=== PATIENT | female | born 1995 | race Caucasian/White ===

== ENCOUNTER → 2017-11-18 11:56 | Outpatient (CLI) | payer OTHER, BC, SELFPAY ==
--- NOTE | 2017-11-18 11:56 | DT_ITS ---
This patient was seen during an EMR downtime November 17, 2017 - November 24, 2017. This patient may have a combination of paper and electronic documentation or all paper documentation. All documentation is viewable within the e-chart portion of [employer] for each patient visit.
[2017-11-22 09:17] LABS: Chlamydia Trachomatis by PCR Negative (Negative); Neisserai gonorrhoeae by PCR Negative (Negative); Probe Check PASS; Sample Adequacy Control PASS; Specimen Processing Control PASS
[2017-11-24 21:40] LABS: Hematocrit 40.2 % (37-47); Hemoglobin 13.1 g/dl (12.0-15.0); Red Blood Count 4.89 M/mm3 (4.2-5.4); White Blood Count 8.4 K/mm3 (4.4-11.0)
[2017-11-24 21:41] LABS: Mean Corpuscular Hgb 26.8 pg (27.0-32.0); Mean Corpuscular Volume 82.2 fL (81-99)
[2017-11-24 21:42] LABS: Absolute Neutrophil Count 6.1 X10^3/uL (2.0-7.7); Basophil% 0.2 % (0-1); Eosinophils% 0.1 % (0-5); Lymphocyte # 1.71 X10^3/ul (4.0); Lymphocyte % 20.4 % (19-41); Mean Corp Hgb Conc 32.6 g/gl (32-36); Mean Platelet Vol. 9.8 fl (6.2-12.0); Neutrophil # 6.13 X10^3/uL (2.7-7.7); Neutrophil % 73.2 % (47-70); POSITIVE COUNT NO; POSITIVE DIFFERENTIAL NO; POSITIVE MORPHOLOGY NO; Platelet Count 298 K/mm3 (150-450); RBC Distribution Width CV 13.4 % (11.6-14.6); RBC Distribution Width SD 39.8 fl (35.1-43.9)
[2017-11-24 21:43] LABS: Absolute Lymphocyte Count 1.71 X10^3/ul (0.83-4.51); Basophil# 0.02 X10^3/uL; Eosinophil# 0.01 X10^3/uL
[2017-11-28 03:46] LABS: Rapid Plasmin Reagin (RPR) NONREACTIVE (NONREACTIVE)
== END ==
PROVIDERS: Family Provider Family Medicine; PCP Family Medicine; Visit Provider Obstetrics & Gynecology
DX: Z34.01 Encounter for supervision of normal first pregnancy, first trimester (principal)
CPT/HCPCS: 36415; 85025; 86592; 86703; 86762; 86850; 86900; 87086; 87491; 87591

== ENCOUNTER → 2017-12-15 16:27 | Outpatient (CLI) | payer OTHER, BC, SELFPAY ==
[2017-12-15 19:01] LABS: HIV - WCH Non-Reactive (Nonreactive); Rubella IgG 40.8 IU/mL
== END ==
PROVIDERS: Family Provider Family Medicine; PCP Family Medicine; Visit Provider Obstetrics & Gynecology
DX: Z34.90 Encounter for supervision of normal pregnancy, unspecified, unspecified trimester (principal)
CPT/HCPCS: 36415; 86703; 86762

== ENCOUNTER → 2018-02-05 12:12 | Outpatient (CLI) | payer OTHER, BC, SELFPAY | PROVIDERS: Family Provider Family Medicine; PCP Family Medicine; Visit Provider Obstetrics & Gynecology | DX: O32.1XX0 Maternal care for breech presentation, not applicable or unspecified (principal); Z3A.20 20 weeks gestation of pregnancy | CPT/HCPCS: 76805 ==

== ENCOUNTER → 2018-02-09 15:27 | Outpatient (CLI) | payer OTHER, BC, SELFPAY | PROVIDERS: Family Provider Family Medicine; PCP Family Medicine; Visit Provider Obstetrics & Gynecology | DX: Z36.9 Encounter for antenatal screening, unspecified (principal) | CPT/HCPCS: 36415 ==

== ENCOUNTER → 2018-04-03 12:29 | Outpatient (CLI) | payer OTHER, SELFPAY ==
[2018-04-03 13:36] LABS: Absolute Lymphocyte Count 1.22 X10^3/ul (0.83-4.51); Basophil# 0.02 X10^3/uL; Basophil% 0.2 % (0-1); Eosinophil# 0.02 X10^3/uL; Eosinophils% 0.2 % (0-5); Hematocrit 32.1 % (37-47); Hemoglobin 10.2 g/dl (12.0-15.0); Lymphocyte # 1.22 X10^3/ul (4.0); Lymphocyte % 13.8 % (19-41); Mean Corp Hgb Conc 31.8 g/gl (32-36); Mean Corpuscular Hgb 26.6 pg (27.0-32.0); Mean Corpuscular Volume 83.8 fL (81-99); Mean Platelet Vol. 9.1 fl (6.2-12.0); Monocyte# 0.55 X10^3/uL; Monocyte% 6.2 % (0-10); Neutrophil % 79.4 % (47-70); Platelet Count 233 K/mm3 (150-450); RBC Distribution Width CV 13.5 % (11.6-14.6); RBC Distribution Width SD 41.2 fl (35.1-43.9); Red Blood Count 3.83 M/mm3 (4.2-5.4); White Blood Count 8.8 K/mm3 (4.4-11.0)
[2018-04-03 13:37] LABS: POSITIVE COUNT NO; POSITIVE DIFFERENTIAL NO; POSITIVE MORPHOLOGY NO
[2018-04-03 13:51] LABS: Glucose Challenge Gest 1H 50g 87 mg/dL (70-140)
== END ==
PROVIDERS: Family Provider Family Medicine; PCP Family Medicine; Referring Provider Obstetrics & Gynecology; Visit Provider Obstetrics & Gynecology
DX: Z34.90 Encounter for supervision of normal pregnancy, unspecified, unspecified trimester (principal)
CPT/HCPCS: 36415; 82950; 85025

== ENCOUNTER → 2018-06-02 18:54 | Outpatient (CLI) | payer OTHER, SELFPAY ==
[2018-06-02 14:07] VITALS: BMI 25.2
--- OUTSIDE RECORDS SUMMARY | 2018-09-04 06:15 | XMS RPT_ITS ---
:1995 Author Organization [place] Support Name Relationship Address Phone POLA, AURORA Unavailable [address] + [address] Unavailable [address] + [place] [address] ELVIRA BRADLEYVY Unavailable [address] + [place] [address] POLA, AURORA Unavailable [address] + [address] Unavailable [address] + [place] [address] WORKELVIRA MURILLOVY Unavailable [address] + [place] [address] POLA, AURORA Unavailable [address] + [address] Unavailable [address] + [place] [address] WORKELVIRA MURILLOVY Unavailable [address] + [place] [id number] POLA, AURORA Unavailable [address] + [address] Unavailable [address] + [place] [address] WORKELVIRA MURILLOVY Unavailable [address] + [place] [address] POLA, AURORA Unavailable [address] + [place] [id number] [facility] Unavailable [address] + [place] [address] WORKELVIRA MURILLOVY Unavailable [address] + [place] [id number] POLA, AURORA Unavailable [address] + [place] [address] [facility] Unavailable [address] + [place] [address] WORKMAN DELVY Unavailable [address] + [place] [address] POLA, AURORA Unavailable [address] + [place] [address] [facility] Unavailable [address] + [place] [address] WORKMAN DELVY Unavailable [address] + [place] [address] POLA, AURORA Unavailable [address] + [place] [address] [facility] Unavailable [address] + [place] [address] WORKMAN DELVY Unavailable [address] + [place] [address] POLA, AURORA Unavailable [address] + [place] [address] [facility] Unavailable [address] + [place] [address] WORKMAN, DELVY Unavailable [address] + [place] [address] POLA, AURORA Unavailable [address] + [place] [address] [facility] Unavailable [address] + [place] [address] WORKMAN DELVY Unavailable [address] + [place] [address] POLA, AURORA Unavailable [address] + [place] [address] [facility] Unavailable [address] + [place] [address] WORKMAN DELVY Unavailable [address] + [place] [address] POLA, AURORA Unavailable [address] + [place] [address] [facility] Unavailable [address] + [place] [address] WORKMAN, DELVY Unavailable [address] + [place] [address] POLA, AURORA Unavailable [address] + [place] [address] [facility] Unavailable [address] + [place] [address] WORKMAN DELVY Unavailable [address] + [place] [address] POLA, AURORA Unavailable [address] + [place] [address] [address] Unavailable [address] + [place] [address] WORKCHIDI DELVY Unavailable [address] + [place] [address] POLA, AURORA Unavailable [address] + [place] [address] [facility] Unavailable [address] + [place] [address] WORKMAN DELVY Unavailable [address] + [place] [address] POLA, AURORA Unavailable [address] + [place] [address] H Unavailable [address] + [place] [address] WORKMAN DELVY Unavailable [address] + [place] [address] POLA, AURORA Unavailable [address] + [place] [address] [facility] Unavailable [address] + [place] [address] WORKMAN DELVY Unavailable [address] + [place] [address] POLA, AURORA Unavailable [address] + [place] [address] H Unavailable [address] + [place] [address] WORKMAN DELVY Unavailable [address] + [place] [address] POLA, AURORA Unavailable [address] + [place] [address] [facility] Unavailable [address] + [place] [address] WORKMANELVIRAVY Unavailable [address] + [place], [place] [address] POLA, AURORA Unavailable [address] + [address] Unavailable [address] + [place] [address] WORKMAN DELVY Unavailable [address] + [facility] POLA, AURORA Unavailable [address] + [place], [address] Unavailable [address] + [place] [address] WORKCHIDI DELVY Unavailable [address] + [place], [facility] POLA, AURORA Unavailable [address] + [address] Unavailable [address] + [place] [address] WORKCHIDI DELVY Unavailable [address] + [place], [facility] POLA, AURORA Unavailable [address] + [address] Unavailable [address] + [place] [address] WORKCHIDI DELVY Unavailable [address] + [place], [facility] POLA, AURORA Unavailable [address] + [address] Unavailable [address] + [place] [address] WORKMAN DELVY Unavailable [address] + [place], [facility] POLA, AURORA Unavailable [address] + [address] Unavailable [address] + [place] [address] WORKMAN DELVY Unavailable [address] + [place] [id number] POLA, AURORA Unavailable [address] + [address] Unavailable [address] + [place] [address] ELVIRA BRADLEYVY Unavailable [address] + [place] [id number] POLA, AURORA Unavailable [address] + [address] Unavailable [address] + [place] [address] CECILIA BRADLEYY Unavailable [address] + [place] [address] POLA, AURORA Unavailable [address] + [address] Unavailable [address] + [place] [address] ELVIRA BRADLEYVY Unavailable [address] + [place] [address] POLA, AURORA Unavailable [address] + [address] Unavailable [address] + [place] [address] POLA, AURORA Unavailable [address] + [address] Unavailable [address] + [place] [address] POLA, AURORA Unavailable [address] + [address] Unavailable [address] + [place] [address] CECILIA BRADLEYY Unavailable [address] + [place] [id number] Care Team Providers Name Role Phone Leah Benavides Attending Unavailable WILFREDO, RATNA Primary Care Unavailable Leah Benavides Referring Unavailable Leah Benavides Attending Unavailable Leah Benavides Referring Unavailable WILFREDO, RATNA Primary Care Unavailable Leah Benavides Admitting Unavailable Leah Benavides Attending Unavailable Leah Benavides Referring Unavailable WILFREDO, RATNA Primary Care Unavailable Leah Benavides Consulting Unavailable Marcanthony, Leah Attending Unavailable WILFREDO, RATNA Referring Unavailable Marcanthony, Leah Admitting Unavailable Marcanthony, Leah Attending Unavailable Marcanthony, Leah Referring Unavailable WILFREDO, RATNA Primary Care Unavailable Marcanthony, Leah Attending Unavailable WILFREDO, RATNA Referring Unavailable WILFREDO, RATNA Attending Unavailable Marcanthony, Leah Attending Unavailable WILFREDO, RATNA Referring Unavailable Marcanthony, Leah Attending Unavailable Marcanthony, Leah Referring Unavailable WILFREDO, RATNA Primary Care Unavailable Asim, Mamadou Attending Unavailable WILFREDO, RATNA Referring Unavailable WILFREDO, RATNA Primary Care Unavailable Asim, Mamadou Attending Unavailable WILFREDO, RATNA Referring Unavailable Marcanthony, Leah Attending Unavailable WILFREDO, RATNA Referring Unavailable Marcanthony, Leah Attending Unavailable Marcanthony, Leah Referring Unavailable WILFREDO, RATNA Primary Care Unavailable Marcanthony, Leah Consulting Unavailable Marcanthony, Leah Attending Unavailable Marcanthony, Leah Referring Unavailable WILFREDO, RATNA Primary Care Unavailable Marcanthony, Leah Attending Unavailable WILFREDO, RATNA Referring Unavailable Marcanthony, Leah Attending Unavailable WILFREDO, RATNA Referring Unavailable Marcanthony, Leah Attending Unavailable WILFREDO, RATNA Referring Unavailable Lucia, Vani Attending Unavailable WILFREDO, RATNA Referring Unavailable Lucia, Vani Attending Unavailable WILFREDO, RATNA Referring Unavailable Marcanthony, Leah Attending Unavailable Marcanthony, Leah Referring Unavailable WILFREDO, RATNA Primary Care Unavailable Marcanthony, Leah Attending Unavailable WILFREDO, RATNA Referring Unavailable [place], Vani Attending Unavailable WILFREDO, RATNA Referring Unavailable Marcanthony, Leah Attending Unavailable WILFREDO, RATNA Primary Care Unavailable Marcanthony, Leah Attending Unavailable WILFREDO, RATNA Referring Unavailable WILFREDO, RATNA Primary Care Unavailable Marcanthony, Leah Attending Unavailable Marcanthony, Leah Referring Unavailable WILFREDO, RATNA Primary Care Unavailable Lucia, Vani Attending Unavailable WILFREDO, RATNA Referring Unavailable WILFREDO, RATNA Primary Care Unavailable Marcanthony, Leah Attending Unavailable WILFREDO, RATNA Referring Unavailable WILFREDO, RATNA Primary Care Unavailable Marcanthony, Leah Admitting Unavailable Lucia, Vani Attending Unavailable Marcanthony, Leah Referring Unavailable WILFREDO, RATNA Primary Care Unavailable Marcanthony, Leah Consulting Unavailable Marcanthony, Leah Admitting Unavailable Gales FerryVani randhawa Attending Unavailable Marcanthony, Leah Referring Unavailable WILFREDO, RATNA Primary Care Unavailable Marcanthony, Leah Consulting Unavailable Marcanthony, Leah Attending Unavailable WILFREDO, RATNA Referring Unavailable ASSESSMENT, HEALTH RISK Attending Unavailable ASSESSMENT, HEALTH RISK Referring Unavailable WILFREDO, RATNA Primary Care Unavailable Mack, Jessica Attending Unavailable Wilfredo, Ratna Primary Care Unavailable Mack, Jessica Attending Unavailable Wilfredo, Ratna Primary Care Unavailable Mack, Jessica Admitting Unavailable Newbill, Maco Surya Admitting Unavailable Newbill, Maco Surya Attending Unavailable Wilfredo, Ratna Primary Care Unavailable PROBLEMS PROBLEMS DATE TYPE CONDITION / CODE ATTENDING STATUS SOURCE 07/01/2018 Unknown Z34.03 - Encounter Makayla, Active [place] for supervision of [facility] first Hospital , third Repository trimester / Z34.03(ICD-10) 07/01/2018 Unknown Z3A.40 - 40 weeks Marcanthony, Active [place] gestation of [facility] / Hospital Z3A.40(ICD-10) Repository 06/17/2018 Unknown Z3A.38 - 38 weeks Marcanthony, Active [place] gestation of [facility] / Hospital Z3A.38(ICD-10) Repository 06/11/2018 Unknown Z3A.36 - 36 weeks Marcanthony, Active [place] gestation of [facility] / Hospital Z3A.36(ICD-10) Repository 06/03/2018 Unknown Z34.90 - Encounter Makayla, Active [place] for supervision of [facility] , Hospital unspecified, Repository unspecified trimester / Z34.90(ICD-10) 05/06/2018 Unknown Z3A.32 - 32 weeks Marcanthony, Active [place] gestation of [facility] / Hospital Z3A.32(ICD-10) Repository 04/20/2018 Unknown Z34.02 - Encounter Vani Myers Active [place] for supervision of [facility] normal first Hospital , second Repository trimester / Z34.02(ICD-10) 04/20/2018 Unknown Z3A.30 - 30 weeks Vani Myers Active [place] gestation of [facility] / Hospital Z3A.30(ICD-10) Repository 04/03/2018 Unknown Z23 - Encounter Makayla, Active [place] for immunization / [facility] Z23(ICD-10) Hospital Repository 04/03/2018 Unknown Z3A.27 - 27 weeks Makayla, Active [place] gestation of [facility] / Hospital Z3A.27(ICD-10) Repository 03/10/2018 Unknown Z3A.24 - 24 weeks Vani Myers Active [place] gestation of [facility] / Hospital Z3A.24(ICD-10) Repository 03/06/2018 Unknown Z36.9 - Encounter [facility], Active [place] for [facility] Hospital unspecified / Repository Z36.9(ICD-10) 02/09/2018 Unknown Z3A.20 - 20 weeks Makayla, Active [place] gestation of [facility] / Hospital Z3A.20(ICD-10) Repository 01/12/2018 Unknown Z3A.16 - 16 weeks Vani Myers Active [place] gestation of [facility] / Hospital Z3A.16(ICD-10) Repository 02/06/2018 Unknown Z34.01 - Encounter [facility], Active [place] for supervision of [facility] , first Repository trimester / Z34.01(ICD-10) PROCEDURES PROCEDURES No Procedure Records FoundRESULTS RESULTS DISCHARGE INSTRUCTION Observed: 07/08/2018 Status: F Source: [place] 8:09 AM [facility] [place] REPOSITORY [facility] Medical Records Department [address] [place] [address] Instructions for Home/Discharge Instructions 07/08/18 0809 MR#: [id number] Acct: [id number] Name: JUSTIN OTT Rep #: [id number] : 1995 22 From: Vani Myers [employer] PCP: Ratna Villalobos MD Status: ADM IN Additional Instructions: If you experience any of the following, contact your healthcare provider. * Bleeding that soaks a pad every hour for 2 hours * Fever 100.4 or higher * Unrelieved incision or abdominal pain * Swelling, redness, discharge or bleeding from your incision or episiotomy site * Your incision begins to separate * Problems urinating (including inability to urinate or burning while urinating). * Visual changes * Severe headache * Flu-like symptoms * Pain or redness in one of both of your breasts * Pain, warmth, tenderness or swelling in your legs, especially the calf area * Frequent nausea and vomiting * Symptoms of depression or anxiety If you experience any of the following, call 911 or go to the nearest Emergency Room. * Chest pain * Problems breathing * Seizure activity * Partial or complete paralysis of a body part, slurred speech, weakness or drooping of the face, or a sudden inability to walk or hold your balance Allergies/Adverse Reactions: Allergies No Known Allergies Allergy (Verified 07/01/18 11:37) Medications to take at Discharge vitamin#30 30 mg iron-10 mg iron-folic acid 1 mg- omg3 capsule cap PO cap 06/17/18 Naproxen [Naprosyn] 500 mg PO BID PRN PRN #60 tablet 07/08/18 The following prescriptions were given: Naproxen [Naprosyn] 500 mg PO BID PRN PRN #60 tablet PRN Reason: Pain Primary Care Physician: Ratna Villalobos MD [Primary Care Provider] - Test Results: Test results from this visit will be discussed in further detail at your follow-up appointment, if applicable. 07/08/18 0809 <Electronically signed by Vani GERMAN> Date Vani GERMAN CC: Ratna Villalobos MD Signed OPERATIVE REPORT Observed: 07/07/2018 Status: F Source: [place] 7:26 PM [facility] [place] REPOSITORY [facility] Medical Records Department [address] [place] [id number] Operative Report 07/07/181921 MR#: [id number] Acct: [id number] Name: JUSTIN OTT Rep #: [id number] : 1995 From: Leah Benavdies MD PCP: Ratna Villalobos MD Status: ADM IN Location: [id number] - Problem List (1) Status: Acute Qualifiers: Comment: genetic screening declined. AFP -negative. anatomy scan reviewed. (2) Supervision of normal Status: Acute Qualifiers: Comment: PRR KATH 06/29/18 boy Mehul boyfriend Delvy Vaginal Delivery Maternal Presentation: Medically Indicated Induction Method of Induction: Pitocin, [facility] Medical Reason for Induction: Post term Amniotic Membrane Rupture Type: Artificial Amniotic Fluid Description: Clear Final KATH: 06/29/18 Gestational age: 41 Weeks and 0 Days Date of Procedure: 07/06/18 Pre-Operative Diagnosis: ial Post-Operative Diagnosis: same Surgery/ Procedure Performed: Spontaneous Vaginal Delivery Type of Anesthesia: Epidural Description of Procedure: Patient began pushing and delivered the head in the direct OP presentation. The head was delivered atraumatically. The anterior and posterior shoulders delivered without complication followed by the rest of the infant and the was placed on the maternal abdomen. Delayed cord clamping was employed for approximately 60 seconds. Cord was clamped and cut and gentle traction was applied to the cord and the placenta delivered spontaneously immediately following it was noted to be intact with three-vessel cord. The perineum and vagina were inspected and noted to have 1/4 degree perineal laceration. The perineal body was noted to be extremely shortened and the vaginal to have rectal distance decreased. The rectal mucosa was reapproximated with 3-0 Vicryl repeat and an additional layer of 3-0 Rapide over the mucosa supporting it. The anal sphincter and capsule were reapproximated with 2-0 PDS [id number] sutures x3. The remainder of the laceration was repaired in the usual fashion with 3-0 Vicryl repeat. The bulbocavernosus muscles noted to be significantly atrophic and lateral in the perineal body was naturally small.. EBL was 400 cc. Patient and infant tolerated delivery well. Presentation: ROP Placental Delivery Description: Spontaneous Placenta Disposition: [facility] Cord Vessel Description: 3 Vessels Cord Entanglement: None Estimated Blood Loss: 400 A gender: Male Episiotomy Description: None Laceration: Perineal Extension/lac, 4th Degree Medications given after delivery: IV Pitocin Complications: - - 4th degree laceration 07/07/181925 <Electronically signed by Leah Benavides MD> Date Leah Benavides MD CC: Ratna Villalobos MD; Leah Benavides MD Signed HISTORY AND PHYSICAL Observed: 07/05/2018 Status: F Source: [place] EXAM 8:43 PM [facility] [place] REPOSITORY [facility] Medical Records Department [address] [place] [address] History and Physical 07/05/182039 MR#: [id number] Acct: [id number] Name: JUSTIN OTT Rep #: [id number] : 1995 22 From: Leah Benavides MD PCP: Ratna Villalobos MD Status: ADM IN Y Location: [id number] - Problem List (1) Status: Acute Qualifiers: Comment: genetic screening declined. AFP -negative. anatomy scan reviewed. (2) Supervision of normal Status: Acute Qualifiers: Comment: PRR KATH 06/29/18 boy Mehul boyfriend Aneudy History Date of Admission: 07/05/18 Final KATH: 06/29/18 Gestational age: 40 Weeks and 6 Days History of this : This is a 22 year-old, at 40 weeks gestational age presents IOL postdates Surgical History: Surgical History (Last Reviewed 07/01/18 @ 11:37 by Sindhu Miller) History of arthroscopy of right shoulder Z98.890 05/06/17 Allergies No Known Allergies Allergy (Verified 07/01/18 11:37) Home Medications: Home Medications vitamin#30 30 mg iron-10 mg iron-folic acid 1 mg- omg3 capsule cap PO cap 06/17/18 Smoking Status: Former smoker Alcohol: None Number of Fetus(es): 1 Heart Tracins moderate variability reactive no decelerations category I tracing\ Watersmeet: regular History Past Pregnancies: Past Pregnancies Delivery Name GA/Weeks Outcome Route WeiInfant GeLabor LenAnesthesiDelivery Provider FOB Date ght nder [facility] a Location Labs: Mom's Labs AND Results WBC 14.0 H RBC 4.08 L Hgb 9.7 L Course Did the patient receive Yes care? Labs Blood Type: B Current Obstetrical History Gestational Diabetes No Incompetent Cervix No Infertility No IUGR No Macrosomia No Hypertension/Pre-eclampsia No Placenta Previa/Abruption No PTL/PROM No Uterine anomaly No Oligohydramnios No Polyhydramnios No Multiple gestation No Past Medical History Asthma No Diabetes No Hypertension No Heart disease No Mitral valve prolapse No Neurologic/Seizure disorder/ No Migraines Kidney disease No Liver disease No Varicosities No Clotting disorders/Hx of DVT No Thyroid Dysfunction No Other medical diseases No Psychiatric disorders No Major trauma No Abnormal PAP smear No Sleep apnea No Mammogram in the last 2 years No Social History Marital Status: SINGLE Hx Smoking No Smoking Status Former smoker Expected Infant Delivery Method: Spontaneous Vaginal Review of Systems Constitutional: Denies: Fever, Malaise Eyes: Denies: Blurred vision, Vision Change HEENT: Denies: Head Aches, Visual Changes Cardiovascular: Denies: Chest Pain, Palpitations Respiratory: Denies: Cough, Shortness of Breath, Wheezing Gastrointestinal: Denies: Abdominal Pain, Diarrhea, Nausea, Vomiting Genitourinary: Denies: Dysuria, Hematuria Musculoskeletal: Denies: Joint Pain, Muscle pain Skin: Denies: Lesions, Rash Neurological: Denies: Blurred vision, Focal weakness, Headaches Psychiatric: Denies: Anxiety, Depression Endocrine: Denies: Heat/ Cold Intolerance Hematologic/ Lymphatic: Denies: Easy Bruising, Easy Bleeding Physical Exam General: Alert, Cooperative, No apparent distress HEENT: Atraumatic, Normocephalic. Negative for: Thyromegaly, Lymphadenopathy Cardiovascular: Regular rate Lungs: Normal air movement Abdomen: Soft, Non Tender, Gravid Neurological: Deep Tendon Reflexes 2+/4 and Symmetrical, Neuro grossly intact. Negative for: Clonus SENIOR UI DESIGNER: Normal external genitalia. Negative for: Vulvar lesions Estimated gestational size: Appropriate for gestational size Presentation: Cephalic Assessment/Plan All Active Problems (Last Reviewed 07/01/18 @ 11:37 by Sindhu Miller) (Acute) Supervision of normal (Acute) Elevated blood pressure affecting in third trimester, antepartum (Resolved) Other subluxation of right shoulder joint, initial encounter (Resolved) Other subluxation of right shoulder joint, subsequent encounter (Resolved) Superior glenoid labrum lesion of right shoulder, initial encounter (Resolved) Superior glenoid labrum lesion of right shoulder, subsequent encounter (Resolved) Surgical aftercare, musculoskeletal system (Resolved) This is a 22 year-old, at 40 weeks gestational age IOL postdates Patient presents IOL, plan expectant management for , FB and pitocin, AROM PRN if needed. Pain management: plans epidural. GBS negative Management of any complications: none I have reviewed the [facility] and made any clinically relevant updates. 07/05/182042 <Electronically signed by Leah Benavides MD> Date Leah Benavides MD [facility] Signature: Date (if applicable) CC: Ratna Villalobos MD; Leah Benavides MD Signed CBC-COMPLETE BLOOD CNT Collected: 07/05/2018 Status: F Source: [place] NO DIFF 7:20 PM [facility] [place] REPOSITORY TYPE CODE TESTS RESULT OUT OF RANGE REFERENCE UNITS LAB L100.1000 4.4-11.0 K/mm3 High WBC 14.0 LAB L100.1200 4.2-5.4 M/mm3 Low RBC 4.08 LAB L100.1300 12.0-15.0 g/dl Low HGB 9.7 LAB L100.1400 37-47 % Low HCT 31.0 LAB L100.1500 81-99 fL Low MCV 76.0 LAB L100.1600 27.0-32.0 pg Low MCH 23.8 LAB L100.1700 32-36 g/gl Low MCHC 31.3 LAB L100.1810 11.6-14.6 % High RDW CV 15.5 LAB L100.1820 35.1-43.9 fl Normal RDW SD 42.0 LAB L100.1900 150-450 K/mm3 Normal PLT 326 LAB L100.2000 6.2-12.0 fl Normal MPV 9.9 Performed By: #### L100.0500 #### [facility] [address] [place], [place], [id number] TYPE AND SCREEN Collected: 07/05/2018 Status: F Source: [place] 7:20 PM [facility] [place] REPOSITORY Order Comment: Reason for Type AND Screen/Red Cells: ROUTINE TYPE CODE TESTS RESULT OUT OF RANGE REFERENCE UNITS LAB B10.0800 B Normal BLOOD TYPE GEL POSITIVE LAB B100.4000 Normal Antibody NEGATIVE Screen Performed By: #### B101.7450 #### [facility] [address] [place], [address] [employer] WORK[employer] OFFICE VISIT Observed: 07/01/2018 Status: F Source: [place] REPORT 11:58 AM [facility] [place] REPOSITORY [facility] [address] [place] [address] OFFICE VISIT Date of Service: 07/01/18 MR#: [id number] Acct: [id number] Name: JUSTIN OTT Rep #: [id number] : 1995 Provider: Leah Benavides MD Age/Sex: 22/F [place] [facility] [place]: Signed Intake Vital Signs07/01/18 Height 5 ft 7 in 07/01/18 Weight: 170 lb 07/01/18 Body Mass Index (BMI) 26.6 07/01/18 Blood Pressure 130/80 H 07/01/18 Body Mass Index (BMI) 25.7 Intake Visit Reasons: 40 WEEK OB Chief Complaint: est ob Supervisor Heat Treating Required: No Is patient in pain?: No Allergies No Known Allergies Allergy (Verified 07/01/18 11:37) Medications vitamin#30 30 mg iron-10 mg iron-folic acid 1 mg- omg3 capsule cap PO cap 06/17/18 [History Confirmed 07/01/18] Last Menstral Period: 09/22/17 Zika: Zika virus screening: Negative : No PFSH PFSH Surgical History History of arthroscopy of right shoulder (Acute) Family History Grandmother Diabetes Social History Smoking Status: Former smoker how long ago did patient quit smokin years alcohol intake: never substance use type: does not use caffeine: Yes what type of physical activity do you participate in: none seatbelt use: always do you feel safe at home: Yes additional social history: [employer] Patient works in [employer] at [facility] [employer] Pregancy History 1 Elective abortions Hx Para Spontaneous abortions HPI 40 WEEK OB: Details: JUSTIN OTT is a 22 year old who presents for routine OB visit. OB Visit KATH Calculator Estimated Delivery Date 06/29/18 Based on LMP (certain) 09/22/17 Current WG 40w 2d Number 1 Expected Delivery Route/Plan Specific Issue/Plans flu vaccine: given minichart given: given tdap vaccine: given rhogam NA LARC form signed: declines labor support person: Aneudy pain management: epidural cut cord/dad catch: yes : no PP control planned: OCP special requests: [] Initial Weight: 131 lb Date Weight BP Urine PrFHR FuHt Pres MoCTX DilationFetal StVisit NoProviderComments E ot v te GA G Effac lucose ed Visit Notes Visit Date: 07/01/18 no vb lof good fm no regular ctx plan IOL 41 weeks Leah Benavides MD on 07/01/18 Visit Date: 06/24/18 no vb lof good fm n oregular ctx has uri on z pack Leah Benavides MD on 06/24/18 Visit Date: 06/17/18 no vb lof good fm no regular ctx Leah Benavides MD on 06/17/18 Visit Date: 06/11/18 no vb lof good fm no regular ctx Leah Benavides MD on 06/11/18 Visit Date: 06/02/18 no vb lof good fm no regular ctx gbs done Leah Benavides MD on 06/06/18 Visit Date: 05/19/18 no vb lof good fm n oregular ctx Leha Benavides MD on 05/19/18 Visit Date: 05/06/18 no vb lof good fm no regular ctx Leah Benavides MD on 05/06/18 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 No fever. MICHAEL RiberaC on 04/24/18 Visit Date: 04/20/18 Doing well. No VB, LOF. Good FM MICHAEL RiberaC on 04/20/18 Visit Date: 04/03/18 no vb cramping. cbc gct Leah Benavides MD on 04/03/18 Visit Date: 03/10/18 Doing well. No VB, LOF. MONSERRAT Ribera on 03/10/18 Visit Date: 02/09/18 no vb lof nausea controlled, stil ltired normal anatomy scan Leah Benavides MD on 02/09/18 Visit Date: 01/12/18 Doing well. Still taking phenergan prn. No VB, LOF. MONSERRAT Ribera on 01/12/18 Visit Date: 12/15/17 co persistent vomiting keeping liquids down, ordered phenergan Leah Benavides MD on 12/15/17 Visit Date: 11/18/17 No visit notes to display ACOG First Trimester First Trimester: Desire for , Alcohol, Tobacco Cessation, Illicit/Recreational Drug/Substance Use, Intimate Partner Violence, Barriers to care, Unstable Housing, Communication Barriers, Environmental/Work Hazards, Anticipated Course of Care, Nurtrition and weight gain, Toxoplasmosis Precations, Use of Any medications, Sexual activity, Exercise, Dental Care, Sauna/Hot tub use, Seat Belt use, Childbirth classes/Hospital facilities, , Travel, Indications for US and Screening for Aneuploidy Diagnostics Diagnostics Labs Hct 31.7 % (37-47) L 06/05/18 Hgb 9.9 g/dl (12.0-15.0) L 06/05/18 Glucose 1 Hr 50 gm 87 mg/dL (70-140) 04/03/18 Group B Strep DNA Cancelled 06/02/18 Details: HIV: Urine Culture: Sequential Screen: NIPT Screen: Results [id number] Office Urine Glucose Negative Last Edit by Sindhu Miller on 07/01/18 11:43 Office Urine Protein Negative Last Edit by Sindhu Miller on 07/01/18 11:43 Assessment AND Plan Problems 1. 40 weeks gestation of Z3A.40 genetic screening declined. AFP -negative. anatomy scan reviewed. 2. Encounter for supervision of normal first in third trimester Z34.03 PRR KATH 06/29/18 boy Mehul boyfriend Aneudy Plan movement and labor precautions reviewed. ACOG trimester education reviewed and updated. see problem list details for updated plan management information and see below for orders placed at this visit. [place] appropriate handout given. Orders Orders: Coding Level of Care Code OB Routine Diagnoses 40 weeks gestation of Z3A.40 Weeks of gestation: 40 weeks Encounter for supervision of normal first in third trimester Z34.03 Normal : normal first Trimester: third trimester 07/01/18 1158 <Electronically signed by Leah Benavides MD> Date Leah Benavides MD Cosigner Signature: Date (if applicable) CC: BINGO WORKER OFFICE VISIT Observed: 06/24/2018 Status: F Source: [place] REPORT 12:35 PM [facility] [place] REPOSIT[facility] 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 ob Supervisor Heat Treating Required: No Is patient in pain?: No Allergies No Known Allergies Allergy (Verified 06/24/18 11:54) Medications vitamin#30 30 mg iron-10 mg iron-folic acid 1 mg- omg3 capsule cap PO cap 06/17/18 [History Confirmed 06/24/18] Last Menstral Period: 09/22/17 Zika: Zika virus screening: Negative : No PFSH PFSH Surgical History History of arthroscopy of right shoulder (Acute) Family History Grandmother Diabetes Social History Smoking Status: Former smoker how long ago did patient quit smokin years alcohol intake: never substance use type: does not use caffeine: Yes what type of physical activity do you participate in: none seatbelt use: always do you feel safe at home: Yes additional social history: [employer] Patient works in [employer] at [employer] Pregancy History 1 Elective abortions Hx Para Spontaneous abortions HPI 39 WEEK OB: Details: JUSTIN OTT is a 22 year old who presents for routine OB visit. OB Visit KATH Calculator Estimated Delivery Date 06/29/18 Based on LMP (certain) 09/22/17 Current WG 39w 2d Number 1 Expected Delivery Route/Plan Specific Issue/Plans flu vaccine: given minichart given: given tdap vaccine: given rhogam NA LARC form signed: amy labor support person: Aneudy pain management: epidural cut cord/dad catch: yes : no PP control planned: OCP special requests: [] Initial Weight: 131 lb Date Weight BP Urine PrFHR FuHt Pres MoCTX DilationFetal StVisit NoProviderComments E ot v te GA G Effac lucose ed Visit Notes Visit Date: 06/24/18 no vb lof good fm n oregular ctx has uri on z pack Leah Benavides MD on 06/24/18 Visit Date: 06/17/18 no vb lof good fm no regular ctx Leah Benavides MD on 06/17/18 Visit Date: 06/11/18 no vb lof good fm no regular ctx Leah Benavides MD on 06/11/18 Visit Date: 06/02/18 no vb lof good fm no regular ctx gbs done Leah Benavides MD on 06/06/18 Visit Date: 05/19/18 no vb lof good fm n oregular ctx Leah Benavides MD on 05/19/18 Visit Date: 05/06/18 no vb lof good fm no regular ctx Leah Benavides MD on 05/06/18 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 No fever. MONSERRAT Ribera on 04/24/18 Visit Date: 04/20/18 Doing well. No VB, LOF. Good FM MONSERRAT Ribera on 04/20/18 Visit Date: 04/03/18 no vb cramping. cbc gct Leah Benavides MD on 04/03/18 Visit Date: 03/10/18 Doing well. No VB, LOF. MONSERRAT Ribera on 03/10/18 Visit Date: 02/09/18 no vb lof nausea controlled, stil ltired normal anatomy scan Leah Benavides MD on 02/09/18 Visit Date: 01/12/18 Doing well. Still taking phenergan prn. No VB, LOF. MONSERRAT Ribera on 01/12/18 Visit Date: 12/15/17 co persistent vomiting keeping liquids down, ordered phenergan Leah Benavides MD on 12/15/17 Visit Date: 11/18/17 No visit notes to display Diagnostics Diagnostics Labs Hct 31.7 % (37-47) L 06/05/18 Hgb 9.9 g/dl (12.0-15.0) L 06/05/18 Glucose 1 Hr 50 gm 87 mg/dL (70-140) 04/03/18 Group B Strep DNA Cancelled 06/02/18 Details: HIV: Urine Culture: Sequential Screen: NIPT Screen: Results [id number] Office Urine Glucose Negative Last Edit by Sindhu Miller on 06/24/18 11:58 Office Urine Protein Trace Last Edit by Sindhu Miller on 06/24/18 11:58 Assessment AND Plan Problems 1. 39 weeks gestation of Z3A.39 genetic screening declined. AFP -negative. anatomy scan reviewed. 2. Encounter for supervision of normal first in third trimester Z34.03 PRR KATH 06/29/18 boy Mehul boyfriend Aneudy Plan movement and labor precautions reviewed. ACOG trimester education reviewed and updated. see problem list details for updated plan management information and see below for orders placed at this visit. [place] appropriate handout given. Orders Orders: Coding Level of Care Code OB Routine Diagnoses 39 weeks gestation of Z3A.39 Weeks of gestation: 39 weeks Encounter for supervision of normal first in third trimester Z34.03 Normal : normal first Trimester: third trimester 06/24/18 1235 <Electronically signed by Leah Benavides MD> Date Leah Benavides MD Cosigner Signature: Date (if applicable) CC: BINGO WORKER OFFICE VISIT Observed: 06/17/2018 Status: F Source: [place] REPORT 12:33 PM [facility] REPOSITORY [facility] [address] [place] [address] OFFICE VISIT Date of Service: 06/17/18 MR#: [id number] Acct: [id number] Name: JUSTIN OTT Rep #: [id number] : 1995 Provider: Leah Benavides MD Age/Sex: 22/F [place] [facility] [place]: Signed Intake Vital Signs06/17/18 Body Mass Index (BMI) 25.7 06/17/18 Height 5 ft 7 in 06/17/18 Weight: 167 lb 06/17/18 Body Mass Index (BMI) 26.2 06/17/18 Blood Pressure 122/70 H Intake Visit Reasons: 38 WEEK OB Chief Complaint: est ob Supervisor Heat Treating Required: No Is patient in pain?: No Allergies No Known Allergies Allergy (Verified 06/17/18 12:00) Medications vitamin#30 30 mg iron-10 mg iron-folic acid 1 mg- omg3 capsule cap PO cap 06/17/18 [History Confirmed 06/17/18] Last Menstral Period: 09/22/17 Zika: Zika virus screening: Negative : No PFSH PFSH Surgical History History of arthroscopy of right shoulder (Acute) Family History Grandmother Diabetes Social History Smoking Status: Former smoker how long ago did patient quit smokin years alcohol intake: never substance use type: does not use caffeine: Yes what type of physical activity do you participate in: none seatbelt use: always do you feel safe at home: Yes additional social history: Engaged- [employer] Patient works in [employer] at [employer] Pregancy History 1 Elective abortions Hx Para Spontaneous abortions HPI 38 WEEK OB: Details: JUSTIN TOT is a 22 year old who presents for routine OB visit. OB Visit KATH Calculator Estimated Delivery Date 06/29/18 Based on LMP (certain) 09/22/17 Current WG 38w 2d Number 1 Expected Delivery Route/Plan Specific Issue/Plans flu vaccine: given minichart given: given tdap vaccine: given rhogam NA LARC form signed: declines labor support person: Aneudy pain management: epidural cut cord/dad catch: yes : no PP control planned: OCP special requests: [] Initial Weight: 131 lb Date Weight BP Urine PrFHR FuHt Pres MoCTX DilationFetal StVisit NoProviderComments E ot v te [place] G Effac lucose ed Visit Notes Visit Date: 06/17/18 no vb lof good fm no regular ctx Leah Benavides MD on 06/17/18 Visit Date: 06/11/18 no vb lof good fm no regular ctx Leah Benavides MD on 06/11/18 Visit Date: 06/02/18 no vb lof good fm no regular ctx gbs done Leah Benavides MD on 06/06/18 Visit Date: 05/19/18 no vb lof good fm n oregular ctx Leah Benavides MD on 05/19/18 Visit Date: 05/06/18 no vb lof good fm no regular ctx Leah Benavides MD on 05/06/18 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 No fever. MONSERRAT Ribera on 04/24/18 Visit Date: 04/20/18 Doing well. No VB, LOF. Good FM MONSERRAT Ribera on 04/20/18 Visit Date: 04/03/18 no vb cramping. cbc gct Leah Benavides MD on 04/03/18 Visit Date: 03/10/18 Doing well. No VB, LOF. MICHAEL RiberaC on 03/10/18 Visit Date: 02/09/18 no vb lof nausea controlled, stil ltired normal anatomy scan Leah Benavides MD on 02/09/18 Visit Date: 01/12/18 Doing well. Still taking phenergan prn. No VB, LOF. MICHAEL RiberaC on 01/12/18 Visit Date: 12/15/17 co persistent vomiting keeping liquids down, ordered phenergan Leah Benavides MD on 12/15/17 Visit Date: 11/18/17 No visit notes to display Diagnostics Diagnostics Labs Hct 31.7 % (37-47) L 06/05/18 Hgb 9.9 g/dl (12.0-15.0) L 06/05/18 Glucose 1 Hr 50 gm 87 mg/dL (70-140) 04/03/18 Group B Strep DNA Cancelled 06/02/18 Miscellaneous Test 02/09/18 Details: HIV: Urine Culture: Sequential Screen: NIPT Screen: Results [id number] Office Urine Glucose Negative Last Edit by Sindhu Miller on 06/17/18 12:03 Office Urine Protein Negative Last Edit by Sindhu Miller on 06/17/18 12:03 Assessment AND Plan Problems 1. Encounter for supervision of normal first in third trimester Z34.03 PRR KATH 06/29/18 boy Mehul boyfriend Aneudy 2. 38 weeks gestation of Z3A.38 genetic screening declined. AFP -negative. anatomy scan reviewed. Plan ACOG trimester education reviewed and updated. see problem list details for updated plan management information and see below for orders placed at this visit. [place] appropriate handout given. Orders Orders: Coding Level of Care Code OB Routine Diagnoses Encounter for supervision of normal first in third trimester Z34.03 Normal : normal first Trimester: third trimester 38 weeks gestation of Z3A.38 Weeks of gestation: 38 weeks 06/17/18 1233 <Electronically signed by Leah Benavides MD> Date Leah Benavides MD [facility] Signature: Date (if applicable) CC: BINGO WORKER OFFICE VISIT Observed: 06/11/2018 Status: F Source: [place] REPORT 2:45 PM [facility] REPOS[facility] [address] [place] [address] OFFICE VISIT Date of Service: 06/11/18 MR#: [id number] Acct: [id number] Name: JUSTIN OTT Rep #: [id number] : 1995 Provider: Leah Benavides MD Age/Sex: 22/F Location: [facility] [place] Status: Signed Intake Vital Signs06/11/18 Body Mass Index (BMI) 25.7 06/11/18 Height 5 ft 7 in 06/11/18 Blood Pressure 120/78 Intake Visit Reasons: 37 WEEK OB Chief Complaint: Pt states she is having headaches and hot flashes Supervisor Heat Treating Required: No Is patient in pain?: No Allergies No Known Allergies Allergy (Verified 06/11/18 13:57) Medications Multivitamin with Folic Acid [Thera Tablet] 1 ea PO DAILY #30 tab 05/06/17 [Rx Confirmed 06/11/18] Last Menstral Period: 09/22/17 Zika: Zika virus screening: Negative : No PFSH PFSH Surgical History History of arthroscopy of right shoulder (Acute) Family History Grandmother Diabetes Social History Smoking Status: Former smoker how long ago did patient quit smokin years alcohol intake: never substance use type: does not use caffeine: Yes what type of physical activity do you participate in: none seatbelt use: always do you feel safe at home: Yes additional social history: [employer] Patient works in [employer] at [employer] Pregancy History 1 Elective abortions Hx Para Spontaneous abortions HPI 37 WEEK OB: Details: JUSTIN OTT is a 22 year old who presents for routine OB visit. OB Visit KATH Calculator Estimated Delivery Date 06/29/18 Based on LMP (certain) 09/22/17 Current WG 37w 3d Number 1 Expected Delivery Route/Plan Specific Issue/Plans flu vaccine: given minichart given: given tdap vaccine: given rhogam NA LARC form signed: declines labor support person: Aneudy pain management: epidural cut cord/dad catch: yes : no PP control planned: OCP special requests: [] Initial Weight: 131 lb Date Weight BP Urine PrFHR FuHt Pres MoCTX DilationFetal StVisit NoProviderComments E ot v te [place] G Effac lucose ed Visit Notes Visit Date: 06/11/18 no vb lof good fm no regular ctx Leah Benavides MD on 06/11/18 Visit Date: 06/02/18 no vb lof good fm no regular ctx gbs done Leah Benavides MD on 06/06/18 Visit Date: 05/19/18 no vb lof good fm n oregular ctx Leah Benavides MD on 05/19/18 Visit Date: 05/06/18 no vb lof good fm no regular ctx Leah Benavides MD on 05/06/18 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 No fever. MONSERRAT Ribera on 04/24/18 Visit Date: 04/20/18 Doing well. No VB, LOF. Good FM MONSERRAT Ribera on 04/20/18 Visit Date: 04/03/18 no vb cramping. cbc gct Leah Benavides MD on 04/03/18 Visit Date: 03/10/18 Doing well. No VB, LOF. MONSERRAT Ribera on 03/10/18 Visit Date: 02/09/18 no vb lof nausea controlled, stil ltired normal anatomy scan Leah Benavides MD on 02/09/18 Visit Date: 01/12/18 Doing well. Still taking phenergan prn. No VB, LOF. MONSERRAT Ribera on 01/12/18 Visit Date: 12/15/17 co persistent vomiting keeping liquids down, ordered santinoergan Leah Benavides MD on 12/15/17 Visit Date: 11/18/17 No visit notes to display Diagnostics Diagnostics Labs Hct 31.7 % (37-47) L 06/05/18 Hgb 9.9 g/dl (12.0-15.0) L 06/05/18 Glucose 1 Hr 50 gm 87 mg/dL (70-140) 04/03/18 Group B Strep DNA Cancelled 06/02/18 Miscellaneous Test 02/09/18 Details: HIV: Urine Culture: Sequential Screen: NIPT Screen: Results [id number] Office Urine Glucose Negative Last Edit by Dana Rdz on 06/11/18 13:56 Office Urine Protein Trace Last Edit by Dana Rdz on 06/11/18 13:56 Assessment AND Plan Problems 1. 36 weeks gestation of Z3A.36 genetic screening declined. AFP -negative. anatomy scan reviewed. 2. Encounter for supervision of normal first in third trimester Z34.03 PRR KATH 06/29/18 boy Mehul boyfriennadine Aneudy Plan movement and labor precautions reviewed. ACOG trimester education reviewed and updated. see problem list details for updated plan management information and see below for orders placed at this visit. [place] appropriate handout given. Orders Orders: Coding Level of Care Code OB Routine Diagnoses 36 weeks gestation of Z3A.36 Weeks of gestation: 36 weeks Encounter for supervision of normal first in third trimester Z34.03 Normal : normal first Trimester: third trimester 06/11/18 1445 <Electronically signed by Leah Benavides MD> Date Leah Benavides MD Cosigner Signature: Date (if applicable) CC: BINGO WORKER OFFICE VISIT Observed: 06/06/2018 Status: F Source: SARI REPORT 3:45 AM [facility] REPOSITORY [facility] [address] [place], [place] [address] OFFICE VISIT Date of Service: 06/02/18 MR#: [id number] Acct: [id number] Name: JUSTIN OTT Rep #: [id number] : 1995 Provider: Leah Benavides MD Age/Sex: 22/F [place] [facility] [place]: Signed Intake Vital Signs06/02/18 Body Mass Index (BMI) 25.2 06/02/18 Height 5 ft 7 in 06/02/18 Weight: 165 lb 06/02/18 Body Mass Index (BMI) 25.8 06/02/18 Blood Pressure 110/60 Intake Visit Reasons: 36 WEEK OB Chief Complaint: est ob Supervisor Heat Treating Required: No Is patient in pain?: No Allergies No Known Allergies Allergy (Verified 06/02/18 14:05) Medications Multivitamin with Folic Acid [Thera Tablet] 1 ea PO DAILY #30 tab 05/06/17 [Rx Confirmed 06/02/18] Last Menstral Period: 09/22/17 Zika: Zika virus screening: Negative : No [facility] Surgical History History of arthroscopy of right shoulder (Acute) Family History Grandmother Diabetes Social History Smoking Status: Former smoker how long ago did patient quit smokin years alcohol intake: never substance use type: does not use caffeine: Yes what type of physical activity do you participate in: none seatbelt use: always do you feel safe at home: Yes additional social history: Engaged- [employer] Patient works in [employer] at [employer] Pregancy History 1 Elective abortions Hx Para Spontaneous abortions HPI 36 WEEK OB: Details: JUSTIN OTT is a 22 year old who presents for routine OB visit. urine 2 dip glucose negative protein negative OB Visit KATH Calculator Estimated Delivery Date 06/29/18 Based on LMP (certain) 09/22/17 Current WG 36w 5d Number 1 Expected Delivery Route/Plan Specific Issue/Plans flu vaccine: given minichart given: given tdap vaccine: given rhogam NA LARC form signed: declines labor support person: Aneudy pain management: epidural cut cord/dad catch: yes : no PP control planned: OCP special requests: [] Initial Weight: Not Recorded Date Weight BP Urine PFHR FuHt Pres MCTX DilatioFetal SVisit NProvideComment rot ov n t ote r s EGA Ef Gluco faced se 11/18/1130 lb 125/74 8 12.8 oz 8w 1d Visit Notes Visit Date: 06/02/18 no vb lof good fm no regular ctx gbs done Leah Benavides MD on 06/06/18 Visit Date: 05/19/18 no vb lof good fm n oregular ctx Leah Benavides MD on 05/19/18 Visit Date: 05/06/18 no vb lof good fm no regular ctx Leah Benavides MD on 05/06/18 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 No fever. MICHAEL RiberaC on 04/24/18 Visit Date: 04/20/18 Doing well. No VB, LOF. Good FM MONSERRAT Ribera on 04/20/18 Visit Date: 04/03/18 no vb cramping. cbc gct Leah Benavides MD on 04/03/18 Visit Date: 03/10/18 Doing well. No VB, LOF. MICHAEL RiberaC on 03/10/18 Visit Date: 02/09/18 no vb lof nausea controlled, stil ltired normal anatomy scan Leah Benavides MD on 02/09/18 Visit Date: 01/12/18 Doing well. Still taking phenergan prn. No VB, LOF. MICHAEL RiberaC on 01/12/18 Visit Date: 12/15/17 co persistent vomiting keeping liquids down, ordered phenergan Leah Benavides MD on 12/15/17 Visit Date: 11/18/17 No visit notes to display Diagnostics Diagnostics Labs Hct 31.7 % (37-47) L 06/05/18 Hgb 9.9 g/dl (12.0-15.0) L 06/05/18 Obstetrics Ultrasound 02/05/18 Glucose 1 Hr 50 gm 87 mg/dL (70-140) 04/03/18 Group B Strep DNA Cancelled 06/02/18 Miscellaneous Test 02/09/18 Details: HIV: Urine Culture: Sequential Screen: NIPT Screen: Assessment AND Plan Problems 1. 36 weeks gestation of Z3A.36 genetic screening declined. AFP -negative. anatomy scan reviewed. 2. Encounter for supervision of normal first in third trimester Z34.03 PRR KATH 06/29/18 boy Mehul boyfriend Aneudy Plan movement and labor precautions reviewed. ACOG trimester education reviewed and updated. see problem list details for updated plan management information and see below for orders placed at this visit. [place] appropriate handout given. Coding Level of Care Code OB Routine Diagnoses 36 weeks gestation of Z3A.36 Weeks of gestation: 36 weeks Encounter for supervision of normal first in third trimester Z34.03 Normal : normal first Trimester: third trimester 06/06/18 0345 <Electronically signed by Leah Benavides MD> Date Leah Benavides MD Cosigner Signature: Date (if applicable) CC: SERUM CREATININE AND Collected: 06/05/2018 Status: F Source: SARI GFR 5:30 PM [facility] [place] REPOSITORY TYPE CODE TESTS RESULT OUT OF RANGE REFERENCE UNITS LAB L501.1100 0.55-1.02 mg/dL Low 0.47 CREAT,SERUM Result Comment: The validity of the calculated GFR AND GFRAA in patients over 70 years has not been determined. Clinical correlation is essential. LAB L501.1110 >60 mL/min Normal EST GFR 175 Result Comment: Non- GFR Calc LAB L501.1115 >60 mL/min Normal EST GFR - AA 212 Result Comment: GFR Calc LAB L501.1255 ml/min Normal Estimated CRCL 184.13 Performed By: #### L501.1105, L501.1400, L501.4100, L501.4405 #### [facility] [address] [place], [place], [address] URIC ACID Collected: 06/05/2018 Status: F Source: SARI 5:30 PM [facility] [place] REPOSITORY TYPE CODE TESTS RESULT OUT OF RANGE REFERENCE UNITS LAB L501.1400 2.6-6.0 mg/dL Normal URIC 3.6 Result Comment: The drugs N-Acetylcysteine and Metamizole may falsely depress this assay. Performed By: #### L501.1105, L501.1400, L501.4100, L501.4405 #### [facility] [address] [place], [place], [id number] AST(SGOT) Collected: 06/05/2018 Status: F Source: SARI 5:30 PM [facility] [place] REPOSITORY TYPE CODE TESTS RESULT OUT OF RANGE REFERENCE UNITS LAB L501.4100 15-37 U/L Normal AST 18 Performed By: #### L501.1105, L501.1400, L501.4100, L501.4405 #### [facility] [address] [place], [address] ALANINE AMINOTRANSFERAS Collected: 06/05/2018 Status: F Source: SARI (SGPT) 5:30 PM [facility] [place] REPOSITORY TYPE CODE TESTS RESULT OUT OF RANGE REFERENCE UNITS LAB L501.4405 13-56 U/L Normal ALT 19 Performed By: #### L501.1105, L501.1400, L501.4100, L501.4405 #### [facility] [address] [place], [place], [address] CBC-COMPLETE BLOOD CNT Collected: 06/05/2018 Status: F Source: SARI NO DIFF 5:30 PM [facility] [place] REPOSITORY TYPE CODE TESTS RESULT OUT OF RANGE REFERENCE UNITS LAB L100.1000 4.4-11.0 K/mm3 High WBC 11.8 LAB L100.1200 4.2-5.4 M/mm3 Low RBC 4.02 LAB L100.1300 12.0-15.0 g/dl Low HGB 9.9 LAB L100.1400 37-47 % Low HCT 31.7 LAB L100.1500 81-99 fL Low MCV 78.9 LAB L100.1600 27.0-32.0 pg Low MCH 24.6 LAB L100.1700 32-36 g/gl Low MCHC 31.2 LAB L100.1810 11.6-14.6 % Normal RDW CV 14.1 LAB L100.1820 35.1-43.9 fl Normal RDW SD 39.9 LAB L100.1900 150-450 K/mm3 Normal PLT 259 LAB L100.2000 6.2-12.0 fl Normal MPV 9.6 Performed By: #### L100.0500 #### [facility] [address], [place], [id number] PROTEIN+CREATININE Collected: Status: F Source: [facility],URINE 06/05/2018 5:30 PM [facility] REPOSITORY TYPE CODE TESTS RESULT OUT OF RANGE REFERENCE UNITS LAB L501.1200 NO RANGE EST. mg/dL Normal UR CREAT 70.90 LAB L501.1930 <11.9 mg/dL High 16.4 PROTEIN,UR.R AN. LAB L501.1940 0-200 mg/g CRE High PROT:CRE 231 RATIO Performed By: #### L501.0900 #### [facility] [address], [place], [id number] PROTHROMBIN TIME W/INR Collected: 06/05/2018 Status: F Source: NEOGA 5:30 PM [facility] REPOSITORY TYPE CODE TESTS RESULT OUT OF RANGE REFERENCE UNITS LAB L300.4150 11.7-14.9 SECONDS Normal PROTIME 12.4 LAB L300.4200 Normal INR 0.9 Performed By: #### L300.3900, L300.4310 #### [facility] [address], [place], [id number] PARTIAL THROMBOPLAST Collected: 06/05/2018 Status: F Source: [place] TIME 5:30 PM [facility] REPOSITORY TYPE CODE TESTS RESULT OUT OF RANGE REFERENCE UNITS LAB L300.4310 24.1-36.2 Seconds Normal PTT 27.6 Performed By: #### L300.3900, L300.4310 #### [facility] [address] [place], [address] Observed: 06/02/2018 Status: F Source: SARI CULTURE, GROUP B 6:55 PM [facility] STREPTOCOCCUS REPOSITORY JOVITA Culture Group B Beta Streptococcus is not isolated. Performed By: #### M100.1800 #### [facility] [address] [place], [address] BINGO WORKER OFFICE VISIT Observed: 05/19/2018 Status: F Source: SARI REPORT 12:11 PM [facility] REPOSITORY [facility] 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 Heat Treating Required: No Is patient in pain?: No Allergies No Known Allergies Allergy (Verified 05/19/18 12:03) Medications Multivitamin with Folic Acid [Thera Tablet] 1 ea PO DAILY #30 tab 05/06/17 [Rx Confirmed 05/19/18] promethazine 12.5 mg tablet 12.5 mg PO Q6H PRN #60 tab 12/15/17 [Rx Confirmed 05/19/18] Last Menstral Period: 09/22/17 Zika: Zika virus screening: Negative : No PFSH PFSH Surgical History History of arthroscopy of right shoulder (Acute) Family History Grandmother Diabetes Social History Smoking Status: Former smoker how long ago did patient quit smokin years alcohol intake: never substance use type: does not use caffeine: Yes what type of physical activity do you participate in: none seatbelt use: always do you feel safe at home: Yes additional social history: Engaged- [employer] Patient works in [employer] at [employer] Pregancy History 1 Elective abortions Hx Para Spontaneous abortions HPI 34 WEEK OB: Details: JUSTIN OTT is a 22 year old who presents for routine OB visit. OB Visit KATH Calculator Estimated Delivery Date 06/29/18 Based on LMP (certain) 09/22/17 Current WG 34w 1d Number 1 Expected Delivery Route/Plan Specific Issue/Plans flu vaccine: given minichart given: given tdap vaccine: given rhogam NA LARC form signed: declines labor support person: Aneudy pain management: epidural cut cord/dad catch: yes : no PP control planned: OCP special requests: [] Initial Weight: Not Recorded Date Weight BP Urine PrFHR FuHt Pres MoCTX DilationFetal StVisit NoProviderComments E ot v te GA G Effac lucose ed Visit Notes Visit Date: 05/19/18 no vb lof good fm n oregular ctx Leah Benavides MD on 05/19/18 Visit Date: 05/06/18 no vb lof good fm no regular ctx Leah Benavides MD on 05/06/18 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 No fever. MONSERRAT Ribera on 04/24/18 Visit Date: 04/20/18 Doing well. No VB, LOF. Good FM MONSERRAT Ribera on 04/20/18 Visit Date: 04/03/18 no vb cramping. cbc gct Leah Benavides MD on 04/03/18 Visit Date: 03/10/18 Doing well. No VB, LOF. MONSERRAT Ribera on 03/10/18 Visit Date: 02/09/18 no vb lof nausea controlled, stil ltired normal anatomy scan Leah Benavides MD on 02/09/18 Visit Date: 01/12/18 Doing well. Still taking phenergan prn. No VB, LOF. MONSERRAT Ribera on 01/12/18 Visit Date: 12/15/17 co persistent vomiting keeping liquids down, ordered phenergan Leah Benavides MD on 12/15/17 Visit Date: 11/18/17 No visit notes to display Diagnostics Diagnostics Labs Hct 32.1 % (37-47) L 04/03/18 Hgb 10.2 g/dl (12.0-15.0) L 04/03/18 Obstetrics Ultrasound 02/05/18 Rubella IgG Antibody 40.8 IU/mL 12/15/17 Glucose 1 Hr 50 gm 87 mg/dL (70-140) 04/03/18 Miscellaneous Test 02/09/18 Details: HIV: Urine Culture: Sequential Screen: NIPT Screen: Results [id number] Office Urine Glucose Negative Last Edit by Dana Rdz on 05/19/18 12:04 Office Urine Protein Negative Last Edit by Dana Rdz on 05/19/18 12:04 Assessment AND Plan Problems 1. Encounter for supervision of normal first in third trimester Z34.03 PRR KATH 06/29/18 boy Mehul boyfriend Aneudy 2. 34 weeks gestation of Z3A.34 genetic screening declined. AFP -negative. anatomy scan reviewed. Plan movement and labor precautions reviewed. ACOG trimester education reviewed and updated. see problem list details for updated plan management information and see below for orders placed at this visit. [place] appropriate handout given. Orders Orders: Coding Level of Care Code OB Routine Diagnoses Encounter for supervision of normal first in third trimester Z34.03 Normal : normal first Trimester: third trimester 34 weeks gestation of Z3A.34 Weeks of gestation: 34 weeks 05/19/18 1211 <Electronically signed by Leah Benavides MD> Date Leah Benavides MD Cosigner Signature: Date (if applicable) CC: BINGO WORKER OFFICE VISIT Observed: 05/06/2018 Status: F Source: SARI REPORT 11:47 AM [facility] [address] [place] [address] OFFICE VISIT Date of Service: 05/06/18 MR#: [id number] Acct: [id number] Name: JUSTIN OTT Rep #: [id number] : 1995 Provider: Leah Benavides MD Age/Sex: 22/F [place] [facility] [place]: Signed Intake Vital Signs05/06/18 Height 5 ft 7 in 05/06/18 Weight: 155 lb 05/06/18 Body Mass Index (BMI) 24.3 Intake Visit Reasons: 32 weeks Chief Complaint: est ob Supervisor Heat Treating Required: No Is patient in pain?: No Allergies No Known Allergies Allergy (Verified 05/06/18 11:29) Medications Multivitamin with Folic Acid [Thera Tablet] 1 ea PO DAILY #30 tab 05/06/17 [Rx Confirmed 05/06/18] promethazine 12.5 mg tablet 12.5 mg PO Q6H PRN #60 tab 12/15/17 [Rx Confirmed 05/06/18] Last Menstral Period: 09/22/17 Zika: Zika virus screening: Negative : No PFSH PFSH Surgical History History of arthroscopy of right shoulder (Acute) Family History Grandmother Diabetes Social History Smoking Status: Former smoker how long ago did patient quit smokin years alcohol intake: never substance use type: does not use caffeine: Yes what type of physical activity do you participate in: none seatbelt use: always do you feel safe at home: Yes additional social history: [employer] Patient works in [employer] at [employer] Pregancy History 1 Elective abortions Hx Para Spontaneous abortions HPI 32 weeks: Details: JUSTIN OTT is a 22 year old who presents for routine OB visit. OB Visit KATH Calculator Estimated Delivery Date 06/29/18 Based on LMP (certain) 09/22/17 Current WG 32w 2d Number 1 Expected Delivery Route/Plan Specific Issue/Plans flu vaccine: given minichart given: given tdap vaccine: given rhogam NA LARC form signed: declines labor support person: Aneudy pain management: epidural cut cord/dad catch: yes : no PP control planned: OCP special requests: [] Initial Weight: Not Recorded Date Weight BP Urine PrFHR FuHt Pres MoCTX DilationFetal StVisit NoProviderComments E ot v te GA G Effac lucose ed Visit Notes Visit Date: 05/06/18 no vb lof good fm no regular ctx Leah Benavides MD on 05/06/18 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 No fever. MONSERRAT Ribera on 04/24/18 Visit Date: 04/20/18 Doing well. No VB, LOF. Good FM MONSERRAT Ribera on 04/20/18 Visit Date: 04/03/18 no vb cramping. cbc gct Leah Benavides MD on 04/03/18 Visit Date: 03/10/18 Doing well. No VB, LOF. MONSERRAT Ribera on 03/10/18 Visit Date: 02/09/18 no vb lof nausea controlled, stil ltired normal anatomy scan Leah Benavides MD on 02/09/18 Visit Date: 01/12/18 Doing well. Still taking phenergan prn. No VB, LOF. MONSERRAT Ribera on 01/12/18 Visit Date: 12/15/17 co persistent vomiting keeping liquids down, ordered phenergan Leah Benavides MD on 12/15/17 Visit Date: 11/18/17 No visit notes to display Diagnostics Diagnostics Labs Blood Type B POSITIVE 11/18/17 Antibody Screen NEGATIVE 11/18/17 Hct 32.1 % (37-47) L 04/03/18 Hgb 10.2 g/dl (12.0-15.0) L 04/03/18 Obstetrics Ultrasound 02/05/18 Rubella IgG Antibody 40.8 IU/mL 12/15/17 RPR NONREACTIVE (NONREACTIVE) 11/18/17 Chlam trachomat DNA PCR Negative (Negative) 11/18/17 N.gonorrhoeae DNA (PCR) Negative (Negative) 11/18/17 Glucose 1 Hr 50 gm 87 mg/dL (70-140) 04/03/18 Miscellaneous Test 02/09/18 Details: HIV: Urine Culture: Sequential Screen: NIPT Screen: Results [id number] Office Urine Glucose Negative Last Edit by Sindhu Miller on 05/06/18 11:31 Office Urine Protein Negative Last Edit by Sindhu Miller on 05/06/18 11:31 Assessment AND Plan Problems 1. 32 weeks gestation of Z3A.32 genetic screening declined. AFP -negative. anatomy scan reviewed. 2. Encounter for supervision of normal first in third trimester Z34.03 PRR KATH 06/29/18 boy Mehul boyfriennadine Amado Plan movement and labor precautions reviewed. ACOG trimester education reviewed and updated. see problem list details for updated plan management information and see below for orders placed at this visit. GA appropriate handout given. Orders Orders: Coding Level of Care Code OB Routine Diagnoses 32 weeks gestation of Z3A.32 Weeks of gestation: 32 weeks Encounter for supervision of normal first in third trimester Z34.03 Normal : normal first Trimester: third trimester 05/06/18 1147 <Electronically signed by Leah Benavides MD> Date Leah Benavides MD Cosigner Signature: Date (if applicable) CC: BINGO WORKER OFFICE VISIT Observed: 04/24/2018 Status: F Source: SARI REPORT 1:24 PM [facility] REPOSITORY [facility] [place] [address] [place] [address] OFFICE VISIT Date of Service: 04/24/18 MR#: [id number] Acct: [id number] Name: JUSTIN OTT Rep #: [id number] : 1995 Provider: JANAK Myers Age/Sex: 22/F [place] [facility] [place]: Signed Intake Vital Signs04/24/18 Height 5 ft 7 in 04/24/18 Weight: 154 lb 2 oz 04/24/18 Body Mass Index (BMI) 24.1 04/24/18 Blood Pressure 118/78 04/24/18 Temperature 98.2 F Intake Visit Reasons: NOT FEELING WELL Supervisor Heat Treating Required: No Is patient in pain?: No Allergies No Known Allergies Allergy (Verified 04/20/18 14:39) Medications Multivitamin with Folic Acid [Thera Tablet] 1 ea PO DAILY #30 tab 05/06/17 [Rx Confirmed 04/20/18] promethazine 12.5 mg tablet 12.5 mg PO Q6H PRN #60 tab 12/15/17 [Rx Confirmed 04/20/18] Last Menstral Period: 09/22/17 Nurse's Note: Pt. states she has fuzzy vision and her legs feel like jelly [facility] Surgical History History of arthroscopy of right shoulder (Acute) Family History Grandmother Diabetes Social History how long ago did patient quit smokin years alcohol intake: never substance use type: does not use caffeine: Yes what type of physical activity do you participate in: none seatbelt use: always do you feel safe at home: Yes additional social history: Engaged- [employer] Patient works in [employer] at [employer] Pregancy History 1 Elective abortions Hx Para Spontaneous abortions HPI NOT FEELING WELL: Details: JUSTIN OTT is a 22 year old who presents for work in OB visit. 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 No fever. MONSERRAT Ribera on 04/24/18 Visit Date: 04/20/18 Doing well. No VB, LOF. Good FM MONSERRAT Ribera on 04/20/18 Visit Date: 04/03/18 no vb cramping. cbc gct Leah Benavides MD on 04/03/18 Visit Date: 03/10/18 Doing well. No VB, LOF. MONSERRAT Ribera on 03/10/18 Visit Date: 02/09/18 no vb lof nausea controlled, stil ltired normal anatomy scan Leah Benavides MD on 02/09/18 Visit Date: 01/12/18 Doing well. Still taking phenergan prn. No VB, LOF. MONSERRAT Ribera on 01/12/18 Visit Date: 12/15/17 co persistent vomiting keeping liquids down, ordered phenergan Leah Benavides MD on 12/15/17 Visit Date: 11/18/17 No visit notes to display Diagnostics Diagnostics Labs Blood Type B POSITIVE 11/18/17 Antibody Screen NEGATIVE 11/18/17 Hct 32.1 % (37-47) L 04/03/18 Hgb 10.2 g/dl (12.0-15.0) L 04/03/18 Obstetrics Ultrasound 02/05/18 Rubella IgG Antibody 40.8 IU/mL 12/15/17 RPR NONREACTIVE (NONREACTIVE) 11/18/17 Chlam trachomat DNA PCR Negative (Negative) 11/18/17 N.gonorrhoeae DNA (PCR) Negative (Negative) 11/18/17 Glucose 1 Hr 50 gm 87 mg/dL (70-140) 04/03/18 Miscellaneous Test 02/09/18 Details: HIV: Urine Culture: Sequential Screen: NIPT Screen: Results [id number] Office Urine Glucose Negative Last Edit by Dana Rdz on 04/24/18 13:08 Office Urine Protein Negative Last Edit by Dana Rdz on 04/24/18 13:08 Assessment AND Plan Problems 1. Encounter for supervision of normal first in second trimester Z34.02 PRR KATH 06/29/18 boy Mehul boyfriend Aneudy 2. 30 weeks gestation of Z3A.30 genetic screening declined. AFP -negative. anatomy scan reviewed. Plan Reassured. Probably not related. Maybe drop in glucose or viral illness. Home, rest, fluids. Reviewed precautions to call me with or go to [facility]. Keep routine OB visit Orders Orders: Coding Level of Care Code OB Routine Diagnoses Encounter for supervision of normal first in second trimester Z34.02 Normal : normal first Trimester: second trimester 30 weeks gestation of Z3A.30 Weeks of gestation: 30 weeks 04/24/18 1324 <Electronically signed by Vani GERMAN> Date Vani GERMAN Cosigner Signature: Date (if applicable) CC: BINGO WORKER OFFICE VISIT Observed: 04/20/2018 Status: F Source: SARI REPORT 2:52 PM [facility] [address] [place] [address] OFFICE VISIT Date of Service: 04/20/18 MR#: [id number] Acct: [id number] Name: JUSTIN OTT Rep #: [id number] : 1995 Provider: JANAK Myers Age/Sex: 22/F [place] [facility] [place]: Signed Intake Vital Signs04/20/18 Height 5 ft 7 in 04/20/18 Weight: 153 lb 6 oz 04/20/18 Body Mass Index (BMI) 24.0 04/20/18 Blood Pressure 115/64 Intake Visit Reasons: 30 weeks Supervisor Heat Treating Required: No Is patient in pain?: No Allergies No Known Allergies Allergy (Verified 04/20/18 14:39) Medications Multivitamin with Folic Acid [Thera Tablet] 1 ea PO DAILY #30 tab 05/06/17 [Rx Confirmed 04/20/18] promethazine 12.5 mg tablet 12.5 mg PO Q6H PRN #60 tab 12/15/17 [Rx Confirmed 04/20/18] Last Menstral Period: 09/22/17 Zika: Zika virus screening: Negative : No PFSH PFSH Surgical History History of arthroscopy of right shoulder (Acute) Family History Grandmother Diabetes Social History Smoking Status: Former smoker how long ago did patient quit smokin years alcohol intake: never substance use type: does not use caffeine: Yes what type of physical activity do you participate in: none seatbelt use: always do you feel safe at home: Yes additional social history: [employer] Patient works in [employer] at [employer] Pregancy History 1 Elective abortions Hx Para Spontaneous abortions HPI 30 weeks: Details: JUSTIN OTT is a 22 year old who presents for routine OB visit. OB Visit KATH Calculator Estimated Delivery Date 06/29/18 Based on LMP (certain) 09/22/17 Current WG 30w 0d Number 1 Expected Delivery Route/Plan Specific Issue/Plans flu vaccine: given minichart given: given tdap vaccine: given rhogam NA LARC form signed: declines labor support person: Aneudy pain management: epidural cut cord/dad catch: yes : no PP control planned: OCP special requests: [] Initial Weight: Not Recorded Date Weight BP Urine PFHR FuHt Pres MCTX DilatioFetal SVisit NProvideComment rot ov n t ote r s EGA Ef Gluco faced se 11/18/1130 lb 125/74 8 12.8 oz 8w 1d Visit Notes Visit Date: 04/20/18 Doing well. No VB, LOF. Good FM MICHAEL RiberaC on 04/20/18 Visit Date: 04/03/18 no vb cramping. cbc gct Leah Benavides MD on 04/03/18 Visit Date: 03/10/18 Doing well. No VB, LOF. MONSERRAT iRbera on 03/10/18 Visit Date: 02/09/18 no vb lof nausea controlled, stil ltired normal anatomy scan Leah Benavides MD on 02/09/18 Visit Date: 01/12/18 Doing well. Still taking phenergan prn. No VB, LOF. MONSERRAT Ribera on 01/12/18 Visit Date: 12/15/17 co persistent vomiting keeping liquids down, ordered phenergan Leah Benavides MD on 12/15/17 Visit Date: 11/18/17 No visit notes to display Diagnostics Diagnostics Labs Blood Type B POSITIVE 11/18/17 Antibody Screen NEGATIVE 11/18/17 Hct 32.1 % (37-47) L 04/03/18 Hgb 10.2 g/dl (12.0-15.0) L 04/03/18 Obstetrics Ultrasound 02/05/18 Rubella IgG Antibody 40.8 IU/mL 12/15/17 RPR NONREACTIVE (NONREACTIVE) 11/18/17 Chlam trachomat DNA PCR Negative (Negative) 11/18/17 N.gonorrhoeae DNA (PCR) Negative (Negative) 11/18/17 Glucose 1 Hr 50 gm 87 mg/dL (70-140) 04/03/18 Miscellaneous Test 02/09/18 Details: HIV: Urine Culture: Sequential Screen: NIPT Screen: Results [email or web address] Office Urine Glucose Negative Last Edit by Dana Rdz on 04/20/18 14:42 Office Urine Protein Negative Last Edit by Dana Rdz on 04/20/18 14:42 Assessment AND Plan Problems 1. Encounter for supervision of normal first in second trimester Z34.02 PRR KATH 06/29/18 boy Mehul boyfriend Aneudy 2. 30 weeks gestation of Z3A.30 genetic screening declined. AFP -negative. anatomy scan reviewed. Plan Orders placed: none Reviewed of labor precautions, movement/kick counts ACOG trimester education reviewed and updated See problem list details for updated plan of care Gestational age appropriate handout given RTO: 2 weeks Orders Orders: Coding Level of Care Code OB Routine Diagnoses Encounter for supervision of normal first in second trimester Z34.02 Normal : normal first Trimester: second trimester 30 weeks gestation of Z3A.30 Weeks of gestation: 30 weeks 04/20/18 1452 <Electronically signed by Vani [place] CLOTH BEAMER-C> Date Vani Myers CLOTH BEAMER-C [place] Signature: Date (if applicable) CC: BINGO WORKER OFFICE VISIT Observed: 04/03/2018 Status: F Source: SARI REPORT 2:31 PM [facility] REPOSITORY [facility] [address] [place] [address] OFFICE VISIT Date of Service: 04/03/18 MR#: [id number] Acct: [id number] Name: JUSTIN OTT Rep #: [id number] : 1995 Provider: Leah Benavides MD Age/Sex: 22/F [place] [facility] [place]: Signed with Addenda ADDENDUM by Rica Vee on 04/03/18 at 1431 OFFICE PROCEDURES Office Procedure Documentation entered by Rica Vee 04/03/18 14:31: Immunizations Boostrix Tdap Performing Provider: Leah Benavides MD Administered by: Rica Vee on 04/03/18 14:30 Dose Route Admin Location Lot Number Expiration Date NDC Cider Press Operator 0.5 mL IM Left Deltoid [id number] 05/09/19 [id number] [employer] VIS Given Date VIS Publication Date 04/03/18 08/10/14 Eligibility Eligibility Date 04/03/18 1431 <Electronically signed by Rica Vee > Date Rica Vee cc: * Signed Intake Vital Signs04/03/18 Height 5 ft 7 in 04/03/18 Weight: 149 lb 04/03/18 Body Mass Index (BMI) 23.3 04/03/18 Blood Pressure 110/62 Intake Visit Reasons: 28 weeks Supervisor Heat Treating Required: No Is patient in pain?: No Allergies No Known Allergies Allergy (Verified 04/03/18 12:09) Medications Multivitamin with Folic Acid [Thera Tablet] 1 ea PO DAILY #30 tab 05/06/17 [Rx Confirmed 04/03/18] promethazine 12.5 mg tablet 12.5 mg PO Q6H PRN #60 tab 12/15/17 [Rx Confirmed 04/03/18] Last Menstral Period: 09/22/17 Zika: Zika virus screening: Negative : No PFSH PFSH Surgical History History of arthroscopy of right shoulder (Acute) Family History Grandmother Diabetes Social History Smoking Status: Former smoker how long ago did patient quit smokin years alcohol intake: never substance use type: does not use caffeine: Yes what type of physical activity do you participate in: none seatbelt use: always do you feel safe at home: Yes additional social history: [employer] Patient works in [employer] at [employer] Pregancy History 1 Elective abortions Hx Para Spontaneous abortions HPI 28 weeks: Details: JUSTIN OTT is a 22 year old who presents for routine OB visit. OB Visit KATH Calculator Estimated Delivery Date 06/29/18 Based on LMP (certain) 09/22/17 Current WG 27w 4d Number 1 Expected Delivery Route/Plan Specific Issue/Plans flu vaccine: [] minichart given: given tdap vaccine: [] rhogam NA LARC form signed: labor support person: Aneudy pain management: [] cut cord/dad catch: [] : [] PP control planned: [] special requests: [] Initial Weight: Not Recorded Date Weight BP Urine PrFHR FuHt Pres MoCTX DilationFetal StVisit NoProviderComments E ot v te GA G Effac lucose ed Visit Notes Visit Date: 04/03/18 no vb cramping. cbc gct Leah Benavides MD on 04/03/18 Visit Date: 03/10/18 Doing well. No VB, LOF. MONSERRAT Ribera on 03/10/18 Visit Date: 02/09/18 no vb lof nausea controlled, stil ltired normal anatomy scan Leah Benavides MD on 02/09/18 Visit Date: 01/12/18 Doing well. Still taking phenergan prn. No VB, LOF. Vani Myers NP-C on 01/12/18 Visit Date: 12/15/17 co persistent vomiting keeping liquids down, ordered phenergan Leah Benavides MD on 12/15/17 Visit Date: 11/18/17 No visit notes to display Diagnostics Diagnostics Labs Blood Type B POSITIVE 11/18/17 Antibody Screen NEGATIVE 11/18/17 Hct 31.4 % (37-47) L 03/11/18 Hgb 10.1 g/dl (12.0-15.0) L 03/11/18 Pap Smear Negative 07/21/17 Obstetrics Ultrasound 02/05/18 Rubella IgG Antibody 40.8 IU/mL 12/15/17 RPR NONREACTIVE (NONREACTIVE) 11/18/17 Chlam trachomat DNA PCR Negative (Negative) 11/18/17 N.gonorrhoeae DNA (PCR) Negative (Negative) 11/18/17 Miscellaneous Test 02/09/18 Details: HIV: Urine Culture: Sequential Screen: NIPT Screen: Results [id number] Office Urine Glucose Negative Last Edit by Rica Vee on 04/03/18 12:14 Office Urine Protein Negative Last Edit by Rica Vee on 04/03/18 12:14 Assessment AND Plan Problems 1. 27 weeks gestation of Z3A.27 genetic screening declined. AFP -negative. anatomy scan reviewed. 2. Encounter for supervision of normal first in second trimester Z34.02 PRR KATH 06/29/18 boy Mehul boyfriend Aneudy Plan movement and labor precautions reviewed. ACOG trimester education reviewed and updated. see problem list details for updated plan management information and see below for orders placed at this visit. [place] appropriate handout given. Orders Orders: Medications New: Coding Level of Care Code OB Routine Diagnoses 27 weeks gestation of Z3A.27 Weeks of gestation: 27 weeks Encounter for supervision of normal first in second trimester Z34.02 Normal : normal first Trimester: second trimester 10/19/18 1220 <Electronically signed by Leah Benavides MD> Date Leah Benavides MD Cosigner Signature: Date (if applicable) CC: CBC W/DIFF, AUTOMATED Collected: 04/03/2018 Status: F Source: SARI 1:07 PM [facility] REPOSITORY TYPE CODE TESTS RESULT OUT OF RANGE REFERENCE UNITS LAB L100.1000 4.4-11.0 K/mm3 Normal WBC 8.8 LAB L100.1200 4.2-5.4 M/mm3 Low RBC 3.83 LAB L100.1300 12.0-15.0 g/dl Low HGB 10.2 LAB L100.1400 37-47 % Low HCT 32.1 LAB L100.1500 81-99 fL Normal MCV 83.8 LAB L100.1600 27.0-32.0 pg Low MCH 26.6 LAB L100.1700 32-36 g/gl Low MCHC 31.8 LAB L100.1810 11.6-14.6 % Normal RDW CV 13.5 LAB L100.1820 35.1-43.9 fl Normal RDW SD 41.2 LAB L100.1900 150-450 K/mm3 Normal PLT 233 LAB L100.2000 6.2-12.0 fl Normal MPV 9.1 LAB L100.2100 47-70 % High NEUT% 79.4 LAB L100.2200 19-41 % Low LY% 13.8 LAB L100.2300 0-10 % Normal MONO% 6.2 LAB L100.2400 0-5 % Normal EO% 0.2 LAB L100.2500 0-1 % Normal BASO% 0.2 LAB L100.2550 0.0-0.9 % Normal IM GRAN % 0.200 Result Comment: IG% - Immature Granulocytes (promyelocytes, myelocytes and metamyelocytes) > 1% indicates that a LEFT SHIFT is Present. LAB L100.2620 2.0-7.7 X10 3/uL Normal Absolute Neut 7.0 LAB L100.2720 0.83-4.51 X10 3/ul Normal Absolute Lymph 1.22 Performed By: #### L100.0100 #### [facility] [address] [place], [address] GLUCOSE CHALLENGE GEST Collected: 04/03/2018 Status: F Source: SARI 1H 50G 1:07 PM [facility] REPOSITORY TYPE CODE TESTS RESULT OUT OF RANGE REFERENCE UNITS LAB L501.0250 70-140 mg/dL Normal GLU GEST 87 50g 1H Performed By: #### L501.0250 #### [facility] [address] [facility] [place], [address] CBC, EMPLOYEE Collected: 03/11/2018 Status: F Source: SARI 9:36 AM [facility] REPOSITORY TYPE CODE TESTS RESULT OUT OF RANGE REFERENCE UNITS LAB L100.1000 4.4-11.0 K/mm3 Normal WBC 7.7 LAB L100.1200 4.2-5.4 M/mm3 Low RBC 3.80 LAB L100.1300 12.0-15.0 g/dl Low HGB 10.1 LAB L100.1400 37-47 % Low HCT 31.4 LAB L100.1500 81-99 fL Normal MCV 82.6 LAB L100.1600 27.0-32.0 pg Low MCH 26.6 LAB L100.1700 32-36 g/gl Normal MCHC 32.2 LAB L100.1810 11.6-14.6 % Normal RDW CV 14.0 LAB L100.1820 35.1-43.9 fl Normal RDW SD 42.3 LAB L100.1900 150-450 K/mm3 Normal PLT 246 LAB L100.2000 6.2-12.0 fl Normal MPV 9.3 LAB L100.2110 47-70 % High NEUT% 73.3 LAB L100.2210 19-41 % Normal LY% 19.2 LAB L100.2310 0-10 % Normal MONO% 6.8 LAB L100.2410 0-5 % Normal EO% 0.3 LAB L100.2510 0-1 % Normal BASO% 0.3 LAB L100.2620 2.0-7.7 X10 3/uL Normal Absolute Neut 5.6 LAB L100.2720 0.83-4.51 X10 3/ul Normal Absolute Lymph 1.47 Performed By: #### L100.0200 #### [facility] [address] [facility] [place], [address] URINALYSIS, EMPLOYEE Collected: 03/11/2018 Status: F Source: NEOGA 9:36 AM [facility] REPOSITORY TYPE CODE TESTS RESULT OUT OF RANGE REFERENCE UNITS LAB L400.3000 Yellow COLOR Normal Yellow LAB L400.3050 Clear Normal CLARITY Sl. Cloudy LAB L400.3200 Normal mg/dl Normal GLUCOSE, UR Normal LAB L400.3300 Negative mg/dL Normal BILIRUBIN URINE Negative LAB L400.3400 Negative mg/dl Normal KETONE UR Negative LAB L400.3465 1.002-1.030 Normal SP.GR. DIPSTX 1.010 LAB L400.3550 5.0 - 8.0 pH UR Normal 7.0 LAB L400.3600 Negative mg/dl PROT Normal DIPSTX Negative LAB L400.3700 Normal mg/dl Normal UROBILI Normal LAB L400.3750 Negative Normal NITRITE UR Negative LAB L400.3780 Negative /ul Normal OCCULT BLOOD-UR Negative LAB L400.3800 Negative /ul High LEUK ESTERASE 100 Performed By: #### L400.0100 #### [facility] [address] [facility] [place], [place], [address] NICOTINE URINE DRUG Collected: 03/11/2018 Status: F Source: NEOGA SCREEN 9:36 AM [facility] REPOSITORY TYPE CODE TESTS RESULT OUT OF RANGE REFERENCE UNITS LAB L505.6250 TO BE Normal CONFIRMED Result Comment: CONFIRMATORY TESTING FOR ALL POSITIVE URINE DRUG SCREEN RESULTS WILL ONLY BE SENT OUT UPON PHYSICIAN ORDER. The results of Urine Drug Screen methods provide only preliminary analytical test results. A more specific alternate chemical method must be used in order to obtain a confirmed analytical result. Gas chromatography/mass spectrometery (GC/MS) is the preferred confirmatory method. Clinical consideration and professional judgement should be applied to any drug of abuse test result, particularly when preliminary positive results are used. LAB L505.6270 <200 ng/mL Normal COT DRG Negative SCREEN Result Comment: Cotinine is the first-stage metabolite of Nicotine. Performed By: #### L505.6240 #### [facility] [address] [place], [address] EMPLOYEE PROFILE Collected: 03/11/2018 Status: F Source: SARI 9:36 AM [facility] REPOSITORY TYPE CODE TESTS RESULT OUT OF RANGE REFERENCE UNITS LAB L501.0100 74-106 mg/dL Low GLU 71 Result Comment: Please note revised GLUCOSE reference range effective 2017. LAB L501.1000 7-18 mg/dL Normal BUN 7 LAB L501.1100 0.55-1.02 mg/dL Low CREAT,SERUM 0.42 Result Comment: The validity of the calculated GFR AND GFRAA in patients over 70 years has not been determined. Clinical correlation is essential. LAB L501.1110 >60 mL/min Normal EST GFR 201 Result Comment: Non- GFR Calc LAB L501.1115 >60 mL/min Normal EST GFR - AA 243 Result Comment: GFR Calc LAB L501.1300 10-20 RATIO Normal BUN/CRE 16.7 LAB L501.1400 2.6-6.0 mg/dL Normal URIC 3.2 Result Comment: The drugs N-Acetylcysteine and Metamizole may falsely depress this assay. LAB L501.1500 6.4-8.2 g/dL Low T PROT 5.9 LAB L501.1800 3.2-5.0 g/dL Low ALB 2.7 LAB L501.1950 2.2-4.2 g/dL Normal GLOB 3.2 LAB L501.2000 0.9-2.4 RATIO Low A/G 0.8 LAB L501.2200 8.5-10.1 mg/dL Low CA 8.2 LAB L501.2300 2.5-4.9 mg/dL Normal PHOS 3.2 LAB L501.4100 15-37 U/L Low AST 14 LAB L501.4305 45-117 U/L Normal ALK P 59 LAB L501.4405 13-56 U/L Normal ALT 19 LAB L501.4600 0.20-1.00 mg/dL Normal T BILI 0.30 LAB L501.4700 0.00-0.30 mg/dL Normal D BILI 0.05 LAB L501.4900 200 mg/dL High CHOL 223 Result Comment: <200 mg/dL Desirable 200-240 mg/dL Borderline >240 mg/dL High Risk LAB L501.5000 mg/dL Normal TRIG 92 Result Comment: The drugs N-Acetylcysteine and Metamizole may falsely depress this assay. Serum Triglycerides Reference Interval Normal <150 mg/dL Borderline high 150 - 199 mg/dL High 200 - 499 mg/dL Very High > or = 500 mg/dL LAB L501.5300 136-145 mmol/L Normal NA 141 LAB L501.5600 3.5-5.1 mmol/L Normal K 3.5 LAB L501.5900 98-107 mmol/L High CL 108 LAB L501.6100 21.0-32.0 mmol/L Normal CO2 24.0 LAB L501.6200 5-15 Normal 9 GAP LAB L501.6400 mg/dL Normal HDL 49 Result Comment: The drugs N-Acetylcysteine and Metamizole may falsely depress this assay. Reference Range HDL <40 mg/dL Low HDL Cholesterol HDL >or= 60 mg/dL High HDL Cholesterol LAB L501.6475 Normal CHOL:HDL 4.60 LAB L501.6500 0-130 mg/dL High LDL 156 LAB L501.6600 5-40 mg/dL Normal VLDL 18 LAB L504.2610 84-246 U/L Normal LDH 139 Performed By: #### L500.2900 #### [facility] [address] 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 [place] [address] OFFICE VISIT Date of Service: 03/10/18 MR#: [id number] Acct: [id number] Name: JUSTIN OTT Rep #: [id number] : 1995 Provider: JANAK Myers Age/Sex: 22/F [place] [facility] [place]: Signed Intake Vital Signs03/10/18 Height 5 ft 7 in 03/10/18 Weight: 142 lb 4 oz 03/10/18 Body Mass Index (BMI) 22.2 03/10/18 Blood Pressure 122/71 H Intake Visit Reasons: 24 weeks Allergies No Known Allergies Allergy (Verified 03/10/18 11:38) Medications Multivitamin with Folic Acid [Thera Tablet] 1 ea PO DAILY #30 tab 05/06/17 [Rx Confirmed 03/10/18] promethazine 12.5 mg tablet 12.5 mg PO Q6H PRN #60 tab 12/15/17 [Rx Confirmed 03/10/18] Last Menstral Period: 09/22/17 PFSH PFSH Surgical History History of arthroscopy of right shoulder (Acute) Family History Grandmother Diabetes Social History Smoking Status: Former smoker how long ago did patient quit smokin years alcohol intake: never substance use type: does not use caffeine: Yes what type of physical activity do you participate in: none seatbelt use: always do you feel safe at home: Yes additional social history: [employer] Patient works in [employer] at [employer] Pregancy History 1 Elective abortions Hx Para Spontaneous abortions HPI 24 weeks: Details: JUSTIN OTT is a 22 year old who presents for routine OB visit. OB Visit KATH Calculator Estimated Delivery Date 06/29/18 Based on LMP (certain) 09/22/17 Current WG 24w 1d Number 1 Expected Delivery Route/Plan Specific Issue/Plans flu vaccine: [] minichart given: given tdap vaccine: [] rhogam NA LARC form signed: labor support person: Aneudy pain management: [] cut cord/dad catch: [] : [] PP control planned: [] special requests: [] Initial Weight: Not Recorded Date Weight BP Urine PrFHR FuHt Pres MoCTX DilationFetal StVisit NoProviderComments E ot v te GA G Effac lucose ed Visit Notes Visit Date: 03/10/18 Doing well. No VB, LOF. MONSERRAT Ribera on 03/10/18 Visit Date: 02/09/18 no vb lof nausea controlled, stil ltired normal anatomy scan Leah Benavides MD on 02/09/18 Visit Date: 01/12/18 Doing well. Still taking phenergan prn. No VB, LOF. MONSERRAT Ribera on 01/12/18 Visit Date: 12/15/17 co persistent vomiting keeping liquids down, ordered phenergan Leah Benavides MD on 12/15/17 Visit Date: 11/18/17 No visit notes to display Diagnostics Diagnostics Labs Blood Type B POSITIVE 11/18/17 Antibody Screen NEGATIVE 11/18/17 Hct 40.2 % (37-47) 11/18/17 Hgb 13.1 g/dl (12.0-15.0) 11/18/17 Pap Smear Negative 07/21/17 Obstetrics Ultrasound 02/05/18 Rubella IgG Antibody 40.8 IU/mL 12/15/17 RPR NONREACTIVE (NONREACTIVE) 11/18/17 Chlam trachomat DNA PCR Negative (Negative) 11/18/17 N.gonorrhoeae DNA (PCR) Negative (Negative) 11/18/17 Miscellaneous Test 02/09/18 Hep Bs Antigen Negative (Negative) 01/27/16 Details: HIV: Urine Culture: Sequential Screen: NIPT Screen: Results [id number] Office Urine Glucose Negative Last Edit by Lena Dangelo on 03/10/18 11:39 Office Urine Protein Negative Last Edit by Lena Dangelo on 03/10/18 11:39 Assessment AND Plan Problems 1. Encounter for supervision of normal first in second trimester Z34.02 PRR KATH 06/29/18 boyfriend Aneudy 2. 24 weeks gestation of Z3A.24 genetic screening declined. AFP -negative. anatomy scan reviewed. Plan Orders placed: none Reviewed of labor precautions, movement/kick counts ACOG trimester education reviewed and updated See problem list details for updated plan of care Gestational age appropriate handout given RTO: 4 weeks Orders Orders: Coding Level of Care Code OB Routine Diagnoses Encounter for supervision of normal first in second trimester Z34.02 Normal : normal first Trimester: second trimester 24 weeks gestation of Z3A.24 Weeks of gestation: 24 weeks 03/10/18 1146 <Electronically signed by Vani GERMAN> Date Vani Myers CLOTH BEAMER-C Cosigner Signature: Date (if applicable) CC: MISCELLANEOUS LAB Collected: 02/09/2018 Status: F Source: SARI PROCEDURE 3:35 PM [facility] REPOSITORY Order Comment: Comments: 365661 MS AFP SERUM Test(s) Ordered: 100071 MSAFP SERUM TYPE CODE TESTS RESULT OUT OF RANGE REFERENCE UNITS LAB L801.1541 Normal [facility] LAB TEST Result Comment: TEST RESULT UNITS REF INTERVAL AFP, Serum, Open Spina Bifida Results Report Test Results: *Screen Negative* Gest. Age on Collection Date 20.6 weeks Gestat. Age Based On PROVIDED Recalculations are not recommended when gestational dating by LMP and ultrasound are within 10 days. [age] KATH [age] yr Race Weight 137 lbs Insulin Dep Diabetes No Multiple Gestation No AFP Value 70.4 ng/mL AFP MoM 1.10 OSBR Risk 1 IN 8933 Interpretation Interpretation: Screen Negative This result is screen negative for OSB. The AFP MoM calculated is based on the gestational age provided. MS-AFP can identify up to 80% of open neural tube defects. Closed neural tube defects and some open defects may not be detected by this test. This test does not screen for Down Syndrome or Trisomy 18. If screening for Down Syndrome or Trisomy 18 is desired, contact [facility] Services to discuss available options. The [employer] recommends amniocentesis be offered to women age 35 and older. Comment: Marizol Loja, Ph.D., [facility] Principal Genetics Guidance Consultant References: Available Upon Request. Multiples Of Median Cutoffs For AFP Elevations Denny 2.5 Black 2.8 IDD 2.0 Twins 4.5 Abbreviation Definitions IDD - Insulin Dep Diabetes OSBR - Open Spina Bifida Risk For further inquiries contact [facility] at [phone]. TESTING PERFORMED AT [facility]. ORIGINAL REPORT ON FILE IN LAB CONTAINS ADDITIONAL TEST SITE INFORMATION. Performed By: #### L801.1541 #### [facility] [address] 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 [place] [address] OFFICE VISIT Date of Service: 02/09/18 MR#: [id number] Acct: [id number] Name: JUSTIN OTT Rep #: [id number] : 1995 Provider: Leah Benavides MD Age/Sex: 22/F [place] [facility] [place]: Signed Intake Vital Signs02/09/18 Height 5 ft 7 in 02/09/18 Weight: 137 lb 6 oz 02/09/18 Body Mass Index (BMI) 21.5 02/09/18 Blood Pressure 111/65 Intake Visit Reasons: 20 weeks Supervisor Heat Treating Required: No Is patient in pain?: No Allergies No Known Allergies Allergy (Verified 02/09/18 11:16) Medications Multivitamin with Folic Acid [Thera Tablet] 1 ea PO DAILY #30 tab 05/06/17 [Rx Confirmed 02/09/18] promethazine 12.5 mg tablet 12.5 mg PO Q6H PRN #60 tab 12/15/17 [Rx Confirmed 02/09/18] Last Menstral Period: 09/22/17 Zika: Zika virus screening: Negative : No PFSH PFSH Surgical History History of arthroscopy of right shoulder (Acute) Family History Grandmother Diabetes Social History Smoking Status: Former smoker how long ago did patient quit smokin years alcohol intake: never substance use type: does not use caffeine: Yes what type of physical activity do you participate in: none seatbelt use: always do you feel safe at home: Yes additional social history: [employer] Patient works in [employer] at [employer] Pregancy History 1 Elective abortions Hx Para Spontaneous abortions HPI 20 weeks: Details: JUSTIN OTT is a 22 year old who presents for routine OB visit. OB Visit KATH Calculator Estimated Delivery Date 06/29/18 Based on LMP (certain) 09/22/17 Current WG 20w 0d Number 1 Expected Delivery Route/Plan Specific Issue/Plans flu vaccine: [] minichart given: given tdap vaccine: [] rhogam NA LARC form signed: labor support person: Aneudy pain management: [] cut cord/dad catch: [] : [] PP control planned: [] special requests: [] Initial Weight: Not Recorded Date Weight BP Urine PrFHR FuHt Pres MoCTX DilationFetal StVisit NoProviderComments E ot v te GA G Effac lucose ed Visit Notes Visit Date: 02/09/18 no vb lof nausea controlled, stil ltired normal anatomy scan Leah Benavides MD on 02/09/18 Visit Date: 01/12/18 Doing well. Still taking phenergan prn. No VB, LOF. MONSERRAT Ribera on 01/12/18 Visit Date: 12/15/17 co persistent vomiting keeping liquids down, ordered phenergan Leah Benavides MD on 12/15/17 Visit Date: 11/18/17 No visit notes to display Diagnostics Diagnostics Labs Blood Type B POSITIVE 11/18/17 Antibody Screen NEGATIVE 11/18/17 Hct 40.2 % (37-47) 11/18/17 Hgb 13.1 g/dl (12.0-15.0) 11/18/17 Pap Smear Negative 07/21/17 Obstetrics Ultrasound 02/05/18 Rubella IgG Antibody 40.8 IU/mL 12/15/17 RPR NONREACTIVE (NONREACTIVE) 11/18/17 Chlam trachomat DNA PCR Negative (Negative) 11/18/17 N.gonorrhoeae DNA (PCR) Negative (Negative) 11/18/17 Details: HIV: Urine Culture: Sequential Screen: NIPT Screen: Results [id number] Office Urine Glucose Negative Last Edit by Lena Dangelo on 02/09/18 11:22 Office Urine Protein Negative Last Edit by Lena Dangelo on 02/09/18 11:22 Assessment AND Plan Problems 1. Encounter for supervision of normal first in second trimester Z34.02 PRR KATH 06/29/18 boyfriend Aneudy 2. 20 weeks gestation of Z3A.20 genetic screening declined. AFP screening ordered. anatomy scan reviewed. Plan ACOG trimester education reviewed and updated. see problem list details for updated plan management information and see below for orders placed at this visit. GA appropriate handout given. Orders Orders: Coding Level of Care Code OB Routine Diagnoses Encounter for supervision of normal first in second trimester Z34.02 Normal : normal first Trimester: second trimester 20 weeks gestation of Z3A.20 Weeks of gestation: 20 weeks 02/09/18 1148 <Electronically signed by Leah Benavides MD> Date Leah Benavides MD Cosigner Signature: Date (if applicable) CC: OB ANATOMY SCAN Observed: 02/05/2018 Status: F Source: SARI 12:15 PM [facility] REPOSITORY [facility] [address] [place] [address] OB Anatomy Scan MR#: [id number] Acct: [id number] Name: JUSTIN OTT Rep #: [id number] : 1995 F 22 From: Rufus Reyes MD PCP: Ratna Villalobos MD Status: REG CLI Study: OB Anatomy Scan Date of Exam: 02/05/18 Exam# [id number] Ordering Dr: Vani Myers STUDY: SECOND AND THIRD TRIMESTER OBSTETRICAL ULTRASOUND REASON FOR EXAM: Female, 22 years old. Routine survey. LMP: September 22, 2017. TECHNIQUE: Transabdominal PRIOR ULTRASOUND: None. FINDINGS: There is a single intrauterine fetus. The fetus is in a breech presentation. There is demonstrated cardiac activity with a heart rate of 138 bpm. There is a normal amniotic fluid volume. The largest amniotic fluid pocket measures 5.6 cm x 8.1 cm. The amniotic fluid index (VELIA) is within normal limits. The placenta is posterior in location and is not low lying. There are Grade 0 placental changes. The cervix measures 3.3 cm in length. The bilateral adnexal regions are normal. BIOMETRY: BPD: 4.7 cm: 20 weeks, 2 days HC: 17.2 cm: 19 weeks, 6 days AC: 14.6 cm: 20 weeks, 0 days FL: 3.1 cm: 19 weeks, 4 days CI: 81% FL/BPD: 66% FL/HC: FL/AC: 21% HC/AC: 1.17 age by current US: 20 weeks, 0 days. KATH by current US: June 25, 2018. Estimated weight: 311 grams, +/- 45 grams, 65 %. Age by LMP: 19 weeks, 3 days. KATH by LMP: June 29, 2018. ANATOMY: Gender: Male Cranium: Normal lateral ventricles. Normal choroid plexus. Normal cerebellum. Normal cisterna magna. Normal face, nose and lips. Chest: Normal 4-chamber heart. Abdomen/Pelvis: Normal diaphragm. Normal stomach. Normal abdominal wall. Normal cord insertion. Normal 3 vessel cord. Normal kidneys. Normal bladder. Spine: Normal cervical spine. Normal thoracic spine. Normal lumbar spine. Normal sacrum. Extremities: Normal bilateral upper extremities. Normal bilateral lower extremities. US/OB Anatomy Scan IMPRESSION: Single live intrauterine gestation with a mean gestational age of 20 weeks. 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 [place] [address] OFFICE VISIT Date of Service: 01/12/18 MR#: [id number] Acct: [id number] Name: JUSTIN OTT Rep #: [id number] : 1995 Provider: JANAK Myers Age/Sex: 22/F [place] [facility] [place]: Signed Intake Vital Signs01/12/18 Height 5 ft 7 in 01/12/18 Weight: 129 lb 6 oz 01/12/18 Body Mass Index (BMI) 20.2 01/12/18 Blood Pressure 120/75 Intake Visit Reasons: 16 weeks Supervisor Heat Treating Required: No Is patient in pain?: No Allergies No Known Allergies Allergy (Verified 01/12/18 14:34) Medications Multivitamin with Folic Acid [Thera Tablet] 1 ea PO DAILY #30 tab 05/06/17 [Rx Confirmed 01/12/18] promethazine 12.5 mg tablet 12.5 mg PO Q6H PRN #60 tab 12/15/17 [Rx Confirmed 01/12/18] Last Menstral Period: 09/22/17 Zika: Zika virus screening: Negative : No PFSH PFSH Surgical History History of arthroscopy of right shoulder (Acute) Family History Grandmother Diabetes Social History Smoking Status: Former smoker how long ago did patient quit smokin years HPI 16 weeks: Details: JUSTIN OTT is a 22 year old who presents for routine OB visit. OB Visit KATH Calculator Estimated Delivery Date 06/29/18 Based on LMP (certain) 09/22/17 Current WG 16w 0d Number 1 Specific Issue/Plans flu vaccine: [] minichart given: given tdap vaccine: [] rhogam NA LARC form signed: labor support person: Aneudy pain management: [] cut cord/dad catch: [] : [] PP control planned: [] special requests: [] Initial Weight: Not Recorded Date Weight BP Urine PFHR FuHt Pres MCTX DilatioFetal SVisit NProvideComment rot ov n t ote r s EGA Ef Gluco faced se 11/18/1130 lb 125/74 8 12.8 oz 8w 1d Visit Notes Visit Date: 01/12/18 Doing well. Still taking phenergan prn. No VB, LOF. MONSERRAT Ribera on 01/12/18 Visit Date: 12/15/17 co persistent vomiting keeping liquids down, ordered phenergan Leah Benavides MD on 12/15/17 Visit Date: 11/18/17 No visit notes to display Diagnostics Diagnostics Labs Blood Type B POSITIVE 11/18/17 Antibody Screen NEGATIVE 11/18/17 Hct 40.2 % (37-47) 11/18/17 Hgb 13.1 g/dl (12.0-15.0) 11/18/17 Pap Smear Negative 07/21/17 Rubella IgG Antibody 40.8 IU/mL 12/15/17 RPR NONREACTIVE (NONREACTIVE) 11/18/17 Hep Bs Antigen Negative (Negative) 01/27/16 Chlam trachomat DNA PCR Negative (Negative) 11/18/17 N.gonorrhoeae DNA (PCR) Negative (Negative) 11/18/17 Details: HIV: Urine Culture: Sequential Screen: NIPT Screen: Results [id number] Office Urine Glucose Negative Last Edit by Lena Dangelo on 01/12/18 14:39 Office Urine Protein Negative Last Edit by Lena Dangelo on 01/12/18 14:39 Assessment AND Plan Problems 1. Encounter for supervision of normal first in first trimester Z34.01 PRR KATH 06/29/18 boyfriend Aneudy 2. 16 weeks gestation of Z3A.16 Plan Orders placed: anatomy US Continue phenergan prn Reviewed of labor precautions, movement/kick counts ACOG trimester education reviewed and updated See problem list details for updated plan of care Gestational age appropriate handout given RTO: 4 weeks Orders Orders: Coding Level of Care Code OB Routine Diagnoses Encounter for supervision of normal first in first trimester Z34.01 Normal : normal first Trimester: first trimester 16 weeks gestation of Z3A.16 01/12/18 1451 <Electronically signed by Vani Myers NP-C> Date Vani Myers [employer] BE[employer]ER-C Cosigner Signature: Date (if applicable) CC: RUBELLA IGG Collected: 12/15/2017 Status: F Source: SARI 4:48 PM [facility] REPOSITORY TYPE CODE TESTS RESULT OUT OF RANGE REFERENCE UNITS LAB L509.4000 IU/mL Normal Rubella IgG 40.8 Result Comment: Antibody results Interpretation of Immune Status < 5 IU/ml Presumed Non-immune 5 - < 10 IU/ml Equivocal > or = 10 IU/ml Presumed Immune Performed By: #### L509.4000, L3890.6005 #### [facility] [address] [place], [address] HIV - [facility] Collected: 12/15/2017 Status: F Source: SARI 4:48 PM [facility] REPOSITORY TYPE CODE TESTS RESULT OUT OF RANGE REFERENCE UNITS LAB L3890.6005 Nonreactive Normal HIV - [facility] Non-Reactive Performed By: #### L509.4000, L3890.6005 #### [facility] [address] 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 [place] [address] OFFICE VISIT Date of Service: 12/15/17 MR#: [id number] Acct: [id number] Name: JUSTIN OTT Rep #: [id number] : 1995 Provider: Leah Benavides MD Age/Sex: 22/F Location: [facility] Status: Signed Intake Vital Signs12/15/17 Height 5 ft 7 in 12/15/17 Weight: 126 lb 8 oz 12/15/17 Body Mass Index (BMI) 19.8 12/15/17 Blood Pressure 113/78 Intake Visit Reasons: 12 WEEK OB Supervisor Heat Treating Required: No Accompanied by: self Is patient in pain?: No Allergies No Known Allergies Allergy (Verified 12/15/17 16:00) Medications Multivitamin with Folic Acid [Thera Tablet] 1 ea PO DAILY #30 tab 05/06/17 [Rx Confirmed 12/15/17] promethazine 12.5 mg tablet 12.5 mg PO Q6H PRN #60 tab 12/15/17 [Rx Confirmed 12/15/17] Last Menstral Period: 09/22/17 Zika: Zika virus screening: Negative : No PFSH PFSH Surgical History History of arthroscopy of right shoulder (Acute) Family History Grandmother Diabetes Social History Smoking Status: Former smoker how long ago did patient quit smokin years HPI 12 WEEK OB: Details: JUSTIN OTT is a 22 year old who presents for routine OB visit. OB Visit KATH Calculator Estimated Delivery Date 06/29/18 Based on LMP (certain) 09/22/17 Current WG 12w 0d Number 1 Initial Weight: Not Recorded Date Weight BP Urine PrFHR FuHt Pres MoCTX DilationFetal StVisit NoProviderComments E ot v te GA G Effac lucose ed Visit Notes Visit Date: 12/15/17 co persistent vomiting keeping liquids down, ordered phenergan Leah Benavides MD on 12/15/17 Visit Date: 11/18/17 No visit notes to display Diagnostics Diagnostics Labs Blood Type B POSITIVE 11/18/17 Antibody Screen NEGATIVE 11/18/17 Hct 40.2 % (37-47) 11/18/17 Hgb 13.1 g/dl (12.0-15.0) 11/18/17 Pap Smear Negative 07/21/17 Rubella IgG Antibody Cancelled 11/18/17 RPR NONREACTIVE (NONREACTIVE) 11/18/17 Hep Bs Antigen Negative (Negative) 01/27/16 Chlam trachomat DNA PCR Negative (Negative) 11/18/17 N.gonorrhoeae DNA (PCR) Negative (Negative) 11/18/17 Details: HIV: Urine Culture: Sequential Screen: NIPT Screen: Results [id number] Office Urine Glucose Negative Last Edit by Rica Vee on 12/15/17 16:03 Office Urine Protein Negative Last Edit by Rica Vee on 12/15/17 16:03 Assessment AND Plan Problems 1. Encounter for supervision of normal first in first trimester Z34.01 PRR (rubella hiv) KATH 06/29/18 boyfriennadine Amado Plan ordered phenergan Orders Orders: Medications New: Coding Level of Care Code OB Routine Diagnoses Encounter for supervision of normal first in first trimester Z34.01 Normal : normal first Trimester: first trimester 12/15/17 1624 <Electronically signed by Leah Benavides MD> Date Leah Benavides MD Cosign Signature: Date (if applicable) CC: DOWNTIME REPORT Observed: 12/04/2017 Status: F Source: SARI 12:33 PM [facility] REPOSITORY [facility] Medical Records Department [address] [place] [address] Downtime Report MR#: [id number] Acct: [id number] Name: JUSTIN OTT Rep #: [id number] : 1995 22 From: Alpesh Lewis PCP: Ratna Villalobos MD Status: REG CLI This patient was seen during an EMR downtime November 17, 2017 - November 24, 2017. This patient may have a combination of paper and electronic documentation or all paper documentation. All documentation is viewable within the e-chart portion of [facility] for each patient visit. TYPE AND SCREEN Collected: 11/18/2017 Status: F Source: NEOGA 12:10 PM [facility] REPOSITORY Order Comment: Reason for Type AND Screen/Red Cells: ANEMIA TYPE CODE TESTS RESULT OUT OF RANGE REFERENCE UNITS LAB B10.0800 B Normal BLOOD TYPE GEL POSITIVE LAB B100.4000 Normal Antibody NEGATIVE Screen Performed By: #### B101.7450 #### [facility] [address] [place], [address] CBC W/DIFF, AUTOMATED Collected: 11/18/2017 Status: F Source: NEOGA 12:00 AM [facility] REPOSITORY Order Comment: RESULT(S) PREVIOUSLY REPORTED ON MANUAL REQUISITION DURING DOWNTIME. TYPE CODE TESTS RESULT OUT OF RANGE REFERENCE UNITS LAB L100.1000 4.4-11.0 K/mm3 Normal WBC 8.4 LAB L100.1200 4.2-5.4 M/mm3 Normal RBC 4.89 LAB L100.1300 12.0-15.0 g/dl Normal HGB 13.1 LAB L100.1400 37-47 % Normal HCT 40.2 LAB L100.1500 81-99 fL Normal MCV 82.2 LAB L100.1600 27.0-32.0 pg Low MCH 26.8 LAB L100.1700 32-36 g/gl Normal MCHC 32.6 LAB L100.1810 11.6-14.6 % Normal RDW CV 13.4 LAB L100.1820 35.1-43.9 fl Normal RDW SD 39.8 LAB L100.1900 150-450 K/mm3 Normal PLT 298 LAB L100.2000 6.2-12.0 fl Normal MPV 9.8 LAB L100.2100 47-70 % High NEUT% 73.2 LAB L100.2200 19-41 % Normal LY% 20.4 LAB L100.2300 0-10 % Normal MONO% 6.0 LAB L100.2400 0-5 % Normal EO% 0.1 LAB L100.2500 0-1 % Normal BASO% 0.2 LAB L100.2550 0.0-0.9 % Normal IM GRAN % 0.100 Result Comment: IG% - Immature Granulocytes (promyelocytes, myelocytes and metamyelocytes) > 1% indicates that a LEFT SHIFT is Present. LAB L100.2620 2.0-7.7 X10 3/uL Normal Absolute Neut 6.1 LAB L100.2720 0.83-4.51 X10 3/ul Normal Absolute Lymph 1.71 Performed By: #### L100.0100 #### [facility] [address] [place], [address] RAPID PLASMIN REAGIN Collected: 11/18/2017 Status: F Source: SARI (RPR) 12:00 AM [facility] TYPE CODE TESTS RESULT OUT OF REFERENCE UNITS RANGE LAB L700.5000 NONREACTIVE NONREACTIVE Normal RPR Performed By: #### L700.5000 #### [facility] [address], [address] CT/NG WCH BY PCR Collected: 11/18/2017 Status: F Source: SARI 12:00 AM [facility] REPOSITORY Order Comment: RESULT(S) PREVIOUSLY REPORTED ON MANUAL REQUISITION DURING DOWNTIME. TYPE CODE TESTS RESULT OUT OF RANGE REFERENCE UNITS LAB L8200.2100 Negative Normal Chlam Negative Trac PCR LAB L8200.2200 Negative Normal NG by Negative PCR Performed By: #### L8200.2000 #### [facility] [address] [facility] [place], [address] Observed: 11/18/2017 Status: F Source: SARI CULTURE, URINE 12:00 AM [facility] Urine Culture Culture exhibits no growth. Performed By: #### M100.0650 #### [facility] [address] [facility] [place], [address] ORTHOPEDIC VISIT Observed: 09/14/2017 Status: F Source: SARI REPORT 9:31 AM [facility] REPOSITORY [facility] [address] [place] [address] OFFICE VISIT Date of Service: 09/08/17 MR#: [id number] Acct: [id number] Name: JUSTIN OTT Rep #: [id number] : 1995 Provider: Mamadou Dailey DO Age/Sex: 22/F Location: [facility] Status: Signed Intake Intake Visit Reasons: right shoulder Is patient in pain?: Yes Allergies No Known Allergies Allergy (Verified 07/23/17 10:41) Medications Docusate Sodium [Colace] 100 mg PO BID PRN PRN #10 cap 05/06/17 [Rx Confirmed 07/23/17] Hydrocodone Bitart/Apap 5-325 [[place] 5/325] 1 - 2 tab PO Q6H PRN PRN #60 tab 05/06/17 [Rx Confirmed 07/23/17] Iron Polysaccharide Complex [Ferrex 150] 150 mg PO DAILYCM #30 cap 05/06/17 [Rx Confirmed 07/23/17] Multivitamin with Folic Acid [Thera Tablet] 1 ea PO DAILY #30 tab 05/06/17 [Rx Confirmed 07/23/17] proMETHazine tablet [Phenergan] 25 mg PO Q4H PRN PRN #20 tab 05/06/17 [Rx Confirmed 07/23/17] folic acid 400 mcg tablet 400 mcg PO QDAY 06/02/17 [History Confirmed 07/23/17] hydrocodone 5 mg-acetaminophen 325 mg tablet 2 tab PO Q6H #40 tab 06/02/17 [Rx Confirmed 07/23/17] multivitamin tablet 1 tab PO QAM 06/02/17 [History Confirmed 07/23/17] polysaccharide iron complex 150 mg iron capsule 150 mg PO ONCE cap 06/02/17 [History Confirmed 07/23/17] PFSH Surgical History History of arthroscopy of right shoulder (Acute) Family History Grandmother Diabetes Social History Smoking Status: Former smoker how long ago did patient quit smokin years HPI right shoulder: Details: JUSTIN OTT is a 22 year old F here today for a followup on her right shoulder. Patient states that she is doing okay. She continues to have limited range of motion but it has improved slightly. She completed physical therapy and is currently doing a home exercise program. Patient notes that her arm spasms when working on range of motion. Denies numbness, tingling or other associated symptoms. ROS Const Reports system reviewed and no additional complaints, except as docu Eyes Reports system reviewed and no additional complaints, except as docu ENT Reports system reviewed and no additional complaints, except as docu Card Reports system reviewed and no additional complaints, except as docu Resp Reports system reviewed and no additional complaints, except as docu GI Reports system reviewed and no additional complaints, except as docu Reports system reviewed and no additional complaints, except as docu Musc Reports stiffness, Reports limited joint movement Skin/Breast Reports system reviewed and no additional complaints, except as docu Neuro Yes system reviewed and no additional complaints, except as docu Psych Reports system reviewed and no additional complaints, except as docu Endo Reports system reviewed and no additional complaints, except as docu Ortho Exam Right Shoulder Contralateral Normal: Yes SHOULDER: Patient is alert and oriented 3 no acute distress. Appropriate eye contact and affect. Otherwise intact the C5 to the T2 distributions. She has positive pulses. Her right upper extremity shows 170 of forward elevation. Abduction external rotation to about 80 with 90 of abduction. She has external rotation side about 45 versus the contralateral side was about 70. Patient has 1+ 1+ load shift. She has negative apprehension or relocation. Cuff strength appears to be 5 out of 5. No adenopathy. Left Shoulder Skin/Wound: Yes CDI Contralateral Normal: Yes Testing: Yes AROM-Forward Elevation 0-180, Yes AROM-External Rotation at side 0-60, Yes PROM-External Rotation at side 0-60, Yes AROM-External Rotation at 90 0-60, Yes PROM-Forward Elevation 0-180, Yes PROM-External Rotation at 90 0-60 Internal Rotation: Tip of Scapula Assessment AND Plan Problems 1. 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 Plan: At this point time I told the patient that she feels like she is gaining range of motion on her own release to make a continued observation. The patient remains symptomatic another 3 months and we consider having her see Dr. Kohler for possible manipulation or anesthesia or arthroscopic lysis of adhesions. The patient goes shows good stability anterior inferior. However her superior lateral ligament appears to be tight with her being tight upon external rotation at the side. That may just be disease from the fermenting and entering into the rotator interval. Insert abduction external rotation changes are within normal limits. For now recommend continued observation of the shoulder. If there is any issues consider for arthroscopic lysis of adhesions in the future. For now patient wants to continue to progress with nonoperative management release to full duty Coding Level of Care Code Off vis,est,level 3 Diagnoses Other subluxation of right shoulder joint, subsequent encounter S43.081D 09/14/17 0931 <Electronically signed by Mamadou Dailey DO> Date Mamadou Dailey DO Cosigner Signature: Date (if applicable) CC: ORTHOPEDIC VISIT Observed: 07/30/2017 Status: F Source: SARI REPORT 10:29 AM [facility] REPOSITORY [facility] [address] [place] [address] OFFICE VISIT Date of Service: 07/23/17 MR#: [id number] Acct: [id number] Name: JUSTIN OTT Rep #: [id number] : 1995 Provider: Mamadou Dailey DO Age/Sex: 22/F Location: [facility] Status: Signed Intake Intake Visit Reasons: RT SHOULDER Is patient in pain?: Yes Pain scale (1-10): 1 Allergies No Known Allergies Allergy (Verified 07/23/17 10:41) Medications Docusate Sodium [Colace] 100 mg PO BID PRN PRN #10 cap 05/06/17 [Rx Confirmed 07/23/17] Hydrocodone Bitart/Apap 5-325 [[place] 5/325] 1 - 2 tab PO Q6H PRN PRN #60 tab 05/06/17 [Rx Confirmed 07/23/17] Iron Polysaccharide Complex [Ferrex 150] 150 mg PO DAILYCM #30 cap 05/06/17 [Rx Confirmed 07/23/17] Multivitamin with Folic Acid [Thera Tablet] 1 ea PO DAILY #30 tab 05/06/17 [Rx Confirmed 07/23/17] ProMETHAzine [Phenergan] 25 mg PO Q4H PRN PRN #20 tab 05/06/17 [Rx Confirmed 07/23/17] folic acid 400 mcg tablet 400 mcg PO QDAY 06/02/17 [History Confirmed 07/23/17] hydrocodone 5 mg-acetaminophen 325 mg tablet 2 tab PO Q6H #40 tab 06/02/17 [Rx Confirmed 07/23/17] multivitamin tablet 1 tab PO QAM 06/02/17 [History Confirmed 07/23/17] polysaccharide iron complex 150 mg iron capsule 150 mg PO ONCE cap 06/02/17 [History Confirmed 07/23/17] PFSH Surgical History History of arthroscopy of right shoulder (Acute) Family History Grandmother Diabetes Social History Smoking Status: Former smoker how long ago did patient quit smokin years HPI RT SHOULDER: Chief Complaint: right shoulder Details: JUSTIN OTT is a 22 year old F here today for a followup on her right shoulder. She states that she is sore today since she just completed physical therapy. Patient notes that she is improving, slowly. Her range of motion has increased. She denies taking any pain medications. Denies numbness, tingling or other associated symptoms. ROS Const Reports system reviewed and no additional complaints, except as docu Eyes Reports system reviewed and no additional complaints, except as docu ENT Reports system reviewed and no additional complaints, except as docu Card Reports system reviewed and no additional complaints, except as docu Resp Reports system reviewed and no additional complaints, except as docu GI Reports system reviewed and no additional complaints, except as docu Reports system reviewed and no additional complaints, except as docu Musc Reports muscle weakness, Reports limited joint movement, Reports stiffness Skin/Breast Reports system reviewed and no additional complaints, except as docu Neuro Yes system reviewed and no additional complaints, except as docu Psych Reports system reviewed and no additional complaints, except as docu Endo Reports system reviewed and no additional complaints, except as docu Ortho Exam Right Shoulder Skin/Wound: Yes CDI SHOULDER: Alert and oriented 3 in no acute distress. Appropriate eye contact and affect. Otherwise intact the C5-T2 distributions. She has +2 pulses. Right range of motion at the side is roughly 50 of external rotation. Abduction external rotation is about 80 and 80. Patient is able to forward elevate to about 140. Internal rotation of the left eye her back to about the elbow 1 to T12. Remains otherwise ligaments are stable with 1+ 1+ [id number]. Assessment AND Plan Problems 1. Orthopedic aftercare Z47.89 Plan Assessment: After orthopedic status post right shoulder capsulorrhaphy for multidirectional instability. Plan: At this point time patient is making progress. I think she expected to have better range of motion early on but that is not the case. 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 Currently she is getting better. I told him that if not better in another 6 weeks and tightness especially towards at superior lateral ligament she may need a manipulation under anesthesia. I do feel confident that over the next 6-12 weeks she is in continue to gain range of motion the shoulder continue to matter as the soft tissues become more compliant. For now continue with patient's. See her back in 6 weeks. Any issues return. Coding Level of Care Code Global Post Op Diagnoses Orthopedic aftercare Z47.89 07/30/17 1029 <Electronically signed by Mamadou Dailey DO> Date Mamadou Dailey DO Cosigner Signature: Date (if applicable) CC: IGP W/HPV RFX Collected: 07/21/2017 Status: F Source: [facility] [id number] 4:20 PM [facility] REPOSITORY Order Comment: LMP: 06/29/17 TYPE CODE TESTS RESULT OUT OF RANGE REFERENCE UNITS LAB [id number]( INC) Normal See Ref Lab Diagnosis: Report Performed By: #### [id number] #### [place] [address] PATHOLOGY ([facility]) Observed: 07/21/2017 Status: F Source: [facility] 12:00 AM REPOSITORY FINAL GYNECOLOGIC CYTOLOGY REPORT [id number] SPECIMEN ADEQUACY Satisfactory for Evaluation. Endocervical cells/transformation zone component present. GENERAL CATEGORIZATION Negative for Intraepithelial Lesion or Malignancy DESCRIPTIVE DIAGNOSIS Reactive cellular changes associated inflammation and repair. Fungi consistent with Kacy species. Shift in vaginal marianela suggestive of bacterial vaginosis. CLINICAL HISTORY LMP: 06/29/2017 SPECIMEN (A) SCREENING CERVICAL/ENDOCERVICAL LIQUID-BASED PAP Performed at [facility], [address] [place] [address] Screened by: HUNTER SANTIZO Street Sweeper Signed Out by: ROGER HEALY MD Reported: 07/25/2017 Performed By: #### SENIOR UI DESIGNER #### [facility] [address] [place] [address] ALLERGIES ALLERGIES DATE TYPE / CODE NAME / CODE REACTION SEVERITY SOURCE 07/01/2018 Drug No Known Unknown [facility] Allergy/416 Allergies/R50503 Hospital 044137(SNOM 0388(RXNORM) Repository ED CT) Drug/405495 No Known [facility] 003(SNOMED Allergies [facility] CT) System Repository ENCOUNTERS ENCOUNTERS ADMIT/DISCHARGE ACCOUNT NUMBER ADMITTING ENCOUNTER LOCATION SOURCE CLASS 07/05/2018 [id number] [facility] BMSBuilding: [place] BMS.CF.[facility] Repository 07/05/2018/07/08/19 [id number] Makayla, Inpatient [place] S[place] 19 Leah Encounter [facility] ding:WPRoom: Repository TU957Ovz: 1 07/05/2018 [id number] [facility] Ambulatory BMSBuilding: [place] Leah BMS.CF.[facility] Repository 07/05/2018 [id number] [facility] Ambulatory BMSBuilding: [place] Leah BMS.CF.[facility] Repository 07/01/2018/07/01/19 [id number] Ambulatory BMSBuilding: [place] [address] Repository 06/24/2018/06/24/19 [id number] Ambulatory BMSBuilding: [place] [address] Repository 06/17/2018/06/17/19 [id number] Ambulatory BMSBuilding: [place] [address] Repository 06/11/2018/06/11/20 [id number] Ambulatory BMSBuilding: [place] [address] Repository 06/06/2018 [id number] Ambulatory BMSBuilding: [place] BMS.CF.[facility] Repository 06/05/2018/06/05/20 [id number] Ambulatory [place] 18 [facility] ding:WPOUTRo Repository om: [id number] 06/02/2018 [id number] Ambulatory [facility] ding:LABSPEC Repository 06/02/2018/06/02/20 [id number] Ambulatory BMSBuilding: [place] [address] Repository 05/19/2018/05/19/20 [id number] Ambulatory BMSBuilding: [place] [address] Repository 05/06/2018/05/06/20 [id number] Ambulatory BMSBuilding: [place] [address] Repository 04/24/2018/04/24/20 [id number] Ambulatory BMSBuilding: [place] [address] Repository 04/20/2018/04/20/20 [id number] Ambulatory BMSBuilding: [place] [address] Repository 04/03/2018 [id number] Ambulatory [facility] ding:LAB Repository 04/03/2018/04/03/20 [id number] Ambulatory BMSBuilding: [place] [address] Repository 03/11/2018 [id number] Ambulatory [facility] ding:EMPH Repository 03/10/2018/03/10/20 [id number] Ambulatory BMSBuilding: [place] [address] Repository 02/09/2018 [id number] Ambulatory [facility] ding:LAB Repository 02/09/2018/02/10/20 [id number] Ambulatory BMSBuilding: [place] [address] Repository 02/05/2018 [id number] Ambulatory [facility] ding:US Repository 01/12/2018/01/13/20 [id number] Ambulatory BMSBuilding: [place] [address] Repository 12/15/2017 [id number] Ambulatory [facility] ding:LAB Repository 12/15/2017/12/16/19 [id number] Ambulatory BMSBuilding: [place] [address] Repository 11/18/2017 [id number] Ambulatory [place] Sari [facility] ding:LAB Repository 11/18/2017/11/19/19 [id number] Ambulatory BMSBuilding: [place] [address] Repository 10/07/2017/10/08/19 [id number] [facility] [place] [address] S[place]a g:QCareRoom: Regional Room 1 Health System Repository 09/08/2017/09/09/19 [id number] Ambulatory BMSBuilding: S[place] 18 BMS.[facility] Repository 07/23/2017/07/23/19 [id number] Ambulatory BMSBuilding: [place] 18 BMS.[facility] Repository 07/21/2017/07/21/19 [id number] [facility] [address] ding:SH.Lab [facility] Repository 07/21/2017 [id number] Ambulatory BMSBuilding: Sari BMS.[facility] Repository 07/21/2017/07/21/[id number] Health System :[facility] Repository om: Room 3 PAYERS PAYERS ENCOUNTER GUARANTOR PAYER SUBSCRIBER SOURCE 07/05/2018 JUSTIN Murphy Primary Insurance:[facility] JUSTIN Guo [id number] [facility] [address] [facility]50-06-[address] [address]Bdx: Number: Repository [id number] (HP) Date:8449-94-71XF [address] [address], [place] [address]WT: CHECK WEBSITE 07/05/2018 Secondary NOT GIVENUNK [place] Insurance:SELF PAY [facility] Number: Effective Repository Date:2018-07-05 07/05/2018 JUSTIN Murphy Primary Insurance:[facility] JUSTIN Guo [id number] [facility]: [address] 9970-44-[address] [facility] [facility] [address]Zop: Number: Repository [id number] (HP) Date:2294-71-91VE [address] [address]TXBIQTDJS, [place] [address]JF: CHECK WEBSITE 07/05/2018 Secondary NOT GIVENUNK [place] Insurance:SELF PAY [facility] Number: Effective Repository Date:2018-06-18 07/05/2018 JUSTIN Murphy Primary Insurance:[facility] JUSTIN Murphy [place] [id number] [facility]: [address] 7372-08-86[place]FT[place] [id number]: Number: Repository [id number] (HP) Date:0554-27-55XE [address] [address], [place] [address]TR: CHECK WEBSITE 07/05/2018 Secondary NOT GIVENUNK [place] Insurance:SELF PAY [facility] Number: Effective Repository Date:2018-07-05 07/05/2018 JUSTIN Murphy Primary Insurance:[facility] JUSTIN Murphy [place] [id number] [facility] [address] 6212-61-18[place]CLau[place] [address]Tel: Number: Repository [id number] (HP) Date:0395-33-92RC [address] [address]ZWRLABRXF, [place] [address]YE: CHECK WEBSITE 07/05/2018 Secondary NOT GIVENUNK [place] Insurance:SELF PAY [facility] Number: Effective Repository Date:2018-07-05 07/01/2018 JUSTIN Murphy Primary Insurance:[facility] JUSTIN Guo [id number] [facility]: [address] 9467-10-09[place]ZCLau[place] [address]Tel: Number: Repository [id number] (HP) Date:5063-34-71KR [address] [address]ZN[place], [place] [address]UK: CHECK WEBSITE 07/01/2018 Secondary NOT GIVENUNK [place] Insurance:SELF PAY [facility] Number: Effective Repository Date:2018-07-01 06/24/2018 JUSTIN Murphy Primary Insurance:[facility] JUSTIN Murphy [place] [id number] [facility]: [address] [id number] Hospital [place] [address]Uwz: Number: Repository [id number] () Date:6131-29-94VA [address] [address]IGFYDQQH, [place] [address]IF: CHECK WEBSITE 06/24/2018 Secondary NOT GIVENUNK [place] Insurance:SELF PAY [facility] Number: Effective Repository Date:2018-06-24 06/17/2018 JUSTIN Murphy Primary Insurance:[facility] JUSTIN Murphy [place] [id number] [facility]: [address] [id number] [place] [address]Ksg: Number: Repository [id number] () Date:8497-72-13AX [address] [address]EJTIHQDVY, [place] [address]PO: CHECK WEBSITE 06/17/2018 Secondary NOT GIVENUNK [place] Insurance:SELF PAY [facility] Number: Effective Repository Date:2018-06-17 06/11/2018 JUSTIN Murphy Primary Insurance:[facility] JUSTIN Murphy [place] [id number] [facility]: [address] [id number] [facility] [place] [address]Dwp: Number: Repository [id number] () Date:6987-94-06MI [address] [address]DLZCZHWYR, [place] [address]KK: CHECK WEBSITE 06/11/2018 Secondary NOT GIVENUNK Sari Insurance:SELF PAY [facility] Number: Effective Repository Date:2018-06-11 06/06/2018 JUSTIN Murphy Primary NOT GIVENUNK Sari [id number] Insurance:SELF PAY [address] [place] [address]Drs: Number: Effective Repository Date:2018-06-06 (HP) 06/05/2018 JUSTIN Murphy Primary Insurance:[facility] JUSTIN Murphy [place] [id number] [facility] [address] [id number] [facility] [place] [address]Mne: Number: Repository [id number] (HP) Date:6401-02-45ZQ [address] [address]VKDFTSHJO, [place] [address]GL: CHECK WEBSITE 06/05/2018 Secondary NOT GIVENUNK Sari Insurance:SELF PAY [facility] Number: Effective Repository Date:2018-06-05 06/02/2018 JUSTIN Murphy Primary Insurance:[facility] JUSTIN [place] [id number] [facility]: [address] 6304-62-57HEVTimothy [place] [id number]: Number: Repository [id number] (HP) Date:6033-32-38QJ [address] [address]RIDABTNIE, [place] [address]GQ: CHECK WEBSITE 06/02/2018 Secondary NOT GIVENUNK Sari Insurance:SELF PAY [facility] Number: Effective Repository Date:2018-06-02 06/02/2018 JUSTIN Murphy Primary Insurance:[facility] JUSTIN [place] [id number] [facility]: [address] 5421-76-14AICLauren [place]ille [address]Tel: Number: Repository [id number] (HP) Date:5132-53-63CS [address] [address]MKWKIWNSN, [place] [address]ND: CHECK WEBSITE 06/02/2018 Secondary NOT GIVENUNK Sari Insurance:SELF PAY [facility] Number: Effective Repository Date:2018-06-02 05/19/2018 JUSTIN Murphy Primary Insurance:[facility] JUSTIN Guo [id number] [facility]: [address] 6307-84-50[address]HY[address] [facility] [address]Dyu: Number: Repository [id number] (HP) Date:9700-72-28SP [address] [address]PGOWSOSOY, [place] [address]NY: CHECK WEBSITE 05/19/2018 Secondary NOT GIVENUNK [place] Insurance:SELF PAY [facility] Number: Effective Repository Date:2018-05-19 05/06/2018 JUSTIN Murphy Primary Insurance:[facility] JUSTIN Guo [id number] [facility]: [address] 6802-60-32KAY [facility] [place] [address]Knr: Number: Repository [id number] (HP) Date:7247-69-12IY [address] [address]QGODLCHAR, [place] [address]WB: CHECK WEBSITE 05/06/2018 Secondary NOT GIVENUNK [place] Insurance:SELF PAY [facility] Number: Effective Repository Date:2018-05-06 04/24/2018 [facility] Primary Insurance:[facility] JUSTIN Murphy Sari [id number] [facility] [place]ERS[place]D[facility]: [address] [id number] [place] [address]Gbz: Number: Repository [id number] (HP) Date:1508-24-41OS [address] [address]BWRHVBMVQ, [place] [address]UY: CHECK WEBSITE 04/24/2018 Secondary NOT GIVENUNK [place] Insurance:SELF PAY [facility] Number: Effective Repository Date:2018-04-24 04/20/2018 JUSTINEDUIN GOODWINE Primary Insurance:[facility] JUSTIN ANTOINE Sari [id number] [facility]: [address] [id number] [place] [address]Nra: Number: Repository [id number] (HP) Date:3741-01-97XY [address] [address]BRVBXNECG, [place] [address]OW: CHECK WEBSITE 04/20/2018 Secondary NOT GIVENUNK Sari Insurance:SELF PAY [facility] Number: Effective Repository Date:2018-04-20 04/03/2018 JUSTIN ARASH Primary Insurance:[facility] JUSTIN [place] [id number] [facility] [place]: [address] [id number] [place] [address]Twz: Number: Repository [id number] (HP) Date:3501-18-27QI [address] [address]XTZUBYCAJ, [place] [address]BG: CHECK WEBSITE 04/03/2018 Secondary NOT GIVENUNK [place] Insurance:SELF PAY [facility] Number: Effective Repository Date:2018-04-03 04/03/2018 JUSTIN ARASH Primary Insurance:[facility] JUSTIN [place] [id number] [facility] [address] 0835-00-01XXBCH[address]ST[address] [facility] [address]Kdj: Number: Repository [id number] (HP) Date:4794-10-68ZK [address] [address]VRQZGLYKD, [place] [address]CO: CHECK WEBSITE 04/03/2018 Secondary ABRIL R TEELUNK [place] Insurance:ANTHEMPolic Community y Number: [facility] [id number] Repository leida Date:0523-86-24NY [address] [place] [address]JP: 04/03/2018 Tertiary NOT GIVENUNK Sari Insurance:SELF PAY [facility] Number: Effective Repository Date:2018-04-03 03/11/2018 JUSTIN ARASH Primary NOT GIVENUNK [place] [id number] Insurance:SELF PAY [address] [address]Qyb: Number: Effective Repository Date:2018-03-11 (HP) 03/10/2018 JUSTIN ARASH Primary Insurance:[facility] JUSTIN Guo [id number] [facility] [address] [id number] [place] [address]Oeb: Number: Repository [id number] (HP) Date:8197-79-79IG [address] [address]WPLDAQSTT, [place] [address]UN: CHECK WEBSITE 03/10/2018 Secondary ABRIL R TEELUNK [place] Insurance:ANTHEMPolic Community y Number: [facility] [id number] Repository leida Date:0113-11-65JA [address] [place] [address]CF: 03/10/2018 Tertiary NOT GIVENUNK Sari Insurance:SELF PAY [facility] Number: Effective Repository Date:2018-03-10 02/09/2018 JUSTIN ARASH Primary Insurance:[facility] JUSTIN ARASH Sari [id number] [facility]: [address] 9263-07-44LUK [facility] [place] [address]Qua: Number: Repository [id number] (HP) Date:8719-57-50UN [address] [address]FMBWCJBEN, [place] [address]CL: CHECK WEBSITE 02/09/2018 Secondary ABRIL MOSLEY Sari Insurance:ANTHEMPolic Community y [id number] Repository leida Date:1017-52-84YC [address] [place] [address]WV: 02/09/2018 Tertiary NOT GIVENUNK [place] Insurance:SELF PAY [facility] Number: Effective Repository Date:2018-02-09 02/09/2018 JUSTIN [facility] Primary Insurance:[facility] JUSTIN Guo [id number] [facility] [place]: [address] 9473-60-09BNXTimothy Ville [id number]: Number: Repository [id number] (HP) Date:1290-68-05SK [address] [address]ZQQZGZEBH, [place] [address]YP: CHECK WEBSITE 02/09/2018 Secondary ABRIL MOSLEY Sari [facility] y Number: [facility] [id number] Repository leida Date:0770-68-08ZM [address]KQCYXCS, [place] [address]OB: 02/09/2018 Tertiary NOT GIVENUNK [place] Insurance:SELF PAY [facility] Number: Effective Repository Date:2018-02-09 02/05/2018 JUSTIN ARASH Primary Insurance:[facility] JUSTIN Guo [id number] [facility]: [address] 8434-25-35KAECHRIST[facility] [address]Erj: Number: Repository [id number] (HP) Date:3832-21-31NE [address] [address]PNQYTMQMQ, [place] [address]XQ: CHECK WEBSITE 02/05/2018 Secondary ABRIL CHUNGNK Sari Insurance:ANTHEMPolic Community y Number: Hospital [id number] Repository leida Date:6916-32-85FR [address]WWJW[address] [place] [address]TN: 02/05/2018 Tertiary NOT GIVENUNK Sari Insurance:SELF PAY [facility] Number: Effective Repository Date:2018-01-12 01/12/2018 [facility] Primary ABRIL R JULIETNK [place] [id number] Insurance:ANTHEMP[address], y Number: [facility] [address]Huv: [id number] Repository leida Date:4850-15-27AX () [address] [place] [address]RP: 01/12/2018 Secondary NOT GIVENUNK [place] Insurance:SELF PAY [facility] Number: Effective Repository Date:2018-01-12 12/15/2017 [facility] Primary BOJORQUEZ [place] [id number] Insurance:[facility] Gem PharmaceuticalsTANNER MEDICAL CENTER VILLA RICAUniplaces [address] [place] [address]Icw: Number: Repository [id number] (HP) Date:2269-47-98RN [address] [place] [address]KL: 12/15/2017 Secondary ABRIL R JULIETNRaleigh Sari [facility] y Number: Hospital [id number] Repository leida Date:5561-36-74PS [address]773ULIHBZW, [place] [address]RG: 12/15/2017 Tertiary NOT GIVENUNK Sari Insurance:SELF PAY [facility] Number: Effective Repository Date:2017-12-15 12/15/2017 [facility] BOJORQUEZ Sari [id number] Insurance:MEDICAL Gem PharmaceuticalsTANNER MEDICAL CENTER VILLA RICAUniplaces [address] [place] [address]Mds: Number: Repository [id number] (HP) Date:2345-67-74TO [address] [place] [address]PI: 12/15/2017 Secondary ABRIL MOSLEY Sari Insurance:ANTHEMPolic Community y Number: Hospital [id number] Repository leida Date:1032-24-33AR [address] [place] [address]AY: 12/15/2017 Tertiary NOT GIVENUNK [place] Insurance:SELF PAY [facility] Number: Effective Repository Date:2017-12-15 11/18/2017 [facility] JUSTIN ARASH [place] [id number] Insurance:MEDICAL [place]: [address] 1807-57-84QLSCH[address] St[address] [facility] [address]Wam: Number: Repository [id number] (HP) Date:0151-42-52ZV [address] [place] [address]WI: 11/18/2017 Secondary ABRIL R JULIETNK Sari Insurance:ANTHEMPolic Community y Number: [facility] [id number] Repository leida Date:5285-45-02ID [address]MGX[address] [place] [address]SA: 11/18/2017 Tertiary NOT GIVENUNK [place] Insurance:SELF PAY [facility] Number: Effective Repository Date:2017-11-18 11/18/2017 [facility] BOJORQUEZ [place] [id number] Insurance:MEDICAL [place] [address] [address]Oal: Number: Repository [id number] (HP) Date:7523-56-27ZR [address] [place] [address]AC: 11/18/2017 Secondary ABRIL R JULIETNK Sari Insurance:ANTHEMPolic Community y Number: [facility] [id number] Repository leida Date:3693-17-85CB [address]YRRCWEJ, [place] [address]EV: 11/18/2017 Tertiary NOT GIVENUNK Srai Insurance:SELF PAY Community [facility] Number: Effective Repository Date:2017-11-27 10/07/2017 JUSTIN Primary BOJORQUEZ Protestant [place]DOB: Insurance:1500 [place]DOB: [facility] [id number] System [facility] [address] Number: Effective CHRISTO HUDDLE[place], Repository [address] [place] [address] Date:2017-10-07 [address]Hwh: [phone]: 5644-76-99Uqzv [phone] (HP) Name:CD:[id number] O (HP) [address] [place] [address] ) [address]VP: 10/07/2017 Secondary ABRIL Burgess Insurance:1500 JrDOB: [facility] Number: [id number] System Effective ANN COOL, Repository Date:2017-10-07 - [place] [address]Ltk: 8808-28-34Gewy Name:CD:[id number] O (HP)Tel: (799) [address]AFACBEU[address] [place] [address] [phone] (HT) [address]FF: 09/08/2017 JUSTIN ANTOINE Primary BOJORQUEZJenaro Guo [id number] Insurance:[facility] [address] [place] [address]Ijp: Number: Repository [id number] (HP) Date:2380-99-14SI [address] [place] [address]NS: 09/08/2017 Secondary ABRIL R JULIETNRaleigh [place] Insurance:[facility] Number: [facility] [id number] Repository leida Date:0959-18-42NF [address] [place] [address]MM: 09/08/2017 Tertiary NOT GIVENUNK Sari Insurance:SELF PAY [facility] Number: Effective Repository Date:2017-09-08 07/23/2017 JUSTIN ANTOINE Primary NOT GIVENUNK [place] [id number] Insurance:MEDICAL [address] [place] [address]Rzy: Number: Repository [id number] (HP) Date:8514-51-05ZX [address] [place] [address]IT: 07/23/2017 Secondary ABRIL CHUNGNK [place] Insurance:[facility] Community y Number: [facility] [id number] Repository leida Date:9873-08-67KC [address] [place] [address]QL: 07/23/2017 Tertiary NOT GIVENUNK [place] Insurance:SELF PAY [facility] Number: Effective Repository Date:2017-07-23 07/21/2017 JUSTIN Primary BOJORQUEZ [place]OB: Insurance:Medical [place]OB: [facility] Number: [id number] System [facility], Repository [address] [place] [address] Date:2017-07-21 [place] [address]Tqo: [phone]: 8772-53-68Cdoa [phone] (HP) Name:Matthew Eugene () [address] [place] [address] (WP) [address]WW: 07/21/2017 Secondary ABRIL Burgess Insurance:[facility]: [facility] y Number: Effective [id number] System Date:2017-07-21 RD Repository 7688-63-80Dyxs [address] [place] [address] Name:Eliseo [facility] [address] [address]Vjm: [address] [place] [address]WP: [phone]) ([phone] (WP) 07/21/2017 JUSTIN ANTOINE Primary BOJORQUEZ Sari [id number] Insurance:[address] [address]Kjm: Number: Repository [id number] (HP) Date:8688-87-07CT [address], [place] [address]VH: 07/21/2017 Secondary ABRIL CHUNGNRaleigh Sari Insurance:ANTHEMPolic Community y Number: [facility] [id number] Repository leida Date:1913-40-20CP [address] [place] [address]XM: 07/21/2017 Tertiary NOT GIVENUNK [place] Insurance:SELF PAY Community [facility] Number: Effective Repository Date:2017-07-21 07/21/2017 JUSTIN Katherine Primary BOJORQUEZ Protestant [facility] Insurance:1500 [place]DOB: [facility] [id number] Number: Effective [facility], [facility] [address], Date:2017-07-21 - [place] [address]Xdq: ([facility]) [place] 0215-76-96Jjup [phone] (HP)Tel: [address]Fct: Name:CD:[id number] O [phone] [address] [address]QALWQOIPG, (WP) (HP) [place] [address]AC: 07/21/2017 Secondary ABRIL Burgess Insurance:1500 DOB: [facility] Number: [id number] [address] Repository Date:2017-07-[address] [place] [address] 6661-54-26Usqt [address]Wle: Name:CD:[id number] O [address]ORQEQBN, [place] (HP)Tel: [phone]: (WP) [phone]
== END ==
PROVIDERS: Family Provider Family Medicine; PCP Family Medicine; Referring Provider Obstetrics & Gynecology; Visit Provider Obstetrics & Gynecology
DX: Z34.90 Encounter for supervision of normal pregnancy, unspecified, unspecified trimester (principal)
CPT/HCPCS: 87081

== ENCOUNTER 2018-06-05 17:10 | Outpatient (CLI) | payer OTHER, SELFPAY ==
[2018-06-02 14:07] VITALS: BMI 25.2
[2018-06-05 17:25] VITALS: BMI 25.7
[2018-06-05] MEDS: Acetaminophen 500 MG Tablet 1000 MG PO (17:44)
[2018-06-05 18:00] LABS: AST(SGOT) 18 U/L (15-37); Alanine Aminotransfer ALT/SGPT 19 U/L (13-56); Creatinine, Serum 0.47 mg/dL (0.55-1.02); EST Glomerular Filtration Rate 175 mL/min (>60); Est Glom Filt Rate - Afr Amer 212 mL/min (>60); Estimated Creatinine Clearance 184.13 ml/min; Hematocrit 31.7 % (37-47); Hemoglobin 9.9 g/dl (12.0-15.0); Mean Corp Hgb Conc 31.2 g/gl (32-36); Mean Corpuscular Hgb 24.6 pg (27.0-32.0); Mean Corpuscular Volume 78.9 fL (81-99); Mean Platelet Vol. 9.6 fl (6.2-12.0); Platelet Count 259 K/mm3 (150-450); RBC Distribution Width CV 14.1 % (11.6-14.6); RBC Distribution Width SD 39.9 fl (35.1-43.9); Red Blood Count 4.02 M/mm3 (4.2-5.4); Uric Acid 3.6 mg/dL (2.6-6.0); White Blood Count 11.8 K/mm3 (4.4-11.0)
[2018-06-05 18:01] LABS: Protein, Urine (Random) 16.4 mg/dL (<11.9); Protein:Creat Ratio 231 mg/g CRE (0-200); Scan Indicated on CBC? Y/N NO
[2018-06-05 18:12] LABS: International Normalized Ratio 0.9; Prothrombin Time (Protime)PT. 12.4 SECONDS (11.7-14.9)
[2018-06-05 18:13] LABS: Partial Thromboplast Time 27.6 Seconds (24.1-36.2)
--- NOTE | 2018-06-06 02:23 | OB.TRI.NOTE ---
- Problem List (1) Elevated blood pressure affecting in third trimester, antepartum Status: Acute History of Present Illness Date of Service: 06/05/18 Reason For Visit: R/O LABOR History of Present Illness: elevated bp at work and headache Allergies No Known Allergies Allergy (Verified 06/02/18 14:05) - Pertinent Past Medical History Surgical History: Past Surgical History (Last Reviewed 06/02/18 @ 14:07 by Sindhu Miller) History of arthroscopy of right shoulder 05/06/17 Laboratory Studies: Laboratory Tests 06/05/18 06/05/18 06/05/18 Range/Units 17:30 17:30 17:30 WBC (4.4-11.0) K/mm3 RBC (4.2-5.4) M/mm3 Hgb (12.0-15.0) g/dl Hct (37-47) % MCV (81-99) fL MCH (27.0-32.0) pg MCHC (32-36) g/gl RDW (11.6-14.6) % RDW Differential (35.1-43.9) fl Plt Count (150-450) K/mm3 MPV (6.2-12.0) fl PT 12.4 (11.7-14.9) SECONDS INR 0.9 APTT 27.6 (24.1-36.2) Seconds Creatinine 0.47 L (0.55-1.02) mg/dL Estim Creat Clear Calc 184.13 ml/min Est GFR (MDRD) Af Amer 212 (>60) mL/min Est GFR (MDRD) Non-Af 175 (>60) mL/min Uric Acid 3.6 (2.6-6.0) mg/dL AST 18 (15-37) U/L ALT 19 (13-56) U/L U Random Total Protein 16.4 H (<11.9) mg/dL Urine Creatinine 70.90 (NO RANGE EST.) mg/dL Protein/Creatinin Ratio 231 H (0-200) mg/g CRE 06/05/18 Range/Units 17:30 WBC 11.8 H (4.4-11.0) K/mm3 RBC 4.02 L (4.2-5.4) M/mm3 Hgb 9.9 L (12.0-15.0) g/dl Hct 31.7 L (37-47) % MCV 78.9 L (81-99) fL MCH 24.6 L (27.0-32.0) pg MCHC 31.2 L (32-36) g/gl RDW 14.1 (11.6-14.6) % RDW Differential 39.9 (35.1-43.9) fl Plt Count 259 (150-450) K/mm3 MPV 9.6 (6.2-12.0) fl PT (11.7-14.9) SECONDS INR APTT (24.1-36.2) Seconds Creatinine (0.55-1.02) mg/dL Estim Creat Clear Calc ml/min Est GFR (MDRD) Af Amer (>60) mL/min Est GFR (MDRD) Non-Af (>60) mL/min Uric Acid (2.6-6.0) mg/dL AST (15-37) U/L ALT (13-56) U/L U Random Total Protein (<11.9) mg/dL Urine Creatinine (NO RANGE EST.) mg/dL Protein/Creatinin Ratio (0-200) mg/g CRE NST - FHR Rate Baby A Baseline: 120 Variability:: Moderate Accelerations:: None Decelerations:: None NST Reactive:: Yes FHR Category:: Category I Uterine Activity:: none Impression/Plan elevated blood pressure at work and headache- repeat bps in triage all normal and negative proteinuria, normal labs. dc home pree precautions
== END 2018-06-05 18:18 | disposition home or self-care (01) ==
LOC: WPOUT 17:21 → WP 17:22
PROVIDERS: Family Provider Family Medicine; PCP Family Medicine; Referring Provider Obstetrics & Gynecology; Visit Provider Obstetrics & Gynecology
DX: O26.893 Other specified pregnancy related conditions, third trimester (principal); R03.0 Elevated blood-pressure reading, without diagnosis of hypertension; R51 Headache; Z3A.00 Weeks of gestation of pregnancy not specified
CPT/HCPCS: 59025; 59050; 82565; 82570; 84156; 84450; 84460; 84550; 85027; 85610; 85730; 99218; G0378

== ENCOUNTER 2018-07-05 18:45 | Inpatient (IN) | payer OTHER, SELFPAY ==
[2018-06-17 12:01] VITALS: BMI 25.7
[2018-07-01 11:37] VITALS: BMI 26.6
[2018-07-05] MEDS: Lactated Ringers 1,000 ML 50 ML IV (19:20)
[2018-07-05 19:24] VITALS: BMI 26.8
[2018-07-05 19:36] LABS: Hemoglobin 9.7 g/dl (12.0-15.0); Mean Corp Hgb Conc 31.3 g/gl (32-36); Mean Corpuscular Hgb 23.8 pg (27.0-32.0); Mean Platelet Vol. 9.9 fl (6.2-12.0); Platelet Count 326 K/mm3 (150-450); RBC Distribution Width CV 15.5 % (11.6-14.6); Red Blood Count 4.08 M/mm3 (4.2-5.4)
[2018-07-05 19:37] LABS: Scan Indicated on CBC? Y/N NO
[2018-07-05] MEDS: 0.9% Normal Saline 100 ML IV.SOLN. INTRA-UTER (20:30)
--- NOTE | 2018-07-05 20:40 | PCM.HP.OB ---
- Problem List (1) Status: Acute Qualifiers: Comment: genetic screening declined. AFP -negative. anatomy scan reviewed. (2) Supervision of normal Status: Acute Qualifiers: Comment: PRR KATH 06/29/18 boy Mehul boyfriend Aneudy History Date of Admission: 07/05/18 Final KATH: 06/29/18 Gestational age: 40 Weeks and 6 Days History of this : This is a 22 year-old, at 40 weeks gestational age presents IOL postdates Surgical History: Surgical History (Last Reviewed 07/01/18 @ 11:37 by Sindhu Miller) History of arthroscopy of right shoulder Z98.890 05/06/17 Allergies No Known Allergies Allergy (Verified 07/01/18 11:37) Home Medications: Home Medications vitamin#30 30 mg iron-10 mg iron-folic acid 1 mg-omg3 capsule cap PO cap 06/17/18 Smoking Status: Former smoker Alcohol: None Number of Fetus(es): 1 Heart Tracins moderate variability reactive no decelerations category I tracing\ [place]: regular History Past Pregnancies: Past Pregnancies Delivery Date Name GA/Weeks Outcome Route Weight Infant Gender Labor Length Anesthesia Delivery Location Provider FOB Labs: Mom's Labs & Results 07/05/18 07/05/18 19:20 19:20 WBC 14.0 H RBC 4.08 L Hgb 9.7 L Hct 31.0 L MCV 76.0 L MCH 23.8 L MCHC 31.3 L RDW 15.5 H RDW Differential 42.0 Plt Count 326 MPV 9.9 Blood Type B POSITIVE Antibody Screen NEGATIVE Course Did the patient receive Yes care? Labs Blood Type: B RH: POSITIVE RPR/VDRL/Syphilis Nonreactive Rubella status Immune HbSAg Negative Date Done: 01/27/16 Chlamydia Negative Gonorrhea Negative HIV/AIDS Non-Reactive Group B Strep: Negative Current Obstetrical History Gestational Diabetes No Incompetent Cervix No Infertility No IUGR No Macrosomia No Hypertension/Pre-eclampsia No Placenta Previa/Abruption No PTL/PROM No Uterine anomaly No Oligohydramnios No Polyhydramnios No Multiple gestation No Past Medical History Asthma No Diabetes No Hypertension No Heart disease No Mitral valve prolapse No Neurologic/Seizure disorder/ No Migraines Kidney disease No Liver disease No Varicosities No Clotting disorders/Hx of DVT No Thyroid Dysfunction No Other medical diseases No Psychiatric disorders No Major trauma No Abnormal PAP smear No Sleep apnea No Mammogram in the last 2 years No Social History Marital Status: SINGLE Hx Smoking No Smoking Status Former smoker Expected Infant Delivery Method: Spontaneous Vaginal Review of Systems Constitutional: Denies: Fever, Malaise Eyes: Denies: Blurred vision, Vision Change HEENT: Denies: Head Aches, Visual Changes Cardiovascular: Denies: Chest Pain, Palpitations Respiratory: Denies: Cough, Shortness of Breath, Wheezing Gastrointestinal: Denies: Abdominal Pain, Diarrhea, Nausea, Vomiting Genitourinary: Denies: Dysuria, Hematuria Musculoskeletal: Denies: Joint Pain, Muscle pain Skin: Denies: Lesions, Rash Neurological: Denies: Blurred vision, Focal weakness, Headaches Psychiatric: Denies: Anxiety, Depression Endocrine: Denies: Heat/ Cold Intolerance Hematologic/ Lymphatic: Denies: Easy Bruising, Easy Bleeding Physical Exam General: Alert, Cooperative, No apparent distress HEENT: Atraumatic, Normocephalic. Negative for: Thyromegaly, Lymphadenopathy Cardiovascular: Regular rate Lungs: Normal air movement Abdomen: Soft, Non Tender, Gravid Neurological: Deep Tendon Reflexes 2+/4 and Symmetrical, Neuro grossly intact. Negative for: Clonus LEATHER LEVELER: Normal external genitalia. Negative for: Vulvar lesions Estimated gestational size: Appropriate for gestational size Presentation: Cephalic Assessment/Plan All Active Problems (Last Reviewed 07/01/18 @ 11:37 by Sindhu Miller) (Acute) Supervision of normal (Acute) Elevated blood pressure affecting in third trimester, antepartum (Resolved) Other subluxation of right shoulder joint, initial encounter (Resolved) Other subluxation of right shoulder joint, subsequent encounter (Resolved) Superior glenoid labrum lesion of right shoulder, initial encounter (Resolved) Superior glenoid labrum lesion of right shoulder, subsequent encounter (Resolved) Surgical aftercare, musculoskeletal system (Resolved) This is a 22 year-old, at 40 weeks gestational age IOL postdates Patient presents IOL, plan expectant management for , FB and pitocin, AROM PRN if needed. Pain management: plans epidural. GBS negative Management of any complications: none I have reviewed the [facility] and made any clinically relevant updates.
[2018-07-05] MEDS: Oxytocin 30 units/NS 500 ml 30 UNITS/500 ML IV.SOLN IV (21:13)
[2018-07-05] MEDS: Nalbuphine 10 MG/ML Ampul IV (23:54)
[2018-07-06] MEDS: Lactated Ringers 1,000 ML 50 ML IV ×2 (03:49→08:23)
[2018-07-06] MEDS: Nalbuphine 10 MG/ML Ampul IV (04:57)
[2018-07-06] MEDS: Ondansetron 4 MG/2 ML Vial IV (10:00)
[2018-07-06] MEDS: Oxytocin 30 units/NS 500 ml 30 UNITS/500 ML IV.SOLN 334 UNITS IV (10:46)
[2018-07-06] MEDS: Oxytocin 30 units/NS 500 ml 30 UNITS/500 ML IV.SOLN 167 UNITS IV (11:16)
[2018-07-06] MEDS: oxyCODONE 5 MG Tablet PO ×3 (11:47→23:17)
[2018-07-06] MEDS: Naproxen 250 MG Tablet PO (14:50)
[2018-07-06 14:51] VITALS: BP 126/65; PULSE 106; RESP 16; TEMP 37.3; O2SAT 98
[2018-07-06 16:33] VITALS: BP 145/75; PULSE 98; RESP 16; TEMP 36.4; O2SAT 98
[2018-07-06] MEDS: Senna/Docusate Sodium 1 Tablet PO (18:51)
[2018-07-06] MEDS: Dibucaine 30 GM Tube 1 APPLIC TOPICAL (18:51)
[2018-07-06 21:23] VITALS: BP 112/61; PULSE 75; RESP 18; TEMP 36.3; O2SAT 98
[2018-07-07] VITALS (7 sets, daily range): BP systolic 105–111; BP diastolic 54–60; PULSE 77–87; RESP 16–18; TEMP 36.4–36.9; O2SAT 98–99
[2018-07-07] MEDS: oxyCODONE 5 MG Tablet PO (07:29)
[2018-07-07] MEDS: Senna/Docusate Sodium 1 Tablet PO (07:30)
[2018-07-07] MEDS: Naproxen 250 MG Tablet PO ×2 (07:30→15:02)
--- NOTE | 2018-07-07 08:30 | PN.OBGYN_ITS ---
Subjective: No CP, SOB. Having pain from vaginal delivery, 4th degree tear. Taking pain meds. voiding without difficulty. - Physical Exam General: Alert, Oriented x3 Abdomen: Soft, Non Tender, - - FF below U Vital Signs Temp Pulse Resp BP Pulse Ox 97.6 F L 80 16 106/59 L 98 07/07/18 03:47 07/07/18 03:47 07/07/18 03:47 07/07/18 03:47 07/07/18 03:47 Oxygen Delivery Method Room Air Weight: 171 lb 1.259 oz Body Mass Index (BMI) 26.8 Medical Necessity - Tobacco Use Smoking Status: Former smoker Assessment/Plan All Active Problems (Last Reviewed 07/01/18 @ 11:37 by Sindhu Miller) (Acute) Supervision of normal (Acute) Elevated blood pressure affecting in third trimester, antepartum (Resolved) Other subluxation of right shoulder joint, initial encounter (Resolved) Other subluxation of right shoulder joint, subsequent encounter (Resolved) Superior glenoid labrum lesion of right shoulder, initial encounter (Resolved) Superior glenoid labrum lesion of right shoulder, subsequent encounter (Resolved) Surgical aftercare, musculoskeletal system (Resolved) with 4th degree PPD #1: Routine care. Enc to force fluids and take stool s oftener and pain meds routinely. .
--- NOTE | 2018-07-07 14:14 | CHAPLAIN ---
Type of Pastoral Visit _x__ Initial Visit ___ Follow-up Visit ___ On-call Visit ___ General Patient Visit ___ Spiritual Assessment ___ Family Conference ___ Bereavement ___ Rapid Response ___ Code Blue ___ Other (describe below) Pastoral Care Referral From _x__ Patient ___ Family ___ Nurse ___ Physician ___ Mock Up Maker ___ Sales And Marketing Director ___ Other (describe below) Sacrament/Intervention _x__ Active listening ___ Anointing ___ Quaker ___ Bereavement ___ Communion ___ Dayana exploration ___ ___ Life review _x__ Prayer ___ Reconciliation ___ Sacrament of Sick _x__ Supportive presence ___ Wedding ___ Other (describe below) Pastoral Comments
--- NOTE | 2018-07-07 19:22 | PCM.OB.VAG ---
- Problem List (1) Status: Acute Qualifiers: Comment: genetic screening declined. AFP -negative. anatomy scan reviewed. (2) Supervision of normal Status: Acute Qualifiers: Comment: PRR KATH 06/29/18 boy Mehul boyfriend Johnyvy Vaginal Delivery Maternal Presentation: Medically Indicated Induction Method of Induction: Pitocin, Hardy Bulb Medical Reason for Induction: Post term Amniotic Membrane Rupture Type: Artificial Amniotic Fluid Description: Clear Final KATH: 06/29/18 Gestational age: 41 Weeks and 0 Days Date of Procedure: 07/06/18 Pre-Operative Diagnosis: ial Post-Operative Diagnosis: same Surgery/ Procedure Performed: Spontaneous Vaginal Delivery Type of Anesthesia: Epidural Description of Procedure: Patient began pushing and delivered the head in the direct OP presentation. The head was delivered atraumatically. The anterior and posterior shoulders delivered without complication followed by the rest of the and the was placed on the maternal abdomen. Delayed cord clamping was employed for approximately 60 seconds. Cord was clamped and cut and gentle traction was applied to the cord and the placenta delivered spontaneously immediately following it was noted to be intact with three-vessel cord. The perineum and vagina were inspected and noted to have 1/4 degree perineal laceration. The perineal body was noted to be extremely shortened and the vaginal to have rectal distance decreased. The rectal mucosa was reapproximated with 3-0 Vicryl repeat and an additional layer of 3-0 Rapide over the mucosa supporting it. The anal sphincter and capsule were reapproximated with 2-0 PDS [id number] sutures x3. The remainder of the laceration was repaired in the usual fashion with 3-0 Vicryl repeat. The bulbocavernosus muscles noted to be significantly atrophic and lateral in the perineal body was naturally small.. EBL was 400 cc. Patient and tolerated delivery well. Presentation: ROP Placental Delivery Description: Spontaneous Placenta Disposition: [facility] Cord Vessel Description: 3 Vessels Cord Entanglement: None Estimated Blood Loss: 400 A gender: Male Episiotomy Description: None Laceration: Perineal Extension/lac, 4th Degree Medications given after delivery: IV Pitocin Complications: - - 4th degree laceration
[2018-07-08] MEDS: Senna/Docusate Sodium 1 Tablet PO (00:07)
[2018-07-08] MEDS: Naproxen 250 MG Tablet PO ×2 (00:07→13:09)
[2018-07-08 02:40] VITALS: BP 116/68; PULSE 81; RESP 18; TEMP 36.6; O2SAT 98
[2018-07-08] MEDS: Acetaminophen 500 MG Tablet 1000 MG PO (07:52)
[2018-07-08 07:59] VITALS: BP 116/68; PULSE 82; RESP 16; TEMP 36.9
--- NOTE | 2018-07-08 08:06 | PCM.PN.OB ---
Subjective: No CP, SOB. Pain from 4th degree improving. Plans home today - Physical Exam General: Alert, Oriented x3 Abdomen: Soft, Non Tender, - - FF below U Vital Signs Temp Pulse Resp BP Pulse Ox 98.5 F 82 16 116/68 98 07/08/18 07:59 07/08/18 07:59 07/08/18 07:59 07/08/18 07:59 07/08/18 02:40 Oxygen Delivery Method Room Air Weight: 171 lb 1.259 oz Body Mass Index (BMI) 26.8 Medical Necessity - Tobacco Use Smoking Status: Former smoker Assessment/Plan All Active Problems (Last Reviewed 07/01/18 @ 11:37 by Sindhu Miller) (Acute) Supervision of normal (Acute) Elevated blood pressure affecting in third trimester, antepartum (Resolved) Other subluxation of right shoulder joint, initial encounter (Resolved) Other subluxation of right shoulder joint, subsequent encounter (Resolved) Superior glenoid labrum lesion of right shoulder, initial encounter (Resolved) Superior glenoid labrum lesion of right shoulder, subsequent encounter (Resolved) Surgical aftercare, musculoskeletal system (Resolved) , 4th degree laceration PPD#2: Routine care. Encouraged stool softener. Home today.
--- NOTE | 2018-07-08 08:09 | DCINST_ITS ---
Additional Instructions: If you experience any of the following, contact your healthcare provider. * Bleeding that soaks a pad every hour for 2 hours * Fever 100.4 or higher * Unrelieved incision or abdominal pain * Swelling, redness, discharge or bleeding from your incision or episiotomy site * Your incision begins to separate * Problems urinating (including inability to urinate or burning while urinating). * Visual changes * Severe headache * Flu-like symptoms * Pain or redness in one of both of your breasts * Pain, warmth, tenderness or swelling in your legs, especially the calf area * Frequent nausea and vomiting * Symptoms of depression or anxiety If you experience any of the following, call 911 or go to the nearest Emergency Room. * Chest pain * Problems breathing * Seizure activity * Partial or complete paralysis of a body part, slurred speech, weakness or drooping of the face, or a sudden inability to walk or hold your balance Allergies/Adverse Reactions: Allergies No Known Allergies Allergy (Verified 07/01/18 11:37) Medications to take at Discharge vitamin#30 30 mg iron-10 mg iron-folic acid 1 mg-omg3 capsule cap PO cap 06/17/18 Naproxen [Naprosyn] 500 mg PO BID PRN PRN #60 tablet 07/08/18 The following prescriptions were given: Naproxen [Naprosyn] 500 mg PO BID PRN PRN #60 tablet PRN Reason: Pain Primary Care Physician: Silver Villalobos MD [Primary Care Provider] - Test Results: Test results from this visit will be discussed in further detail at your follow- up appointment, if applicable.
--- NOTE | 2018-07-08 08:09 | PCM.DCVAG ---
Additional Instructions: If you experience any of the following, contact your healthcare provider. Bleeding that soaks a pad every hour for 2 hours Fever 100.4 or higher Unrelieved incision or abdominal pain Swelling, redness, discharge or bleeding from your incision or episiotomy site Your incision begins to separate Problems urinating (including inability to urinate or burning while urinating). Visual changes Severe headache Flu-like symptoms Pain or redness in one of both of your breasts Pain, warmth, tenderness or swelling in your legs, especially the calf area Frequent nausea and vomiting Symptoms of depression or anxiety If you experience any of the following, call 911 or go to the nearest Emergency Room. Chest pain Problems breathing Seizure activity Partial or complete paralysis of a body part, slurred speech, weakness or drooping of the face, or a sudden inability to walk or hold your balance Allergies/Adverse Reactions: Allergies No Known Allergies Allergy (Verified 07/01/18 11:37) Medications to take at Discharge vitamin#30 30 mg iron-10 mg iron-folic acid 1 mg-omg3 capsule cap PO cap 06/17/18 Naproxen [Naprosyn] 500 mg PO BID PRN PRN #60 tablet 07/08/18 The following prescriptions were given: Naproxen [Naprosyn] 500 mg PO BID PRN PRN #60 tablet PRN Reason: Pain Primary Care Physician: Silver Villalobos MD [Primary Care Provider] - Test Results: Test results from this visit will be discussed in further detail at your follow-up appointment, if applicable.
[2018-07-08 14:15] VITALS: BP 114/73; PULSE 85; RESP 16; TEMP 36.7
--- NOTE | 2018-07-08 15:11 | CASEMGMT ---
Addendum entered and electronically signed by Reanna Bojorquez 07/08/18 15:15: MOB declines referral to [facility] but accepting of brochure. -CANDI watts, IMPLEMENTATION SPECIALIST Original Note: Social Work Brief Assessment - Labor and Delivery Unit Refer documentation below for further details. Date of Referral/Notification: 07.08.2018 Time of Referral: Referred By: per MARIA ESTHER Hand the patient/mother of baby requesting to have resources Reason for Referral: resources for WIC Date of Intervention: 07.08.2017 Time of Intervention: 1245 Informant: Medical record and mother of baby (MOB) History: Mother of baby (MOB) is a 22 year old single female, G1, P0 to 1 after delivering baby boy Mehul this admission. 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 MOB reports to have good support from FOB and MOB?s mom, to have all needed supplies for baby, and denies any issues with mood or anxiety during or currently. No reports of or indication of any substance use for MOB. MOB is employed at [employer]. FOB works on a [employer]. No reported or indicted safety concerns in MOB?s life or home situation. Assessment: MARIA ESTHER Linn reports that MOB interested in WIC. During conversation with MOB, MOB confirms desire to have more information as MOB will be getting reduced pay during maternity leave. Educated MOB to and provided with WIC applications. Provided income guidelines for said program. Broached depression and provided MOB information to look over in case MOB starts to have issues with mood or anxiety. MOB accepting of information provided today, denies any other needs for home going, and reports to have adequate support. Plan: MOB and baby to home when ready for discharge. Community resources lists given for [facility], including WIC applications and income guidelines. No further needs requested or indicated. -TERRA Castano, IMPLEMENTATION SPECIALIST
[2018-07-08] MEDS: Dibucaine 30 GM Tube 1 APPLIC TOPICAL (15:18)
--- OUTSIDE RECORDS SUMMARY | 2018-09-07 12:15 | XMS RPT_ITS ---
:1995 Author Organization [place] Support Name Relationship Address Phone POLA, AURORA Unavailable [address] + [address] Unavailable [address] + [place] [address] WORKELVIRA MURILLOVY Unavailable [address] + [place] [address] POLA, AURORA Unavailable [address] + [address] Unavailable [address] + [place] [address] WORKELVIRA MURILLOVY Unavailable [address] + [place] [address] POLA, AURORA Unavailable [address] + [address] Unavailable [address] + [place] [address] WORKELVIRA MURILLOVY Unavailable [address] + [place] [id number] POLA, AURORA Unavailable [address] + [address] Unavailable [address] + [place] [address] WORKELVIRA MURILLOVY Unavailable [address] + [place] [address] POLA, AURORA Unavailable [address] + [place] [id number] [facility] Unavailable [address] + [place] [address] WORKELVIRA MURILLOVY Unavailable [address] + [place] [id number] POLA, AURORA Unavailable [address] + [place] [address] [facility] Unavailable [address] + [place] [address] WORKMAN DELVY Unavailable [address] + [place] [address] POLA, AURORA Unavailable [address] + [place] [address] [facility] Unavailable [address] + [place] [address] WORKMAN DELVY Unavailable [address] + [place] [address] POLA, AURORA Unavailable [address] + [place] [address] [facility] Unavailable [address] + [place] [address] WORKMAN DELVY Unavailable [address] + [place] [address] POLA, AURORA Unavailable [address] + [place] [address] [facility] Unavailable [address] + [place] [address] WORKMAN, DELVY Unavailable [address] + [place] [address] POLA, AURORA Unavailable [address] + [place] [address] [facility] Unavailable [address] + [place] [address] WORKMAN DELVY Unavailable [address] + [place] [address] POLA, AURORA Unavailable [address] + [place] [address] [facility] Unavailable [address] + [place] [address] WORKMAN DELVY Unavailable [address] + [place] [address] POLA, AURORA Unavailable [address] + [place] [address] [facility] Unavailable [address] + [place] [address] WORKMAN, DELVY Unavailable [address] + [place] [address] POLA, AURORA Unavailable [address] + [place] [address] [facility] Unavailable [address] + [place] [address] WORKMAN DELVY Unavailable [address] + [place] [address] POLA, AURORA Unavailable [address] + [place] [address] H Unavailable [address] + [place] [address] WORKCHIDI DELVY Unavailable [address] + [place] [address] POLA, AURORA Unavailable [address] + [place] [address] [facility] Unavailable [address] + [place] [address] WORKMAN DELVY Unavailable [address] + [place] [address] POLA, AURORA Unavailable [address] + [place] [address] H Unavailable [address] + [place] [address] WORKMAN DELVY Unavailable [address] + [place] [address] POLA, AURORA Unavailable [address] + [place] [address] [facility] Unavailable [address] + [place] [address] WORKMAN DELVY Unavailable [address] + [place] [address] POLA, AURORA Unavailable [address] + [place] [address] [address] Unavailable [address] + [place] [address] WORKMAN DELVY Unavailable [address] + [place] [address] POLA, AURORA Unavailable [address] + [place] [address] [facility] Unavailable [address] + [place] [address] WORKMANELVIRAVY Unavailable [address] + [place], [place] [address] POLA, AURORA Unavailable [address] + [address] Unavailable [address] + [place] [address] WORKMAN DELVY Unavailable [address] + [facility] POLA, AURORA Unavailable [address] + [place], [address] Unavailable [address] + [place] [address] WORKCHIDI DELVY Unavailable [address] + [place], [facility] POLA, AURORA Unavailable [address] + [address] Unavailable [address] + [place] [address] WORKCHIDI DELVY Unavailable [address] + [place], [facility] POLA, AURORA Unavailable [address] + [address] Unavailable [address] + [place] [address] WORKCHIDI DELVY Unavailable [address] + [place], [facility] POLA, AURORA Unavailable [address] + [address] Unavailable [address] + [place] [address] WORKMAN DELVY Unavailable [address] + [place], [facility] POLA, AURORA Unavailable [address] + [address] Unavailable [address] + [place] [address] WORKMAN DELVY Unavailable [address] + [place] [id number] POLA, AURORA Unavailable [address] + [address] Unavailable [address] + [place] [address] ELVIRA BRADLEYVY Unavailable [address] + [place] [id number] POLA, AURORA Unavailable [address] + [address] Unavailable [address] + [place] [address] CECILIA BRADLEYY Unavailable [address] + [place] [address] POLA, AURORA Unavailable [address] + [address] Unavailable [address] + [place] [address] ELVIRA BRADLEYVY Unavailable [address] + [place] [address] POLA, AURORA Unavailable [address] + [address] Unavailable [address] + [place] [address] POLA, AURORA Unavailable [address] + [address] Unavailable [address] + [place] [address] POLA, AURORA Unavailable [address] + [address] Unavailable [address] + [place] [address] CECILIA BRADLEYY Unavailable [address] + [place] [id number] Care Team Providers Name Role Phone Leah Benavides Attending Unavailable WILFREDO, RATNA Referring Unavailable Leah Benavides Attending Unavailable WILFREDO, RATNA Primary Care Unavailable Leah Benavides Referring Unavailable Leah Benavides Attending Unavailable Leah Benavides Referring Unavailable WILFREDO, RATNA Primary Care Unavailable Leah Benavides Attending Unavailable Leah Benavides Referring Unavailable WILFREDO, RATNA Primary Care Unavailable Seanony, Leah Consulting Unavailable Marcanthony, Leah Attending Unavailable WILFREDO, RATNA Referring Unavailable AsimMamadou Attending Unavailable WILFREDO, RATNA Referring Unavailable Marcanthony, [...] Leah Consulting Unavailable Marcanthony, Leah Admitting Unavailable Melvin, Vani Attending Unavailable Marcanthony, Leah Referring Unavailable WILFREDO, RATNA Primary Care Unavailable Marcanthony, Leah Consulting Unavailable Marcanthony, Leah Admitting Unavailable Melvin, Vani Attending Unavailable Marcanthony, Leah Referring Unavailable WILFREDO, RATNA Primary Care Unavailable Marcanthony, Leah Consulting Unavailable Asim, Mamadou Attending Unavailable WILFREDO, RATNA [...] Referring Unavailable WILFREDO, RATNA Primary Care Unavailable LuciaVani Attending Unavailable WILFREDO, RATNA Referring Unavailable WILFREDO, RATNA Primary Care Unavailable Marcanthony, Leah Attending Unavailable Marcanthony, Leah Referring Unavailable WILFREDO, RATNA Primary Care Unavailable Marcanthony, Leah Attending Unavailable WILFREDO, RATNA Referring Unavailable WILFREDO, RATNA Primary Care Unavailable Marcanthony, Leah Attending Unavailable WILFREDO, RATNA Primary Care Unavailable Lucia, Vani Attending Unavailable WILFREDO, RATNA Referring Unavailable ASSESSMENT, HEALTH RISK Attending Unavailable ASSESSMENT, HEALTH RISK Referring Unavailable WILFREDO, RATNA Primary Care Unavailable Marcanthony, Leah Attending Unavailable WILFREDO, RATNA Referring Unavailable Marcanthony, Leah Attending Unavailable Marcanthony, Leah Referring Unavailable WILFREDO, RATNA Primary Care Unavailable Lucia, Vani Attending Unavailable WILFREDO, RATNA Referring Unavailable Melvin, Vani Attending Unavailable WILFREDO, RATNA Referring Unavailable Marcanthony, Leah Attending Unavailable WILFREDO, RATNA Referring Unavailable Marcanthony, Leah Attending Unavailable WILFREDO, RATNA Referring Unavailable Mack, Jessica Attending Unavailable Wilfredo, Ratna Primary Care Unavailable Mack, Jessica Attending Unavailable Wilfredo, Ratna Primary Care Unavailable Mack, Jessica Admitting Unavailable Newbill, Mcao Surya Admitting Unavailable Newbill, Maco Surya Attending Unavailable Wilfredo, Ratna Primary Care Unavailable PROBLEMS PROBLEMS DATE TYPE CONDITION / CODE ATTENDING STATUS SOURCE 07/01/2018 Unknown Z34.03 - Encounter Marcanthony, Active [place] for supervision of [facility] first Hospital , third Repository trimester / Z34.03(ICD-10) 07/01/2018 Unknown Z3A.40 - 40 weeks Marcanthony, Active [place] gestation of [facility] / Hospital Z3A.40(ICD-10) Repository 06/17/2018 Unknown Z3A.38 - 38 weeks Marcanthony, Active [place] gestation of [facility] / Hospital Z3A.38(ICD-10) Repository 06/11/2018 Unknown Z3A.36 - 36 weeks Marcanthony, Active [place] gestation of [facility] / Hospital Z3A.36(ICD-10) Repository 06/03/2018 Unknown Z34.90 - Encounter Marioanthbobby, Active [place] for supervision of [facility] , Hospital unspecified, Repository unspecified trimester / Z34.90(ICD-10) 05/06/2018 Unknown Z3A.32 - 32 weeks Marcanthony, Active [place] gestation of [facility] / Hospital Z3A.32(ICD-10) Repository 04/20/2018 Unknown Z34.02 - Encounter Vani Myers Active [place] for supervision of [facility] normal first Hospital , second Repository trimester / Z34.02(ICD-10) 04/20/2018 Unknown Z3A.30 - 30 weeks Vani Myers Active [place] gestation of [facility] / Hospital Z3A.30(ICD-10) Repository 04/03/2018 Unknown Z23 - Encounter Makayla, Active [place] for immunization / [facility] Z23(ICD-10) Hospital Repository 04/03/2018 Unknown Z3A.27 - 27 weeks Makayla, Active [place] gestation of [facility] / Hospital Z3A.27(ICD-10) Repository 03/10/2018 Unknown Z3A.24 - 24 weeks Vani Myers Active [place] gestation of [facility] / Hospital Z3A.24(ICD-10) Repository 03/06/2018 Unknown Z36.9 - [facility] [place] [facility] Hospital unspecified / Repository Z36.9(ICD-10) 02/09/2018 Unknown Z3A.20 - 20 weeks Makayla, Active [place] gestation of [facility] / Hospital Z3A.20(ICD-10) Repository 01/12/2018 Unknown Z3A.16 - 16 weeks Vani Myers Active [place] gestation of [facility] / Hospital Z3A.16(ICD-10) Repository 02/06/2018 Unknown Z34.01 - [facility] [place] for supervision of [facility] , first Repository trimester / Z34.01(ICD-10) PROCEDURES PROCEDURES No Procedure Records FoundRESULTS RESULTS DISCHARGE INSTRUCTION Observed: 07/08/2018 Status: F Source: [place] 8:09 AM [facility] REPOSITORY [facility] Medical Records Department [address] [place] [address] Instructions for Home/Discharge Instructions 07/08/18 0809 MR#: [id number] Acct: [id number] Name: JUSTIN OTT Rep #: [id number] : 1995 22 From: Vani Myers MANAGER [employer] PCP: Ratna Villalobos MD Status: ADM IN [...] OPERATIVE REPORT Observed: 07/07/2018 Status: F Source: [place] 7:26 PM [facility] REPOSITORY [facility] Medical Records Department [address] [place] [address] Operative Report 07/07/181921 MR#: [id number] Acct: [id number] Name: JUSTIN OTT Rep #: [id number] : 1995 From: Leah Benavides MD PCP: Ratna Villalobos MD Status: ADM IN Location: [id number] - Problem List (1) Status: Acute Qualifiers: [...] and capsule were reapproximated with 2-0 PDS [id number] sutures x3. The remainder of the laceration [...] Status: F Source: [place] EXAM 8:43 PM [facility] REPOSITORY [facility] Medical Records Department [address] [place] [address] History and Physical 07/05/182039 MR#: [id number] Acct: [id number] Name: JUSTIN OTT Rep #: [id number] : 1995 22 From: Leah Benavides MD PCP: Ratna Villalobos MD Status: ADM IN Y Location: GB063-1 - Problem List (1) Status: Acute Qualifiers: [...] variability reactive no decelerations category I tracing\ [place]: regular History Past Pregnancies: Past Pregnancies Delivery Name GA/Weeks Outcome Route WeiInfant GeLabor LenAnesthesiDelivery Provider FOB Date ght nder [facility] a Location Labs: Mom's Labs AND Results [...] Symmetrical, Neuro grossly intact. Negative for: Clonus INTERNAL COMBUSTION ENGINEER: Normal external genitalia. Negative for: Vulvar lesions [...] any complications: none I have reviewed the [facility] and made any clinically relevant updates. 07/05/182042 <Electronically signed by Leah Benavides MD> Date Leah Benavides MD [facility] Signature: Date (if applicable) CC: Ratna Villalobos MD; Leah Benavides MD Signed CBC-COMPLETE BLOOD CNT Collected: 07/05/2018 Status: F Source: [place] NO DIFF 7:20 PM [facility] REPOSITORY TYPE CODE TESTS RESULT OUT OF [...] MPV 9.9 Performed By: #### L100.0500 #### [facility] [address] [place], [place], [id number] TYPE AND SCREEN Collected: 07/05/2018 Status: F Source: [place] 7:20 PM [facility] REPOSITORY Order Comment: Reason for Type AND Screen/Red Cells: ROUTINE TYPE CODE TESTS RESULT OUT OF RANGE REFERENCE UNITS LAB B10.0800 B Normal BLOOD TYPE GEL POSITIVE LAB B100.4000 Normal Antibody NEGATIVE Screen Performed By: #### B101.7450 #### [facility] [address] [place], [address] DRILLING SUPERINTENDENT OFFICE VISIT Observed: 07/01/2018 Status: F Source: [place] REPORT 11:58 AM [facility] REPOSITORY [facility] [address] [place] [address] OFFICE VISIT Date of Service: 07/01/18 MR#: [id number] Acct: [id number] Name: JUSTIN OTT Rep #: [id number] : 1995 Provider: Leah Benavides MD Age/Sex: 22/F [place] [facility] Status: Signed Intake Vital Signs07/01/18 Height 5 ft 7 in 07/01/18 Weight: 170 lb 07/01/18 Body Mass Index (BMI) 26.6 07/01/18 Blood Pressure 130/80 H 07/01/18 Body Mass Index (BMI) 25.7 Intake Visit Reasons: 40 WEEK OB Chief Complaint: est ob [employer] Maker Required: No Is patient in pain?: No [...] safe at home: Yes additional social history: [employer] Patient works in [employer] at [facility] Pregancy History 1 Elective abortions Hx Para [...] MD Cosigner Signature: Date (if applicable) CC: DRILLING SUPERINTENDENT OFFICE VISIT Observed: 06/24/2018 Status: F Source: [place] REPORT 12:35 PM [facility] REPOSITORY [facility] [address] [place] [address] OFFICE VISIT Date of Service: 06/24/18 MR#: [id number] Acct: [id number] Name: JUSTIN OTT Rep #: [id number] : 1995 Provider: Leah Benavides MD Age/Sex: 22/F Location: [facility] Status: Signed Intake Vital Signs06/24/18 Body Mass Index (BMI) 25.7 06/24/18 Height 5 ft 7 in 06/24/18 Weight: 169 lb 06/24/18 Body Mass Index (BMI) 26.4 06/24/18 Blood Pressure 126/80 H Intake Visit Reasons: 39 WEEK OB Chief Complaint: est ob [employer] Maker Required: No Is patient in pain?: No [...] safe at home: Yes additional social history: [employer] Patient works in [employer] at [facility] Pregancy History 1 Elective abortions Hx Para [...] MD Cosigner Signature: Date (if applicable) CC: DRILLING SUPERINTENDENT OFFICE VISIT Observed: 06/17/2018 Status: F Source: [place] REPORT 12:33 PM [facility] REPOSITORY [facility]'s [address] [place] [address] OFFICE VISIT Date of Service: 06/17/18 MR#: [id number] Acct: [id number] Name: JUSTIN OTT Rep #: [id number] : 1995 Provider: Leah Benavides MD Age/Sex: 22/F Location: [facility] Status: Signed Intake Vital Signs06/17/18 Body Mass Index (BMI) 25.7 06/17/18 Height 5 ft 7 in 06/17/18 Weight: 167 lb 06/17/18 Body Mass Index (BMI) 26.2 06/17/18 Blood Pressure 122/70 H Intake Visit Reasons: 38 WEEK OB Chief Complaint: est ob [employer] Maker Required: No Is patient in pain?: No [...] at home: Yes additional social history: Engaged- [employer] Patient works in [employer] at [facility] Pregancy History 1 Elective abortions Hx Para Spontaneous abortions HPI 38 WEEK OB: Details: JUSTIN OTT is a [...] Leah Benavides MD> Date [facility]: Date (if applicable) CC: DRILLING SUPERINTENDENT OFFICE VISIT Observed: 06/11/2018 Status: F Source: [place] REPORT 2:45 PM [facility] REPOSITORY [facility] [address] [place] [address] OFFICE VISIT Date of Service: 06/11/18 MR#: [id number] Acct: [id number] Name: JUSTIN OTT Rep #: [id number] : 1995 Provider: Leah Benavides MD Age/Sex: 22/F [facility] [facility] Status: Signed Intake Vital Signs06/11/18 Body Mass Index (BMI) 25.7 06/11/18 Height 5 ft 7 in 06/11/18 Blood Pressure 120/78 Intake Visit Reasons: 37 WEEK OB Chief Complaint: Pt states she is having headaches and hot flashes [employer] Maker Required: No Is patient in pain?: No [...] safe at home: Yes additional social history: [employer] Patient works in [employer] at [facility] [employer] Pregancy History 1 Elective abortions Hx Para [...] MD Cosigner Signature: Date (if applicable) CC: DRILLING SUPERINTENDENT OFFICE VISIT Observed: 06/06/2018 Status: F Source: [place] REPORT 3:45 AM [facility] REPOSITORY [facility] [address] [place], [place] [address] OFFICE VISIT Date of Service: 06/02/18 MR#: [id number] Acct: [id number] Name: JUSTIN OTT Rep #: [id number] : 1995 Provider: Leah Benavides MD Age/Sex: 22/F Location: [facility] Status: Signed Intake Vital Signs06/02/18 Body Mass Index (BMI) 25.2 06/02/18 Height 5 ft 7 in 06/02/18 Weight: 165 lb 06/02/18 Body Mass Index (BMI) 25.8 06/02/18 Blood Pressure 110/60 Intake Visit Reasons: 36 WEEK OB Chief Complaint: est ob [employer] Maker Required: No Is patient in pain?: No Allergies No Known Allergies Allergy (Verified 06/02/18 14:05) Medications Multivitamin with Folic Acid [Thera Tablet] 1 ea PO DAILY #30 tab 05/06/17 [Rx Confirmed 06/02/18] Last Menstral Period: 09/22/17 Zika: Zika virus screening: Negative : No [facility] Surgical History History of arthroscopy of right shoulder (Acute) Family History Grandmother Diabetes Social History Smoking Status: Former smoker how long ago did patient quit smokin years alcohol intake: never substance use type: does not use caffeine: Yes what type of physical activity do you participate in: none seatbelt use: always do you feel safe at home: Yes additional social history: Engaged- [employer] Patient works in [employer] at [employer] Pregancy History 1 Elective abortions Hx Para [...] taking phenergan prn. No VB, LOF. MICHAEL RibreaC on 01/12/18 Visit Date: 12/15/17 co persistent [...] Status: F Source: [place] GFR 5:30 PM [facility] REPOSITORY TYPE CODE TESTS RESULT OUT OF [...] By: #### L501.1105, L501.1400, L501.4100, L501.4405 #### [facility] [address] [place], [place], [id number] URIC ACID Collected: 06/05/2018 Status: F Source: [place] 5:30 PM [facility] REPOSITORY TYPE CODE TESTS RESULT OUT OF RANGE REFERENCE UNITS LAB L501.1400 2.6-6.0 mg/dL Normal URIC 3.6 Result Comment: The drugs N-Acetylcysteine and Metamizole may falsely depress this assay. Performed By: #### L501.1105, L501.1400, L501.4100, L501.4405 #### [facility] [address] [place], [place], [id number] AST(SGOT) Collected: 06/05/2018 Status: F Source: [place] 5:30 PM [facility] REPOSITORY TYPE CODE TESTS RESULT OUT OF RANGE REFERENCE UNITS LAB L501.4100 15-37 U/L Normal AST 18 Performed By: #### L501.1105, L501.1400, L501.4100, L501.4405 #### [facility] [address] [place], [address] ALANINE AMINOTRANSFERAS Collected: 06/05/2018 Status: F Source: [place] (SGPT) 5:30 PM [facility] REPOSITORY TYPE CODE TESTS RESULT OUT OF RANGE REFERENCE UNITS LAB L501.4405 13-56 U/L Normal ALT 19 Performed By: #### L501.1105, L501.1400, L501.4100, L501.4405 #### [facility] [address] [place], [place], [address] CBC-COMPLETE BLOOD CNT Collected: 06/05/2018 Status: F Source: [place] NO DIFF 5:30 PM [facility] REPOSITORY TYPE CODE TESTS RESULT OUT OF [...] MPV 9.6 Performed By: #### L100.0500 #### [facility] [address] [place], [place], [id number] PROTEIN+CREATININE Collected: Status: F Source: [facility],URINE 06/05/2018 5:30 PM [facility] REPOSITORY TYPE CODE TESTS RESULT OUT OF RANGE REFERENCE UNITS LAB L501.1200 NO RANGE EST. mg/dL Normal UR CREAT 70.90 LAB L501.1930 <11.9 mg/dL High 16.4 PROTEIN,UR.R AN. LAB L501.1940 0-200 mg/g CRE High PROT:CRE 231 RATIO Performed By: #### L501.0900 #### [facility] [address] [place], [place], [id number] PROTHROMBIN TIME W/INR Collected: 06/05/2018 Status: F Source: [place] 5:30 PM [facility] REPOSITORY TYPE CODE TESTS RESULT OUT OF RANGE REFERENCE UNITS LAB L300.4150 11.7-14.9 SECONDS Normal PROTIME 12.4 LAB L300.4200 Normal INR 0.9 Performed By: #### L300.3900, L300.4310 #### [facility] [address] [place], [place], [id number] PARTIAL THROMBOPLAST Collected: 06/05/2018 Status: F Source: [place] TIME 5:30 PM [facility] REPOSITORY TYPE CODE TESTS RESULT OUT OF RANGE REFERENCE UNITS LAB L300.4310 24.1-36.2 Seconds Normal PTT 27.6 Performed By: #### L300.3900, L300.4310 #### [facility] [address] [place], [address] Observed: 06/02/2018 Status: F Source: [place] CULTURE, GROUP B 6:55 PM [facility] STREPTOCOCCUS REPOSITORY JOVITA Culture Group B Beta Streptococcus is not isolated. Performed By: #### M100.1800 #### [facility] [address] [place], [address] DRILLING SUPERINTENDENT OFFICE VISIT Observed: 05/19/2018 Status: F Source: [place] REPORT 12:11 PM [facility] REPOSITORY [facility] [address] [place] [address] OFFICE VISIT Date of Service: 05/19/18 MR#: [id number] Acct: [id number] Name: JUSTIN OTT Rep #: [id number] : 1995 Provider: Leah Benavides MD Age/Sex: 22/F Location[place] [facility] Status: Signed Intake Vital Signs05/19/18 Height 5 ft 7 in 05/19/18 Weight: 161 lb 05/19/18 Body Mass Index (BMI) 25.2 05/19/18 Blood Pressure 110/60 05/19/18 Body Mass Index (BMI) 24.3 Intake Visit Reasons: 34 WEEK OB Maple [employer] Maker Required: No Is patient in pain?: No [...] at home: Yes additional social history: Engaged- [employer] Patient works in [employer] at [employer] Pregancy History 1 Elective abortions Hx Para [...] MD Cosigner Signature: Date (if applicable) CC: DRILLING SUPERINTENDENT OFFICE VISIT Observed: 05/06/2018 Status: F Source: [place] REPORT 11:47 AM [facility] [address] [place] [address] OFFICE VISIT Date of Service: 05/06/18 MR#: [id number] Acct: [id number] Name: JUSTIN OTT Rep #: [id number] : 1995 Provider: Leah Benavides MD Age/Sex: 22/F Location: [facility] Status: Signed Intake Vital Signs05/06/18 Height 5 ft 7 in 05/06/18 Weight: 155 lb 05/06/18 Body Mass Index (BMI) 24.3 Intake Visit Reasons: 32 weeks Chief Complaint: est ob [employer] Maker Required: No Is patient in pain?: No [...] safe at home: Yes additional social history: [employer] Patient works in [employer] at [employer] Pregancy History 1 Elective abortions Hx Para [...] MD Cosigner Signature: Date (if applicable) CC: DRILLING SUPERINTENDENT OFFICE VISIT Observed: 04/24/2018 Status: F Source: SARI REPORT 1:24 PM [facility] REPOSITORY [facility] [place] [address] 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 Maker Required: No Is patient in pain?: No [...] vision and her legs feel like jelly [facility] Surgical History History of arthroscopy of right shoulder (Acute) Family History Grandmother Diabetes Social History how long ago did patient quit smokin years alcohol intake: never substance use type: does not use caffeine: Yes what type of physical activity do you participate in: none seatbelt use: always do you feel safe at home: Yes additional social history: Engaged- [employer] Patient works in [employer] at [employer] Pregancy History 1 Elective abortions Hx Para [...] GERMAN Cosigner Signature: Date (if applicable) CC: DRILLING SUPERINTENDENT OFFICE VISIT Observed: 04/20/2018 Status: F Source: SARI REPORT 2:52 PM [facility] [address] [place] [address] OFFICE VISIT Date of Service: 04/20/18 MR#: [id number] Acct: [id number] Name: JUSTIN OTT Rep #: [id number] : 1995 Provider: JANAK Myers Age/Sex: 22/F [place] [facility] [place] Status: Signed Intake Vital Signs04/20/18 Height 5 ft 7 in 04/20/18 Weight: 153 lb 6 oz 04/20/18 Body Mass Index (BMI) 24.0 04/20/18 Blood Pressure 115/64 Intake Visit Reasons: 30 weeks Maple Products Maker Required: No Is patient in pain?: No [...] safe at home: Yes additional social history: [employer] Patient works in [employer] at [employer] Pregancy History 1 Elective abortions Hx Para [...] Office Urine Glucose Negative Last Edit by aDna Rdz on 04/20/18 14:42 Office Urine Protein [...] weeks 04/20/18 1452 <Electronically signed by Vani Melvin MANAGER TRUST-C> Date Vani Myers MANAGER TRUST-C [place] Signature: Date (if applicable) CC: DRILLING SUPERINTENDENT OFFICE VISIT Observed: 04/03/2018 Status: F Source: SARI REPORT 2:31 PM [facility] REPOSITORY [facility] [address] [place] [address] OFFICE VISIT Date of Service: 04/03/18 MR#: [id number] Acct: [id number] Name: JUSTIN OTT Rep #: [id number] : 1995 Provider: Leah Benavides MD Age/Sex: 22/F [place] [facility] [place] Status: Signed with Addenda ADDENDUM by Rica Vee on 04/03/18 at 1431 OFFICE PROCEDURES Office Procedure Documentation entered by Rica Vee 04/03/18 14:31: Immunizations Boostrix Tdap Performing Provider: Leah Benavides MD Administered by: Rica Vee on 04/03/18 14:30 Dose Route Admin Location Lot Number Expiration Date NDC Laundry Tech 0.5 mL IM Left Deltoid [id number] 05/09/19 30338-325-28 SANOFI-PASTEUR VIS Given Date VIS Publication Date 04/03/18 08/10/14 Eligibility Eligibility Date 04/03/18 1431 <Electronically signed by Rica Vee > Date Rica Vee cc: * Signed Intake Vital Signs04/03/18 Height 5 ft 7 in 04/03/18 Weight: 149 lb 04/03/18 Body Mass Index (BMI) 23.3 04/03/18 Blood Pressure 110/62 Intake Visit Reasons: 28 weeks Maple Products Maker Required: No Is patient in pain?: No [...] safe at home: Yes additional social history: [employer] Patient works in [employer] at [employer] Pregancy History 1 Elective abortions Hx Para [...] 04/03/2018 Status: F Source: SARI 1:07 PM [facility] REPOSITORY TYPE CODE TESTS RESULT OUT OF [...] Lymph 1.22 Performed By: #### L100.0100 #### [facility] [address] [place], [address] GLUCOSE CHALLENGE GEST Collected: 04/03/2018 Status: F Source: SARI 1H 50G 1:07 PM [facility] REPOSITORY TYPE CODE TESTS RESULT OUT OF RANGE REFERENCE UNITS LAB L501.0250 70-140 mg/dL Normal GLU GEST 87 50g 1H Performed By: #### L501.0250 #### [facility] [address] [place], [address] CBC, EMPLOYEE Collected: 03/11/2018 Status: F Source: SARI 9:36 AM [facility] REPOSITORY TYPE CODE TESTS RESULT OUT OF [...] Lymph 1.47 Performed By: #### L100.0200 #### [facility] [address] [facility] [place], [address] URINALYSIS, EMPLOYEE Collected: 03/11/2018 Status: F Source: BELCOURT 9:36 AM [facility] REPOSITORY TYPE CODE TESTS RESULT OUT OF [...] ESTERASE 100 Performed By: #### L400.0100 #### [facility] [address] [facility] [place], [place], [address] NICOTINE URINE DRUG Collected: 03/11/2018 Status: F Source: BELCOURT SCREEN 9:36 AM [facility] REPOSITORY TYPE CODE TESTS RESULT OUT OF [...] of Nicotine. Performed By: #### L505.6240 #### [facility] [address] [place], [address] EMPLOYEE PROFILE Collected: 03/11/2018 Status: F Source: SARI 9:36 AM [facility] REPOSITORY TYPE CODE TESTS RESULT OUT OF [...] LDH 139 Performed By: #### L500.2900 #### [facility] [address] [place], [address] DRILLING SUPERINTENDENT OFFICE VISIT Observed: 03/10/2018 Status: F Source: BELCOURT REPORT 11:46 AM [facility] REPOSITORY [facility] [address] [place] [address] OFFICE VISIT Date of Service: 03/10/18 MR#: [id number] Acct: [id number] Name: JUSTIN OTT Rep #: [id number] : 1995 Provider: JANAK Myers Age/Sex: 22/F Location[place] [facility] [place] Status: Signed Intake Vital Signs03/10/18 Height 5 [...] safe at home: Yes additional social history: [employer] Patient works in [employer] at [employer] Pregancy History 1 Elective abortions Hx Para [...] signed by Vani GERMAN> Date Vani Myers MANAGER TRUST-C Cosigner Signature: Date (if applicable) CC: MISCELLANEOUS LAB Collected: 02/09/2018 Status: F Source: SARI PROCEDURE 3:35 PM [facility] REPOSITORY Order Comment: Comments: [id number] MS AFP SERUM Test(s) Ordered: [id number] MSAFP SERUM TYPE CODE TESTS RESULT OUT OF RANGE REFERENCE UNITS LAB L801.1541 Normal [facility] TEST Result Comment: TEST RESULT UNITS [...] Customer Services to discuss available options. The [employer] recommends amniocentesis be offered to women age 35 and older. Comment: Marizol Loja, Ph.D., [facility] Principal Genetics Cold Header References: Available Upon Request. Multiples Of Median Cutoffs For AFP Elevations Denny 2.5 Black 2.8 IDD 2.0 Twins 4.5 Abbreviation Definitions IDD - Insulin Dep Diabetes OSBR - Open Spina Bifida Risk For further inquiries contact [facility] at [phone]. TESTING PERFORMED AT [facility]. ORIGINAL REPORT ON FILE IN LAB CONTAINS ADDITIONAL TEST SITE INFORMATION. Performed By: #### L801.1541 #### [facility] [address] [place], [address] DRILLING SUPERINTENDENT OFFICE VISIT Observed: 02/09/2018 Status: F Source: SARI REPORT 11:48 AM [facility] REPOSITORY [facility] [address] [place] [address] OFFICE VISIT Date of Service: 02/09/18 MR#: [id number] Acct: [id number] Name: JUSTIN OTT Rep #: [id number] : 1995 Provider: Leah Benavides MD Age/Sex: 22/F Location: [facility] [place] Status: Signed Intake Vital Signs02/09/18 Height 5 ft 7 in 02/09/18 Weight: 137 lb 6 oz 02/09/18 Body Mass Index (BMI) 21.5 02/09/18 Blood Pressure 111/65 Intake Visit Reasons: 20 weeks Maple Products Maker Required: No Is patient in pain?: No [...] safe at home: Yes additional social history: [employer] Patient works in [employer] at [employer] Pregancy History 1 Elective abortions Hx Para [...] taking phenergan prn. No VB, LOF. MONSERRAT Rbiera on 01/12/18 Visit Date: 12/15/17 co persistent [...] 02/05/2018 Status: F Source: SARI 12:15 PM [facility] REPOSITORY [facility] Imaging Services [address] [place] [address] OB Anatomy Scan MR#: [id number] Acct: [id number] Name: JUSTIN OTT Rep #: [id number] : 1995 F 22 From: Rufus Reyes MD PCP: Ratna Villalobos MD Status: REG CLI Study: OB Anatomy Scan Date of Exam: 02/05/18 Exam# [id number] Ordering Dr: Vani Myers STUDY: SECOND AND [...] Rufus Reyes MD at 15:17 EDT Tel [phone], Service support , CC: JANAK Myers; Ratna Villalobos MD Mammography Tech: Signed DRILLING SUPERINTENDENT OFFICE VISIT Observed: 01/12/2018 Status: F Source: BELCOURT REPORT 2:51 PM [facility] [address] [place] [address] OFFICE VISIT Date of Service: 01/12/18 MR#: [id number] Acct: [id number] Name: JUSTIN OTT Rep #: [id number] : 1995 Provider: JANAK Myers Age/Sex: 22/F Location[place] [facility] [place] Status: Signed Intake Vital Signs01/12/18 Height 5 ft 7 in 01/12/18 Weight: 129 lb 6 oz 01/12/18 Body Mass Index (BMI) 20.2 01/12/18 Blood Pressure 120/75 Intake Visit Reasons: 16 weeks Maple Products Maker Required: No Is patient in pain?: No [...] by Vani Myers NP-C> Date Vani Myers MANAGER TRUST-C Cosigner Signature: Date (if applicable) CC: RUBELLA IGG Collected: 12/15/2017 Status: F Source: SARI 4:48 PM [facility] REPOSITORY TYPE CODE TESTS RESULT OUT OF RANGE REFERENCE UNITS LAB L509.4000 IU/mL Normal Rubella IgG 40.8 Result Comment: Antibody results Interpretation of Immune Status < 5 IU/ml Presumed Non-immune 5 - < 10 IU/ml Equivocal > or = 10 IU/ml Presumed Immune Performed By: #### L509.4000, L3890.6005 #### [facility] [address] [place], [address] HIV - [facility] Collected: 12/15/2017 Status: F Source: SARI 4:48 PM [facility] REPOSITORY TYPE CODE TESTS RESULT OUT OF RANGE REFERENCE UNITS LAB L3890.6005 Nonreactive Normal HIV - [facility] Non-Reactive Performed By: #### L509.4000, L3890.6005 #### [facility] [address] [place], [address] DRILLING SUPERINTENDENT OFFICE VISIT Observed: 12/15/2017 Status: F Source: SARI REPORT 4:24 PM [facility] REPOSITORY [facility] [address] [place] [address] OFFICE VISIT Date of Service: 12/15/17 MR#: [id number] Acct: [id number] Name: JUSTIN OTT Rep #: [id number] : 1995 Provider: Leah Benavides MD Age/Sex: 22/F [place] [facility] [place] Status: Signed Intake Vital Signs12/15/17 Height 5 ft 7 in 12/15/17 Weight: 126 lb 8 oz 12/15/17 Body Mass Index (BMI) 19.8 12/15/17 Blood Pressure 113/78 Intake Visit Reasons: 12 WEEK OB Maple Products Maker Required: No Accompanied by: self Is patient [...] 12/04/2017 Status: F Source: SARI 12:33 PM [facility] REPOSITORY [facility] Medical Records Department [address] [place] [address] Downtime Report MR#: [id number] Acct: [id number] Name: JUSTIN OTT Rep #: [id number] : 1995 22 From: Alpesh Lewis PCP: Ratna Villalobos MD Status: REG CLI This patient was seen during an EMR downtime November 17, 2017 - November 24, 2017. This patient may have a combination of paper and electronic documentation or all paper documentation. All documentation is viewable within the e-chart portion of [facility] for each patient visit. TYPE AND SCREEN Collected: 11/18/2017 Status: F Source: BELCOURT 12:10 PM [facility] REPOSITORY Order Comment: Reason for Type AND Screen/Red Cells: ANEMIA TYPE CODE TESTS RESULT OUT OF RANGE REFERENCE UNITS LAB B10.0800 B Normal BLOOD TYPE GEL POSITIVE LAB B100.4000 Normal Antibody NEGATIVE Screen Performed By: #### B101.7450 #### [facility] [address] [place], [address] CBC W/DIFF, AUTOMATED Collected: 11/18/2017 Status: F Source: BELCOURT 12:00 AM [facility] REPOSITORY Order Comment: RESULT(S) PREVIOUSLY REPORTED ON [...] Lymph 1.71 Performed By: #### L100.0100 #### [facility] [address] [place], [address] RAPID PLASMIN REAGIN Collected: 11/18/2017 Status: F Source: SARI (RPR) 12:00 AM [facility] TYPE CODE TESTS RESULT OUT OF REFERENCE UNITS RANGE LAB L700.5000 NONREACTIVE NONREACTIVE Normal RPR Performed By: #### L700.5000 #### [facility] [address] [facility] [place], [address] CT/NG [facility] BY PCR Collected: 11/18/2017 Status: F Source: SARI 12:00 AM [facility] REPOSITORY Order Comment: RESULT(S) PREVIOUSLY REPORTED ON MANUAL REQUISITION DURING DOWNTIME. TYPE CODE TESTS RESULT OUT OF RANGE REFERENCE UNITS LAB L8200.2100 Negative Normal Chlam Negative Trac PCR LAB L8200.2200 Negative Normal NG by Negative PCR Performed By: #### L8200.2000 #### [facility] [address] [facility] [place], [address] Observed: 11/18/2017 Status: F Source: SARI CULTURE, URINE 12:00 AM [facility] Urine Culture Culture exhibits no growth. Performed By: #### M100.0650 #### [facility] [address] [facility] [place], [address] ORTHOPEDIC VISIT Observed: 09/14/2017 Status: F Source: SARI REPORT 9:31 AM [facility] REPOSITORY [facility] [address] [place] [address] OFFICE VISIT Date of Service: 09/08/17 MR#: [id number] Acct: [id number] Name: JUSTIN OTT Rep #: [id number] : 1995 Provider: Mamadou Dailey DO Age/Sex: 22/F [place] [facility] [place] Status: Signed Intake Intake Visit Reasons: right shoulder Is patient in pain?: Yes Allergies No Known Allergies Allergy (Verified 07/23/17 10:41) Medications Docusate Sodium [Colace] 100 mg PO BID PRN PRN #10 cap 05/06/17 [Rx Confirmed 07/23/17] Hydrocodone Bitart/Apap 5-325 [Norris 5/325] 1 - 2 tab PO Q6H [...] subluxation of right shoulder joint, subsequent encounter S43.870Z Plan Assessment: Directional instability status post right [...] Status: F Source: SARI REPORT 10:29 AM [facility] REPOSITORY [facility] [address] [place] [address] OFFICE VISIT Date of Service: 07/23/17 MR#: [id number] Acct: [id number] Name: JUSTIN OTT Rep #: [id number] : 1995 Provider: Mamadou Dailey DO Age/Sex: 22/F [place] [facility] [place] Status: Signed Intake Intake Visit Reasons: RT SHOULDER Is patient in pain?: Yes Pain scale (1-10): 1 Allergies No Known Allergies Allergy (Verified 07/23/17 10:41) Medications Docusate Sodium [Colace] 100 mg PO BID PRN PRN #10 cap 05/06/17 [Rx Confirmed 07/23/17] Hydrocodone Bitart/Apap 5-325 [Norris 5/325] 1 - 2 tab PO Q6H [...] otherwise ligaments are stable with 1+ 1+ [id number]. Assessment AND Plan Problems 1. Orthopedic aftercare [...] W/HPV RFX Collected: 07/21/2017 Status: F Source: [facility] [id number] 4:20 PM [facility] REPOSITORY Order Comment: LMP: 06/29/17 TYPE CODE TESTS RESULT OUT OF RANGE REFERENCE UNITS LAB 61859814( INC) Normal See Ref Lab Diagnosis: Report Performed By: #### [id number] #### [place] [address] PATHOLOGY ([facility]) Observed: 07/21/2017 Status: F Source: [facility] 12:00 AM REPOSITORY FINAL GYNECOLOGIC CYTOLOGY REPORT [id number] SPECIMEN ADEQUACY Satisfactory for Evaluation. Endocervical cells/transformation zone component present. GENERAL CATEGORIZATION Negative for Intraepithelial Lesion or Malignancy DESCRIPTIVE DIAGNOSIS Reactive cellular changes associated inflammation and repair. Fungi consistent with Kacy species. Shift in vaginal marianela suggestive of bacterial vaginosis. CLINICAL HISTORY LMP: 06/29/2017 SPECIMEN (A) SCREENING CERVICAL/ENDOCERVICAL LIQUID-BASED PAP Performed at [facility], [address] [place] [address] Screened by: HUNTER SANTIZO Inspector Filters Signed Out by: ROGER HEALY MD Reported: 07/25/2017 Performed By: #### INTERNAL COMBUSTION ENGINEER #### [facility] [address] [place] [address] ALLERGIES ALLERGIES DATE TYPE / CODE NAME / CODE REACTION SEVERITY SOURCE 07/01/2018 Drug No Known Unknown [facility] Allergy/416 Allergies/X87400 Hospital 453828(SNOM 0388(RXNORM) Repository ED CT) Drug/289639 No Known [facility]oo 003(SNOMED Allergies [facility] CT) System Repository ENCOUNTERS ENCOUNTERS ADMIT/DISCHARGE ACCOUNT NUMBER ADMITTING ENCOUNTER LOCATION SOURCE CLASS 07/05/2018/07/08/19 [id number] Makayla, Inpatient [place] Encounter [facility] ding:WPRoom: Repository SO809Jze: 1 07/05/2018 [id number] Makayla Ambulatory BMSBuilding: [place] BMS.CF.[facility] Repository 07/05/2018 [id number] Makayla Ambulatory BMSBuilding: [place] BMS.CF.[facility] Repository 07/05/2018 [id number] Makayla Ambulatory BMSBuilding: [place] BMS.CF.[facility] Repository 07/01/2018/07/01/19 [id number] Ambulatory BMSBuilding: [place] 19 BMS.[facility] Repository 06/24/2018/06/24/19 [id number] Ambulatory BMSBuilding: [place] 19 BMS.[facility] Repository 06/17/2018/06/17/19 [id number] Ambulatory BMSBuilding: [place] 19 BMS.[facility] Repository 06/11/2018/06/11/20 [id number] Ambulatory BMSBuilding: [place] 18 BMS.[facility] Repository 06/06/2018 [id number] Ambulatory BMSBuilding: [place] BMS.CF.[facility] Repository 06/05/2018/06/05/20 [id number] Ambulatory [place] 18 [facility] ding:WPOUTRo Repository om: WP013 06/02/2018 [id number] Ambulatory [facility] ding:LABSPEC Repository 06/02/2018/06/02/20 [id number] Ambulatory BMSBuilding: [place] 18 BMS.[facility] Repository 05/19/2018/05/19/20 [id number] Ambulatory BMSBuilding: [place] 18 BMS.[facility] Repository 05/06/2018/05/06/20 [id number] Ambulatory BMSBuilding: [place] 18 BMS.[facility] Repository 04/24/2018/04/24/20 [id number] Ambulatory BMSBuilding: [place] 18 BMS.[facility] Repository 04/20/2018/04/20/20 [id number] Ambulatory BMSBuilding: [place] 18 BMS.[facility] Repository 04/03/2018 [id number] Ambulatory [facility] ding:LAB Repository 04/03/2018/04/03/20 [id number] Ambulatory BMSBuilding: [place] 18 BMS.[facility] Repository 03/11/2018 [id number] Ambulatory [facility] ding:EMPH Repository 03/10/2018/03/10/20 [id number] Ambulatory BMSBuilding: [place] 18 BMS.[facility] Repository 02/09/2018 [id number] Ambulatory [facility] ding:LAB Repository 02/09/2018/02/10/20 [id number] Ambulatory BMSBuilding: [place] 18 BMS.[facility] Repository 02/05/2018 [id number] Ambulatory [facility] ding:US Repository 01/12/2018/01/13/20 [id number] Ambulatory BMSBuilding: [place] 18 BMS.[facility] Repository 12/15/2017 [id number] Ambulatory [facility] ding:LAB Repository 12/15/2017/12/16/19 [id number] Ambulatory BMSBuilding: [place] 18 BMS.[facility] Repository 11/18/2017 [id number] Ambulatory [place] [facility] ding:LAB Repository 11/18/2017/11/19/19 [id number] Ambulatory BMSBuilding: [place] 18 BMS.[facility] Repository 10/07/2017/10/08/19 [id number] Maco Barnes Ambulatory [place] [address] Surya g:QCareRoom: Regional Room 1 Health System Repository 09/08/2017/09/09/19 [id number] Ambulatory BMSBuilding: [place] 18 BMS.[facility] Repository 07/23/2017/07/23/19 [id number] Ambulatory BMSBuilding: [place] 18 BMS.[facility] Repository 07/21/2017/07/21/19 [id number] MackJessica Ambulatory [address] ding:SH.Lab Health System Repository 07/21/2017 [id number] Ambulatory BMSBuilding: [place] BMS.[facility] Repository 07/21/2017/07/21/[id number] Health System :[facility] Repository om: Room 3 PAYERS PAYERS ENCOUNTER GUARANTOR PAYER SUBSCRIBER SOURCE 07/05/2018 JUSTIN Murphy Primary Insurance:[facility] JUSTIN Guo [id number] [facility] [address] [facility] [address]Gbm: Number: Repository [id number] (HP) Date:3327-49-84SY [address] [address]JPSCVLUFB, [place] [address]CS: CHECK WEBSITE 07/05/2018 Secondary NOT GIVENUNK [place] Insurance:SELF PAY [facility] Number: Effective Repository Date:2018-06-18 07/05/2018 JUSTIN Mruphy Primary Insurance:[facility] JUSTIN Guo [id number] [facility]: [address] 7410-67-45[facility]MBG[facility] [address]Xhi: Number: Repository [id number] (HP) Date:8482-32-73ZP [address] [address]QFZS[place], [place] [address]AQ: CHECK WEBSITE 07/05/2018 Secondary NOT GIVENUNK [place] Insurance:SELF PAY [facility] Number: Effective Repository Date:2018-07-05 07/05/2018 JUSTIN Murphy Primary Insurance:[facility] JUSTIN Murphy [place] [id number] [facility]: [address] 9815-51-94[place]UT[place] [id number]: Number: Repository [id number] (HP) Date:8427-77-74DF [address] [address]KDMDEEWDD, [place] [address]ZC: CHECK WEBSITE 07/05/2018 Secondary NOT GIVENUNK [place] Insurance:SELF PAY [facility] Number: Effective Repository Date:2018-07-05 07/05/2018 JUSTIN Murphy Primary Insurance:[facility] JUSTIN Murphy [place] [id number] [facility] [address] 5965-27-68QCKKimberly [place] [address]Tel: Number: Repository [id number] (HP) Date:5467-34-86RN [address] [address]XAAOCLESC, [place] [address]BV: CHECK WEBSITE 07/05/2018 Secondary NOT GIVENUNK [place] Insurance:SELF PAY [facility] Number: Effective Repository Date:2018-07-05 07/01/2018 JUSTIN Murphy Primary Insurance:[facility] JUSTIN Guo [id number] [facility]: [address] 5644-46-79AIKKimberly [place] [address]Tel: Number: Repository [id number] (HP) Date:8463-07-82IB [address] [address]BXVGZKNLK, [place] [address]WP: CHECK WEBSITE 07/01/2018 Secondary NOT GIVENUNK [place] Insurance:SELF PAY [facility] Number: Effective Repository Date:2018-07-01 06/24/2018 JUSTIN Murphy Primary Insurance:[facility] JUSTIN Jinoster [id number] [facility]: [address] 3201-14-63JMT Hospital [place] [address]Xjj: Number: Repository [id number] () Date:6256-97-64YT [address] [address]HNTEAJKJJ, [place] [address]HN: CHECK WEBSITE 06/24/2018 Secondary NOT GIVENUNK [place] Insurance:SELF PAY [facility] Number: Effective Repository Date:2018-06-24 06/17/2018 JUSTIN Murphy Primary Insurance:[facility] JUSTIN Murphy [place] [id number] [facility]: [address] [id number] Hospital [place] [address]Uoq: Number: Repository [id number] () Date:3091-36-91XV [address] [address]IHHZMFWAP, [place] [address]PA: CHECK WEBSITE 06/17/2018 Secondary NOT GIVENUNK [place] Insurance:SELF PAY [facility] Number: Effective Repository Date:2018-06-17 06/11/2018 JUSTIN Murphy Primary Insurance:[facility] JUSTIN Murphy [place] [id number] [facility]: [address] 5960-18-74YYD Hospital [place] [address]Lth: Number: Repository [id number] () Date:9794-98-21JW [address] [address]SSXQPGYRY, [place] [address]TW: CHECK WEBSITE 06/11/2018 Secondary NOT GIVENUNK Sari Insurance:SELF PAY [facility] Number: Effective Repository Date:2018-06-11 06/06/2018 JUSTIN Murphy Primary NOT GIVENUNK Sari [id number] Insurance:SELF PAY [address] [place] [address]Esq: Number: Effective Repository Date:2018-06-06 (HP) 06/05/2018 JUSTIN Murphy Primary Insurance:[facility] JUSTIN Murphy [place] [id number] [facility]: [address] 7239-27-73WWI [facility] [place] [address]Bpz: Number: Repository [id number] (HP) Date:5003-52-87OG [address] [address]YDJWOAXLD, [place] [address]QI: CHECK WEBSITE 06/05/2018 Secondary NOT GIVENUNK Sari Insurance:SELF PAY [facility] Number: Effective Repository Date:2018-06-05 06/02/2018 JUSTIN Murphy Primary Insurance:[facility] JUSTIN [place] [id number] [facility]: [address] 9898-18-87[place]WT[place] [address]Tel: Number: Repository [id number] (HP) Date:0786-59-72OI [address] [address]SUSORXQSH, [place] [address]SI: CHECK WEBSITE 06/02/2018 Secondary NOT GIVENUNK Sari Insurance:SELF PAY [facility] Number: Effective Repository Date:2018-06-02 06/02/2018 JUSTIN Murphy Primary Insurance:[facility] JUSTIN [place] [id number] [facility]: [address] 4796-36-61GOKKimberly [place] [address]Tel: Number: Repository [id number] (HP) Date:1197-52-14ZQ [address] [address]YCAMDCKHI, [place] [address]QE: CHECK WEBSITE 06/02/2018 Secondary NOT GIVENUNK Sari Insurance:SELF PAY [facility] Number: Effective Repository Date:2018-06-02 05/19/2018 JUSTIN Murphy Primary Insurance:[facility] JUSTIN Guo [id number] [facility]: [address] 8468-73-22QSOGila Regional Medical Center [address]Wyi: Number: Repository [id number] (HP) Date:8076-46-37UT [address] [address]PDZLYXUTJ, [place] [address]KL: CHECK WEBSITE 05/19/2018 Secondary NOT GIVENUNK [place] Insurance:SELF PAY [facility] Number: Effective Repository Date:2018-05-19 05/06/2018 JUSTIN Murphy Primary Insurance:[facility] JUSTIN Guo [id number] [facility]: [address] [id number] [place] [address]Bqt: Number: Repository [id number] (HP) Date:3701-18-71FU [address] [address]DLENYQZHA, [place] [address]XF: CHECK WEBSITE 05/06/2018 Secondary NOT GIVENUNK [place] Insurance:SELF PAY [facility] Number: Effective Repository Date:2018-05-06 04/24/2018 [facility] Primary Insurance:[facility] JUSTIN Murphy Sari [id number] [facility] [place]ERS[place]DOB: [address] 4035-84-52KZP [place] [address]Ggy: Number: Repository [id number] (HP) Date:4060-96-55OP [address] [address]PGKYSELGF, [place] [address]CS: CHECK WEBSITE 04/24/2018 Secondary NOT GIVENUNK [place] Insurance:SELF PAY [facility] Number: Effective Repository Date:2018-04-24 04/20/2018 JUSTINEDUIN GOODWINE Primary Insurance:[facility] JUSTIN ANTOINE Sari [id number] [facility]: [address] 4621-95-03GEX [place] [address]Zli: Number: Repository [id number] (HP) Date:0442-63-46VX [address] [address]AFJQGPXWI, [place] [address]TP: CHECK WEBSITE 04/20/2018 Secondary NOT GIVENUNK Sari Insurance:SELF PAY [facility] Number: Effective Repository Date:2018-04-20 04/03/2018 JUSTIN ARASH Primary Insurance:[facility] JUSTIN [place] [id number] [facility]: [address] 3824-26-60PLS [place] [address]Fxb: Number: Repository [id number] (HP) Date:1567-09-71PY [address] [address]OT[place], [place] [address]NA: CHECK WEBSITE 04/03/2018 Secondary NOT GIVENUNK [place] Insurance:SELF PAY [facility] Number: Effective Repository Date:2018-04-03 04/03/2018 JUSTIN ARASH Primary Insurance:[facility] JUSTIN [place] [id number] [facility] [address] 2551-45-76ZACGila Regional Medical Center [address]Dyh: Number: Repository [id number] (HP) Date:6776-29-33NR [address] [address]AGGKEYUCR, [place] [address]AX: CHECK WEBSITE 04/03/2018 Secondary ABRIL R TEELUNK [place] Insurance:[facility]olic Community y Number: [facility] [id number] Repository leida Date:5155-59-11IH [address] [place] [address]LA: 04/03/2018 Tertiary NOT GIVENUNK Sari Insurance:SELF PAY [facility] Number: Effective Repository Date:2018-04-03 03/11/2018 JUSTIN ARASH Primary NOT GIVENUNK [place] [id number] Insurance:SELF PAY [address] [address]Mws: Number: Effective Repository Date:2018-03-11 (HP) 03/10/2018 JUSTIN ARASH Primary Insurance:[facility] JUSTIN Guo [id number] [facility] [address] 9352-08-79KTP [place] [address]Nsv: Number: Repository [id number] (HP) Date:4784-69-70IH [address] [address]FSFZRBRPI, [place] [address]AZ: CHECK WEBSITE 03/10/2018 Secondary ABRIL R TEELUNK [place] Insurance:ANTHEMPolic Community y Number: [facility] [id number] Repository leida Date:5468-90-34OB [address] [place] [address]WH: 03/10/2018 Tertiary NOT GIVENUNK Sari Insurance:SELF PAY [facility] Number: Effective Repository Date:2018-03-10 02/09/2018 JUSTIN ARASH Primary Insurance:[facility] JUSTIN ARASH Sari [id number] [facility] [address] 3726-59-40[facility] [address]Xiv: Number: Repository [id number] (HP) Date:6919-11-49TF [address] [address]MNEQEGYPJ, [place] [address]EO: CHECK WEBSITE 02/09/2018 Secondary ABRIL MOSLEY Sari Insurance:ANTHEMPolic Community y [facility]: [id number] Repository [place] Date:4757-09-61TI [address] [place] [address]IO: 02/09/2018 Tertiary NOT GIVENUNK [place] Insurance:SELF PAY [facility] Number: Effective Repository Date:2018-02-09 02/09/2018 [facility] Primary Insurance:[facility] JUSTIN Guo [id number] [facility] [place]: [address] 1449-03-36ZBDTaylor Ville 2153[address]Tel: Number: Repository [id number] (HP) Date:7854-88-57UO [address] [address]NDONWRVBD, [place] [address]MV: CHECK WEBSITE 02/09/2018 Secondary ABRIL MOSLEY Sari [facility] y Number: [facility] [id number] Repository leida Date:8080-75-07QX [address]SZQUDPM, [place] [address]GA: 02/09/2018 Tertiary NOT GIVENUNK [place] Insurance:SELF PAY [facility] Number: Effective Repository Date:2018-02-09 02/05/2018 JUSTIN ARASH Primary Insurance:[facility] JUSTIN Guo [id number] [facility]: [address] 2283-25-70LIYGila Regional Medical Center [address]Rso: Number: Repository [id number] (HP) Date:3138-90-44LF [address] [address]QZOVTDTIA, [place] [address]HT: CHECK WEBSITE 02/05/2018 Secondary ABRIL CHUNGNK Sari Insurance:[facility] Community y Number: Hospital [id number] Repository [place] Date:7274-99-15LC [address] [place] [address]ZQ: 02/05/2018 Tertiary NOT GIVENUNK Sari Insurance:SELF PAY [facility] Number: Effective Repository Date:2018-01-12 01/12/2018 [facility] Primary ABRIL R JULIETNK [place] [id number] Insurance:ANTHEMP[address], y Number: [facility] [address]Jbn: [id number] Repository [place] Date:7750-33-85DX () [address] [place] [address]EI: 01/12/2018 Secondary NOT GIVENUNK [place] Insurance:SELF PAY [facility] Number: Effective Repository Date:2018-01-12 12/15/2017 [facility] Primary BOJORQUEZ [place] [id number] Insurance:[facility] StockStreamsPHOEBE PUTNEY MEMORIAL HOSPITAL - NORTH CAMPUSGEOLID [address] [place] [address]Adv: Number: Repository [id number] (HP) Date:7592-83-64DR [address] [place] [address]AG: 12/15/2017 Secondary ABRIL R JULIETNRaleigh Sari [facility] y Number: Hospital [id number] Repository [place] Date:6721-28-80RF [address]GPWTRIX, [place] [address]JL: 12/15/2017 Tertiary NOT GIVENUNK Sari Insurance:SELF PAY [facility] Number: Effective Repository Date:2017-12-15 12/15/2017 [facility] BOJORQUEZ Sari [id number] Insurance:MEDICAL StockStreamsPHOEBE PUTNEY MEMORIAL HOSPITAL - NORTH CAMPUSGEOLID [address] [place] [address]Mdg: Number: Repository [id number] (HP) Date:5092-10-38ZB [address] [place] [address]PO: 12/15/2017 Secondary ABRIL MOSLEY Sari Insurance:ANT[facility]olic Community y Number: Hospital [id number] Repository [place] Date:1705-27-05NA [address] [place] [address]NM: 12/15/2017 Tertiary NOT GIVENUNK [place] Insurance:SELF PAY [facility] Number: Effective Repository Date:2017-12-15 11/18/2017 [facility] JUSTIN ARASH [place] [id number] Insurance:MEDICAL [place]OB: [address] 4097-00-67NDSGila Regional Medical Center [address]Qzm: Number: Repository [id number] (HP) Date:2768-41-61ME [address] [place] [address]AP: 11/18/2017 Secondary ABRIL R JULIETNK Sari Insurance:ANTHEMPolic Community y Number: [facility] [id number] Repository [place] Date:4586-32-61ZH [address] [place] [address]KF: 11/18/2017 Tertiary NOT GIVENUNK [place] Insurance:SELF PAY [facility] Number: Effective Repository Date:2017-11-18 11/18/2017 [facility] BOJORQUEZ [place] [id number] Insurance:MEDICAL [place] [address] [address]Ybv: Number: Repository [id number] (HP) Date:4457-10-16SL [address] [place] [address]TI: 11/18/2017 Secondary ABRIL R JULIETNK Sari Insurance:ANTHEMPolic Community y Number: [facility] [id number] Repository [place] Date:5946-39-59WG [address]XWASXIT, [place] [address]XJ: 11/18/2017 Tertiary NOT GIVENUNK Sari Insurance:SELF PAY Community [facility] Number: Effective Repository Date:2017-11-27 10/07/2017 JUSTIN Primary BOJORQUEZ [employer] [place]: Insurance:1500 [place]OB: [facility] [id number] System [facility] [address] Number: Effective CHRISTO HUDDLESTON, Repository [address] [place] [address] Date:2017-10-07 [address]Hdn: [phone]: 8815-22-36Tief 134-2017 (HP) Name:CD:[id number] O (HP) [address] [place] [address] ) [address]TI: 10/07/2017 Secondary ABRIL Burgess Insurance:1500 JrDOB: [facility] Number: [id number] System Effective ANN COOL, Repository Date:2017-10-07 - [place] [address]Cnd: 0913-69-75Zqvm Name:CD:[id number] O (HP)Tel: (659) [address]OGJZP[address] [place] [address] [phone] (YX) [address]YC: 09/08/2017 JUSTIN ANTOINE Primary BOJORQUEZJenaro Guo [id number] Insurance:[facility] [address] [place] [address]Duv: Number: Repository [id number] (HP) Date:0078-34-75UX [address] [place] [address]HM: 09/08/2017 Secondary ABRIL R JULIETNRaleigh [place] Insurance:[facility] Number: [facility] [id number] Repository [place] Date:4653-07-89AS [address] [place] [address]LK: 09/08/2017 Tertiary NOT GIVENUNK Sari Insurance:SELF PAY [facility] Number: Effective Repository Date:2017-09-08 07/23/2017 JUSTIN ANTOINE Primary NOT GIVENUNK [place] [id number] Insurance:MEDICAL [address] [place] [address]Oco: Number: Repository [id number] (HP) Date:5007-23-71GA [address] [place] [address]UK: 07/23/2017 Secondary ABRIL CHUNGNK [place] Insurance:[facility] Community y Number: [facility] [id number] Repository [place] Date:3483-35-84AT [address] [place] [address]AX: 07/23/2017 Tertiary NOT GIVENUNK [place] Insurance:SELF PAY [facility] Number: Effective Repository Date:2017-07-23 07/21/2017 JUSTIN Primary BOJORQUEZ [employer]: Insurance:Medical [place]OB: [facility] Number: [id number] System [facility], Repository [address] [place] [address] Date:2017-07-21 [place] [address]Zyh: [phone]: 3236-72-43Lxjg [phone] (HP) Name:Matthew Eugene () [address] [place] [address] (WP) [address]AU: 07/21/2017 Secondary ABRIL Burgess [facility] HospitalD[facility]: [facility] y Number: Effective [id number] System Date:2017-07-21 RD Repository 4397-25-02Jnvb [address] [place] [address] Name:Eliseo [facility] [address] [address]Cgz: [address] [place] [address]WP: [phone] ([phone] (WP) 07/21/2017 JUSTIN ANTOINE Primary BOJORQUEZ Sari [id number] Insurance:[address] [address]Oxc: Number: Repository [id number] (HP) Date:7432-18-87TM [address] [address]WY: 07/21/2017 Secondary ABRIL CHUNGNRaleigh Sari Insurance:ANTHEMPolic Community y Number: [facility] [id number] Repository [place] Date:4223-15-80SF [address] [place] [address]PF: 07/21/2017 Tertiary NOT GIVENUNK [place] Insurance:SELF PAY Community [facility] Number: Effective Repository Date:2017-07-21 07/21/2017 JUSTIN Katherine Primary BOJORQUEZ [facility] Insurance:1500 [place]DOB: [facility] [id number] [address] Number: Effective [facility], [facility] [address], Date:2017-07-21 - [place] [address]Wus: ([facility]) [place] 0366-60-66Dxzd [phone] (HP)Tel: [address]Cae: Name:CD:[id number] O [phone] [address] [address]HAZQAQTND, (WP) (HP) [place] [address]WB: 07/21/2017 Secondary ABRIL Burgess Insurance:1500 DOB: [facility] Number: [id number] System Effective [address] Repository Date:2017-07-[address] [place] [address] 1071-26-51Pmrn [address]Vik: Name:CD:[id number] O [address]FZGNYYR, [place] (HP)Tel: [phone]: (WP) [phone]
== END 2018-07-08 17:10 | disposition home or self-care (01) | DRG 768 ==
PROVIDERS: Admitting Provider Obstetrics & Gynecology; Family Provider Family Medicine; PCP Family Medicine; Referring Provider Obstetrics & Gynecology; Visit Provider Obstetrics & Gynecology
DX: O48.0 Post-term pregnancy (principal); O70.3 Fourth degree perineal laceration during delivery; Z37.0 Single live birth; Z87.891 Personal history of nicotine dependence; Z3A.41 41 weeks gestation of pregnancy
CPT/HCPCS: 59025; 59050; 85027; 86850; 86900; 99218; J7120; G0378; J2405

== ENCOUNTER → 2018-12-10 11:36 | Outpatient (CLI) | payer OTHER, MEDICAID, SELFPAY ==
[2018-12-08 10:39] VITALS: BMI 24.3
--- NOTE | 2018-12-10 11:37 | US_ITS ---
STUDY: ULTRASOUND TRANSVAGINAL CLINICAL: Female, 23 years old. Pelvic pain TECHNIQUE: Transvaginal COMPARISON: None. FINDINGS: Normal uterine size measuring 8.1 x 4.0 x 5.8 cm in maximal craniocaudal dimension. There are no myometrial masses. Normal endometrial thickness measuring 7 mm. There are no endometrial masses, and there is no fluid in the endometrial cavity. Normal uterine cervix. Normal right ovary, measuring 4.1 x 2.4 x 2.2 cm. There are multiple follicles without a dominant cyst. Normal left ovary, measuring 3.4 x 2.2 x 2.5 cm. There are multiple follicles without a dominant cyst. There is no free fluid in the pelvis. Polycystic ovary disease: No. US/Pelvic (Non ) IMPRESSION: Normal pelvic ultrasound. Electronically Signed: Bhanu Parker MD at 17:01 EDT Tel , Service support ,
--- NOTE | 2018-12-10 11:37 | US_ITS ---
STUDY: ULTRASOUND TRANSVAGINAL CLINICAL: Female, 23 years old. Pelvic pain TECHNIQUE: Transvaginal COMPARISON: None. FINDINGS: Normal uterine size measuring 8.1 x 4.0 x 5.8 cm in maximal craniocaudal dimension. There are no myometrial masses. Normal endometrial thickness measuring 7 mm. There are no endometrial masses, and there is no fluid in the endometrial cavity. Normal uterine cervix. Normal right ovary, measuring 4.1 x 2.4 x 2.2 cm. There are multiple follicles without a dominant cyst. Normal left ovary, measuring 3.4 x 2.2 x 2.5 cm. There are multiple follicles without a dominant cyst. There is no free fluid in the pelvis. Polycystic ovary disease: No. US/Transvaginal Non- IMPRESSION: Normal pelvic ultrasound. Electronically Signed: Bhanu Parker MD at 17:01 EDT Tel , Service support ,
== END ==
PROVIDERS: Family Provider Family Medicine; PCP Family Medicine; Referring Provider Nurse Practitioner Women's Health; Visit Provider Nurse Practitioner Women's Health
DX: R10.2 Pelvic and perineal pain (principal)
CPT/HCPCS: 76830; 76856; 93976

== ENCOUNTER → 2018-12-29 | Outpatient (CLI) | payer OTHER, MEDICAID, BC, SELFPAY ==
[2018-12-08 10:50] VITALS: BMI 26.8
[2018-12-29 15:16] LABS: hCG Titer Quant., Serum 4951 mIU/mL (1-3)
== END | disposition home or self-care (01) ==
LOC: LAB 14:17
PROVIDERS: Family Provider Family Medicine; PCP Family Medicine; Referring Provider Obstetrics & Gynecology; Visit Provider Obstetrics & Gynecology
DX: N92.6 Irregular menstruation, unspecified (principal)
CPT/HCPCS: 36415; 84702

== ENCOUNTER → 2018-12-31 14:13 | Outpatient (CLI) | payer OTHER, BC, MEDICAID, SELFPAY ==
[2018-12-08 10:50] VITALS: BMI 26.8
[2018-12-31 15:48] LABS: hCG Titer Quant., Serum 7969 mIU/mL (1-3)
== END ==
PROVIDERS: Family Provider Family Medicine; PCP Family Medicine; Referring Provider Obstetrics & Gynecology; Visit Provider Obstetrics & Gynecology
DX: N92.6 Irregular menstruation, unspecified (principal)
CPT/HCPCS: 36415; 84702

== ENCOUNTER → 2019-01-12 09:24 | Outpatient (CLI) | payer OTHER, MEDICAID, SELFPAY ==
[2018-12-08 10:50] VITALS: BMI 26.8
--- NOTE | 2019-01-12 09:00 | US_ITS ---
STUDY: FIRST TRIMESTER OBSTETRICAL ULTRASOUND REASON FOR EXAM: Female, 23 years old. dating. LMP: Unknown. TECHNIQUE: Transvaginal TECHNICAL QUALITY: Adequate. PRIOR ULTRASOUND: None. FINDINGS: There is visualization of a single gestational sac in a normal intrauterine position. The mean sac diameter (MSD) measures 2.62 cm, indicating an estimated gestational age (EGA) of 7 weeks, 6 days. The gestational sac shape is within normal limits. There is a visualized yolk sac. The yolk sac measures 3.1 mm. The placenta is non-visualized. There is visualization of a live embryo. The crown-rump length (CRL) measures 8.9 mm, indicating an estimated gestational age (EGA) of 7 weeks, 0 days. There is demonstrated cardiac activity with a heart rate of 130 bpm. There is a subchorionic hematoma measuring 1.1 x 1.9 x 0.6 cm, short-term follow-up recommended to assure resolution The estimated gestation age (EGA) by US is 7 weeks, 3 days. The estimated date of delivery (KATH) by US is 08/28/2019. The uterus measures 9.4 x 6.5 x 6.4 cm. There is no demonstrated uterine fibroid. The cervix is closed. The right ovary measures 4.3 x 3.3 x 2.2 cm. There is a 2.2 cm cyst. The left ovary measures 3.1 x 2.1 x 2.4 cm. There is no left ovarian cyst. There is no visualized left adnexal mass or complex lesion. There is no fluid in the cul de sac. US/Transvaginal w/Preg US IMPRESSION: Single live intrauterine at 7 weeks, 3 days by current ultrasound with KATH of 08/28/2019. Heart rate of 130 bpm. There is a small subchorionic hematoma, short-term follow-up recommended to assure resolution Right ovarian cyst Electronically Signed: Johnnie Almendarez MD at 11:11 EDT , Service support ,
== END ==
PROVIDERS: Family Provider Family Medicine; PCP Family Medicine; Referring Provider Obstetrics & Gynecology; Visit Provider Obstetrics & Gynecology
DX: Z78.9 Other specified health status (principal)
CPT/HCPCS: 76817

== ENCOUNTER → 2019-01-25 13:26 | Outpatient (CLI) | payer OTHER, MEDICAID, SELFPAY ==
[2019-01-25 10:20] VITALS: BMI 26.8
[2019-01-25 16:33] LABS: Chlamydia Trachomatis by PCR Negative (Negative); Neisserai gonorrhoeae by PCR Negative (Negative); Probe Check PASS; Sample Adequacy Control PASS; Specimen Processing Control PASS
== END ==
PROVIDERS: Family Provider Family Medicine; PCP Family Medicine; Referring Provider Nurse Practitioner Women's Health; Visit Provider Nurse Practitioner Women's Health
DX: Z34.90 Encounter for supervision of normal pregnancy, unspecified, unspecified trimester (principal)
CPT/HCPCS: 87086; 87088; 87491; 87591

== ENCOUNTER → 2019-02-02 13:05 | Outpatient (CLI) | payer OTHER, MEDICAID, SELFPAY ==
[2019-01-25 10:20] VITALS: BMI 26.8
[2019-02-02 13:35] LABS: Absolute Lymphocyte Count 1.84 X10^3/uL (0.83-4.51); Absolute Neutrophil Count 4.8 X10^3/uL (2.0-7.7); Basophil# 0.03 X10^3/uL; Basophil% 0.4 % (0-1); Eosinophil# 0.03 X10^3/uL; Eosinophils% 0.4 % (0-5); Hematocrit 37.5 % (37-47); Hemoglobin 11.7 g/dL (12.0-15.0); Lymphocyte # 1.84 X10^3/ul (4.0); Lymphocyte % 25.4 % (19-41); Mean Corp Hgb Conc 31.2 g/dL (32-36); Mean Corpuscular Hgb 24.6 pg (27.0-32.0); Mean Corpuscular Volume 78.9 fL (81-99); Mean Platelet Vol. 10.2 fl (6.2-12.0); Monocyte# 0.58 X10^3/uL; NRBC Flagged by Analyzer 0 % (0-5); Neutrophil # 4.75 X10^3/uL (2.7-7.7); Neutrophil % 65.5 % (47-70); Platelet Count 320 K/mm3 (150-450); RBC Distribution Width CV 15.8 % (11.6-14.6); Red Blood Count 4.75 M/mm3 (4.2-5.4); White Blood Count 7.3 K/mm3 (4.4-11.0)
[2019-02-02 14:52] LABS: HIV - WCH Non-Reactive (Nonreactive); Rubella IgG 28.6 IU/mL
[2019-02-03 11:27] LABS: HSV 1 IgG < 0.91 index (0.00-0.90)
[2019-02-05 01:39] LABS: Rapid Plasmin Reagin (RPR) NONREACTIVE (NONREACTIVE)
== END ==
PROVIDERS: Family Provider Family Medicine; PCP Family Medicine; Referring Provider Nurse Practitioner Women's Health; Visit Provider Nurse Practitioner Women's Health
DX: Z34.81 Encounter for supervision of other normal pregnancy, first trimester (principal)
CPT/HCPCS: 36415; 85025; 86592; 86695; 86696; 86703; 86762; 86850; 86900; 86901

== ENCOUNTER → 2019-04-09 08:18 | Outpatient (CLI) | payer OTHER, MEDICAID, SELFPAY ==
[2019-03-22 10:53] VITALS: BMI 26.8
--- NOTE | 2019-04-09 08:30 | US_ITS ---
STUDY: SECOND AND THIRD TRIMESTER OBSTETRICAL ULTRASOUND REASON FOR EXAM: Female, 23 years old anatomy. LMP: November 21, 2018. TECHNIQUE: Transabdominal TECHNICAL QUALITY: Adequate. PRIOR ULTRASOUND: Comparison is made with prior study dated January 12, 2019. FINDINGS: There is a single intrauterine fetus. The fetus is in a cephalic presentation. There is demonstrated cardiac activity with a heart rate of 141 bpm. There is a normal amniotic fluid volume. The largest amniotic fluid pocket measures 6.3 cm x 3.5 cm. The amniotic fluid index (VELIA) is within normal limits. The placenta is anterior in location and is not low lying. There are Grade 0 placental changes. The cervix measures 4.0 cm in length. The bilateral adnexal regions are normal. BIOMETRY: BPD: 4.59 cm: 19 weeks, 6 days HC: 16.96 cm: 19 weeks, 4 days AC: 15.23 cm: 20 weeks, 3 days FL: 3.04 cm: 19 weeks, 2 days CI: 79% FL/BPD: 66% FL/HC: FL/AC: 20% HC/AC: 1.11 age by current US: 19 weeks, 4 days. KATH by current US: August 30, 2019. Estimated weight: 321 grams, +/- 48 grams, 41 %. age by prior US: 19 weeks, 6 days. KATH by prior US: August 28, 2019. Age by LMP: 19 weeks, 6 days. KATH by LMP: August 28, 2019. ANATOMY: Gender: Female Cranium: Normal lateral ventricles. Normal choroid plexus. Normal cerebellum. Normal cisterna magna. Normal face, nose and lips. Chest: Normal 4-chamber heart. Echogenic foci are seen most likely representing the cord dependently. Abdomen/Pelvis: Normal diaphragm. Normal stomach. Normal abdominal wall. Normal cord insertion. Normal 3 vessel cord. Normal kidneys. Normal bladder. Spine: Normal cervical spine. Normal thoracic spine. Normal lumbar spine. Normal sacrum. Extremities: Normal bilateral upper extremities. Normal bilateral lower extremities. US/OB Anatomy Scan IMPRESSION: Single live intrauterine gestation with a mean gestational age of 19 weeks and 6 days. The measurements obtained today fall within the normal expected range. Electronically Signed: Rufus Reyes, at 15:48 EDT , Service support ,
== END ==
PROVIDERS: Family Provider Family Medicine; PCP Family Medicine; Referring Provider Obstetrics & Gynecology; Visit Provider Obstetrics & Gynecology
DX: Z36.89 Encounter for other specified antenatal screening (principal)
CPT/HCPCS: 76805

== ENCOUNTER → 2019-06-10 14:19 | Outpatient (CLI) | payer OTHER, MEDICAID, SELFPAY ==
[2019-06-10 13:56] VITALS: BMI 25.4
[2019-06-10 16:06] LABS: Glucose Challenge Gest 1H 50g 75 mg/dL (70-140)
[2019-06-10 16:33] LABS: Absolute Neutrophil Count 7.4 X10^3/uL (2.0-7.7); Basophil# 0.02 X10^3/uL; Basophil% 0.2 % (0-1); Eosinophil# 0.04 X10^3/uL; Eosinophils% 0.4 % (0-5); Hematocrit 28.8 % (37-47); Hemoglobin 8.4 g/dL (12.0-15.0); Lymphocyte % 15.6 % (19-41); Mean Corp Hgb Conc 29.2 g/dL (32-36); Mean Corpuscular Hgb 22.2 pg (27.0-32.0); Mean Corpuscular Volume 76.2 fL (81-99); Mean Platelet Vol. 10.9 fl (6.2-12.0); Monocyte# 0.64 X10^3/uL; Monocyte% 6.7 % (0-10); NRBC Flagged by Analyzer 0 % (0-5); Neutrophil # 7.36 X10^3/uL (2.7-7.7); Neutrophil % 76.7 % (47-70); Platelet Count 283 K/mm3 (150-450); RBC Distribution Width CV 15.4 % (11.6-14.6); RBC Distribution Width SD 42.7 fl (35.1-43.9); Red Blood Count 3.78 M/mm3 (4.2-5.4); White Blood Count 9.6 K/mm3 (4.4-11.0)
[2019-06-11 10:11] LABS: Hepatitis B Surface Antigen Non-Reactive (Nonreactive)
== END ==
PROVIDERS: Family Provider Family Medicine; PCP Family Medicine; Referring Provider Obstetrics & Gynecology; Visit Provider Obstetrics & Gynecology
DX: Z34.80 Encounter for supervision of other normal pregnancy, unspecified trimester (principal)
CPT/HCPCS: 36415; 82950; 85025; 87340

== ENCOUNTER → 2019-06-15 10:52 | Outpatient (CLI) | payer OTHER, BC, MEDICAID, SELFPAY ==
[2019-06-10 13:56] VITALS: BMI 25.4
[2019-06-15 11:16] VITALS: BP 107/57; PULSE 82; RESP 16; TEMP 36.4; BMI 25.8
[2019-06-15 13:15] VITALS: BP 112/68; PULSE 70; RESP 16
== END ==
PROVIDERS: Family Provider Family Medicine; PCP Family Medicine; Referring Provider Obstetrics & Gynecology; Visit Provider Obstetrics & Gynecology
DX: O99.019 Anemia complicating pregnancy, unspecified trimester (principal); D64.9 Anemia, unspecified; Z3A.00 Weeks of gestation of pregnancy not specified
CPT/HCPCS: 96365; 96366; J1756; J7050

== ENCOUNTER → 2019-06-23 08:19 | Outpatient (CLI) | payer OTHER, MEDICAID, SELFPAY ==
[2019-06-15 11:16] VITALS: BMI 25.8
[2019-06-22 09:54] VITALS: BMI 25.8
[2019-06-23 08:30] VITALS: BP 106/57; PULSE 95; RESP 16; TEMP 36.3; O2SAT 99; BMI 25.8
[2019-06-23 10:50] VITALS: BP 111/56; PULSE 86; RESP 16
== END ==
PROVIDERS: Family Provider Family Medicine; PCP Family Medicine; Referring Provider Obstetrics & Gynecology; Visit Provider Obstetrics & Gynecology
DX: O99.019 Anemia complicating pregnancy, unspecified trimester (principal); D64.9 Anemia, unspecified; Z3A.00 Weeks of gestation of pregnancy not specified
CPT/HCPCS: 96365; 96366; J1756; J7050; A4216

== ENCOUNTER → 2019-07-02 10:25 | Outpatient (CLI) | payer OTHER, MEDICAID, SELFPAY ==
[2019-06-15 11:16] VITALS: BMI 25.8
[2019-06-25 09:49] VITALS: BMI 25.8
[2019-07-02 10:42] VITALS: BP 106/53; PULSE 92; RESP 16; TEMP 36.6; O2SAT 97; BMI 25.8
[2019-07-02 11:35] LABS: Ferritin 78 ng/mL (8-252); Iron Binding Capacity,Total 474 ug/dL (250-450)
== END ==
PROVIDERS: Family Provider Family Medicine; PCP Family Medicine; Referring Provider Obstetrics & Gynecology; Visit Provider Obstetrics & Gynecology
DX: O99.019 Anemia complicating pregnancy, unspecified trimester (principal); Z3A.00 Weeks of gestation of pregnancy not specified
CPT/HCPCS: 96365; 82728; 83550; J1756; J7050; A4216

== ENCOUNTER → 2019-08-04 | Outpatient (CLI) | payer OTHER, MEDICAID, SELFPAY ==
[2019-08-04 09:39] VITALS: BMI 25.8
== END | disposition home or self-care (01) ==
LOC: LABSPEC 13:03
PROVIDERS: PCP Family Medicine; Referring Provider Obstetrics & Gynecology; Visit Provider Obstetrics & Gynecology
DX: Z34.93 Encounter for supervision of normal pregnancy, unspecified, third trimester (principal); Z3A.36 36 weeks gestation of pregnancy
CPT/HCPCS: 87081

== ENCOUNTER → 2019-08-13 | Outpatient (CLI) | payer OTHER, MEDICAID, SELFPAY ==
[2019-08-13 11:49] VITALS: BMI 25.8
[2019-08-13 12:57] LABS: Absolute Lymphocyte Count 1.82 X10^3/uL (0.83-4.51); Absolute Neutrophil Count 5.6 X10^3/uL (2.0-7.7); Basophil# 0.01 X10^3/uL; Basophil% 0.1 % (0-1); Eosinophil# 0.05 X10^3/uL; Eosinophils% 0.6 % (0-5); Hematocrit 36.6 % (37-47); Hemoglobin 11.1 g/dL (12.0-15.0); Lymphocyte # 1.82 X10^3/ul (4.0); Lymphocyte % 23.2 % (19-41); Mean Corp Hgb Conc 30.3 g/dL (32-36); Mean Corpuscular Hgb 24.3 pg (27.0-32.0); Mean Corpuscular Volume 80.1 fL (81-99); Mean Platelet Vol. 9.2 fl (6.2-12.0); Monocyte# 0.33 X10^3/uL; Monocyte% 4.2 % (0-10); NRBC Flagged by Analyzer 0 % (0-5); Neutrophil # 5.62 X10^3/uL (2.7-7.7); Neutrophil % 71.5 % (47-70); POSITIVE MORPHOLOGY YES; Platelet Count 245 K/mm3 (150-450); RBC Distribution Width CV 21.2 % (11.6-14.6); RBC Distribution Width SD 60.9 fl (35.1-43.9); Red Blood Count 4.57 M/mm3 (4.2-5.4); White Blood Count 7.9 K/mm3 (4.4-11.0)
[2019-08-13 13:04] LABS: Differential Indicated SCAN CRITERIA MET
[2019-08-13 13:25] LABS: Anisocytosis 1+; Differential Comment SCANNED
[2019-08-13 13:26] LABS: Schistocytes RARE; Tear Drop Cell RARE
== END | disposition home or self-care (01) ==
LOC: LABSPEC 12:52
PROVIDERS: PCP Family Medicine; Visit Provider Obstetrics & Gynecology
DX: O99.019 Anemia complicating pregnancy, unspecified trimester (principal); D64.9 Anemia, unspecified; Z3A.00 Weeks of gestation of pregnancy not specified
CPT/HCPCS: 85025

== ENCOUNTER 2019-08-23 10:05 | Inpatient (IN) | payer OTHER, BC, MEDICAID, SELFPAY ==
[2019-06-25 09:49] VITALS: BMI 25.8
[2019-07-22 10:29] VITALS: BMI 25.8
[2019-08-19 13:13] VITALS: BMI 25.8
[2019-08-23] VITALS (17 sets, daily range): BP systolic 91–122; BP diastolic 55–83; PULSE 62–97; RESP 16–18; TEMP 36.1–37; O2SAT 96–100; BMI 27.7
[2019-08-23] MEDS: Lactated Ringers 1,000 ML 999 ML IV (10:30)
--- NOTE | 2019-08-23 10:47 | HP.PCM_ITS ---
- Problem List (1) Anemia during Status: Acute Comment: IV venofer. recheck cbc in jul (2) History of fourth degree perineal laceration Status: Acute Comment: plan primary due to laceration. 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 declines carrier. declined afp and nl anatomy scan at [facility] (5) Segmental and somatic dysfunction of cervical region Status: Acute (6) Segmental and somatic dysfunction of lumbar region Status: Acute (7) Segmental and somatic dysfunction of sacral region Status: Acute (8) Segmental and somatic dysfunction of thoracic region Status: Acute (9) Sterilization Status: Acute Comment: tubal planned. title 19 signed. 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 Leah Benavides MD) Smoking Status: Former smoker how long ago did patient quit smokin years alcohol intake: never substance use type: does not use caffeine: Yes what type of physical activity do you participate in: none seatbelt use: always do you feel safe at home: Yes additional social history: - Delvy Patient works in [place] [employer] at [facility] Pregancy History 2 Elective abortions Hx Para 1 Spontaneous abortions Hx # Term Pregnancies Ectopic pregnancies Hx # Pregnancies Multiple births # of living children 1 Past Pregnancies Del. Date Name GA/Weeks Outcome Route Bth Weight Infant Gen Labor Lgth Anesthesia Del Erisatestrella Provider FOB 07/06/18 Mehul 41 live - full term NS VD Male epidural [facility] Delivery Date: 07/06/18 On 07/16/18 @ 11:57 Rica Vee 4th degree laceration HPI 38 WK OB: Details: JUSTIN BRADLEY is a 24 year old who presents for primary low transverse due to fourth degree laceration. OB Visit KATH Calculator Estimated Delivery Date Method Current WG Current Estimate 08/28/19 Ultrasound #1 38w 5d Expected Delivery Route/Plan primary LTCS for h/o 4th degree laceration Labor Preferences- labor support person: aneudy pain management options preferred: spinal cut cord/dad catch: : yes PP control planned: BTL discussed possible routes of delivery and associated risks: mindin RLTCS discussed and decided against due to tear and healing previously was difficult. handout from up to date given special requests: [] Specific Issue/Plans flu vaccine: given tdap vaccine: given rhogam: na LARC form signed: declined movement and labor precautions reviewed. Problem list reviewed and updated with the most current plan of care details and appropriate orders placed. Relevant counseling for the gestational age provided. Continue routine care and follow up unless otherwise noted in visit notes/problem list details Initial Weight: Not Recorded Date EGA Weight BP Urine Prot Glucose FHR FuHt Pres Dilation Effaced St Visit Note 01/25/19 9w 2d 147 lb 8 oz 126/72 02/22/19 13w 2d 146 lb 116/66 Negative Negative 160 14 no vb cramping 03/22/19 17w 2d 145 lb Negative Negative 150 18 no vb cramping doing well 04/23/19 21w 6d 153 lb 110/72 Negative Negative 154 NO VB, LOF. Some round ligament discomfort 05/17/19 25w 2d 160 lb 4 oz 100/58 Negative Negative 152 25 No Vb, LOF. Doing well. Good FM 06/10/19 28w 5d 162 lb 8 oz 131/77 Negative Negative 140 29 SM - no vb lof good fm no regular ctx cbc gct tdap 06/25/19 30w 6d 167 lb 130/60 Negative Negative 135 30 SM- no vb lof good fm no regular ctx. discussed primary due to fourth degree laceration and desired sterilization. 07/12/19 33w 2d 170 lb 4 oz 123/67 Negative Negative 130 34 SM- no vb lof good fm no regular ctx larc signed 07/22/19 34w 5d 173 lb 104/72 Trace Negative 135 36 SM- no vb lof good fm no regular ctx 08/04/19 36w 4d 177 lb 110/80 Negative Negative 135 36 Cephalic 0.5 SM- no vb lof good fm no regular ctx gbs today 08/13/19 37w 6d 176 lb 108/80 Negative Negative 130 37 SM- no vb lof good fm no regular ctx 08/19/19 38w 5d 177 lb 130/78 Negative Negative 130 39 Cephalic SM- no vb lof good fm no reuglar ctx Notes Visit Date: 08/19/19 ??No visit notes to display Visit Date: 08/13/19 ??No visit notes to display Visit Date: 08/04/19 ??No visit notes to display Visit Date: 07/22/19 ??No visit notes to display Visit Date: 07/12/19 ??No visit notes to display Visit Date: 06/25/19 ??No visit notes to display Visit Date: 06/10/19 ??No visit notes to display Visit Date: 05/17/19 ??No Vb, LOF. Doing well. Good FM ??MONSERRAT Ribera on 05/17/19 Visit Date: 04/23/19 ??NO VB, LOF. Some round ligament discomfort ??MONSERRAT Ribera on 04/23/19 Visit Date: 03/22/19 ??no vb cramping doing well ??Leah Benavides MD on 03/23/19 Visit Date: 02/22/19 ??no vb cramping ??Leah Benavides MD on 02/22/19 Visit Date: 01/25/19 ??No visit notes to display ACOG First Trimester First Trimester: Desire for , Alcohol, Tobacco Cessation, Illicit/Recreational Drug/Substance Use, Intimate Partner Violence, Barriers to care, Unstable Housing, Communication Barriers, Environmental/Work Hazards, Anticipated Course of Care, Toxoplasmosis Precations, Use of Any medications, Sexual activity, Exercise, Dental Care, Sauna/Hot tub use, Seat Belt use, Childbirth classes/Hospital facilities, , Travel, Indications for US and Screening for Aneuploidy Second Trimester Second Trimester: Signs and Symptoms of Labor, Selecting a care provider, Reproductive Life Planning, Care Planning, Tobacco Cessatio n, Depression/Anxiety and Intimate Partner Violence Third Trimester Third Trimester: Pain Management Plans, Labor support person(s), Immediate Larc, Movement Monitoring and Infant Feeding Yes ; discussed Trial of Labor after Counseling or discussed Circumcision preference Diagnostics Diagnostics Diagnostics Hgb 11.1 g/dL (12.0-15.0) L 08/13/19 Hct 36.6 % (37-47) L 08/13/19 Details: HIV: Urine Culture: Sequential Screen: NIPT Screen: ROS Const Reports system reviewed and no additional complaints, except as docu Card Reports system reviewed and no additional complaints, except as docu Resp Reports system reviewed and no additional complaints, except as docu GI Reports system reviewed and no additional complaints, except as docu, Reports nausea Reports system reviewed and no additional complaints, except as docu Musc Reports system reviewed and no additional complaints, except as docu Exam Const General: cooperative, healthy appearing, comfortable, anxious [facility] Head: normal to inspection Nose: external nose normal Face and sinus: normal facial exam Neck Neck: normal visual inspection, full ROM, no lymphadenopathy Thyroid: thyroid normal Chest Chest palpation & inspection: normal inspection of the chest Resp Effort & Inspection: normal respiratory effort GI Inspection: normal to inspection Palpation: soft, other (gravid uterus) Other: vertex and appropriate size for gestational age Other: Cervical Exam: Extrem General: pedal edema Results POC Urinalysis 2 Dip (Clinic) Office Urine Glucose Negative Last Edit by Sindhu Miller on 08/19/19 13:1 5 Office Urine Protein Negative Last Edit by Sindhu Miller on 08/19/19 13:1 5 Assessment & Plan Problems 1. Sterilization Z30.2 2. History of fourth degree perineal laceration Z87.59 3. Segmental and somatic dysfunction of thoracic region M99.02 4. Anemia during O99.019 5. Segmental and somatic dysfunction of sacral region M99.04 6. Segmental and somatic dysfunction of lumbar region M99.03 7. Segmental and somatic dysfunction of cervical region M99.01 8. 38 weeks gestation of Z3A.38 9. Supervision of other normal , antepartum Z34.80 10. 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01 38 weeks gestation of Z3A.38 ??Weeks of gestation: 38 weeks Supervision of other normal , antepartum Z34.80 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
[2019-08-23 10:59] LABS: Absolute Lymphocyte Count 1.94 X10^3/uL (0.83-4.51); Absolute Neutrophil Count 7.5 X10^3/uL (2.0-7.7); Basophil# 0.04 X10^3/uL; Basophil% 0.4 % (0-1); Eosinophil# 0.05 X10^3/uL; Eosinophils% 0.5 % (0-5); Hematocrit 35.1 % (37-47); Hemoglobin 10.8 g/dL (12.0-15.0); Lymphocyte # 1.94 X10^3/ul (4.0); Lymphocyte % 18.5 % (19-41); Mean Corp Hgb Conc 30.8 g/dL (32-36); Mean Corpuscular Hgb 24.5 pg (27.0-32.0); Mean Corpuscular Volume 79.6 fL (81-99); Mean Platelet Vol. 9.9 fl (6.2-12.0); Monocyte# 0.89 X10^3/uL; Monocyte% 8.5 % (0-10); NRBC Flagged by Analyzer 0 % (0-5); Neutrophil # 7.46 X10^3/uL (2.7-7.7); Neutrophil % 71.3 % (47-70); POSITIVE MORPHOLOGY YES; Platelet Count 254 K/mm3 (150-450); RBC Distribution Width CV 20.5 % (11.6-14.6); Red Blood Count 4.41 M/mm3 (4.2-5.4); White Blood Count 10.5 K/mm3 (4.4-11.0)
[2019-08-23 11:00] LABS: Differential Indicated SCAN CRITERIA MET
[2019-08-23 11:16] LABS: Anisocytosis 1+; Hypochromasia 1+; Platelet Estimate ADEQUATE (ADEQ); Polychromasia RARE
[2019-08-23] MEDS: Lactated Ringers 1,000 ML 150 ML IV (11:34)
[2019-08-23] MEDS: Sodium Citrate/Citric Acid 30 ML UDC PO (12:03)
[2019-08-23] MEDS: Cefazolin 2 GM in 0.9% Normal Saline 100 ML IV (12:07)
--- NOTE | 2019-08-23 12:28 | FALS_PTH ---
PATIENT: JUSTIN BRADLEY LOC: [facility] U#:[id number] AGE/SX: 24/ ROOM: WP007 RE08/23/[address]: Dr. Leah Benavides MD : 1995 BED: 1 DIS: 08/26/2019 SPEC #: [id number] RECD: 08/23/19 13:33 STATUS: ESTEAFNY RERashawn #: [id number] CARLIN: 08/23/19 12:[address]: Leah Benavides DEPT: SURGICAL PATHOLOGY RECD BY: Jonh Arriaga ENTERED: 08/23/19 14:00 SP TYPE: FALL TUBES OTHR DR: Dr. Silver Villalobos MD Tissues: Fallopian tube Procedures: Surgery Specimen Level II HEADER OPERATION: Tubal ligation PRE-OP DIAGNOSIS: Sterilization TISSUE SUBMITTED: Fallopian tube, suture in right MICROSCOPIC DIAGNOSIS Right and left fallopian tubes, bilateral partial salpingectomies: Two complete cross-sections of fallopian tubes with no pathologic change. AM:fernie 08/24/19 MICROSCOPIC DESCRIPTION Slides are reviewed. GROSS DESCRIPTION Received is one container labeled with the patient's name and designated bilateral fallopian tubes, suture in right. The specimen consists of two fallopian tubes with an average length of 1.8 cm and has an average diameter of 0.4 cm. Both fallopian tubes have normal fimbriated ends. No mass lesions are identified. Clean Room Technician sections are submitted in two cassettes as follows: 1 - right fallopian tube, 2??left fallopian tube. / AM:fernie 08/23/19 TC:5 CPT: 59047 x2
[2019-08-23] MEDS: Oxytocin 30 units/NS 500 ml 30 UNITS/500 ML IV.SOLN 167 UNITS IV (12:30)
[2019-08-23] MEDS: Methylergonovine 0.2 MG/ML Ampul IM (16:55)
[2019-08-23] MEDS: Lactated Ringers 1,000 ML 100 ML IV (17:00)
--- NOTE | 2019-08-23 17:01 | PCM.OPRPT ---
Problem List (1) Anemia during Status: Acute Comment: IV venofer. recheck cbc in jul (2) History of fourth degree perineal laceration Status: Acute Comment: plan primary due to laceration. 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 declines carrier. declined afp and nl anatomy scan at [facility] (5) Segmental and somatic dysfunction of cervical region Status: Acute (6) Segmental and somatic dysfunction of lumbar region Status: Acute (7) Segmental and somatic dysfunction of sacral region Status: Acute (8) Segmental and somatic dysfunction of thoracic region Status: Acute (9) Sterilization Status: Acute Comment: tubal planned. title 19 signed. (10) Supervision of other normal , antepartum Status: Acute Comment: PRR KATH: 08/28/19 girl Camila PC:Mehul; Spouse:Aneudy Delivery Classification: Scheduled Final KATH: 08/28/19 Gestational age: 39 Weeks and 2 Days completion manager: Dat Hedrick Type of Anesthesia:: Spinal Special Medications: guille Implants Used: none Date of Procedure: 08/23/19 - Primary low transverse and bilateral partial salpingectomy Pre-Operative Diagnosis: fourth degree laceration, sterilization Post-Operative Diagnosis: same Indications for : Desires elective sterilization Description of Procedure: The patient is a 24-year-old G2, P1 at 39 weeks presented for Sherrie . Spinal anesthesia was placed without difficulty. Hardy catheter was placed. The patient was placed in the dorsal supine position with leftward tilt. Patient was prepped and draped in the normal sterile fashion. Pfannenstiel skin incision was made with the scalpel and carried through to the underlying layer of fascia with the scalpel. Fascia was nicked in the midline and the incision extended laterally. The rectus bellies were dissected off superiorly and inferiorly with out complication both sharply and bluntly. The peritoneum was entered digitally. The incision was stretched and a low transverse uterine incision was made with the scalpel. The infant's head was delivered atraumatically followed by the anterior and posterior shoulders without complication the rest of the infant delivered. The cord was clamped and cut and the infant was handed off to awaiting nurse. The placenta was delivered spontaneously immediately following and was noted to be intact and have a three-vessel cord. The uterus was exteriorized cleared of all clots and debris, and the incision was closed in a single layer closure using #1 Monocryl. Guille placed over the incision for hemostasis. The ovaries and fallopian tubes were noted to be within normal limits. Mid interstitial portion of the fallopian tube was removed using the LigaSure device bilaterally and a partial salpingectomy the uterus was returned to the maternal abdomen and gutters were cleared of all clots and debris. The peritoneum was closed with 3-0 Monocryl in a running fashion. Gloves were changed prior to fascial closure. Fascia was closed with 0 PDS in a running fashion. Subcutaneous tissue was copiously irrigated and the skin was closed with 3-0 Monocryl in a subcuticular fashion. Mepilex dressing was applied without complication. Patient was taken to recovery in stable condition. I Amniotic Membrane Rupture Type: Artificial Amniotic Fluid Description: Clear Placenta Disposition: [facility] Drain: Hardy to straight drain Cord Entanglement: None Cord Vessel Description: 3 Vessels Esitmated Blood Loss (ml): 900 Gender: Female Delayed cord clamping: Yes Pt instructed on risks of surgery: Bleeding, Anesthesia Risks, Infection, Permanency, Failure Rate of 1 to 2%, Injury to surrounding structure(s) including bowel and bladder Complications: None - Admit VTE Documentation VTE Present on Admission: No Multi Select Codes - Urinary/Genital Urinary/Genital CPT Codes: 65623 C/S+TL, 23250 delivery+ Care([facility])
[2019-08-23] MEDS: Ketorolac 30 MG/ML Syringe IV ×2 (18:09→23:42)
[2019-08-23 18:14] LABS: Hemoglobin 10.3 g/dL (12.0-15.0); Mean Corp Hgb Conc 30.3 g/dL (32-36); Mean Corpuscular Hgb 23.9 pg (27.0-32.0); Mean Corpuscular Volume 78.9 fL (81-99); Mean Platelet Vol. 9.4 fl (6.2-12.0); POSITIVE MORPHOLOGY YES; Platelet Count 220 K/mm3 (150-450); RBC Distribution Width CV 20.4 % (11.6-14.6); RBC Distribution Width SD 57.6 fl (35.1-43.9); Red Blood Count 4.31 M/mm3 (4.2-5.4); White Blood Count 16.6 K/mm3 (4.4-11.0)
[2019-08-23 18:15] LABS: Scan Indicated on CBC? Y/N YES- FLAGS NOTED
[2019-08-23 18:38] LABS: Differential Comment SCANNED
[2019-08-23] MEDS: fentaNYL 100 MCG/2 ML Ampul 50 MCG IV (18:50)
[2019-08-23] MEDS: 0.9% Saline Lock 10 ML Syringe IV (23:42)
[2019-08-24] VITALS (7 sets, daily range): BP systolic 99–115; BP diastolic 58–73; PULSE 78–87; RESP 14–18; TEMP 36.4–37.1; O2SAT 96–98
[2019-08-24] MEDS: Acetaminophen 500 MG Tablet 1000 MG PO (04:32)
[2019-08-24] MEDS: Ketorolac 30 MG/ML Syringe IV ×4 (05:43→23:51)
[2019-08-24 05:47] LABS: Hematocrit 30.8 % (37-47); Hemoglobin 9.4 g/dL (12.0-15.0); Mean Corp Hgb Conc 30.5 g/dL (32-36); Mean Corpuscular Volume 78.8 fL (81-99); Mean Platelet Vol. 9.9 fl (6.2-12.0); POSITIVE MORPHOLOGY YES; Platelet Count 218 K/mm3 (150-450); RBC Distribution Width CV 20.7 % (11.6-14.6); RBC Distribution Width SD 58.6 fl (35.1-43.9); Red Blood Count 3.91 M/mm3 (4.2-5.4); White Blood Count 13.1 K/mm3 (4.4-11.0)
[2019-08-24 05:48] LABS: Scan Indicated on CBC? Y/N YES- FLAGS NOTED
[2019-08-24 06:09] LABS: Differential Comment SCANNED
--- NOTE | 2019-08-24 08:06 | PN.OBGYN_ITS ---
Subjective: Doing well, no complaints.Pain controlled. Denies CP, SOB, N,V. Ambulating well, tolerating po. Lochia moderate, going well. - Physical Exam Vitals/I&O's: Vital Signs Temp Pulse Resp BP Pulse Ox 98.7 F 87 16 115/64 97 08/24/19 07:46 08/24/19 07:46 08/24/19 07:46 08/24/19 07:46 08/24/19 07:46 Oxygen Delivery Method Room Air Weight: 177 lb 4.026 oz Body Mass Index (BMI) 27.7 Intake and Output for Last 24 Hours 08/22/19 08/23/19 08/24/19 23:59 23:59 23:59 Intake Total 4581.67 / 4581.67 Output Total 900 / 900 1000 / 1000 Balance 3681.67 / 3681.67 -1000 / -1000 General: Oriented x3 Abdomen: Soft, Non-Distended, - - FF below U. Dressing dry and intact Laboratory Results 08/23/19 10:30: WBC 10.5, RBC 4.41, Hgb 10.8 L, Hct 35.1 L, MCV 79.6 L, MCH 24.5 L, MCHC 30.8 L, RDW Std Deviation 58.0 H, RDW Coeff of Geronimo 20.5 H, Plt Count 254, MPV 9.9, Immature Gran % (Auto) 0.800, Neut % (Auto) 71.3 H, Lymph % (Auto) 18.5 L, Preble % (Auto) 8.5, Eos % (Auto) 0.5, Baso % (Auto) 0.4, Absolute Neuts (auto) 7.5, Absolute Lymphs (auto) 1.94, Nucleated RBC % 0, Platelet Estimate ADEQUATE, Polychromasia RARE, Hypochromasia 1+, Anisocytosis 1+ 08/23/19 10:30: Blood Type B POSITIVE, Antibody Screen NEGATIVE 08/23/19 18:00: WBC 16.6 H, RBC 4.31, Hgb 10.3 L, Hct 34.0 L, MCV 78.9 L, MCH 23.9 L, MCHC 30.3 L, RDW Std Deviation 57.6 H, RDW Coeff of Geronimo 20.4 H, Plt Count 220, MPV 9.4, Differential Comment SCANNED 08/24/19 05:24: WBC 13.1 H, RBC 3.91 L, Hgb 9.4 L, Hct 30.8 L, MCV 78.8 L, MCH 24.0 L, MCHC 30.5 L, RDW Std Deviation 58.6 H, RDW Coeff of Geronimo 20.7 H, Plt Count 218, MPV 9.9, Differential Comment SCANNED Current Medications Acetaminophen (Tylenol) 1,000 mg PO Q8H PRN PRN Reason: Pain Score 1-3/10 Last Admin: 08/24/19 04:32 Dose: 1,000 mg Documented by: Bisacodyl (Dulcolax) 10 mg RECTAL UD PRN PRN Reason: If no BM Hydrocortisone (Hytone) 1 applic TOPICAL TID PRN PRN; Protocol PRN Reason: Discomfort Naloxone HCl 4 mg/ Dextrose 504 mls @ 0 mls/hr IV .Q0M PRN; Protocol PRN Reason: Respiratory depression Ketorolac Tromethamine (Toradol (Bkc)) 30 mg IV Q6 MAURA Stop: 08/25/19 12:01 Last Admin: 08/24/19 05:43 Dose: 30 mg Documented by: Methylergonovine Maleate (Methergine) 0.2 mg IM X1 PRN PRN Reason: Uterine Atony Naloxone HCl (Narcan) 0.02 mg IV Q1M PRN PRN Reason: RR <10 and pt unresponsive Naproxen (Naprosyn) 250 - 500 mg PO Q8H PRN PRN PRN Reason: Pain Score 1-3/10 Ondansetron HCl (Zofran) 4 mg IV Q4H PRN PRN PRN Reason: Nausea Oxycodone HCl (Oxyir) 5 - 10 mg PO Q4H PRN PRN PRN Reason: Pain Score 4-10/10 Prochlorperazine Edisylate (Compazine Iv) 10 mg IV Q6H PRN PRN PRN Reason: NAUSEA Senna/Docusate Sodium (Senokot-S, Jaci-Colace) 0 tablet PO DAILY PRN PRN Reason: Constipation Simethicone (Mylicon) 80 mg PO PCHS PRN PRN Reason: Indigestion/stomach pain Sodium Chloride () 5 - 15 ml IV UD PRN PRN Reason: SALINE FLUSH Last Admin: 08/23/19 23:42 Dose: 10 ml Documented by: Medical Necessity - Tobacco Use Smoking Status: Former smoker Assessment/Plan All Active Problems (Last Reviewed 08/19/19 @ 13:13 by Sindhu Miller) Sterilization (Acute) History of fourth degree perineal laceration (Acute) Segmental and somatic dysfunction of thoracic region (Acute) Anemia during (Acute) Segmental and somatic dysfunction of sacral region (Acute) Segmental and somatic dysfunction of lumbar region (Acute) Segmental and somatic dysfunction of cervical region (Acute) 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 routine post care 2. breast feeding- support given 3. rh positive 4. rubella immune
[2019-08-24] MEDS: 0.9% Saline Lock 10 ML Syringe IV ×3 (11:35→23:52)
[2019-08-24] MEDS: oxyCODONE 5 MG Tablet PO ×3 (14:41→22:17)
[2019-08-24] MEDS: Senna/Docusate Sodium 1 Tablet PO (18:12)
[2019-08-25 02:00] VITALS: BP 107/57; PULSE 69; RESP 16; TEMP 36.6
[2019-08-25] MEDS: 0.9% Saline Lock 10 ML Syringe IV (05:49)
[2019-08-25] MEDS: Ketorolac 30 MG/ML Syringe IV (05:49)
--- NOTE | 2019-08-25 08:22 | PCM.PN.OB ---
Subjective: Doing well, no complaints.Pain controlled. Denies CP, SOB, N,V. Ambulating well-needs encouragement, tolerating po. Lochia moderate, breast and bottle feeding - Physical Exam Vitals/I&O's: Vital Signs Temp Pulse Resp BP Pulse Ox 97.9 F 69 16 107/57 L 97 08/25/19 02:00 08/25/19 02:00 08/25/19 02:00 08/25/19 02:00 08/24/19 11:47 Oxygen Delivery Method Room Air Weight: 177 lb 4.026 oz Body Mass Index (BMI) 27.7 Intake and Output for Last 24 Hours 08/23/19 08/24/19 08/25/19 23:59 23:59 23:59 Intake Total 4581.67 / 4581.67 Output Total 900 / 900 1000 / 1000 Balance 3681.67 / 3681.67 -1000 / -1000 General: Alert, Oriented x3 Abdomen: Soft, Non-Distended, - - FF below U. Dressing dry and intact Current Medications Acetaminophen (Tylenol) 1,000 mg PO Q8H PRN PRN Reason: Pain Score 1-3/10 Last Admin: 08/24/19 04:32 Dose: 1,000 mg Documented by: Bisacodyl (Dulcolax) 10 mg RECTAL UD PRN PRN Reason: If no BM Hydrocortisone (Hytone) 1 applic TOPICAL TID PRN PRN; Protocol PRN Reason: Discomfort Naloxone HCl 4 mg/ Dextrose 504 mls @ 0 mls/hr IV .Q0M PRN; Protocol PRN Reason: Respiratory depression Ketorolac Tromethamine (Toradol (Bkc)) 30 mg IV Q6 MAURA Stop: 08/25/19 12:01 Last Admin: 08/25/19 05:49 Dose: 30 mg Documented by: Methylergonovine Maleate (Methergine) 0.2 mg IM X1 PRN PRN Reason: Uterine Atony Naloxone HCl (Narcan) 0.02 mg IV Q1M PRN PRN Reason: RR <10 and pt unresponsive Naproxen (Naprosyn) 250 - 500 mg PO Q8H PRN PRN PRN Reason: Pain Score 1-3/10 Ondansetron HCl (Zofran) 4 mg IV Q4H PRN PRN PRN Reason: Nausea Oxycodone HCl (Oxyir) 5 - 10 mg PO Q4H PRN PRN PRN Reason: Pain Score 4-10/10 Last Admin: 08/24/19 22:17 Dose: 5 mg Documented by: Prochlorperazine Edisylate (Compazine Iv) 10 mg IV Q6H PRN PRN PRN Reason: NAUSEA Senna/Docusate Sodium (Senokot-S, Jaci-Colace) 0 tablet PO DAILY PRN PRN Reason: Constipation Last Admin: 08/24/19 18:12 Dose: 2 tablet Documented by: Simethicone (Mylicon) 80 mg PO PCHS PRN PRN Reason: Indigestion/stomach pain Sodium Chloride () 5 - 15 ml IV UD PRN PRN Reason: SALINE FLUSH Last Admin: 08/25/19 05:49 Dose: 10 ml Documented by: Medical Necessity - Tobacco Use Smoking Status: Former smoker Assessment/Plan All Active Problems (Last Reviewed 08/19/19 @ 13:13 by Sindhu Miller) Sterilization (Acute) History of fourth degree perineal laceration (Acute) Segmental and somatic dysfunction of thoracic region (Acute) Anemia during (Acute) Segmental and somatic dysfunction of sacral region (Acute) Segmental and somatic dysfunction of lumbar region (Acute) Segmental and somatic dysfunction of cervical region (Acute) 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 routine post care 2. breast feeding- support given 3. rh positive 4. rubella immune
[2019-08-25 09:00] VITALS: BP 104/61; PULSE 76; RESP 20; TEMP 36.8; O2SAT 95
[2019-08-25] MEDS: Senna/Docusate Sodium 1 Tablet PO (10:26)
[2019-08-25] MEDS: oxyCODONE 5 MG Tablet PO ×2 (10:26→17:32)
[2019-08-25] MEDS: Naproxen 250 MG Tablet PO ×2 (12:10→20:25)
[2019-08-25 13:33] VITALS: BP 106/66; PULSE 83; TEMP 36.8; O2SAT 96
--- NOTE | 2019-08-25 16:00 | CASEMGMT ---
Social Work Labor and Delivery Tried to see mother of baby (MOB) this date but at presentation to the room found MOB sleeping soundly in the chair and FOB holding baby. MOB has been tired so decided to let MOB sleep. Updated nursing staff of plan to see MOB on 08.26.2019. -CANDI Castano, CURRICULUM COUNSELOR
[2019-08-25 20:28] VITALS: BP 101/61; PULSE 75; RESP 18; TEMP 36.2; O2SAT 97
[2019-08-26] MEDS: oxyCODONE 5 MG Tablet PO ×2 (00:07→12:27)
[2019-08-26] MEDS: Senna/Docusate Sodium 1 Tablet PO (02:50)
[2019-08-26] MEDS: Acetaminophen 500 MG Tablet 1000 MG PO ×2 (02:50→11:31)
[2019-08-26 02:57] VITALS: BP 102/53; PULSE 72; RESP 15; TEMP 36.7; O2SAT 97
[2019-08-26] MEDS: Naproxen 250 MG Tablet PO (07:18)
--- NOTE | 2019-08-26 08:06 | PCM.PN.OB ---
Subjective: Doing well, no complaints.Pain controlled. Denies CP, SOB, N,V. Ambulating well, tolerating po. Lochia moderate, going well. - Physical Exam Vitals/I&O's: Vital Signs Temp Pulse Resp BP Pulse Ox 98.1 F 72 15 102/53 L 97 08/26/19 02:57 08/26/19 02:57 08/26/19 02:57 08/26/19 02:57 08/26/19 02:57 Oxygen Delivery Method Room Air Weight: 177 lb 4.026 oz Body Mass Index (BMI) 27.7 Intake and Output for Last 24 Hours 08/24/19 08/25/19 08/26/19 23:59 23:59 23:59 Output Total 1000 / 1000 Balance -1000 / -1000 General: Alert, Oriented x3 Abdomen: Soft, Non-Distended, - - FF below U, dressing dry and intact Current Medications Acetaminophen (Tylenol) 1,000 mg PO Q8H PRN PRN Reason: Pain Score 1-3/10 Last Admin: 08/26/19 02:50 Dose: 1,000 mg Documented by: Bisacodyl (Dulcolax) 10 mg RECTAL UD PRN PRN Reason: If no BM Hydrocortisone (Hytone) 1 applic TOPICAL TID PRN PRN; Protocol PRN Reason: Discomfort Naloxone HCl 4 mg/ Dextrose 504 mls @ 0 mls/hr IV .Q0M PRN; Protocol PRN Reason: Respiratory depression Methylergonovine Maleate (Methergine) 0.2 mg IM X1 PRN PRN Reason: Uterine Atony Naloxone HCl (Narcan) 0.02 mg IV Q1M PRN PRN Reason: RR <10 and pt unresponsive Naproxen (Naprosyn) 250 - 500 mg PO Q8H PRN PRN PRN Reason: Pain Score 1-3/10 Last Admin: 08/26/19 07:18 Dose: 500 mg Documented by: Ondansetron HCl (Zofran) 4 mg IV Q4H PRN PRN PRN Reason: Nausea Oxycodone HCl (Oxyir) 5 - 10 mg PO Q4H PRN PRN PRN Reason: Pain Score 4-10/10 Last Admin: 08/26/19 00:07 Dose: 5 mg Documented by: Prochlorperazine Edisylate (Compazine Iv) 10 mg IV Q6H PRN PRN PRN Reason: NAUSEA Senna/Docusate Sodium (Senokot-S, Jaci-Colace) 0 tablet PO DAILY PRN PRN Reason: Constipation Last Admin: 08/26/19 02:50 Dose: 2 tablet Documented by: Simethicone (Mylicon) 80 mg PO PCHS PRN PRN Reason: Indigestion/stomach pain Sodium Chloride () 5 - 15 ml IV UD PRN PRN Reason: SALINE FLUSH Last Admin: 08/25/19 05:49 Dose: 10 ml Documented by: Medical Necessity - Tobacco Use Smoking Status: Former smoker Assessment/Plan All Active Problems (Last Reviewed 08/19/19 @ 13:13 by Sindhu Miller) Sterilization (Acute) History of fourth degree perineal laceration (Acute) Segmental and somatic dysfunction of thoracic region (Acute) Anemia during (Acute) Segmental and somatic dysfunction of sacral region (Acute) Segmental and somatic dysfunction of lumbar region (Acute) Segmental and somatic dysfunction of cervical region (Acute) 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 routine post care 2. breast feeding- support given 3. rh positive 4. rubella immune 5. home today
--- NOTE | 2019-08-26 08:10 | DCINST_ITS ---
Additional Instructions: If you experience any of the following, contact your healthcare provider. * Bleeding that soaks a pad every hour for 2 hours * Fever 100.4 or higher * Unrelieved incision or abdominal pain * Swelling, redness, discharge or bleeding from your incision or episiotomy site * Your incision begins to separate * Problems urinating (including inability to urinate or burning while urinating). * Visual changes * Severe headache * Flu-like symptoms * Pain or redness in one of both of your breasts * Pain, warmth, tenderness or swelling in your legs, especially the calf area * Frequent nausea and vomiting * Symptoms of depression or anxiety If you experience any of the following, call 911 or go to the nearest Emergency Room. * Chest pain * Problems breathing * Seizure activity * Partial or complete paralysis of a body part, slurred speech, weakness or drooping of the face, or a sudden inability to walk or hold your balance Allergies/Adverse Reactions: Allergies No Known Allergies Allergy (Verified 08/19/19 13:12) Medications to take at Discharge docosahexaenoic acid 200 mg capsule mg PO cap 01/25/19 ferrous sulfate 325 mg (65 mg iron) tablet 325 mg PO DAILY 06/25/19 acyclovir 400 mg tablet 400 mg PO BID 14 Days #28 tab 08/04/19 Naproxen [Naprosyn] 500 mg PO BID PRN PRN #60 tab 08/26/19 Oxycodone HCl/Acetaminophen [Percocet 5/325] 1 - 2 tablet PO Q4H PRN PRN 7 Days #28 tablet 08/26/19 The following prescriptions were given: Naproxen [Naprosyn] 500 mg PO BID PRN PRN #60 tab PRN Reason: Pain Transmission Status: [facility] Oxycodone HCl/Acetaminophen [Percocet 5/325] 1 - 2 tablet PO Q4H PRN PRN 7 Days #28 tablet PRN Reason: Pain Transmission Status: [facility] Follow-Up: Call to make an appointment with your doctor for an incision check in 1-2 weeks. You will also need a 6 week post- follow up appointment. Test results from this visit will be discussed in further detail at your follow- up appointment, if applicable. Primary Care Physician: Silver Villalobos MD [Primary Care Provider] -
--- NOTE | 2019-08-26 08:10 | PCM.DCCSEC ---
Additional Instructions: If you experience any of the following, contact your healthcare provider. Bleeding that soaks a pad every hour for 2 hours Fever 100.4 or higher Unrelieved incision or abdominal pain Swelling, redness, discharge or bleeding from your incision or episiotomy site Your incision begins to separate Problems urinating (including inability to urinate or burning while urinating). Visual changes Severe headache Flu-like symptoms Pain or redness in one of both of your breasts Pain, warmth, tenderness or swelling in your legs, especially the calf area Frequent nausea and vomiting Symptoms of depression or anxiety If you experience any of the following, call 911 or go to the nearest Emergency Room. Chest pain Problems breathing Seizure activity Partial or complete paralysis of a body part, slurred speech, weakness or drooping of the face, or a sudden inability to walk or hold your balance Allergies/Adverse Reactions: Allergies No Known Allergies Allergy (Verified 08/19/19 13:12) Medications to take at Discharge docosahexaenoic acid 200 mg capsule mg PO cap 01/25/19 ferrous sulfate 325 mg (65 mg iron) tablet 325 mg PO DAILY 06/25/19 acyclovir 400 mg tablet 400 mg PO BID 14 Days #28 tab 08/04/19 Naproxen [Naprosyn] 500 mg PO BID PRN PRN #60 tab 08/26/19 Oxycodone HCl/Acetaminophen [Percocet 5/325] 1 - 2 tablet PO Q4H PRN PRN 7 Days #28 tablet 08/26/19 The following prescriptions were given: Naproxen [Naprosyn] 500 mg PO BID PRN PRN #60 tab PRN Reason: Pain Transmission Status: Pending to [facility] Oxycodone HCl/Acetaminophen [Percocet 5/325] 1 - 2 tablet PO Q4H PRN PRN 7 Days #28 tablet PRN Reason: Pain Transmission Status: Sent to [facility] Follow-Up: Call to make an appointment with your doctor for an incision check in 1-2 weeks. You will also need a 6 week post- follow up appointment. Test results from this visit will be discussed in further detail at your follow-up appointment, if applicable. Primary Care Physician: Silver Villalobos MD [Primary Care Provider] -
--- NOTE | 2019-08-26 08:11 | PCM.DC.SUM ---
Discharge Date and Diagnosis Date of Admission: 08/23/19 Hospital Course and Treatment Operations: - - LTCS Summary of Care Provided: The patient is a 24 year old F Patient underwent section with routine recovery, return of normal bowel and bladder function. Ambulating, voiding and tolerating PO. Stable for discharge home POD #3. - Physical Exam Vitals/I&O's: Vital Signs Temp Pulse Resp BP Pulse Ox 98.1 F 72 15 102/53 L 97 08/26/19 02:57 08/26/19 02:57 08/26/19 02:57 08/26/19 02:57 08/26/19 02:57 Oxygen Delivery Method Room Air Weight: 177 lb 4.026 oz Body Mass Index (BMI) 27.7 Intake and Output for Last 24 Hours 08/24/19 08/25/19 08/26/19 23:59 23:59 23:59 Output Total 1000 / 1000 Balance -1000 / -1000 Current Medications Acetaminophen (Tylenol) 1,000 mg PO Q8H PRN PRN Reason: Pain Score 1-3/10 Last Admin: 08/26/19 02:50 Dose: 1,000 mg Documented by: Bisacodyl (Dulcolax) 10 mg RECTAL UD PRN PRN Reason: If no BM Hydrocortisone (Hytone) 1 applic TOPICAL TID PRN PRN; Protocol PRN Reason: Discomfort Naloxone HCl 4 mg/ Dextrose 504 mls @ 0 mls/hr IV .Q0M PRN; Protocol PRN Reason: Respiratory depression Methylergonovine Maleate (Methergine) 0.2 mg IM X1 PRN PRN Reason: Uterine Atony Naloxone HCl (Narcan) 0.02 mg IV Q1M PRN PRN Reason: RR <10 and pt unresponsive Naproxen (Naprosyn) 250 - 500 mg PO Q8H PRN PRN PRN Reason: Pain Score 1-3/10 Last Admin: 08/26/19 07:18 Dose: 500 mg Documented by: Ondansetron HCl (Zofran) 4 mg IV Q4H PRN PRN PRN Reason: Nausea Oxycodone HCl (Oxyir) 5 - 10 mg PO Q4H PRN PRN PRN Reason: Pain Score 4-10/10 Last Admin: 08/26/19 00:07 Dose: 5 mg Documented by: Prochlorperazine Edisylate (Compazine Iv) 10 mg IV Q6H PRN PRN PRN Reason: NAUSEA Senna/Docusate Sodium (Senokot-S, Jaci-Colace) 0 tablet PO DAILY PRN PRN Reason: Constipation Last Admin: 08/26/19 02:50 Dose: 2 tablet Documented by: Simethicone (Mylicon) 80 mg PO PCHS PRN PRN Reason: Indigestion/stomach pain Sodium Chloride () 5 - 15 ml IV UD PRN PRN Reason: SALINE FLUSH Last Admin: 08/25/19 05:49 Dose: 10 ml Documented by: Home Medications: Medications to take at Discharge docosahexaenoic acid 200 mg capsule mg PO cap 01/25/19 ferrous sulfate 325 mg (65 mg iron) tablet 325 mg PO DAILY 06/25/19 acyclovir 400 mg tablet 400 mg PO BID 14 Days #28 tab 08/04/19 Naproxen [Naprosyn] 500 mg PO BID PRN PRN #60 tab 08/26/19 Oxycodone HCl/Acetaminophen [Percocet 5/325] 1 - 2 tablet PO Q4H PRN PRN 7 Days #28 tablet 08/26/19 Following Prescrptions Were Given to Patient: Naproxen [Naprosyn] 500 mg PO BID PRN PRN #60 tab PRN Reason: Pain Transmission Status: Pending to [facility] Oxycodone HCl/Acetaminophen [Percocet 5/325] 1 - 2 tablet PO Q4H PRN PRN 7 Days #28 tablet PRN Reason: Pain Transmission Status: Sent to [facility] Primary Care Physician: Silver Villalobos MD [Primary Care Provider] - Medical Necessity - Tobacco Use Smoking Status: Former smoker Meaningful Use Info Meaningful Use Diagnoses (Choose all that apply): None applicable
[2019-08-26 09:30] VITALS: BP 102/63; PULSE 80; RESP 18; TEMP 36.6
--- NOTE | 2019-08-26 11:40 | CASEMGMT ---
Social Work [facility] Patient Address: [address] [place] [address], [place] [address] Phone number: [phone] Date of Referral/Notification: 08.24.2019 Time of Referral: 1500 Referred By: nursing and electrical maintenance supervisor Dr. Peralta Reason for Referral: assess for support and resource needs Date of Intervention: 08.26.2019 Time of Intervention: 1100 Informant: Medical record and mother of baby (MOB) Jessica Lee History: MOB is a 24 year old female, to father of baby (FOB) Aneudy Lee (born 1976). MOB and FOB have a 1 year old one Mehul, and now Camila Haque. Camila was born weighing 7 pounds 15 ounces. Apgars 8 and 9 at 1 and 5 minutes of life. FOB has 2 older boys from a prior relationship but they are not in the home. MOB works at [employer] and FOB works on his brother's [employer]. MOB denies any mental health history, no history of depression. MOB has denied upon admission to labor and delivery unit any concerns for abuse. Assessment: Met with MOB in room. MOB standing at baby's bedside, attending to baby. MOB pleasant, smiling, and smiled at baby. MOB reports to have needed supplies for baby, plan to continue with WIC, and that FOB will be taking some time off of work to help with transition home with two small children. MOB identifies neighbors who are willing and able to help out if and when needed. MOB does offer that she is feeling nervous about having two small children at home, as far as managing an active one year old and a . MOB reports to be happy however about the baby and to feel a connection. MOB reports there was some stress earlier on in the stay between MOB and FOB regarding method of feeding the baby. MOB reports FOB was unhappy with MOB feeding baby from the breast, not with the idea of feeding baby breast milk, as MOB would be the only source to help with the baby's feeding needs. MOB reports to feel that FOB was coming from a concerned space in that unable to help MOB when he was expressing frustration earlier on. MOB reports FOB has been a hands on father, and does help out with Mehul. MOB reports her original plan was to breast feed baby for 2 weeks only, then transition to a bottle; the timeline was just moved up to now pump and feed baby through a bottle now. MOB states to be accepting and agreeable to this plan, denies stress regarding decision on how she is feeding the baby. When addressing depression and anxiety, MOB reports that she is a bit worried whether this will happen with now having two small children. Reviewed some risk factors, and what MOB will do if symptoms arise. MOB able to identify a good girlfriend Payton who MOB can talk to and confide in, as well as feels comfortable talking to the OBGYN. Let MOB know that should MOB have questions later on about this topic, that MOB is able to call this commercial underwriter with questions. MOB voiced understanding. MOB reports to be ready to go home, denies any concerns for self or for the baby with going home this date. Provided MOB with depression packet, which includes resources and numbers to call for help. Plan: MOB and baby to home, plans to continue with WIC, and FOB to be at home this week to help out with transition home. No further needs requested. -TERRA Castano, CADDIE SUPERVISOR
[2019-09-06 14:07] LABS: Pathology Specimen OB SEE PATHOLOGY REPORT
== END 2019-08-26 13:30 | disposition home or self-care (01) | DRG 784 ==
PROVIDERS: Admitting Provider Obstetrics & Gynecology; Family Provider Family Medicine; PCP Family Medicine; Referring Provider Obstetrics & Gynecology; Visit Provider Obstetrics & Gynecology
PROC: 10D00Z1 Extraction of Products of Conception, Low, Open Approach (ICD-10-PCS; CPT 59514; principal; 2019-08-23 11:45)
DX: O75.89 Other specified complications of labor and delivery (principal); O98.32 Other infections with a predominantly sexual mode of transmission complicating childbirth; Z30.2 Encounter for sterilization; A60.00 Herpesviral infection of urogenital system, unspecified; Z3A.39 39 weeks gestation of pregnancy; Z37.0 Single live birth; M99.01 Segmental and somatic dysfunction of cervical region; M99.03 Segmental and somatic dysfunction of lumbar region; M99.04 Segmental and somatic dysfunction of sacral region; M99.02 Segmental and somatic dysfunction of thoracic region; Z87.891 Personal history of nicotine dependence; Z87.59 Personal history of other complications of pregnancy, childbirth and the puerperium
CPT/HCPCS: 85025; 85027; 86850; 86900; 86901; 88302; 99218; J7120; A4216; G0378; J2405

== ENCOUNTER → 2019-10-18 10:24 | Outpatient (CLI) | payer OTHER, BC, MEDICAID, SELFPAY ==
[2019-10-18 09:19] VITALS: BMI 27.7
[2019-10-18 11:40] LABS: Absolute Lymphocyte Count 2.38 X10^3/uL (0.83-4.51); Absolute Neutrophil Count 2.9 X10^3/uL (2.0-7.7); Basophil# 0.06 X10^3/uL; Eosinophil# 0.06 X10^3/uL; Hematocrit 39.4 % (37-47); Hemoglobin 11.6 g/dL (12.0-15.0); Lymphocyte # 2.38 X10^3/ul (4.0); Lymphocyte % 39.5 % (19-41); Mean Corp Hgb Conc 29.4 g/dL (32-36); Mean Corpuscular Hgb 24.6 pg (27.0-32.0); Mean Corpuscular Volume 83.7 fL (81-99); Mean Platelet Vol. 9.6 fl (6.2-12.0); Monocyte# 0.58 X10^3/uL; Monocyte% 9.6 % (0-10); NRBC Flagged by Analyzer 0 % (0-5); Neutrophil # 2.92 X10^3/uL (2.7-7.7); Neutrophil % 48.6 % (47-70); Platelet Count 322 K/mm3 (150-450); RBC Distribution Width CV 15.3 % (11.6-14.6); RBC Distribution Width SD 45.8 fl (35.1-43.9); Red Blood Count 4.71 M/mm3 (4.2-5.4)
== END ==
PROVIDERS: Nurse Practitioner Women's Health; PCP Family Medicine; Referring Provider Obstetrics & Gynecology; Visit Provider Obstetrics & Gynecology
DX: O99.019 Anemia complicating pregnancy, unspecified trimester (principal); D64.9 Anemia, unspecified; Z3A.00 Weeks of gestation of pregnancy not specified
CPT/HCPCS: 36415; 85025

== ENCOUNTER 2019-10-19 19:58 | Emergency (ER) | payer OTHER, BC, MEDICAID, SELFPAY ==
[2019-10-18 09:19] VITALS: BMI 27.7
[2019-10-19 20:00] VITALS: BP 130/81; PULSE 74; PULSE 76; RESP 16; RESP 18; TEMP 36.5; O2SAT 98; BMI 25.0
--- NOTE | 2019-10-19 20:37 | CT_ITS ---
STUDY: CT ABDOMEN AND PELVIS WITH CONTRAST REASON FOR EXAM: Female, 24 years old. Right lower quadrant pain. TECHNIQUE: Transaxial images were obtained from the dome of the diaphragm to the symphysis pubis Gastrografin oral contrast. 100 cc Isovue-300 was administered. Sagittal and coronal images were reconstructed. Individualized dose optimization techniques were used for this CT. COMPARISON: None. FINDINGS: Partially visualized lower chest: Lung bases unremarkable. Liver: No concerning lesions. Gallbladder and biliary tree: No visible gallstones. No pericholecystic inflammation. No biliary ductal dilation. Pancreas: No pancreatic lesions or inflammation. Spleen: Normal size, no splenic lesions. Adrenal glands: No concerning masses. Kidneys and ureters: No hydronephrosis or renal stones. No concerning masses. No ureteral dilation. Bowel: Normal appendix. No obstruction or inflammation of the bowel. Urinary bladder: No stones or wall thickening. Reproductive:Normal uterus and ovaries. Vascular: No abdominal aortic aneurysm. Patent systemic, portal and mesenteric veins. Retroperitoneal and peritoneal spaces: No ascites or free air. No retroperitoneal lesions. Osseous: No acute osseous abnormality. Bilateral erosions and reactive sclerosis of the sacroiliac joints. Abdominal and pelvic wall: No acute finding. Diastases recti with the transverse colon bowing through the defect. CT/Abdomen/Pelvis WITH Contrast IMPRESSION: No acute findings. Mild chronic bilateral sacroiliitis. In a patient of this age, this is suggestive of an inflammatory arthritis such as psoriatic arthritis. No arthritis of the hips or other visualized joints. Electronically Signed: Melvin Cuello, at 22:59 EDT Tel , Service support ,
[2019-10-19 21:08] LABS: Bacteria 0 SEEN /hpf (None Seen); Mucous, Urine 0 SEEN /hpf (<or=2+); Red Blood Cells-Urine 0 SEEN /hpf (0-5)
[2019-10-19 21:13] LABS: Absolute Lymphocyte Count 2.26 X10^3/uL (0.83-4.51); Absolute Neutrophil Count 3.5 X10^3/uL (2.0-7.7); Basophil# 0.04 X10^3/uL; Basophil% 0.6 % (0-1); Eosinophil# 0.07 X10^3/uL; Eosinophils% 1.1 % (0-5); Hematocrit 39.3 % (37-47); Hemoglobin 11.8 g/dL (12.0-15.0); Lymphocyte # 2.26 X10^3/ul (4.0); Lymphocyte % 35.7 % (19-41); Mean Corpuscular Hgb 24.9 pg (27.0-32.0); Mean Corpuscular Volume 82.9 fL (81-99); Mean Platelet Vol. 9.2 fl (6.2-12.0); Monocyte% 7.9 % (0-10); NRBC Flagged by Analyzer 0 % (0-5); Neutrophil # 3.45 X10^3/uL (2.7-7.7); Neutrophil % 54.5 % (47-70); Platelet Count 325 K/mm3 (150-450); RBC Distribution Width CV 15.2 % (11.6-14.6); RBC Distribution Width SD 45.8 fl (35.1-43.9); Red Blood Count 4.74 M/mm3 (4.2-5.4); White Blood Count 6.3 K/mm3 (4.4-11.0)
[2019-10-19 21:15] LABS: Color, Urine Yellow (Yellow); Glucose, Dipstick Normal (Normal); Ketone-Dipstick Negative (Negative); Leukocyte Esterase-Dipstick Negative /ul (Negative); Nitrite-Dipstick Negative (Negative); Occult Blood-Urine Negative /ul (Negative); Protein-Dipstick Negative (Negative); Urine Bilirubin Dipstick Negative (Negative); Urine Clarity Clear (Clear); Urine Urobilinogen Normal (Normal)
[2019-10-19 21:21] LABS: Internal QC Validated? YES +Cl - CLEAR BKGD; Pregnancy, Urine Negative Negative
[2019-10-19 21:24] LABS: Squamous Epithelial Cells - UA 0-5 SEEN /hpf (5-10); White Blood Cells 0-5 SEEN /hpf (0-5)
[2019-10-19 21:28] LABS: ALB/GLOB Ratio 1.3 RATIO (0.9-2.4); AST(SGOT) 22 U/L (15-37); Alanine Aminotransfer ALT/SGPT 39 U/L (13-56); Albumin, Serum 3.8 g/dL (3.2-5.0); Alkaline Phosphatase 87 U/L (45-117); Anion Gap 4 (5-15); BUN 9 mg/dL (7-18); BUN/Creat Ratio 12.2 RATIO (10-20); Calcium,Total 8.7 mg/dL (8.5-10.1); Chloride 107 mmol/L (98-107); Creatinine, Serum 0.74 mg/dL (0.55-1.02); EST Glomerular Filtration Rate 103 mL/min (>60); Est Glom Filt Rate - Afr Amer 125 mL/min (>60); Estimated Creatinine Clearance 114.98 ml/min; Globulin 2.9 g/dL (2.2-4.2); Glucose 110 mg/dL (74-106); Lipase 107 U/L (73-393); Potassium 3.4 mmol/L (3.5-5.1); Protein, Total 6.7 g/dL (6.4-8.2); Sodium Level 140 mmol/L (136-145)
--- NOTE | 2019-10-19 23:39 | ED.VIS.GI ---
History of Present Illness Chief Complaint: Abd Pain Informant: Patient - Abdominal Pain/Flank Pain Onset: Today Timing: Continuous Location: RLQ - Nausea/Vomiting/Emesis GI Symptom: Negative for: Nausea, Vomiting - Diarrhea/Melena/Hematochezia GI Symptom: Negative for: Diarrhea, Melena, Hematochezia Associated Symptoms: Negative for: Dysuria, Frequency, Hematuria LMP: last week Narrative: Patient is a 24-year-old female presenting with 1 day of right lower quadrant abdominal pain. She states it is constant and aching in nature. Patient is she had 4 soft bowel movements today which is unusual for her but denies any diarrhea. She denies any melena or bright red blood per rectum. She denies associated nausea or vomiting. She denies any urinary symptoms. She states she did 2 months ago and had her first period 1 week ago. She had a tubal ligation at the time of her . Patient did not take anything for pain prior to arrival. She declines any pain medication at this time. She denies any other complaints. Past Medical History - Allergies and Home Meds Allergies/Adverse Reactions: Allergies No Known Allergies Allergy (Verified 10/19/19 19:59) Primary Care Physician: Silver Villalobos MD [Primary Care Provider] - Leah Benavides MD [STAFF PHYSICIAN] - Past Medical History: None Surgical History: - - , tubal ligation Lives: Spouse/ Significant Other Smoking Status: Never smoker Review of Systems General: Denies: Chills, Fever, Sweats Eyes: Denies: Visual changes - bilaterally, Diplopia ENT: Denies: Rhinorrhea, Sore throat Cardiovascular: Denies: Chest pain, Palpitations Respiratory: Denies: Dyspnea, Cough, Dyspnea on exertion Gastrointestinal: Reports: Abdominal pain. Denies: Nausea, Vomiting, Diarrhea, Melena, Hematochezia Genitourinary: Denies: Dysuria, Hematuria, Frequency Musculoskeletal: Denies: Back pain, Extremity Pain Skin: Denies: Rash, Wounds Neurological: Denies: Headache, Weakness, Numbness Physical Exam Vital Signs/Narrative: Vital Signs Temp Pulse Resp BP Pulse Ox 10/19/19 20:00 97.7 F L 76 18 130/81 H 98 Inital Vital Signs reviewed: Yes General: Well nourished, Well developed, No Acute Distress Head: Normocephalic, Atraumatic Eyes: Perrl, EOMI ENT: Moist mucous membranes, No rhinorrhea Neck: Supple, Nontender Cardiovascular: Regular rate, Regular rhythm, No murmurs Respiratory: No distress, CTA bilaterally, Chest nontender Abdomen: Soft, Nondistended, Normal bowel sounds, Tender - RLQ, - - Well-healed surgical incision, no surrounding erythema or associated tenderness to palpation. Negative for: Guarding, Rebound tenderness Back: Nontender, Normal Inspection Extremities: Nontender, No edema Skin: Normal color, No rash Neurological: Alert, Oriented x3, Cranial nerves II-XII grossly intact, Normal Strength, Normal Sensation Psychological: Normal affect, Normal Mood Diagnostic/Tx/Re-eval Clinical Impression(s) from Imaging Studies Abdomen/Pelvis CT 10/19/19 20:37 IMPRESSION: No acute findings. Mild chronic bilateral sacroiliitis. In a patient of this age, this is suggestive of an inflammatory arthritis such as psoriatic arthritis. No arthritis of the hips or other visualized joints. Electronically Signed: Melvin Cuello, at 22:59 EDT Tel , Service support , Laboratory Data 10/19/19 10/19/19 10/19/19 21:00 21:00 21:01 WBC 6.3 RBC 4.74 Hgb 11.8 L Hct 39.3 MCV 82.9 MCH 24.9 L MCHC 30.0 L RDW Std Deviation 45.8 H RDW Coeff of Geronimo 15.2 H Plt Count 325 MPV 9.2 Immature Gran % (Auto) 0.200 Neut % (Auto) 54.5 Lymph % (Auto) 35.7 Sierra % (Auto) 7.9 Eos % (Auto) 1.1 Baso % (Auto) 0.6 Absolute Neuts (auto) 3.5 Absolute Lymphs (auto) 2.26 Nucleated RBC % 0 Sodium 140 Potassium 3.4 L Chloride 107 Carbon Dioxide 29.0 Anion Gap 4 L BUN 9 Creatinine 0.74 Estim Creat Clear Calc 114.98 Est GFR (MDRD) Af Amer 125 Est GFR (MDRD) Non-Af 103 BUN/Creatinine Ratio 12.2 Glucose 110 H Calcium 8.7 Total Bilirubin 0.20 AST 22 ALT 39 Alkaline Phosphatase 87 Total Protein 6.7 Albumin 3.8 Globulin 2.9 Albumin/Globulin Ratio 1.3 Lipase 107 Urine Color Urine Clarity Urine pH Ur Specific Whitehouse Urine Protein Urine Glucose (UA) Urine Ketones Urine Occult Blood Urine Nitrite Urine Bilirubin Urine Urobilinogen Ur Leukocyte Esterase Urine RBC Urine WBC Ur Squamous Epith Cells Urine Bacteria Urine Mucus Urine Test Negative 10/19/19 21:01 WBC RBC Hgb Hct MCV MCH MCHC RDW Std Deviation RDW Coeff of Geronimo Plt Count MPV Immature Gran % (Auto) Neut % (Auto) Lymph % (Auto) Sierra % (Auto) Eos % (Auto) Baso % (Auto) Absolute Neuts (auto) Absolute Lymphs (auto) Nucleated RBC % Sodium Potassium Chloride Carbon Dioxide Anion Gap BUN Creatinine Estim Creat Clear Calc Est GFR (MDRD) Af Amer Est GFR (MDRD) Non-Af BUN/Creatinine Ratio Glucose Calcium Total Bilirubin AST ALT Alkaline Phosphatase Total Protein Albumin Globulin Albumin/Globulin Ratio Lipase Urine Color Yellow Urine Clarity Clear Urine pH 7.0 Ur Specific Whitehouse 1.010 Urine Protein Negative Urine Glucose (UA) Normal Urine Ketones Negative Urine Occult Blood Negative Urine Nitrite Negative Urine Bilirubin Negative Urine Urobilinogen Normal Ur Leukocyte Esterase Negative Urine RBC 0 SEEN Urine WBC 0-5 SEEN Ur Squamous Epith Cells 0-5 SEEN Urine Bacteria 0 SEEN Urine Mucus 0 SEEN Urine Test - Medical Decision Making Patient is evaluated for 1 day of right lower quadrant abdominal pain. She is 2 months from a . She did have a tubal ligation at that time. Her abdomen is soft and only mildly tender. She is hemodynamically stable. Work-up including CBC, CMP, lipase and urinalysis are relatively unremarkable. Urine is negative. CT the abdomen pelvis does not show any acute intra-abdominal process that explains her pain. Patient does have some inflammation of her sacroiliac joint bilaterally however this does not fit the pain that she is complaining of. She is instructed to follow-up with her [facility]. Patient declined pain medication in the emergency room. She is instructed to take ibuprofen and/or Tylenol at home for pain control. ED Disposition - Plan for ED Patient: Disposition: Home or Assisted Living Diagnosis: Right lower quadrant abdominal pain of unknown etiology Instructions: ED Abdominal Pain Unkn Cause Fem Referrals: Silver Villalobos MD [Primary Care Provider] - Leah Benavides MD [STAFF PHYSICIAN] - Additional Instructions: The exact cause of your pain is not clear today. You do not have appendicitis or any other acute abnormalities on your blood work or CT scan. Please follow-up with Dr. Alex Schneider for further evaluation.
[2019-10-20 00:11] VITALS: BP 119/76; PULSE 72; RESP 16; O2SAT 99
== END 2019-10-20 00:11 | disposition home or self-care (01) ==
PROVIDERS: Emergency Provider Emergency Medicine; PCP Family Medicine
DX: R10.31 Right lower quadrant pain (principal); M46.1 Sacroiliitis, not elsewhere classified
CPT/HCPCS: 74177; 80053; 81001; 81025; 83690; 85025; 99283; Q9967; A4216

== ENCOUNTER → 2020-02-10 08:40 | Outpatient (CLI) | payer OTHER, BC, MEDICAID, SELFPAY | PROVIDERS: PCP Family Medicine; Referring Provider Family Medicine; Visit Provider Family Medicine | DX: Z13.1 Encounter for screening for diabetes mellitus (principal); Z13.220 Encounter for screening for lipoid disorders ==

== ENCOUNTER 2020-03-01 13:05 | Outpatient (RCR) | payer OTHER, BC, MEDICAID, SELFPAY | END 2020-03-15 23:59 | LOC: EMPH 13:05 | PROVIDERS: PCP Family Medicine; Visit Provider Family Medicine Geriatric Medicine | DX: Z11.59 Encounter for screening for other viral diseases (principal) | CPT/HCPCS: 87635; U0003 ==

== ENCOUNTER 2020-04-13 16:38 | Outpatient (RCR) | payer OTHER, BC, MEDICAID, SELFPAY | END 2020-04-15 23:59 | LOC: EMPH 16:38 | PROVIDERS: PCP Family Medicine; Visit Provider Family Medicine Geriatric Medicine | DX: Z03.818 Encounter for observation for suspected exposure to other biological agents ruled out (principal) | CPT/HCPCS: 87426 ==

== ENCOUNTER 2020-05-04 08:14 | Outpatient (RCR) | payer OTHER, BC, MEDICAID, SELFPAY | END 2020-05-15 23:59 | LOC: EMPH 08:14 | PROVIDERS: PCP Family Medicine; Visit Provider Family Medicine Geriatric Medicine | DX: Z03.818 Encounter for observation for suspected exposure to other biological agents ruled out (principal) | CPT/HCPCS: 87426 ==

== ENCOUNTER 2020-06-10 08:58 | Outpatient (RCR) | payer OTHER, BC, SELFPAY ==
[2020-05-19 15:27] VITALS: BMI 24.5
== END 2020-06-15 23:59 ==
LOC: EMPH 08:58
PROVIDERS: PCP Family Medicine; Visit Provider Family Medicine Geriatric Medicine
DX: Z03.818 Encounter for observation for suspected exposure to other biological agents ruled out (principal)
CPT/HCPCS: 87426

== ENCOUNTER 2020-11-15 14:19 | Emergency (ER) | payer OTHER, BC, MEDICAID, SELFPAY ==
[2020-05-19 15:27] VITALS: BMI 24.5
[2020-11-15 14:20] VITALS: BP 131/74; PULSE 79; RESP 18; TEMP 36.8; O2SAT 99; BMI 24.3
--- NOTE | 2020-11-15 14:31 | RAD_ITS ---
STUDY: X-RAY - LEFT ANKLE REASON FOR EXAM: Female, 25 years old. Swelling and limping following a fall. TECHNIQUE: 3 view(s) of the ankle. COMPARISON: None. FINDINGS: Normal visualized distal tibia and fibula. Normal medial and lateral malleoli. Normal tibiotalar articulation and ankle mortise. Normal visualized talus and calcaneus. The visualized subtalar, talonavicular, calcaneocuboid and tarsal articulations are normal. The soft tissue structures are unremarkable. RAD/Ankle min 3 Views IMPRESSION: Normal x-ray examination of the ankle. Electronically Signed: Rufus Reyes MD at 15:04 EDT , Service support ,
--- NOTE | 2020-11-15 14:31 | ED.VIS.LOWEX ---
HPI History of Present Illness Chief Complaint: Lower Extremity Injury Detail of Chief Complaint: Injury to left ankle 4 days ago Informant: patient Narrative Narrative: Patient presents with an injury to the left ankle that occurred 4 days ago. Patient states that she tripped stepped in a chipmunk hole twisting her ankle. She is having a hard time bearing weight at times but can put some weight on the lower extremity. She denies any other injuries. [facility] Medical History (Updated 11/15/20 @ 15:[address] Heron Krueger, DO) Severe headache Home Medications biotin 10,000 mcg PO DAILY 11/15/20 [History Last Taken Unknown] ferrous sulfate [iron] 325 mg PO DAILY 11/15/20 [History Last Taken Unknown] multivitamin [Multiple Vitamin] 1 tab PO DAILY 11/15/20 [History Last Taken Unknown] Allergy/AdvReac Type Severity Reaction Status Date / Time No Known Allergies Allergy Verified 05/19/20 15:28 Family History Grandmother Diabetes Surgical History History of arthroscopy of right shoulder Hx of section Social History (Updated 08/28/20 @ 09:[address] Ana Maynard, [place]) Smoking Status: Never smoker how long ago did patient quit smokin years alcohol intake: never substance use type: does not use caffeine: Yes what type of physical activity do you participate in: none seatbelt use: always do you feel safe at home: Yes additional social history: - Delvy Patient works in [employer] at [employer] ROS ED Constitutional Constitutional ED: Reports systems reviewed and no addt'l complaints, except as documented; Denies body ache(s), change in weight or chills Eyes Eyes: Denies acute decrease in peripheral vision, change in vision, double vision or loss of vision ENT ENT ED: Reports none; Denies ear pain, lip swelling, loss taste/smell, neck pain, otalgia or sore throat Cardiovascular Cardiovascular: Reports none; Denies abdominal pain, chest pain with activity, leg edema, lightheadedness, palpitations, rapid heart rate or syncope Respiratory/Chest Respiratory/Chest: Reports none; Denies change in mental status, dry cough, dyspnea, hemoptysis, shortness of breath at rest or shortness of breath with exertion Gastrointestinal Gastrointestinal: Reports none; Denies abdominal pain, change in stool character, diarrhea, hematemesis, hematochezia, melena, rectal bleeding or vomiting Genitourinary Genitourinary ED: Reports none; Denies abdominal discomfort, anuria, dysuria, genital pain or polyuria Musculoskeletal Musculoskeletal: Reports none and other Details: Left ankle pain ; Denies arthralgias, back pain, difficulty walking, extremity pain, muscle weakness or myalgias Integumentary Reports none; Denies abscess or rash Neurologic Neurologic: Reports none; Denies abnormal gait, confusion, focal weakness, frequent falls, headache(s), loss of vision, numbness, paresthesias, radicular pain, vertigo or weakness Psychiatric Psychiatric: Reports systems reviewed and no addt'l complaints, except as documented and none; Denies behavioral changes, confusion, difficulty concentrating, hallucinations, suicidal ideation, tactile hallucinations or visual hallucinations Endocrine Endocrinology: Denies none, cold intolerance, excessive sweating, fatigue or heat intolerance Hematologic/Lymphatic Hematologic/Lymphatic: Reports none; Denies anemia, easy bleeding or easy bruising Allergic/Immunologic Allergic/Immunologic ED: Denies as per HPI, none, lip swelling, mouth swelling, throat swelling, tongue swelling or hives EXAM Physical Exam Const Vital Signs: 11/15/20 14:20 Temperature 98.2 F Temperature Source Temporal Pulse Rate 79 Respiratory Rate 18 Blood Pressure 131/74 H Blood Pressure Mean 93 Pulse Ox 99 Oxygen Delivery Method Room Air Positive well nourished and well developed General Appearance ED: well developed and NAD HEENT Reports TM's clear and moist mucous membranes normocephalic and atraumatic; Negative for trauma or tenderness Tympanic Membrane ED: Yes TM's clear Eyes PERRL and EOMs intact bilaterally General Eye ED: Negative for pale conjunctiva or scleral icterus Neck no lymphadenopathy, supple and no JVD General: Negative for tenderness Chest Wall inspection of chest normal and palpation of chest normal Chest: Negative for tenderness Resp normal respiratory effort and clear to auscultation bilaterally Effort and Inspection: Negative for respiratory distress or pain with movement Auscultation: Negative for rhonchi, wheezes or diminished lung sounds Cardio regular rate, regular rhythm, S1 normal heart sound, S2 normal heart sound and no murmurs Peripheral Pulses: pulses 2+ throughout GI normal to inspection, nondistended, normoactive bowel sounds, soft to palpation, non-tender, non-distended and no masses Back/Spine no CVA tenderness and no thoracic nor lumbar tenderness Extremity Extremity Narrative: Patient has some mild soft tissue swelling about the ankle. She got some tenderness to palpation just inferior to the lateral malleolus and also inferior to the medial malleolus. No pain at the base of the fifth metatarsal. No pain at the proximal fibular head. She is neurovascular intact. General Extremety ED: Yes edema General Extremity: edema Neuro oriented x3, CN's II-XII intact bilaterally, no sensory deficits noted and gait normal Sensorium / Orientation: awake, alert, oriented to person, oriented to place and oriented to time Motor Exam: strength 5/5 throughout and strength abnormal Psych mental status grossly normal Skin no rashes or lesions noted and no wounds MDM MDM MDM Narrative Medical decision making narrative: Patient will be given an air splint and crutches. She is to ice and elevate the extremity. She is to follow-up with primary care physician in 5 to 7 days. Lab Data Attestation: I reviewed the patient's lab results. Radiography Diagnostic Testing: Radiology Impression Ankle X-Ray 11/15/20 14:31 IMPRESSION: Normal x-ray examination of the ankle. Electronically Signed: Ruufs Reyes MD at 15:04 EDT , Service support , Three-view x-rays of the left ankle obtained interpreted by myself as no acute fractures or dislocations. Radiology in agreement. Discharge Plan Triage Chief Complaint: Lower Extremity Injury ED Provider: Heron Krueger Dx/Rx/DC Orders Clinical Impression: Left ankle sprain Instructions: ED Ankle Sprain (Adult) Prescriptions: No Action multivitamin [Multiple Vitamin] Tablet 1 tab PO DAILY RF: 0 ferrous sulfate [iron] 325 mg (65 mg iron) Tablet 325 mg PO DAILY RF: 0 biotin 10,000 mcg Tablet,Disintegrating 10,000 mcg PO DAILY RF: 0 Primary Care Provider: Silver Villalobos Referrals: Silver Villalobos MD [Primary Care Provider] - 5-7 Days Disposition Disposition: Home, self care
[2020-11-15 16:21] VITALS: RESP 16
== END 2020-11-15 16:21 | disposition home or self-care (01) ==
PROVIDERS: Emergency Provider Emergency Medicine; PCP Family Medicine
DX: S93.402A Sprain of unspecified ligament of left ankle, initial encounter (principal); X50.1XXA Overexertion from prolonged static or awkward postures, initial encounter; Y93.9 Activity, unspecified; Y92.9 Unspecified place or not applicable
CPT/HCPCS: 73610; 99284

== ENCOUNTER → 2020-12-14 11:27 | Outpatient (CLI) | payer OTHER, BC, SELFPAY ==
[2020-11-15 14:20] VITALS: BMI 24.3
[2020-12-14 13:25] LABS: Thyroid Stim Hormone (TSH) 1.91 uIU/mL (0.358-3.74)
== END ==
PROVIDERS: PCP Family Medicine; Referring Provider Family Medicine; Visit Provider Family Medicine
DX: K59.00 Constipation, unspecified (principal)
CPT/HCPCS: 36415; 84443

== ENCOUNTER → 2020-12-21 10:34 | Outpatient (CLI) | payer OTHER, BC, SELFPAY ==
--- NOTE | 2020-12-21 10:35 | US_ITS ---
STUDY: ABDOMINAL ULTRASOUND REASON FOR EXAM: Female, 25 years old. CONSTIPATED, UMBILICAL HERNIA TECHNIQUE: Transabdominal ultrasound was performed with real-time and static richards scale imaging. TECHNICAL QUALITY: Adequate. COMPARISON: None. FINDINGS: Liver: The liver measures 14.1 cm. There is mild increased echogenicity consistent with mild fatty infiltration. The bile ducts are within normal limits. There is hepatic color flow. The direction of portal flow is hepatopetal. There is no demonstrated mass lesion. Gallbladder: Normal distended gallbladder. The gallbladder wall measures 2.2 mm. There is a negative sonographic Moore''s sign. There is no pericholecystic fluid. There are no gallstones. There is a 3 mm gallbladder polyp. Common Bile Duct (C.B.D.): The common bile duct measures 2 mm. Pancreas: Normal size of the head, body and tail of the pancreas. There is normal echogenicity of the pancreas. There is no demonstrated pancreatic mass or cyst. Spleen: Normal size of the spleen. The spleen measures 9.2 cm x 4.5 cm x 5 cm. Right Kidney: Normal size of the right kidney. The right kidney measures 11.3 cm x 5.4 cm x 4.9 cm. Normal renal cortex. The right cortex measures 1.5 cm. There is no demonstrated renal mass or cyst. There is no right hydronephrosis. Left Kidney: Normal size of the left kidney. The left kidney measures 11 cm x 4.6 x 5.4 cm. Normal renal cortex. The left cortex measures 1.8 cm. There is no demonstrated renal mass or cyst. There is no left hydronephrosis. Aorta: Unremarkable I.V.C.: The IVC is patent. Small umbilical hernia containing fat. US/Abdomen Complete IMPRESSION: Small umbilical hernia containing fat. 3 mm gallbladder polyp. Mild degree of fatty infiltration of the liver. Electronically Signed: Rufus Reyes MD at 13:01 EDT , Service support ,
== END ==
PROVIDERS: PCP Family Medicine; Referring Provider Family Medicine; Visit Provider Family Medicine
DX: K59.00 Constipation, unspecified (principal)
CPT/HCPCS: 76700

== ENCOUNTER 2021-02-12 09:40 | Day surgery (SDC) | payer OTHER, BC, SELFPAY ==
[2021-01-09 14:04] VITALS: BMI 24.3
[2021-02-12] VITALS (11 sets, daily range): BP systolic 112–130; BP diastolic 65–93; PULSE 64–77; RESP 16–18; TEMP 36.1–37.6; O2SAT 98–100; BMI 24.5
[2021-02-12] MEDS: Lactated Ringers 1,000 ML 100 ML IV (08:55)
--- NOTE | 2021-02-12 10:19 | HP.PCM_ITS ---
History and Physical Date of Admission: 02/12/21 Intake Vital Signs 01/09/21 14:03 01/09/21 14:04 Height 5 ft 7 in Weight: 159 lb BMI 24.9 24.3 BP 121/81 H Blood Pressure Location Rt brachial Position Sitting Respiration 16 Pulse 81 Pulse Source Monitor Pulse Oximetry (%) 98 Oxygen Delivery Method room air Intake Visit Reasons: UMBILICAL HERNIA Chief Complaint: Umbilical hernia Sorter Laundry Articles Required: No Is patient in pain?: No (tender to touch) Allergies No Known Allergies Allergy (Verified 01/09/21 14:04) Medications biotin 10,000 mcg PO DAILY 11/15/20 [History Confirmed 01/09/21] ferrous sulfate [iron] 325 mg PO DAILY 11/15/20 [History Confirmed 01/09/21] multivitamin [Multiple Vitamin] 1 tab PO DAILY 11/15/20 [History Confirmed 01/09/21] REPLACED BY [facility] Medical History (Updated 01/09/21 @ 14:[address] Wyatt Wagner MD) Severe headache Surgical History History of arthroscopy of right shoulder Hx of section Family History Grandmother Diabetes Social History (Updated 08/28/20 @ 09:[address] 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 The patient is also been experiencing constipation as well as bloating. The patient reports that she has been on MiraLAX and only having bowel movements every few days. She reports she is having a small stools. Patient reports that she is having pain at her umbilical hernia when her children pushing her hernia. ROS General General: No weight change, appetite, fatigue, colon cancer, breast cancer or weakness HEENT HEENT: No difficulty swallowing, eye injury, eye surgery, swollen glands or hoarseness Endo Endocrine: No thyroid disease, diabetes mellitus, thyroid cancer, Hair loss, heat intolerance or cold intolerance Skin Skin: No rash or changing moles Musc Musculoskeletal: No back problems, arthritis, rheumatoid arthritis, gout or joint pain Cardio Cardiovascular: No murmur, pacemaker, heart disease, atrial fibrillation, high blood pressure, heart attack, heart stent, palpitations, shortness of breat with exertion or chest pain Psych Psychiatric: No depression, anxiety or hearing voices Resp Respiratory: No shortness of breath, No sleep apnea, No cough, No COPD, No asthma, No emphysema and No wheezing Gastro Gastrointestinal: No abdominal pain, No nausea or vomiting, No diarrhea, No constipation, No blood in stool, No acid reflux, No hemorrhoids, No ulcers, No gallbladder problem and No black,tarry stools Nimesh Hematologic: No blood thinners, Yes blood disorders, No bleeding, Yes anemia and No blood clots Neuro Neurologic: No weakness Exam Const General: cooperative Orientation: alert and oriented x3 HENMT Head: normal to inspection Neck Neck: normal visual inspection and full ROM Chest Chest palpation & inspection: normal inspection of the chest Resp Effort & Inspection: normal respiratory effort Auscultation: clear to auscultation bilaterally Cardio Rate: regular rate Rhythm: regular rhythm GI Inspection: non-distended Palpation: soft, hernia umbilical and nontender Skin General: no rashes or lesions noted Neuro General: patient alert and patient oriented x3 Extrem General: full ROM Psych Appearance: grossly normal Mental Status: mental status grossly normal Assessment and Plan Assessment and Plan (1) Umbilical hernia: Status: Acute Qualifiers: Obstruction and gangrene presence: without obstruction or gangrene Qualified Code(s): K42.9 - Umbilical hernia without obstruction or gangrene Plan - Dr. Wyatt Wagner MD: The patient has a small umbilical hernia containing fat. I do not believe that that is the cause of her constipation or bloating as it is very small and will contain a small amount of fat. I discussed that she needs a more rigorous bowel regimen for her constipation and she needs intake more water. The patient has a small reducible umbilical hernia and I discussed umbilical hernia repair with mesh with her. I discussed the procedure as well as the risks including but not limited to bleeding, infection, recurrence of hernia or injury to underlying organs. Patient understands the risks and would like this repaired. I discussed postoperative care and restrictions with her. Wyatt Wagner MD Pager: [facility] [address] [place] [address], [address] [place] [address] Office: I have re-examined the patient. There are no clinical changes since date of exam.
[2021-02-12 10:30] LABS: Internal QC Validated? YES +Cl - CLEAR BKGD; Pregnancy, Urine Negative Negative
[2021-02-12] MEDS: Cefazolin 2 GM in 0.9% Normal Saline 100 ML IV (11:00)
[2021-02-12] MEDS: Lidocaine 1% /Epi 1:100 (20ml) 20 ML Vial (11:10)
[2021-02-12] MEDS: Bupivacaine Mpf 0.5% 30 ML VIAL (11:10)
--- NOTE | 2021-02-12 11:46 | PCM.OPRPT ---
Problems Associated Problem List Diagnoses (1) Umbilical hernia: Report of Operation Date of Procedure: 02/12/21 Pre-Operative Diagnosis: Umbilical hernia Post-Operative Diagnosis: Umbilical hernia Surgery/Procedure Performed:: Umbilical hernia repair Description of Procedure: Patient was brought back to the operating room and MAC anesthesia was induced. The abdomen was prepped and draped in usual sterile fashion. A curvilinear incision was marked superior to the umbilicus and injected with local anesthetic. Incision was made with a scalpel and deepened to the hernia sac. The umbilical stalk was taken off the hernia sac using a scalpel the hernia sac was inspected and reduced. The hernia was reapproximated in a horizontal fashion using interrupted #1 Nurolon sutures. Subcutaneous tissue was irrigated and suctioned dry. The umbilical stalk was sutured to the fascia using 3-0 Vicryl. Incision was closed using 4-0 Vicryl. Steri-Strips and bandages were applied. Admit VTE Documentation VTE Mechan Device Prophylaxis: SCD's
--- NOTE | 2021-02-12 11:53 | EX.PCM.DISCH ---
Discharge Instructions Procedure Hernia Diet Discharge Diet: Light diet - advance as tolerated Activity Discharge Activity: May Not Drive (for 2-3 days or while taking narcotic pain meds.) and May Shower (with the bandage in place 1-2 days after surgery.) Lifting Restrictions: 20 pounds for 4 weeks. Additional Activity Instructions:: Climbing stairs is fine, walking is encouraged. Sitting in bed may be uncomfortable. Sitting up using your lateral muscles (sitting up sideways) is usually more comfortable. Do not drive, work heavy equipment of sign legal documents for 24 hours. Pain medications may cause nausea, you should typically eat light foods as you take your pain medications. Pain medications may also cause constipation. If you have difficulty with this, discuss with your doctor. Dressing / Incision Call your doctor if your incision/area has: Continuous Slow Oozing, Sudden Increased Bleeding, Increased Pain/ Swelling, Increased Redness and Foul Smelling Discharge Call your doctor if you observe: Fever of 101 or Higher Suture Line Care: Avoid Pulling/Pushing and Avoid Pinching/Bending Cleanse incision/area with: Soap & Water Follow Up Care Please Follow Up With: Wyatt Wagner MD When: Please call to schedule 2 week follow up appointment. [phone] Test Results: Test results from this visit will be discussed in further detail at your follow-up appointment, if applicable. Discharge Plan Admission Attending Provider: Wyatt Wagner Primary Care Provider: Silver Villalobos Discharge Orders/Prescriptions Prescriptions: New oxycodone-acetaminophen [Percocet] 5-325 mg tablet 1 tab PO Q4H PRN (Reason: pain) 5 Days Qty: 15 RF: 0 No Action multivitamin [Multiple Vitamin] Tablet 1 tab PO DAILY RF: 0 ferrous sulfate [iron] 325 mg (65 mg iron) Tablet 325 mg PO DAILY RF: 0 biotin 10,000 mcg Tablet,Disintegrating 10,000 mcg PO DAILY RF: 0 Referrals / Follow Up: Silver Villalobos MD [Primary Care Provider] - Disposition Disposition (needs filled in before D/C Order can be placed): Home, Self Care
[2021-02-12] MEDS: oxyCODONE 5 MG Tablet PO (13:28)
[2021-02-12] MEDS: Acetaminophen 325 MG Tablet PO (13:28)
== END 2021-02-12 13:53 | disposition home or self-care (01) ==
LOC: SDC 09:40 → AC 09:41
PROVIDERS: Anesthesiology; PCP Family Medicine; Referring Provider Surgery; Visit Provider Surgery
PROC: (CPT 49585; principal; 2021-02-12 10:45)
DX: K42.9 Umbilical hernia without obstruction or gangrene (principal)
CPT/HCPCS: 00750; 49585; 81025; 87426; C9803; J2405

== ENCOUNTER → 2021-03-28 | Outpatient (CLI) | payer OTHER, BC, SELFPAY | END | disposition home or self-care (01) | PROVIDERS: Visit Provider Physician Assistant | DX: Z11.52 Encounter for screening for COVID-19 (principal) | CPT/HCPCS: 87635; U0005; U0003 ==

== ENCOUNTER → 2022-07-30 | Outpatient (CLI) | payer OTHER, BC, MEDICAID, SELFPAY ==
[2022-07-30 11:31] LABS: Hematocrit 39.9 % (37-47); Mean Corp Hgb Conc 30.1 g/dL (32-36); Mean Corpuscular Volume 79.6 fL (81-99); Mean Platelet Vol. 9.5 fl (6.2-12.0); Platelet Count 312 K/mm3 (150-450); RBC Distribution Width CV 16.3 % (11.6-14.6); RBC Distribution Width SD 46.9 fl (35.1-43.9); Red Blood Count 5.01 M/mm3 (4.2-5.4); White Blood Count 6.1 K/mm3 (4.4-11.0)
[2022-07-30 12:05] LABS: Iron 27 ug/dL (50-170); Iron Binding Capacity,Total 410 ug/dL (250-450)
== END | disposition home or self-care (01) ==
LOC: LAB 11:18
PROVIDERS: PCP Family Medicine
DX: D50.9 Iron deficiency anemia, unspecified (principal)
CPT/HCPCS: 36415; 83540; 83550; 85027

== ENCOUNTER → 2022-09-05 | Outpatient (CLI) | payer OTHER, BC, MEDICAID, SELFPAY ==
[2022-09-17 12:19] LABS: HPV Reflexed? NOT INDICATED
== END | disposition home or self-care (01) ==
LOC: LABSPEC 12:09
PROVIDERS: PCP Family Medicine; Visit Provider Nurse Practitioner Women's Health
DX: Z12.4 Encounter for screening for malignant neoplasm of cervix (principal)
CPT/HCPCS: 88175; G0145

== ENCOUNTER → 2022-09-13 | Outpatient (CLI) | payer OTHER, BC, MEDICAID, SELFPAY ==
--- NOTE | 2022-09-13 14:24 | US_ITS ---
HISTORY: pelvic pain. TECHNIQUE: Transabdominal and transvaginal pelvic ultrasound was performed with richards scale , spectral Doppler, and color Doppler evaluation. 158 images. COMPARISON: CT 10/19/2019. FINDINGS: UTERUS: 9.1 x 3.8 x 6.5 cm. Anteverted and anteflexed. ENDOMETRIAL THICKNESS: 6 mm. Arcuate or septate appearance. RIGHT OVARY: 2 x 2.3 x 3.1 cm with small follicles. Vascular flow demonstrated. No adnexal masses LEFT OVARY: 2.2 x 2.8 x 4.2 cm with small follicles. Vascular flow demonstrated. 1.9 x 2 x 2.4 cm involuting complex cystic lesion. Prominent left adnexal vessels. FREE FLUID: None. URINARY BLADDER: Unremarkable. US/Pelvic (Non ) IMPRESSION: Small involuting hemorrhagic cyst in the left ovary. Prominent left adnexal vessels, raising the possibility of nutcracker type syndrome or pulmonary vascular congestion. Arcuate or septate uterus. Electronically Signed: Kady Mullins MD at 9:46 EDT ,
== END | disposition home or self-care (01) ==
LOC: US 14:23
PROVIDERS: PCP Family Medicine; Visit Provider Nurse Practitioner Women's Health
DX: R10.2 Pelvic and perineal pain (principal); R19.00 Intra-abdominal and pelvic swelling, mass and lump, unspecified site
CPT/HCPCS: 76830; 76856; 93976

== ENCOUNTER 2022-10-29 05:47 | Day surgery (SDC) | payer OTHER, MEDICAID, SELFPAY ==
[2022-10-29] VITALS (7 sets, daily range): BP systolic 105–117; BP diastolic 68–79; PULSE 66–85; RESP 16–100; TEMP 36.2–36.7; O2SAT 100; BMI 21.4
[2022-10-29] MEDS: Lactated Ringers 1,000 ML 15 ML IV (06:23)
--- NOTE | 2022-10-29 06:38 | PCM.HP.BLA ---
History and Physical Date of Admission: 10/29/22 Intake Vital Signs ? 10/04/2312:58 BP 119/73 Blood Pressure Location Rt radial Position Sitting Respiration 18 Pulse 66 Pulse Source Monitor Temp 97.8 F Intake Visit Reasons:?LUMP NEAR CSECTION SCAR Chief Complaint: lump near csection scar It Software Developer Required: No Is patient in pain?: Yes Allergies No Known Allergies Allergy (Verified 10/04/22 13:59) Medications biotin 10,000 mcg disintegrating tablet 10,000 mcg PO DAILY 11/15/20 [History Confirmed 10/04/22] ferrous sulfate 325 mg (65 mg iron) tablet (iron) 325 mg PO DAILY 11/15/20 [History Confirmed 10/04/22] multivitamin 1 tab PO DAILY 11/15/20 [History Confirmed 10/04/22] levonorgestrel 0.15 mg-ethinyl estradiol 0.03 mg tablet (Altavera (28)) 1 tab PO DAILY #28 tabs 09/26/22 [Rx Confirmed 10/04/22] [facility] Medical History? Alcohol use Encounter for screening for COVID-19 Former smoker Low iron Wears contact lenses Surgical History? History of arthroscopy of right shoulder History of umbilical hernia repair (~02/2021) Hx of section Family History? Grandmother Diabetes Social History? Smoking Status:? Former smoker how long ago did patient quit smoking:? 2 years alcohol intake:? never substance use type:? does not use caffeine:? Yes what type of physical activity do you participate in:? none seatbelt use:? always do you feel safe at home:? 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 Patient reports that there is a lump.? It does get worse on her cycle. ROS General General: No weight change, appetite, fatigue, colon cancer, breast cancer or weakness HEENT HEENT: No difficulty swallowing, eye injury, eye surgery, swollen glands or hoarseness Endo Endocrine: No thyroid disease, diabetes mellitus, thyroid cancer, Hair loss, heat intolerance or cold intolerance Skin Skin: No rash or changing moles Musc Musculoskeletal: No back problems, arthritis, rheumatoid arthritis, gout or joint pain Cardio Cardiovascular: No murmur, pacemaker, heart disease, atrial fibrillation, high blood pressure, heart attack, heart stent, palpitations, shortness of breat with exertion or chest pain Psych Psychiatric: No depression, anxiety or hearing voices Resp Respiratory: No shortness of breath, No sleep apnea, No cough, No COPD, No asthma, No emphysema and No wheezing Gastro Gastrointestinal: Yes abdominal pain, No nausea or vomiting, No diarrhea, No constipation, No blood in stool, No acid reflux, No hemorrhoids, No ulcers, No gallbladder problem and No black,tarry stools Nimesh Hematologic: No blood thinners, Yes blood disorders, No bleeding, Yes anemia and No blood clots Neuro Neurologic: No weakness Exam Const General: cooperative Orientation: alert and oriented x3 [facility] Head: normal to inspection Neck Neck: normal visual inspection and full ROM Chest Chest palpation & inspection: normal inspection of the chest Resp Effort & Inspection: normal respiratory effort Auscultation: clear to auscultation bilaterally Cardio Rate: regular rate Rhythm: regular rhythm GI Inspection: non-distended Palpation: soft and nontender Other: Small lump at the site Skin General: no rashes or lesions noted Neuro General: patient alert and patient oriented x3 Extrem General: full ROM Psych Appearance: grossly normal Mental Status: mental status grossly normal Assessment and Plan Assessment and Plan (1) Pelvic mass: ?Status:?Acute ?Comment: US ?Plan: Patient has a small mass at her site.? This is likely an endometrioma.? I performed ultrasound in the office and it appears to be anterior to the muscle with no signs of herniation.? I discussed resecting this with her as well as repairing the fascia.? I will send for pathology.? I discussed surgery as well as the risks including bleeding, infection, recurrence.? Patient understands the risks and is willing to proceed. Wyatt Wagner MD Pager: [facility] [address] [place] [address], [address] [place] [phone] Office: I have seen and examined the patient and reviewed the H&P. There are no changes
[2022-10-29] MEDS: Cefazolin 2 GM in 0.9% Normal Saline 100 ML IV (07:27)
--- NOTE | 2022-10-29 07:30 | MASS_PTH ---
PATIENT: JUSTIN BRADLEY [place] [facility] [id number] AGE/SX: 27/F ROOM: RE10/29/[address]: Dr. Wyatt Wagner MD : 1995 BED: DIS: 10/29/2022 SPEC #: [id number] RECD: 10/29/22 10:10 STATUS: ESTEFANY RERashawn #: [id number] CARLIN: 10/29/22 07:[address]: Wyatt Wagner DEPT: SURGICAL PATHOLOGY RECD BY: Eliecer Matehw ENTERED: 10/29/22 12:50 SP TYPE: Mass OTHR DR: Dr. Silver Villalobos MD Tissues: Pelvis, NOS Procedures: Surgery Specimen Level IV HEADER OPERATION: Excision of endometrioma PRE-OP DIAGNOSIS: Pelvic mass TISSUE SUBMITTED: Endometrioma MICROSCOPIC DIAGNOSIS Endometrioma, excision: Endometrioma. JOYCE:fernie 10/30/2022 MICROSCOPIC DESCRIPTION Slides are reviewed. GROSS DESCRIPTION Received in fixative is one container labeled with the patient's name and designated endometrioma. The specimen consists of a piece of yellow, indurated nodule measuring 3.0 x 2.0 x 1.5 cm. Sections reveal congested cut surfaces. The entire specimen is submitted in two cassettes. / SJ:rg 10/29/2022 TC:5 CPT: 88181
[2022-10-29] MEDS: Bupivacaine Mpf 0.5% 30 ML VIAL (07:53)
--- NOTE | 2022-10-29 08:04 | PCM.OPRPT ---
Report of Operation Date of Procedure: 10/29/22 Pre-Operative Diagnosis: Endometrioma of the prior scar Post-Operative Diagnosis: Same Surgery/Procedure Performed:: Excision of endometrioma from prior scar Specimen's removed: Endometrioma Description of Procedure: The patient was brought back to the operating room and MAC anesthesia was induced. The lower abdomen was prepped and draped in usual sterile fashion. Her scar was injected overlying the mass. Incision was made with a scalpel and hemostasis was maintained using electrocautery. The mass seemed to be just under the fascia and the overlying fascia was excised along with the mass. The cavity was irrigated and suctioned and then the fascia was closed using interrupted 2-0 PDS sutures in a transverse fashion. The subcutaneous tissue was irrigated and the skin was closed with interrupted 4-0 Monocryl sutures. Steri-Strips and bandage were applied. Patient was taken to PACU in stable condition. Admit VTE Documentation VTE Mechan Device Prophylaxis: SCD's
--- NOTE | 2022-10-29 08:06 | DCINST_ITS ---
Discharge Instructions Diet Discharge Diet: Light diet - advance as tolerated Activity Discharge Activity: May Drive (While not on narcotics) and May Shower (Tomorrow) Lifting Restrictions: Under 15 pounds for 2 weeks, may return to light duty in 2-3 days Dressing / Incision Call your doctor if your incision/area has: Continuous Slow Oozing, Sudden Increased Bleeding, Increased Pain/ Swelling, Increased Redness, Foul Smelling Discharge and Swelling at the incision site Call your doctor if you observe: Fever of 101 or Higher Remove Dressing in: 2 days (Remove clear bandage in 2 days, remove Steri-Strips in 7 to 10 days.) Cleanse incision/area with: Soap & Water Follow Up Care Please Follow Up With: Wyatt Wagner MD When: Please call to schedule 2 week follow up appointment. [phone] Test Results: Test results from this visit will be discussed in further detail at your follow- up appointment, if applicable. Discharge Plan Admission Attending Provider: Wyatt Wagner Primary Care Provider: Silver Villalobos Instructions Additional Instructions / Restrictions: Ibuprofen and Tylenol for pain, oxycodone for breakthrough. Discharge Orders/Prescriptions Prescriptions: New oxycodone 5 mg tablet 5 - 10 mg PO Q6H PRN (Reason: pain) 5 Days Qty: 10 0RF No Action multivitamin [Multiple Vitamin] Tablet 1 tab PO DAILY ferrous sulfate [iron] 325 mg (65 mg iron) Tablet 325 mg PO PRN PRN (Reason: ANEMIA) biotin 10,000 mcg Tablet,Disintegrating 10,000 mcg PO DAILY levonorgestrel-ethinyl estrad [Altavera (28)] 0.15-0.03 mg tablet 1 tab PO DAILY Referrals / Follow Up: Silver Villalobos MD [Primary Care Provider] - Disposition Disposition (needs filled in before D/C Order can be placed): Home, Self Care
[2022-10-29] MEDS: Acetaminophen 325 MG Tablet 650 MG PO (08:48)
== END 2022-10-29 09:24 | disposition home or self-care (01) ==
LOC: SDC 05:48 → AC 05:48
PROVIDERS: PCP Family Medicine; Referring Provider Surgery; Visit Provider Surgery
PROC: (CPT 22900; principal; 2022-10-29 07:20)
DX: N80.C11 Endometriosis of the anterior abdominal wall, fascia and muscular layers (principal); Z87.891 Personal history of nicotine dependence
CPT/HCPCS: 22900; 00800; 88305; J7120; J2405

== ENCOUNTER → 2023-04-17 | Outpatient (CLI) | payer OTHER, MEDICAID, SELFPAY ==
--- NOTE | 2023-04-17 12:56 | US_ITS ---
STUDY: ULTRASOUND OF THE FEMALE PELVIS - COMPLETE REASON FOR EXAM: Female, 27 years old. Pelvic pain LMP: March 16, 2023. TECHNIQUE: Transabdominal TECHNICAL QUALITY: Adequate. COMPARISON: Comparison is made with prior study dated September 13, 2022. FINDINGS: The uterus is anteverted and is in a midline position. The uterus measures 9.2 cm x 5.5 cm x 3.9 cm. Normal uterine cervix. The endometrium measures 4.3 mm in thickness, and is heterogeneous (striated). There is no demonstrated endometrial mass. There is no demonstrated myometrial mass. I.U.D. - The patient does not have an I.U.D. The right ovary is visualized. The right ovary measures 3.7 cm x 2.4 cm x 2.7 cm. There is no right ovarian cyst or ovarian mass. There is no visualized right adnexal mass or complex lesion. There is normal arterial and normal venous vascularity. The left ovary is visualized. The left ovary measures 3.3 cm x 1.9 cm x 2.5 cm. There is no left ovarian cyst or ovarian mass. There is no visualized left adnexal mass or complex lesion. There is normal arterial and normal venous vascularity. There is no fluid in the cul-de-sac. The pre void volume of the bladder was 25 ml. US/Pelvic (Non ) IMPRESSION: Normal female pelvis. Electronically Signed: Rufus Reyes MD at 13:47 EDT ,
[2023-04-17 12:59] LABS: Absolute Lymphocyte Count 1.96 X10^3/uL (0.83-4.51); Absolute Neutrophil Count 5.3 X10^3/uL (2.0-7.7); Basophil# 0.04 X10^3/uL; Basophil% 0.5 % (0-1); Eosinophil# 0.03 X10^3/uL; Eosinophils% 0.4 % (0-5); Hematocrit 39.5 % (37-47); Lymphocyte # 1.96 X10^3/ul (0.83-4.51); Lymphocyte % 25.4 % (19-41); Mean Corp Hgb Conc 30.4 g/dL (32-36); Mean Corpuscular Hgb 24.1 pg (27.0-32.0); Mean Corpuscular Volume 79.5 fL (81-99); Mean Platelet Vol. 9.6 fl (6.2-12.0); Monocyte# 0.35 X10^3/uL; Monocyte% 4.5 % (0-10); NRBC Flagged by Analyzer 0 % (0-5); Neutrophil # 5.31 X10^3/uL (2.7-7.7); Neutrophil % 68.9 % (47-70); Platelet Count 335 K/mm3 (150-450); RBC Distribution Width CV 15.5 % (11.6-14.6); RBC Distribution Width SD 44.6 fl (35.1-43.9); Red Blood Count 4.97 M/mm3 (4.2-5.4); White Blood Count 7.7 K/mm3 (4.4-11.0)
== END | disposition home or self-care (01) ==
LOC: US 12:48
PROVIDERS: PCP Family Medicine; Referring Provider Obstetrics & Gynecology; Visit Provider Obstetrics & Gynecology
DX: R19.00 Intra-abdominal and pelvic swelling, mass and lump, unspecified site (principal); R10.2 Pelvic and perineal pain; N93.9 Abnormal uterine and vaginal bleeding, unspecified
CPT/HCPCS: 36415; 76856; 85025

== ENCOUNTER → 2023-05-16 | Outpatient (CLI) | payer OTHER, MEDICAID, SELFPAY ==
[2023-05-16 15:11] LABS: Hematocrit 37.7 % (37-47); Internal QC Validated? YES +Cl - CLEAR BKGD; Mean Corp Hgb Conc 29.2 g/dL (32-36); Mean Corpuscular Hgb 23.5 pg (27.0-32.0); Mean Corpuscular Volume 80.6 fL (81-99); Mean Platelet Vol. 9.7 fl (6.2-12.0); Platelet Count 367 K/mm3 (150-450); Pregnancy, Urine Negative Negative; RBC Distribution Width CV 15.5 % (11.6-14.6); RBC Distribution Width SD 45.1 fl (35.1-43.9); Red Blood Count 4.68 M/mm3 (4.2-5.4); White Blood Count 5.4 K/mm3 (4.4-11.0)
[2023-05-16 15:37] LABS: Magnesium 2.2 mg/dL (1.6-2.6)
== END | disposition home or self-care (01) ==
LOC: LAB 13:56
PROVIDERS: Anesthesiology; PCP Family Medicine; Referring Provider Obstetrics & Gynecology; Visit Provider Obstetrics & Gynecology
DX: Z01.818 Encounter for other preprocedural examination (principal)
CPT/HCPCS: 36415; 81025; 83735; 85027

== ENCOUNTER 2023-05-20 05:22 | Day surgery (SDC) | payer OTHER, MEDICAID, SELFPAY ==
[2023-05-20] VITALS (8 sets, daily range): BP systolic 104–138; BP diastolic 64–100; PULSE 60–104; RESP 12–18; TEMP 36.8–37.4; O2SAT 96–100; BMI 20.7
[2023-05-20 06:08] LABS: Internal QC Validated? YES +Cl - CLEAR BKGD; Pregnancy, Urine Negative Negative
[2023-05-20] MEDS: Scopolamine 1mg/72hr Patch 1 PATCH TD (06:14)
[2023-05-20] MEDS: Lactated Ringers 1,000 ML 40 ML IV ×2 (06:15→10:37)
[2023-05-20] MEDS: Magnesium 1 GM over 15 mins IV (06:16)
[2023-05-20] MEDS: Phenazopyridine 95 MG Tablet 190 MG PO (06:16)
[2023-05-20] MEDS: Gabapentin 600 MG Tablet PO (06:17)
[2023-05-20] MEDS: Celecoxib 200 MG Capsule 400 MG PO (06:17)
[2023-05-20] MEDS: Acetaminophen 500 MG Tablet 1000 MG PO (06:17)
[2023-05-20] MEDS: dexAMETHasone 4 MG/ML Vial 8 MG IV (06:18)
[2023-05-20 06:48] LABS: Bedside Glucose 83 mg/dL (74-106)
--- NOTE | 2023-05-20 07:30 | HYST_PTH ---
PATIENT: JUSTIN BRADLEY [place] [facility] [id number] AGE/SX: 27/F ROOM: RE05/20/[address]: Dr. Leah Benavides MD : 1995 BED: DIS: 05/20/2023 SPEC #: [id number] RECD: 05/20/23 10:48 STATUS: ESTEFANY RERashawn #: [id number] CARLIN: 05/20/23 07:[address]: Leah Benavides DEPT: SURGICAL PATHOLOGY RECD BY: Alfreda Aleman ENTERED: 05/20/23 11:54 SP TYPE: HYSTERECT OTHR DR: Dr. Silver Villalobos MD Tissues: Uterus, NOS Procedures: Surgery Specimen Level V HEADER OPERATION: ERAS, laparoscopic assisted vaginal hysterectomy, bilateral salpingectomy PRE-OP DIAGNOSIS: Endometrioma, pelvic pain, pelvic mass TISSUE SUBMITTED: Uterus, cervix, bilateral fallopian tubes MICROSCOPIC DIAGNOSIS Uterus, hysterectomy: Cervix - mild chronic inflammation. Endometrium - proliferative endometrium with recent hemorrhage. Myometrium - No pathologic change. Right fallopian tube - No pathologic change. Left fallopian tube - No pathologic change. AM:fernie 05/21/2023 MICROSCOPIC DESCRIPTION Slides are reviewed. GROSS DESCRIPTION Received in fixative is one container labeled with the patient's name and designated uterus. The specimen consists of a uterus with attached cervix, attached left fallopian tube and detached right fallopian tube. The uterus with cervix measures 0.5 x 7.0 x 3.8 cm and weighs 103 gm. The ectocervix is?unremarkable. The endocervical canal measures 4.3 cm in length and is grossly unremarkable. The triangular endometrial cavity measures 4.4 x 3.5 cm. The velvety, reddish-zuleta endometrium measures up?to 0.2 cm in thickness. The myometrium measures 2.2 cm in average thickness and is free of mass lesions. The right and left fallopian tubes are similar in appearance with average lengths of 4.0 cm and average diameter of 0.6 cm. Furniture Repairer sections are submitted in eight cassettes as follows: 1??anterior cervix, 2 - posterior cervix, 3 & 4 - anterior uterine wall, 5 & 6 - posterior uterine wall, 7 - right fallopian tube, 8 - left fallopian tube. / AM:fernie 05/20/2023 TC:5 CPT: 95941
--- NOTE | 2023-05-20 07:31 | HP.PCM_ITS ---
History and Physical Date of Admission: 05/20/23 Intake Vital Signs 03/31/2309:39 05/16/2313:17 05/16/2313:20 Height 5 ft 7 in 5 ft 7 in 5 ft 7 in Weight: 134 lb 8 oz 136 lb BMI 21.0 21.2 BP 120/79 111/71 Blood Pressure Location Lt brachial Rt brachial Position Sitting Sitting Pulse 83 Pulse Source Monitor Intake Visit Reasons: [facility] Batter Mixer Required: No Accompanied by: Self Is patient in pain?: No Allergies oxycodone Allergy (Intermediate, Verified 05/16/23 13:20) Itching Medications ferrous sulfate 325 mg (65 mg iron) tablet (iron) 325 mg PO PRN PRN ANEMIA 11/15/20 [History Confirmed 05/16/23] multivitamin 1 tab PO DAILY SUPPLEMENT 11/15/20 [History Confirmed 05/16/23] [facility] Medical History Alcohol use Back pain Encounter for screening for COVID-19 Former smoker History of IBS Hx of endometriosis Low iron Wears contact lenses Surgical History History of arthroscopy of right shoulder History of umbilical hernia repair (~02/2021) Hx of section Family History Grandmother Diabetes Social History Smoking Status: Former smoker how long ago did patient quit smokin years alcohol intake: never substance use type: does not use caffeine: Yes what type of physical activity do you participate in: none seatbelt use: always do you feel safe at home: Yes additional social history: - [employer] 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 Details: JUSTIN BRADLEY is a 27 year old who presents for preop visit. she is having pelvi pain and she has a history of endometriosis. Female Reproductive History Menopausal Symptoms: No night sweats History 2 Elective abortions Hx Para 2 Spontaneous abortions Hx # Term Pregnancies Ectopic pregnancies Hx # Pregnancies Multiple births # of living children 2 Past Pregnancies Del. Date Name GA/Weeks Outcome Route Bth Weight Infant Gen Labor Lgth Anesthesia Del Locatn Provider FOB 07/06/18 Mehul 41 live - full term NS VD Male epidural [facility] 08/23/19 Camila 39 live - full term C- section Female spinal [facility] Dr. Leah Benavides Delivery Date: 07/06/18 Last Updated by: Rica Vee 4th degree laceration Delivery Date: 08/23/19 Last Updated by: Lena Dangelo [facility]CS partial salpingectomy ROS Const Constitutional: Reports weight loss; Denies fatigue, night sweats or weight gain ENT ENT: Reports system reviewed and no additional complaints, except as documented Cardio Card: Denies chest pain Resp Resp: Denies cough or dyspnea GI GI: Reports as per HPI and constipation; Denies abdominal pain, nausea or vomiting : Denies nipple discharge, urinary frequency, urinary incontinence, urinary hesitancy, urinary urgency, vaginal discharge, vaginal dryness, vaginal odor or vaginal pruritus Musc Musc: Denies arthralgias, back pain or muscle weakness Skin Skin/Breast: Denies alopecia, change in hair, dry skin, breast mass, breast pain, breast skin changes or nipple discharge Neuro Neuro: Reports system reviewed and no additional complaints, except as documented Psych Psych: Reports system reviewed and no additional complaints, except as documented Endo Endo: Denies cold intolerance, excessive sweating, heat intolerance or polydipsia Nimesh/Lymph Hematologic/Lymphatic: Denies easy bleeding, Denies easy bruising and Denies lymphadenopathy Exam Const General: cooperative, healthy appearing, comfortable and no acute distress Orientation: alert [facility] Head: normal to inspection and normocephalic Ears: hearing grossly normal bilaterally and external ears normal Nose: external nose normal and nares normal Face and sinus: normal facial exam Neck Neck: normal visual inspection and no lymphadenopathy Thyroid: thyroid normal Chest Chest palpation & inspection: normal inspection of the chest Resp Effort & Inspection: normal respiratory effort Cardio Rate: regular rate GI Inspection: normal to inspection and non-distended Palpation: soft and no hepatosplenomegaly General: bladder normal to palpation External Female Exam: normal external appearance and normal appearance of the urethra Urethra: normal appearance of the urethra, normal palpation and no discharge Speculum Exam - Vagina: normal appearance of the vagina and normal vaginal discharge Speculum Exam - Cervix: normal appearance of the cervix and nontender Bimanual Exam- Vagina & Uterus: normal bimanual exam, uterine size normal, bladder normal to palpation, uterine shape normal, No tender, uterine mobility normal, consistency normal, normal palpation and displaced (anteriorly significantly tender, scar tissue present) Bimanual Exam- Adnexa, other: normal adnexae, adnexae mobile, no masses and normal Pelvic Support: normal Musc Other: gross motor intact no deficits, full bilateral strength Skin General: no rashes or lesions noted Neuro General: patient alert, patient awake, moves all extremities and no focal motor deficits Motor: muscle tone normal throughout Extrem General: normal to inspection and no pedal edema Psych Appearance: grossly normal Mental Status: mental status grossly normal Affect: normal affect Speech and Movement: speech and movement normal Coding Level of Care Code No Charge Diagnoses Endometrioma N80.129 Pelvic pain R10.2 Pelvic mass R19.00 Assessment and Plan Assessment and Plan (1) Endometrioma: Status: Acute Comment: calabretta removed from abdominal wall. (2) Pelvic pain: Status: Acute Comment: mid c section scar, tender, suspect adenomyosis and scar tissue. discussed LAVHBS. failed OCP. (3) Pelvic mass: Status: Acute Comment: US Plan After discussing the patient's diagnosis and treatment plan options, patient wishes to proceed with surgical management. I have discussed with the patient the risks, benefits, and alternatives of the procedure which include but are not limited to risks of anesthesia, bleeding, infection, possible damage to bowel, bladder, or surrounding vasculature which could lead to additional surgery to evaluate any complications. Patient agrees to procedure and wishes to proceed. ACOG/uptodate references given for additional information regarding procedure. UPDATE- I have seen the patient and performed any clinically relevant updates to the history and physical exam. Leah Benavides MD
[2023-05-20] MEDS: Cefazolin 2 GM in 0.9% Normal Saline (100mL Bag) 100 ML IV (07:38)
--- NOTE | 2023-05-20 07:46 | OP.PCM_ITS ---
Problems Associated Problem List Diagnoses (1) Endometrioma: (2) Pelvic pain: Report of Operation Date of Procedure: 05/20/23 Pre-Operative Diagnosis: see A/P Post-Operative Diagnosis: same Surgery/Procedure Performed:: LAVHBS cystoscopy Description of Surgical Findings:: pelvic congestion, dense vesicouterine adhesions Surgeon: Leah Benavides christian science nurse: Robles Bai Type of Anesthesia: General Special Medications: floseal Specimen's removed: uterus, tubes Drains: page Estimated Blood Loss (mL): 200 Fluids Replaced: crystalloid Description of Procedure: Patient received preoperative antibiotics and SCDs were on preoperatively. Patient was taken back to the operating room and placed in the dorsal lithotomy position. General anesthesia was induced and patient was prepped and draped in normal sterile fashion. Uterine manipulator was placed inside the uterus and Page catheter placed in the bladder. The umbilicus was grasped with towel clamps and an intraumbilical incision was made after injecting with quarter percent Marcaine and a Veress needle entered into the abdomen confirmed to be intra-abdominal with a low opening pressure. Abdomen was insufflated with CO2 gas and the Veress needle removed and the 5 mm trocar was placed under direct visualization without complication. Right and left lower quadrants were tra nsilluminated and injected with quarter percent Marcaine and 5 mm ports placed under direct visualization. Pelvis was well visualized see operative findings for additional information. Bilateral fallopian tubes were identified and transected with the LigaSure device across the mesosalpinx to the level of the utero-ovarian ligament which was also transected with the LigaSure device. The broad ligament was opened up by transecting the round ligament bilaterally and skeletonizing the uterine vessels bilaterally and creating a bladder flap using the LigaSure device. dense anterior vesicouterine adhesion were encountered and taken down with the ligasure. significant pelvic congestion was also seen with enlarged vessels present. The uterine arteries were transected bilaterally with good visualization of the bladder and the ureters were seen to be inferior lateral to the operative area. Attention was then paid to the vaginal portion of the procedure and the cervix was grasped with Augustin clamps and circumferentially injected with dilute vasopressin. A circumferential incision was made and the vaginal mucosa was mobilized off posteriorly and the cul-de-sac entered into sharply and a longneck speculum placed. The anterior cul-de-sac was then identified and entered into sharply. The uterosacral ligaments were clamped cut and suture ligated with 0 Monocryl bilaterally followed by the cardinal ligaments which were clamped cut and suture ligated bilaterally with 0 Monocryl. The uterus serially descended and was removed without difficulty. Pelvic sidewall pedicles were checked and noted to have excellent hemostasis. The vaginal mucosa was reapproximated incorporating the posterior peritoneum. This was reapproximated using 0 Vicryl [id number] sutures. Excellent hemo stasis was noted. due to the dense adhesiolysis performed, it was decided to perform a cystoscopy. the cystoscopy was then performed and bilateral ureteral strong spray was noted and the bladder was noted to have no abnormality or lesions seen. Page catheter was replaced and then attention paid to the abdominal portion of the procedure again. The pelvis and cul-de-sac were well visualized and no significant active bleeding noted but some raw areas were seen on the peritoneum and therefore floseal was applied. Pressure was taken down and the areas visualized and noted of excellent hemostasis. All ports were removed under direct visualization without complication and the abdomen was desufflated of air. The instruments were removed from the abdomen and the vaginal sweep was negative. Port sites on the abdomen were closed with 4-0 Monocryl interrupted sutures and Steri's and windows were applied. She was awoken and taken recovery in stable condition. Grafts/Implants Used: none Complications none Admit VTE Documentation VTE Present on Admission: No VTE Mechan Device Prophylaxis: SCD's VTE Pharm Prophylaxis ordered?: Yes Multi Select Codes Urinary/Genital Urinary/Genital CPT Codes: 77499 Cystoscopy and 16467 LAVH+BS/O <250gr Uterus
[2023-05-20] MEDS: Vasopressin 20 UNITS/ML Vial (08:57)
[2023-05-20] MEDS: Bupivacaine 0.25% 30 ML Vial (09:00)
--- NOTE | 2023-05-20 09:48 | DCINST_ITS ---
Discharge Instructions Diet Discharge Diet: No restrictions Activity May resume sexual activity in: 6 weeks Weight Bearing Status: Full weight bearing Dressing / Incision Call your doctor if your incision/area has: Continuous Slow Oozing, Sudden Increased Bleeding, Increased Pain/ Swelling, Increased Redness and Foul Smelling Discharge Call your doctor if you observe: Fever of 101 or Higher, Using more than 1 pad per hour, Shortness of breath, Chest pain and Uncontrolled pain Suture Line Care: Avoid Pulling/Pushing and Avoid Pinching/Bending Remove Dressing in: 1 week (if present) Cleanse incision/area with: Soap & Water and Keep Dressing Clean & Dry Follow Up Care Please Follow Up With: Leah Benavides MD When: Call to make an appointment with your doctor for a postop visit in 2 and 6 weeks. Test Results: Test results from this visit will be discussed in further detail at your follow- up appointment, if applicable. Discharge Plan Admission Attending Provider: Leah Benavides Primary Care Provider: Silver Villalobos Discharge Orders/Prescriptions Prescriptions: New hydrocodone-acetaminophen 5-325 mg tablet 1 tab PO Q6H PRN (Reason: pain) 5 Days Qty: 10 0RF naproxen [naproxen] 500 mg tablet 500 mg PO BID PRN PRN (Reason: Pain) Qty: 30 1RF No Action multivitamin [Multiple Vitamin] Tablet 1 tab PO DAILY ferrous sulfate [iron] 325 mg (65 mg iron) Tablet 325 mg PO PRN PRN (Reason: ANEMIA) Referrals / Follow Up: Silver Villalobos MD [Primary Care Provider] - Disposition Disposition (needs filled in before D/C Order can be placed): Home, Self Care
[2023-05-20] MEDS: Ondansetron 4 MG/2 ML Vial IV (10:17)
[2023-05-20] MEDS: HYDROcodone Bitartrate/Apap 5/325 Tablet PO (12:31)
[2023-05-20] MEDS: Ketorolac 30 MG/ML Syringe IV (12:31)
[2023-05-20 12:51] LABS: Hematocrit 34.9 % (37-47); Hemoglobin 10.5 g/dL (12.0-15.0); Mean Corp Hgb Conc 30.1 g/dL (32-36); Mean Corpuscular Hgb 24.1 pg (27.0-32.0); Mean Platelet Vol. 9.5 fl (6.2-12.0); Platelet Count 314 K/mm3 (150-450); RBC Distribution Width CV 15.3 % (11.6-14.6); RBC Distribution Width SD 44.4 fl (35.1-43.9); Red Blood Count 4.36 M/mm3 (4.2-5.4)
== END 2023-05-20 15:08 | disposition home or self-care (01) ==
LOC: SDC 05:23 → AC 05:25
PROVIDERS: PCP Family Medicine; Referring Provider Obstetrics & Gynecology; Visit Provider Obstetrics & Gynecology
PROC: 0UT9FZZ Resection of Uterus, Via Natural or Artificial Opening With Percutaneous Endoscopic Assistance (ICD-10-PCS; CPT 58552; principal; 2023-05-20 07:05)
DX: R10.2 Pelvic and perineal pain (principal); Z87.891 Personal history of nicotine dependence; R19.00 Intra-abdominal and pelvic swelling, mass and lump, unspecified site; Z87.19 Personal history of other diseases of the digestive system; Z87.42 Personal history of other diseases of the female genital tract; N80.129 Deep endometriosis of ovary, unspecified ovary
CPT/HCPCS: 58552; 52000; 00944; 81025; 82962; 85027; 86850; 86900; 86901; 88307; J7120; J2405; J3475; J3490

== ENCOUNTER 2023-10-08 07:26 | Emergency (ER) | payer OTHER, MEDICAID, SELFPAY ==
[2023-10-08 07:27] VITALS: BP 112/91; PULSE 96; RESP 16; TEMP 36.3; O2SAT 100; BMI 21.1
--- NOTE | 2023-10-08 07:44 | EKG12_ITS ---
Test Reason : FLANK PAIN Blood Pressure : / mmHG Vent. Rate : 081 BPM Atrial Rate : 081 BPM P-R Int : 152 ms QRS Dur : 064 ms QT Int : 356 ms P-R-T Axes : 080 083 075 degrees QTc Int : 413 ms Normal sinus rhythm Septal infarct , age undetermined Abnormal ECG Confirmed by SADIA TANNER, JAC ([id number]), manager editorial YUMIKO RAMEY ([id number]) on 10/13/2023 1:44:06 PM Referred By: Confirmed By:CESAR MCCULLOUGH MD
--- NOTE | 2023-10-08 07:47 | EX.ED.DYSGE1 ---
HPI History of Present Illness Chief Complaint: Abd Pain Informant: patient Narrative Narrative: Very pleasant 28-year-old female presenting to the emergency room with right upper quadrant abdominal pain and vomiting. Patient states for the past week she has intermittently had pain in the right upper quadrant of her abdomen rating towards the flank. She notes that the lower abdomen is tender but the pain seems most intense right upper quadrant. She states that yesterday morning after eating breakfast pain increased. She experienced nausea and vomiting on the way to work today. The pain has not moved from its location. She notes normal bowel movements and urination. No previous history of kidney stones. She has had prior partial hysterectomy and umbilical hernia repair (Dr. Wagner). Patient denies any fevers. [facility] Medical History Alcohol use Back pain Encounter for screening for COVID-19 Former smoker History of IBS Hx of endometriosis Low iron Wears contact lenses Home Medications hydrocodone-acetaminophen 5-325mg 5mg-325mg 1 tab PO Q6H PRN PRN Pain 3 days #12 TABLETS 10/08/23 [Rx Last Taken Unknown] ondansetron 4 mg disintegrating tablet 4 mg PO Q6H PRN PRN Nausea #15 tabs 10/08/23 [Rx Last Taken Unknown] Allergy/AdvReac Type Severity Reaction Status Date / Time oxycodone Allergy Intermediate Itching Verified 10/08/23 07:26 Family History Grandmother Diabetes Surgical History History of arthroscopy of right shoulder History of umbilical hernia repair (~02/2021) Hx of section S/P laparoscopic assisted vaginal hysterectomy (LAVH) Social History Smoking Status: Former smoker how long ago did patient quit smokin years alcohol intake: never substance use type: does not use caffeine: Yes what type of physical activity do you participate in: none seatbelt use: always do you feel safe at home: Yes 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 ED Constitutional Constitutional ED: Denies chills, fever(s) or weight loss Eyes Eyes: Denies change in vision or diplopia ENT ENT ED: Denies ear pain, rhinorrhea or sore throat Cardiovascular Cardiovascular: Denies chest pain, orthopnea, palpitations or racing heartbeat Respiratory/Chest Respiratory/Chest: Denies cough, dyspnea or orthopnea Gastrointestinal Gastrointestinal: Reports abdominal pain, nausea and vomiting; Denies diarrhea Genitourinary Genitourinary ED: Denies dysuria, hematuria or urinary frequency Musculoskeletal Musculoskeletal: Denies arthralgias or myalgias Integumentary Denies abscess or rash Neurologic Neurologic: Denies headache(s) or weakness Psychiatric Psychiatric: Denies anxiety, depression, suicidal ideation or suicidal thoughts Endocrine Endocrinology: Denies polydipsia, polyphagia or polyuria Allergic/Immunologic Allergic/Immunologic ED: Denies mouth swelling, tongue swelling or urticaria EXAM Physical Exam Const Vital Signs: 10/08/23 07:27 10/08/23 09:26 Temperature 97.4 F L Temperature Source Temporal Pulse Rate 96 91 Respiratory Rate 16 14 Blood Pressure 112/91 H 104/78 Blood Pressure Mean 98 86 Pulse Ox 100 100 Oxygen Delivery Method Room Air Room Air Positive well nourished and well developed General Appearance ED: well developed HEENT Reports normocephalic, head/scalp atraumatic and moist mucous membranes Eyes PERRL and EOMs intact bilaterally Neck no lymphadenopathy, supple and no JVD Resp normal respiratory effort and clear to auscultation bilaterally Cardio regular rate, regular rhythm and no murmurs GI Auscultation: normoactive bowel sounds Palpation: soft, tender other (Diffuse tenderness of the abdomen more pronounced in the right upper quadrant.) and guarding Back/Spine no CVA tenderness and normal ROM Extremity normal to inspection General Extremety ED: Negative for edema General Extremity: Negative for edema Neuro oriented x3 and CN's II-XII intact bilaterally Sensorium / Orientation: alert Motor Exam: strength 5/5 throughout Psych mental status grossly normal Mood & Affect: Negative for depressed or tearful Skin no rashes or lesions noted and no wounds MDM MDM MDM Narrative Medical decision making narrative: IV was established the patient received morphine Zofran and fluids. White count 4.6 with a hemoglobin of 12 platelet count of 354. BMP was normal glucose 86 creatinine 0.78 normal LFTs normal lipase urinalysis normal CT the abdomen pelvis did not show any acute findings. I do not feel that the patient's history being constant would be consistent with biliary colic at this time. however not seeing anything obvious that I can feel strongly would explain her pain. This point I will have her take Zofran for nausea hydrocodone for pain have her follow-up with primary care in 1 to 2 days. Return if symptoms are worsening or changing. Patient is comfortable with this plan. History & Record Review Discussion w/independent historian: Patient Lab Data Attestation: I reviewed the patient's lab results. Labs: Laboratory Results - last 24 hr 10/08/23 08:05 WBC 4.6 RBC 5.09 Hgb 12.0 Hct 40.0 MCV 78.6 L MCH 23.6 L MCHC 30.0 L RDW Std Deviation 47.3 H RDW Coeff of Geronimo 16.8 H Plt Count 354 MPV 8.9 Immature Gran % (Auto) 0.400 Neut % (Auto) 61.2 Lymph % (Auto) 28.6 Bracken % (Auto) 7.8 Eos % (Auto) 0.9 Baso % (Auto) 1.1 H Absolute Neuts (auto) 2.8 Absolute Lymphs (auto) 1.32 Nucleated RBC % 0 Sodium 138 Potassium 3.6 Chloride 106 Carbon Dioxide 29.0 Anion Gap 3 L BUN 9 Creatinine 0.78 Estim Creat Clear Calc 104.73 Est GFR (MDRD) Af Amer 114 Est GFR (MDRD) Non-Af 94 BUN/Creatinine Ratio 11.5 Glucose 86 Calcium 9.0 Total Bilirubin 0.50 Direct Bilirubin 0.13 AST 17 ALT 19 Alkaline Phosphatase 59 Total Protein 7.1 Albumin 3.9 Globulin 3.2 Lipase 28 Urine Color Yellow Urine Clarity Clear Urine pH 6.0 Ur Specific [place] 1.020 Urine Protein 30 H Urine Glucose (UA) Normal Urine Ketones 5 H Urine Occult Blood Negative Urine Nitrite Negative Urine Bilirubin Negative Urine Urobilinogen 1 H Ur Leukocyte Esterase 25 H Urine RBC 0-5 SEEN Urine WBC 0-5 SEEN Ur Squamous Epith Cells 0-5 SEEN Urine Bacteria 0 SEEN Urine Mucus 0 SEEN Radiography Diagnostic Testing: Clinical Impression(s) from Imaging Studies Abdomen/Pelvis CT 10/08/23 08:55 IMPRESSION: Diastases of the rectus abdominal musculature. No rachel herniation is seen. Follicles are seen in the right ovary. Electronically Signed: Rufus Reyes MD at 9:45 EDT , EKG Initial EKG: Attestation: I personally reviewed and interpreted this EKG as follows: Comments: Normal sinus rhythm ventricular rate of 81 bpm Discharge Plan Triage Chief Complaint: Abd Pain ED Provider: Tam Ledbetter Dx/Rx/DC Orders Clinical Impression: Abdominal pain, Vomiting Instructions: Abdominal Pain, ED Vomiting (Adult) Prescriptions: New hydrocodone-acetaminophen [hydrocodone-acetaminophen] 5-325 mg tablet 1 tab PO Q6H PRN PRN (Reason: Pain) 3 Days Qty: 12 0RF ondansetron [ondansetron] 4 mg tablet,disintegrating 4 mg PO Q6H PRN PRN (Reason: Nausea) Qty: 15 0RF Primary Care Provider: Silver Villalobos Referrals: Silver Villalobos MD [Primary Care Provider] - 2 Days Disposition Disposition: Home, Self Care
[2023-10-08] MEDS: Morphine 4 MG/ML Syringe IV (08:02)
[2023-10-08] MEDS: 0.9% Normal Saline (1000mL) 1,000 ML 1000 ML IV (08:02)
[2023-10-08] MEDS: Ondansetron 4 MG/2 ML Vial IV (08:02)
[2023-10-08 08:17] LABS: Bacteria 0 SEEN /hpf (None Seen); Mucous, Urine 0 SEEN /hpf (<or=2+)
[2023-10-08 08:23] LABS: Absolute Lymphocyte Count 1.32 X10^3/uL (0.83-4.51); Absolute Neutrophil Count 2.8 X10^3/uL (2.0-7.7); Basophil# 0.05 X10^3/uL; Basophil% 1.1 % (0-1); Eosinophil# 0.04 X10^3/uL; Eosinophils% 0.9 % (0-5); Lymphocyte # 1.32 X10^3/ul (0.83-4.51); Lymphocyte % 28.6 % (19-41); Mean Corpuscular Hgb 23.6 pg (27.0-32.0); Mean Corpuscular Volume 78.6 fL (81-99); Mean Platelet Vol. 8.9 fl (6.2-12.0); Monocyte# 0.36 X10^3/uL; Monocyte% 7.8 % (0-10); NRBC Flagged by Analyzer 0 % (0-5); Neutrophil # 2.82 X10^3/uL (2.7-7.7); Neutrophil % 61.2 % (47-70); Platelet Count 354 K/mm3 (150-450); RBC Distribution Width CV 16.8 % (11.6-14.6); RBC Distribution Width SD 47.3 fl (35.1-43.9); Red Blood Count 5.09 M/mm3 (4.2-5.4); White Blood Count 4.6 K/mm3 (4.4-11.0)
[2023-10-08 08:24] LABS: Color, Urine Yellow (Yellow); Glucose, Dipstick Normal (Normal); Ketone-Dipstick 5 mg/dl (Negative); Leukocyte Esterase-Dipstick 25 /ul (Negative); Nitrite-Dipstick Negative (Negative); Occult Blood-Urine Negative /ul (Negative); Protein-Dipstick 30 mg/dl (Negative); Urine Bilirubin Dipstick Negative (Negative); Urine Clarity Clear (Clear); Urine Urobilinogen 1 mg/dl (Normal)
[2023-10-08 08:32] LABS: Squamous Epithelial Cells - UA 0-5 SEEN /hpf (5-10); White Blood Cells 0-5 SEEN /hpf (0-5)
[2023-10-08 08:33] LABS: Red Blood Cells-Urine 0-5 SEEN /hpf (0-5)
[2023-10-08 08:38] LABS: AST(SGOT) 17 U/L (15-37); Alanine Aminotransfer ALT/SGPT 19 U/L (13-56); Albumin, Serum 3.9 g/dL (3.2-5.0); Alkaline Phosphatase 59 U/L (45-117); Anion Gap 3 (5-15); BUN 9 mg/dL (7-18); BUN/Creat Ratio 11.5 RATIO (10-20); Bilirubin, Direct 0.13 mg/dL (0.00-0.30); Chloride 106 mmol/L (98-107); Creatinine, Serum 0.78 mg/dL (0.55-1.02); EST Glomerular Filtration Rate 94 mL/min (>60); Est Glom Filt Rate - Afr Amer 114 mL/min (>60); Estimated Creatinine Clearance 104.73 ml/min; Globulin 3.2 g/dL (2.2-4.2); Glucose 86 mg/dL (74-106); Lipase 28 U/L (13-75); Potassium 3.6 mmol/L (3.5-5.1); Protein, Total 7.1 g/dL (6.4-8.2); Sodium Level 138 mmol/L (136-145)
--- NOTE | 2023-10-08 08:55 | CT_ITS ---
STUDY: CT ABDOMEN AND PELVIS WITH CONTRAST REASON FOR EXAM: Female, 28 years old. Abdominal pain RADIATION DOSAGE (If Supplied By Facility): CTDIvol = ( 9.80 ) mGy, DLP = ( 310.33 ) mGycm TECHNIQUE: Transaxial images were obtained from the dome of the diaphragm to the symphysis pubis without oral contrast. IV 100mL Isovue-300 was administered. Sagittal and coronal images were reconstructed. Individualized dose optimization techniques were used for this CT. COMPARISON: Comparison is made with prior study dated October 19, 2019. FINDINGS: The visualized lung bases are unremarkable. The visualized portions of the heart are within normal limits. Normal liver. Normal gallbladder and extrahepatic biliary system. Normal spleen. Normal pancreas. Normal bilateral adrenal glands. Normal right kidney. Normal left kidney. Normal visualized stomach. Normal small intestine. Normal colon. The appendix is visualized and appears normal. Normal abdominal aorta. Normal inferior vena cava. Normal retroperitoneum. Normal urinary bladder. Follicles are seen in the right ovary. Stable diastases of the rectus abdominal muscles. No evidence of herniation. Normal osseous structures. CT/Abdomen/Pelvis W IV Cont ONLY IMPRESSION: Diastases of the rectus abdominal musculature. No rachel herniation is seen. Follicles are seen in the right ovary. Electronically Signed: Rufus Reyes MD at 9:45 EDT ,
[2023-10-08 09:26] VITALS: BP 104/78; PULSE 91; RESP 14; O2SAT 100
[2023-10-08 10:39] VITALS: BP 132/5; PULSE 69; RESP 16; TEMP 36.8; O2SAT 99
== END 2023-10-08 10:44 | disposition home or self-care (01) ==
PROVIDERS: Emergency Provider Emergency Medicine; PCP Family Medicine; Visit Provider Emergency Medicine
DX: R10.11 Right upper quadrant pain (principal); R11.10 Vomiting, unspecified; Z87.891 Personal history of nicotine dependence; Z90.710 Acquired absence of both cervix and uterus
CPT/HCPCS: 74177; 80048; 80076; 81001; 83690; 85025; 93005; 96361; 96374; 96375; 99282; J7030; Q9967; A4216; J2405

== ENCOUNTER → 2024-02-12 | Outpatient (CLI) | payer OTHER, MEDICAID, SELFPAY ==
[2024-02-12 16:11] LABS: Platelet Count 270 K/mm3 (150-450); RET-HE 29.4 pg (30-35)
[2024-02-12 16:38] LABS: Vitamin B12 272 pg/mL (211-911)
[2024-02-12 17:03] LABS: Ferritin 8 ng/mL (8-252); Iron Binding Capacity,Total 376 ug/dL (250-450); LDH 121 U/L (84-246)
== END | disposition home or self-care (01) ==
LOC: LAB 15:23
PROVIDERS: PCP Family Medicine; Referring Provider Internal Medicine Gastroenterology; Visit Provider Internal Medicine Gastroenterology
DX: D50.9 Iron deficiency anemia, unspecified (principal)
CPT/HCPCS: 36415; 82607; 82728; 82746; 82784; 83010; 83021; 83516; 83550; 83615; 84165; 84443; 85045; 85660; 86003; 86005; 86225; 86235; 86255; 86256; 86334

== ENCOUNTER 2024-02-26 06:11 | Day surgery (SDC) | payer OTHER, SELFPAY ==
[2024-02-26] VITALS (9 sets, daily range): BP systolic 96–102; BP diastolic 65–72; PULSE 16–79; RESP 16–17; TEMP 36.2–36.6; O2SAT 97–100; BMI 20.5
[2024-02-26] MEDS: Lactated Ringers 1,000 ML 15 ML IV (06:32)
--- NOTE | 2024-02-26 06:50 | PRE.ANES_ITS ---
ASA Classification* ASA Classification ASA Classification: 2 Assessment & Plan Anesthesia* Anesthesia Assessment Anesthesia Assessment: Discussed sedation and/or anesthesia options, risks, benefits, and alternatives with patient/parents/legal guardian/POA. Questions invited. The patient/parents/legal guardian/POA seems to understand and agrees to proceed with anesthesia plan. Reviewed the physical assessment, medical history, allergy history and patient home medications list prior to surgery/procedure/anesthetic and documented any changes. Performed airway and anesthesia risk assessments. Anesthesia Type Anesthesia Type: MAC (see written pre anesthesia record for full assessment) Anesthesia Focused Assessment* Temperature: 97.9 F Pulse Rate: 63 Blood Pressure: 102/72 Respiratory Rate: 17 Pulse Ox: 100 Airway Assessment Mouth opens: >3 cm Mallampati Score: II Focused Labs Anesthesia Preop lab: CBC WBC 6.6 K/mm3 (4.4-11.0) 10/21/23 09:12 RBC 5.08 M/mm3 (4.2-5.4) 10/21/23 09:12 Hgb 11.8 g/dL (12.0-15.0) L 10/21/23 09:12 Hct 39.8 % (37-47) 10/21/23 09:12 Plt Count 325 K/mm3 (150-450) 10/21/23 09:12 CHEMISTRY Potassium 4.1 mmol/L (3.5-5.1) 10/21/23 09:12 Sodium 137 mmol/L (136-145) 10/21/23 09:12 Magnesium 2.2 mg/dL (1.6-2.6) 05/16/23 14:03 Phosphorus 3.6 mg/dL (2.5-4.9) 10/21/23 09:12 BUN 9 mg/dL (7-18) 10/21/23 09:12 Creatinine 0.80 mg/dL (0.55-1.02) 10/21/23 09:12 Glucose 84 mg/dL (74-106) 10/21/23 09:12 POC Glucose 83 mg/dL (74-106) 05/20/23 06:07 TSH 1.710 uIU/mL (0.358-3.740) 02/12/24 15:33 COAG PT 12.4 SECONDS (11.7-14.9) 06/05/18 17:30 HCG, Quant 7969 mIU/mL (1-3) H 12/31/18 14:24 Urine Test Negative Negative 05/20/23 06:00 Pre-Assessment Diagnosis/Proposed Procedure Planned Operative Procedure(s): EGD Anesthesia History Anesthesia History - senior software engineer analytics: Anesthesia History - senior software engineer analytics Hx Hospitalization No 02/24/24 13:43 Any Problems With Anesthesia No 02/24/24 13:43 Cholinesterase deficiency No 02/24/24 13:43 You/Your Family Experience No 02/24/24 13:43 fever (hyperthermia) with Relationship Recent Exposure to Contagious No 02/26/24 06:29 Disease Does patient have nerve No 02/24/24 13:43 stimulator Patient instructed to have device shut off --Does patient have Pacemaker No 02/26/24 06:29 or ICD? When Was Last Pacemaker Check QUESTION #4 FULL TEXT: You/Your Family Experience fever (hyperthermia) with Anesthesia Last Oral Intake Last Oral intake: Last Oral Intake NPO since 00:00 02/26/24 06:29 Meds taken in AM with sips of water? Meds patient instructed to take am of surgery PONV PONV - senior software engineer analytics: PONV - senior software engineer analytics Female Yes 02/24/24 13:43 HX of Motion Sickness No 02/24/24 13:43 HX of N/V After Surgery No 02/24/24 13:43 Non-Smoker Yes 02/24/24 13:43 Duration of Surgery greater No 02/24/24 13:43 than 60 minutes Number of Risk Factors 2 02/24/24 13:43 PONV Score Moderate Risk 02/24/24 13:43 Height & Weight Height & Weight: Anesthesia: Height & Weight Height 5 ft 7 in 02/26/24 06:29 Weight: 59.5 kg 02/26/24 06:29 Body Mass Index (BMI) 20.5 02/26/24 06:29 Respiratory Assessment Respiratory Assessment - senior software engineer analytics: Respiratory Tract Infection Hx - senior software engineer analytics Hx Respiratory Tract Infection No 02/24/24 13:43 STOP Sleep Apnea STOP Sleep Apnea - senior software engineer analytics: STOP Sleep Apnea - senior software engineer analytics Hx Hypertension No 02/24/24 13:43 Hx Sleep Apnea No 02/24/24 13:43 CPAP BIPAP Do you snore loudly (louder No 02/24/24 13:43 than talking or can be heard Do you often feel tired/ No 02/24/24 13:43 fatigued/ sleepy during daytime? Has anyone observed you stop No 02/24/24 13:43 breathing during sleep? STOP Results Negative 02/24/24 13:43 QUESTION #5 FULL TEXT : Do you snore loudly (louder than talking or can be heard through closed doors)? Tobacco Use History Tobacco Use History - senior software engineer analytics: Tobacco Use History - senior software engineer analytics Tobacco Use Smoking Status Former smoker 02/24/24 13:43 Hx Tobacco Use No 02/24/24 13:43 Years Smoking Packs Smoked per Day Smoking Cessation Date was No - quit smoking greater 02/24/24 13:43 within the last 15 years than 15 years ago Hx Smoking Cessation Date 06/16/16 02/24/24 13:43 Hx Smoking Cessation Counseling Hematologic Medial History Hematologic Hx - senior software engineer analytics: Hematologic Medical Hx - professional skater Hx of Blood Transfusion No 02/24/24 13:43 Hx of Transfusion in last 3 No 02/24/24 13:43 Months Date of Last Transfusion (if within last 3 months) Ever experience any problems No 02/24/24 13:43 with transfusion(s)? Specify any problems Hx of Preganancy in last 3 No 02/24/24 13:43 Months Nurse Filling Out Transfusion VCHRISTIN 02/24/24 13:43 & Questions: Date: 02/24/24 02/24/24 13:43 Time: 13:44 02/24/24 13:43 Patient unable to answer at this time (ie. confused, unrespo /Reproduction History /Reproductive History - senior software engineer analytics: /Reproductive Hx- senior software engineer analytics Hx Now No 02/24/24 13:43 Gestational Age (in weeks): EDC: Hx Hx Para Hx Section SAB No 02/24/24 13:43 Active Medications Active Medications: Current Medications Generic Name Dose Route Start Last Admin Trade Name Freq PRN Reason Stop Dose Admin Lactated Ringer's 1,000 mls @ 15 mls/hr 02/26/24 06:30 02/26/24 06:32 IV 15 mls/hr .Q48H MAURA Administration PFSH Medical History Hx of endometriosis Back pain History of IBS Encounter for screening for COVID-19 Wears contact lenses Alcohol use Low iron Former smoker Home Medications ?Medication ?Instructions ?Recorded ?Last Taken ?Type NK 02/24/24 Unknown History Allergy/AdvReac Type Severity Reaction Status Date / Time oxycodone Allergy Intermediate Itching Verified 02/26/24 06:18 Family History Grandmother Diabetes Surgical History S/P laparoscopic assisted vaginal hysterectomy (LAVH) History of umbilical hernia repair (~02/2021) Hx of section History of arthroscopy of right shoulder Social History Smoking Status: Former smoker how long ago did patient quit smokin years alcohol intake: never substance use type: does not use caffeine: Yes what type of physical activity do you participate in: none seatbelt use: always do you feel safe at home: Yes 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
--- NOTE | 2024-02-26 07:00 | IMM_PTH ---
PATIENT: JUSTIN BRADLEY LOC: EN U#:[id number] AGE/SX: 28/F ROOM: RE02/26/[address]: Dr. Zackary Anderson DO : 1995 BED: DIS: 02/26/2024 SPEC #: [id number] RECD: 02/26/24 13:48 STATUS: ESTEFANY REQ #: [id number] CARLIN: 02/26/24 07:[address]: Zackary Anderson DEPT: IMMUNOHISTOCHEMISTRY RECD BY: Beau Borja ENTERED: 02/26/24 13:48 SP TYPE: IMMUNO OTHR DR: Dr. Silver Villalobos MD Tissues: C - Gastric mucous membrane Procedures: H Pylori (initial) PHYSICIAN & INSTITUTION [place] [id number] SPECIMEN INFORMATION: Tissue Source: C- Gastric body biopsy Clinical Info: Dysphagia, anemia Specimen Number: [id number] CPT code: 72568 METHODOLOGY: Deparaffinized sections of prefer/formalin-fixed tissue or PAP/DQ stained slides are incubated with monoclonal/polyclonal antibodies/oligonucleotide probes. Localization is made via biotin free immunoperoxidase method. Appropriate controls are performed and reacted as expected. Results on target cell population are indicated in the following table: RESULTS: ANTIBODY / CLONE RESULT Block C H Pylori (polyclonal) negative These tests were developed and their performance characteristics determined by [facility]. They may not have been cleared or approved by the U.S. Food and Drug Administration. The FDA has determined that such clearance or approval is not necessary. The above immunohistochemical/dualISH markers are ordered and reviewed by the Pathologist. INTERPRETATION: C. Gastric body, biopsy: Negative for Helicobacter pylori organisms. AM 02/27/2024
--- NOTE | 2024-02-26 07:00 | HP.PCM_ITS ---
History and Physical Date of Admission: 02/26/24 JUSTIN BRADLEY, is a 28 F who presents to the office today for initial consult. *BGI established 8.29.24 pt reports that she feels like there is something stuck in the back of her throat. pt reports she has had this feeling since last Friday when she was eating steak. Pt reports bloating when she is constipated; reports bowels alternate between constipation and diarrhea. ROS Const Constitutional: No fatigue, fever(s) or weight change ENT ENT: Positive for difficulty swallowing Gastro GI: Positive for abdominal pain, bloating, change in bowel habits, difficulty swallowing, excessive flatus and nausea/dyspepsia; No belching, change in stool character, coffee ground emesis, constipation, cramping, diarrhea, heartburn, feeling full early, incontinent of stools, Vomiting blood/hematemesis, Blood in stool, loose stools, Black,tarry stools, pain with swallowing, vomiting or other Musc Musculoskeletal: No joint pain Skin Skin: No yellowing of the eye or itchy eyes Psych Psychiatric: Positive for anxiety and No depression Endo Endocrine: No fatigue or weight change Aller/Imm Allergy/Immunologic: No itchy eyes Nimesh/Lymp Hematologic/Lymphatic: No easy bleeding or easy bruising Exam Const General: cooperative, healthy appearing, comfortable and no acute distress Nutritional Appearance: average body habitus and well nourished Orientation: alert, awake and oriented x3 HENMT Head: normal to inspection Ears: external ears normal Nose: external nose normal Eyes General: appearance normal, both eyes and all related structures Neck Neck: normal visual inspection Chest Chest palpation & inspection: normal inspection of the chest Resp Effort & Inspection: normal respiratory effort, able to speak in complete sentences and symmetric chest movement Cardio Rate: regular rate Pulses: radial pulses present GI Inspection: normal to inspection Skin General: no rashes or lesions noted Neuro General: patient alert, patient awake, patient oriented x3 and gait normal Cognition: normal cognition Speech: speech normal Gait: normal gait Motor: muscle tone normal throughout Sensory Exam: no sensory deficits noted Extrem General: normal to inspection Psych Appearance: grossly normal Mental Status: mental status grossly normal Mood: congruent mood Affect: normal affect Speech and Movement: speech and movement normal Attitude: cooperative Thought Process: normal Thought Content: normal Judgment: judgment good Assessment and Plan Assessment and Plan (1) Dysphagia: Plan: The differential diagnosis for esophageal dysphagia does include erosive esophagitis with Schatzki's ring, eosinophilic esophagitis, esophageal web, hiatal hernia, infectious esophagitis. She should undergo an upper endoscopy to evaluate upper GI tract. (2) Anemia: Status: Resolved Qualifiers: Anemia type: iron deficiency Iron deficiency anemia type: unspecified iron deficiency Qualified Code(s): D50.9 - Iron deficiency anemia, unspecified Plan: She does have iron deficiency anemia characterized by low MCV. Differential diagnosis does include the Asimia minor sickle cell anemia, iron deficiency ane valery and anemia chronic disease. 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 We will send celiac profile, ESR, CRP, RADHA comprehensive, ANCA. Orders: Orders Hemoglobinopathy Profile Today D50.9 - Iron deficiency anemia, unspecified OFI Hemoglobin Electrophoresis Today D50.9 - Iron deficiency anemia, unspecified Celiac AB,Comprehensive Today D50.9 - Iron deficiency anemia, unspecified RADHA Comprehensive Panel Today D50.9 - Iron deficiency anemia, unspecified ANCA Today D50.9 - Iron deficiency anemia, unspecified Allergen, Food Profile 14 Today D50.9 - Iron deficiency anemia, unspecified Ferritin Today D50.9 - Iron deficiency anemia, unspecified LILIAN + Protein Elect, Serum Today D50.9 - Iron deficiency anemia, unspecified Retic Panel Count Today D50.9 - Iron deficiency anemia, unspecified Haptoglobin Today D50.9 - Iron deficiency anemia, unspecified Iron Binding Capacity,Total Today D50.9 - Iron deficiency anemia, unspecified LDH Today D50.9 - Iron deficiency anemia, unspecified Vitamin B12 Today D50.9 - Iron deficiency anemia, unspecified Folates, (Folic Acid) Today D50.9 - Iron deficiency anemia, unspecified Thyroid Stim Hormone (TSH) Today D50.9 - Iron deficiency anemia, unspecified I have examined the patient and the H&P has been reviewed. There are no clinical changes since date of exam.
--- NOTE | 2024-02-26 07:00 | EGD_PTH ---
PATIENT: JUSTIN BRADLEY LOC: EN U#:[id number] AGE/SX: 28/F ROOM: RE02/26/[address]: Dr. Zackary Anderson DO : 1995 BED: DIS: 02/26/2024 SPEC #: [id number] RECD: 02/26/24 11:50 STATUS: ESTEFANY NICA #: [id number] CARLIN: 02/26/24 07:[address]: Zackary Anderson DEPT: SURGICAL PATHOLOGY RECD BY: Eliecer Mathew ENTERED: 02/26/24 13:53 SP TYPE: EGD BIOPSY LORENZA DR: Dr. Silver Villalobos MD Tissues: A - Esophagus, NOS B - Duodenum, NOS C - Gastric mucous membrane Procedures: Surgery Specimen Level IV HEADER OPERATION: EGD with biospies PRE-OP DIAGNOSIS: Dysphagia, anemia TISSUE SUBMITTED: A- Random esophagus, B- Duodenum, C- Gastric body MICROSCOPIC DIAGNOSIS A. Esophagus, random biopsy: Focal changes of reflux. See comment. B. Duodenum, biopsy: Chronic duodenitis. See comment. C. Gastric body, biopsy: Chronic gastritis. See comment. DEEDEE/ 02/27/2024 COMMENT A. Eosinophils number <1 per high power field. Clinical correlation is suggested. B. The mature majority of the villi are not flattened. Clinical correlation is suggested. C. The results of immunohistochemistry for Helicobacter pylori will be reported separately ([id number]). MICROSCOPIC DESCRIPTION Slides are reviewed. GROSS DESCRIPTION A. Received in fixative is one container labeled with the patient's name and designated Random esophagus . The specimen consists of multiple irregular fragments of light zuleta soft tissue that in aggregate measure 1.0 x 0.6 x 0.1 cm. The specimen is totally submitted in one cassette. B. Received in fixative is one container labeled with the patient's name and designated Duodenum. The specimen consists of multiple irregular fragments of light zuleta soft tissue that in aggregate measure 1.5 x 0.5 x 0.1 cm. The specimen is totally submitted in one cassette. C. Received in fixative is one container labeled with the patient's name and designated Gastric body. The specimen consists of two irregular fragments of light zuleta soft tissue that in aggregate measure 0.8 x 0.3 x 0.1 cm. The specimen is totally submitted in one cassette. SJAvamr 02/26/2024 TC:3 CPT:07637h5
--- NOTE | 2024-02-26 07:43 | OP.CCLET_ITS ---
02/26/2024 Silver Villalobos Md Re : Upper GI endoscopy procedure for Jessica Lee Dear Wilfredo This procedure was performed on February. My impressions and recommendations are as follows: Impressions : - Esophageal mucosal changes consistent with eosinophilic esophagitis. - Erythematous mucosa in the gastric body. Biopsied. - Nodular mucosa in the entire examined duodenum. Biopsied. - Biopsies were taken with a cold forceps for evaluation of eosinophilic esophagitis. Recommendations : - Discharge patient to home. - Resume previous diet. - Continue present medications. - Await pathology results. My findings are described in the full procedure note, which is enclosed. If I can be of further assistance, please feel free to contact me at . Sincerely, Zackary Anderson, 02/26/2024 7:42:59 AM This report has been signed electronically.
--- NOTE | 2024-02-26 07:43 | OP.EGD_ITS ---
Patient Name: Jessica Lee Procedure Date: 02/26/2024 7:24 AM Date of : 1995 Age: 28 Procedure: Upper GI endoscopy Indications: Epigastric abdominal pain, Dyspepsia Providers: Zackary Anderson DO Medicines: Monitored Anesthesia Care Patient Profile: This is a 28 year old female. Refer to note in patient chart for documentation of history and physical. Patient has symptoms of chronic dysphagia and chronic nausea. Complications: No immediate complications. Procedure: Pre-Anesthesia Assessment: - Prior to the procedure, a History and Physical was performed, and patient medications and allergies were reviewed. The patient is competent. The risks and benefits of the procedure and the sedation options and risks were discussed with the patient. All questions were answered and informed consent was obtained. Patient identification and proposed procedure were verified by the physician in the pre-procedure area. Mental Status Examination: alert and oriented. Airway Examination: normal oropharyngeal airway and neck mobility. Respiratory Examination: clear to auscultation. CV Examination: normal. Prophylactic Antibiotics: The patient does not require prophylactic antibiotics. Prior Anticoagulants: The patient has taken no anticoagulant or antiplatelet agents. ASA Grade Assessment: II - A patient with mild systemic disease. After reviewing the risks and benefits, the patient was deemed in satisfactory condition to undergo the procedure. The anesthesia plan was to use monitored anesthesia care (MAC). Immediately prior to administration of medications, the patient was re-assessed for adequacy to receive sedatives. The heart rate, respiratory rate, oxygen saturations, blood pressure, adequacy of pulmonary ventilation, and response to care were monitored throughout the procedure. The physical status of the patient was re-assessed after the procedure. After obtaining informed consent, the endoscope was passed under direct vision. Throughout the procedure, the patient's blood pressure, pulse, and oxygen saturations were monitored continuously. The Endoscope was introduced through the mouth, and advanced to the second part of duodenum. The upper GI endoscopy was accomplished without difficulty. The patient tolerated the procedure well. Scope In: 7:33:47 AM Scope Out: 7:38:20 AM Total Procedure Duration Time 0 hours 4 minutes 33 seconds Findings: Mucosal changes including longitudinal furrows and small-caliber esophagus were found in the upper third of the esophagus and in the middle third of the esophagus. Esophageal findings were graded using the Eosinophilic Esophagitis Endoscopic Reference Score (EoE-EREFS) as: Edema Grade 1 Present (decreased clarity or absence of vascular markings), Rings Grade 0 None (no ridges or rings seen), Exudates Grade 0 None (no white lesions seen), Furrows Grade 1 Mild (vertical lines without visible depth) and Stricture none (no stricture found). Biopsies were obtained from the proximal and distal esophagus with cold forceps for histology of suspected eosinophilic esophagitis. Verification of patient identification for the specimen was done. Estimated blood loss was minimal. Localized moderately erythematous mucosa without bleeding was found in the gastric body. Biopsies were taken with a cold forceps for histology. Verification of patient identification for the specimen was done. Estimated blood loss was minimal. Biopsies were taken with a cold forceps for Helicobacter pylori testing. Verification of patient identification for the specimen was done. Estimated blood loss was minimal. Diffuse nodular mucosa was found in the entire duodenum. Biopsies for histology were taken with a cold forceps for evaluation of celiac disease. Verification of patient identification for the specimen was done. Estimated blood loss was minimal. Impression: - Esophageal mucosal changes consistent with eosinophilic esophagitis. - Erythematous mucosa in the gastric body. Biopsied. - Nodular mucosa in the entire examined duodenum. Biopsied. - Biopsies were taken with a cold forceps for evaluation of eosinophilic esophagitis. Recommendation: - Discharge patient to home. - Resume previous diet. - Continue present medications. - Await pathology results. Procedure Code(s): --- Professional --- 49587, Esophagogastroduodenoscopy, flexible, transoral; with biopsy, single or multiple CPT copyright 2021 [employer]. All rights reserved. The codes documented in this report are preliminary and upon dining room attendant cafeteria review may be revised to meet current compliance requirements. Zackary Anderson DO 02/26/2024 7:42:59 AM This report has been signed electronically. Number of Addenda: 0 Note Initiated On: 02/26/2024 7:24 AM
--- NOTE | 2024-02-26 07:48 | PCM.POST.ANE ---
Anesthesia: Postop Eval I Current Vital Signs Temperature: 97.2 F Pulse Rate: 16 Blood Pressure: 96/65 Respiratory Rate: 16 Pulse Ox: 97 Oxygen Delivery Method: Room Air Assessment Airway patent: Yes Spontaneous unlabored respirations: Yes Mental status: Asleep nausea: No Vomiting: No Anesthesia Complication: No Fluid Hydration Crystalloid volume administer (ml): 400 Total IV fluid infused: 400 Progress Note Anesthesia document: Postop Eval 1 completed: Yes
--- NOTE | 2024-02-26 08:39 | PCM.POSTANE2 ---
Anesthesia Postop Eval I Sum Postop Eval Completion status Anesthesia document: Postop Eval 1 completed: Yes Anesthesia Postop Eval I Summary Anesthesia Postop Eval I Summary: Anesthesia Postop Eval I: Assessment Summary Airway patent Yes 02/26/24 07:49 [email or web address] Spontaneous unlabored Yes 02/26/24 07:49 [email or web address] respirations Mental status Asleep 02/26/24 07:49 [email or web address] nausea No 02/26/24 07:49 [email or web address] Vomiting No 02/26/24 07:49 [email or web address] Anesthesia Postop Eval I: Fluid Summary Crystalloid volume administer 400 02/26/24 07:49 [email or web address] (ml) Colloids volume administered ( ml) Blood Product volume administered (ml) Total IV fluid infused 400 02/26/24 07:49 [email or web address] Anesthesia Postop Eval I: Summary Notes Anesthesia Complication No 02/26/24 07:49 [email or web address] Anesthesia Complication Comment: Post-operative progress note Anesthesia: Postop Eval II Evaluation Mental status: Awake Pain Level: 0 nausea: No Vomiting: No
== END 2024-02-26 08:37 | disposition home or self-care (01) ==
LOC: EN 06:12 → AC 06:13
PROVIDERS: PCP Family Medicine; Referring Provider Family Medicine; Visit Provider Internal Medicine Gastroenterology
PROC: 0DJ08ZZ Inspection of Upper Intestinal Tract, Via Natural or Artificial Opening Endoscopic (ICD-10-PCS; CPT 43235; principal; 2024-02-26 06:55)
DX: R13.10 Dysphagia, unspecified (principal); D50.9 Iron deficiency anemia, unspecified; K29.50 Unspecified chronic gastritis without bleeding; K29.80 Duodenitis without bleeding; K22.89 Other specified disease of esophagus
CPT/HCPCS: 43239; 88305; 88342; J7120; J2405

== ENCOUNTER → 2024-09-23 | Outpatient (CLI) | payer OTHER, SELFPAY ==
--- NOTE | 2024-09-23 13:32 | US_ITS ---
PROCEDURE: Pelvic ultrasound, transabdominal and transvaginal. 09/23/2024 REASON FOR EXAM: Chronic pelvic pain. History of partial hysterectomy. TECHNIQUE: Transabdominal and transvaginal pelvic ultrasound evaluation was performed. COMPARISON: None available FINDINGS: The included portions of the urinary bladder show no specific abnormality. The uterus is not demonstrated, absent by history. The right ovary is 3.4 x 2.5 x 2.4 cm. The left ovary is 2.6 x 2.4 x 1.7 cm. No adnexal mass lesion or free pelvic fluid. Tiny bilateral ovarian follicles. There appears to be blood flow in both ovaries on Doppler evaluation. The provided images of the urinary bladder show no specific abnormality. US/Pelvic w/ Transvaginal IMPRESSION: Absent uterus. Unremarkable ovaries. No evidence of ovarian torsion or concerning adnexal mas s. If there is persistent pain, follow-up CT scan evaluation may be considered. [facility]
== END | disposition home or self-care (01) ==
LOC: US 13:31
PROVIDERS: PCP Family Medicine; Referring Provider Nurse Practitioner Women's Health; Visit Provider Nurse Practitioner Women's Health
DX: R10.2 Pelvic and perineal pain (principal)
CPT/HCPCS: 76830; 76856

== ENCOUNTER → 2024-10-07 | Outpatient (CLI) | payer OTHER, SELFPAY | END | disposition home or self-care (01) | PROVIDERS: PCP Family Medicine; Referring Provider Internal Medicine Gastroenterology; Visit Provider Internal Medicine Gastroenterology | DX: D64.9 Anemia, unspecified (principal) | CPT/HCPCS: 36415; 82784; 82785; 84165; 86334 ==

== ENCOUNTER 2025-03-06 16:15 | Emergency (ER) | payer OTHER, SELFPAY ==
[2025-03-06 16:16] VITALS: BP 121/79; PULSE 78; RESP 18; TEMP 36.8; O2SAT 100; BMI 20.3
--- NOTE | 2025-03-06 16:39 | EX.ED.DYSGE1 ---
HPI History of Present Illness Chief Complaint: Allergic Reaction Detail of Chief Complaint: Allergic reaction due to hymenoptera envenomation with increased redness sw Informant: patient and spouse/S.O. Onset/Context/Timing Onset: Yesterday (Stung yesterday. Detailed HPI narrative) Context: Sudden Onset Timing: Intermittent Quality: Now complains of redness, pain and swelling right foot and distal right leg Location: Right lower extremity and foot Current Severity: Mild Maximum Severity: Moderate Worsened by: Palpation Relieved by: HPI narrative for complete detail Associated Symptoms Associated Symptoms: Initially had hives which resolved with Benadryl. Narrative Narrative: Patient states she was mowing the yard. She ran over a hornets or wasp nest. She was stung once posterior distal right leg. She states she swatted off the insect. She developed hives. She took Benadryl. She states she applied peroxide paste over the area where she was stung and put her foot in Epsom salt to help with the swelling. Patient denies fever, chills night sweats. She is concerned because her foot is now red both on the medial and dorsal side, which is new since yesterday. The redness on the posterior right leg has moved towards the popliteal fossa. She has not noted any drainage from the site she was stung. She has not had recurrent of her hives. This is not the first time she has had hives after hymenoptera envenomation. She does not have an EpiPen. Prior similar symptoms: Yes (Hives yes redness and swelling no) Recent Illness/Hospitalization: No PFSH PFSH Medical History Hx of endometriosis Back pain History of IBS Encounter for screening for COVID-19 Wears contact lenses Alcohol use Low iron Former smoker Home Medications ?Medication ?Instructions ?Recorded ?Last Taken ?Type clindamycin HCl 300 mg capsule 300 mg PO Q6H #28 CAPSULES 03/06/25 Unknown Rx (Cleocin HCl) epinephrine 0.3 mg/0.3 mL 0.3 mg (0.3 mL) IM UD PRN 03/06/25 Unknown Rx injection, auto-injector (EpiPen) anaphylaxis #1 ea hydrocodone-acetaminophen 5-325mg 1 tab PO Q6H PRN PRN Pain 1 day #4 03/06/25 Unknown Rx 5mg-325mg TABLETS Allergy/AdvReac Type Severity Reaction Status Date / Time oxycodone Allergy Intermediate Itching Verified 03/06/25 16:16 Family History Grandmother Diabetes Surgical History S/P laparoscopic assisted vaginal hysterectomy (LAVH) History of umbilical hernia repair (~02/2021) Hx of section History of arthroscopy of right shoulder Social History Smoking Status: Former smoker how long ago did patient quit smokin years alcohol intake: never substance use type: does not use caffeine: Yes what type of physical activity do you participate in: none seatbelt use: always do you feel safe at home: Yes additional social history: - Del[place] Patient works in [employer] at [employer] ROS ROS ED Constitutional Constitutional ED: Denies chills, fever(s), subjective or sweats ENT ENT ED: Reports other Details: Denied symptoms of angioedema. Cardiovascular Cardiovascular: Denies chest pain or palpitations Respiratory/Chest Respiratory/Chest: Denies cough or dyspnea Gastrointestinal Gastrointestinal: Denies abdominal pain, nausea or vomiting Integumentary Reports other Details: Had hives yesterday 20 minutes after envenomation Neurologic Neurologic: Denies weakness Hematologic/Lymphatic Hematologic/Lymphatic: Reports systems reviewed and no addt'l complaints, except as documented EXAM Physical Exam Const Vital Signs: 03/06/25 16:16 Temperature 98.3 F Temperature Source Temporal Pulse Rate 78 Respiratory Rate 18 Blood Pressure 121/79 H Blood Pressure Mean 93 Pulse Ox 100 Oxygen Delivery Method Room Air Positive well nourished and well developed General Appearance ED: well developed and NAD; Negative for pallor HEENT Reports moist mucous membranes HEENT Narrative: Head is atraumatic no cephalic. Ears normal. There is no evidence of angioedema. She has had no dysphonia. Eyes PERRL and EOMs intact bilaterally General Eye ED: Negative for pale conjunctiva or scleral icterus Neck no lymphadenopathy, supple and no JVD Neck Narrative: Trachea is midline. There is no inspiratory expiratory stridor. Resp normal respiratory effort and clear to auscultation bilaterally Cardio regular rate, regular rhythm, S1 normal heart sound, S2 normal heart sound and no murmurs Extremity Extremity Narrative: There is erythema posterior right leg. Envenomation site is noted. There is no drainage. There is no popliteal or inguinal lymphadenopathy. There is no lymphangitis. The mid and posterior portion of the right foot are swollen erythematous and warm. There is no induration. There is no fluctuance. DP pulses palpable. She complains of discomfort with palpation of her ankle. Neuro oriented x3 and CN's II-XII intact bilaterally Sensorium / Orientation: alert Psych mental status grossly normal Skin Skin Narrative: Described under the extremity portion of the medical record . General Skin Exam: elasticity normal; Negative for jaundice or pallor MDM MDM MDM Narrative Medical decision making narrative: Patient has significant cellulitis. Will obtain CBC to assess white count differential BMP to assess renal function. Patient was informed first and foremost concern is that she is allergic to either wasps or hornets bees and should carry an EpiPen with her at all time. She was told that her next reaction may be worse. Also concerned that she has an infection. She received dose of antibiotics in the emergency department. Lab Data Attestation: I reviewed the patient's lab results. Lab results narrative: CBC is unremarkable. There is a slight shift. White count was normal. Electrolyte panel was marked for slightly elevated glucose of 136. Labs: Laboratory Results - last 24 hr 03/06/25 16:48 WBC 5.6 RBC 4.59 Hgb 12.4 Hct 38.2 MCV 83.2 MCH 27.0 MCHC 32.5 RDW Std Deviation 39.8 RDW Coeff of Geron[place] 13.1 Plt Count 252 MPV 9.0 Immature Gran % (Auto) 0.200 Neut % (Auto) 71.1 H Lymph % (Auto) 21.5 Chaves % (Auto) 6.1 Eos % (Auto) 0.7 Baso % (Auto) 0.4 Absolute Neuts (auto) 4.0 Absolute Lymphs (auto) 1.20 Nucleated RBC % 0 Sodium 138 Potassium 3.5 Chloride 103 Carbon Dioxide 24.1 Anion Gap 11 BUN 8 Creatinine 0.76 Estim Creat Clear Calc 102.67 Est GFR (MDRD) Non-Af 110 BUN/Creatinine Ratio 11.1 Glucose 136 H Calcium 8.8 Treatment and Re-Evaluation :: Patient was informed of results. She was informed to carry EpiPen with her at all times. She was placed on antibiotic. She also was given a work excuse for tomorrow. Discharge Plan Triage Chief Complaint: Allergic Reaction ED Provider: Jesus Hayward Dx/Rx/DC Orders Clinical Impression: Cellulitis of right lower limb Instructions: Epinephrine Auto-Injector, ED Cellulitis Prescriptions: New clindamycin HCl [Cleocin HCl] 300 mg capsule 300 mg PO Q6H Qty: 28 0RF hydrocodone-acetaminophen 5-325 mg tablet 1 tab PO Q6H PRN PRN (Reason: Pain) 1 Days Qty: 4 0RF epinephrine [EpiPen] 0.3 mg/0.3 mL auto-injector 0.3 mg IM UD PRN (Reason: anaphylaxis) Qty: 1 0RF Rx Instructions: for 2 doses carry an EpiPen with you at all times Primary Care Provider: Silver Villalobos Referrals: Silver Villalobos MD [Primary Care Provider, Family Practice] - 2 Days for wound check Print Language: Greek Disposition Disposition: Home, Self Care
[2025-03-06 16:54] LABS: Hematocrit 38.2 % (37-47); Hemoglobin 12.4 g/dL (12.0-15.0); Immature Granulocytes Count 0.010 X10^3/uL (0.0-0.0); Mean Corp Hgb Conc 32.5 g/dL (32-36); Mean Corpuscular Volume 83.2 fL (81-99); Mean Platelet Vol. 9.0 fl (6.2-12.0); NRBC Flagged by Analyzer 0 % (0-5); Platelet Count 252 K/mm3 (150-450); RBC Distribution Width CV 13.1 % (11.6-14.6); RBC Distribution Width SD 39.8 fl (35.1-43.9); Red Blood Count 4.59 M/mm3 (4.2-5.4); White Blood Count 5.6 K/mm3 (4.4-11.0)
--- OUTSIDE RECORDS SUMMARY | 2025-03-06 17:10 | XMS RPT_ITS | CCD ---
Author Organization [facility] CliniSyin Care Team Providers Care Lead Clinical Research Coordinator Name Role Phone Wilfredo, Ratna Unavailable Unavailable Wilfredo, Ratna Unavailable Unavailable Wilfredo, Ratna Unavailable Unavailable Turk, Henri M Unavailable Unavailable Turk, Henri Murphy Unavailable Unavailable Wilfredo, Ratna Unavailable Unavailable Turk, Henri M Unavailable Unavailable Turk, Henri Murphy Unavailable Unavailable Wilfredo, Ratna Unavailable Unavailable Turk, Henri M Unavailable Unavailable Turk, Henri Murphy Unavailable Unavailable Wilfredo, Ratna Unavailable Unavailable Turk, Henri M Unavailable Unavailable Turk, Henri M Unavailable Unavailable Wilfredo, Ratna Unavailable Unavailable Farrier, Susan L Unavailable Unavailable Wilfredo, Ratna Unavailable Unavailable Farrier, Susan L Unavailable Unavailable Turk, Henri M Unavailable Unavailable Wilfredo, Ratna Unavailable Unavailable Asim, Mamadou S Unavailable Unavailable Asim, Mamadou S Unavailable Unavailable Wilfredo, Ratna Unavailable Unavailable Mack, Jessica Unavailable Unavailable Wilfredo, Ratna Unavailable Unavailable Mack, Jessica Unavailable Unavailable Wilfredo, Ratna Unavailable Unavailable Mack, Jessica Unavailable Unavailable Newbill, Maco Surya Unavailable Unavailable Newbill, Maco Surya Unavailable Unavailable Wilfredo, Ratna Unavailable Unavailable Wilfredo, Ratna L Unavailable Dr. Ana Maynard Attending Provider [phone] Ana Maynard Attending Provider [phone] Ratna Villalobos Unavailable Joanne Flores Unavailable Unavailable Dr. Ratna Villalobos Primary Care Provider [phone] Dr. Ratna Villalobos Referring Provider [phone] Dr. Ana Maynard Attending Provider [phone] Lucia IMPORT EXPORT MANAGER, MONSERRAT Ludwig Attending Provider [phone] Dr. Panchito Davis Attending Unavailable Wilfredo, Dr. Ratna Montesinos Referring Unavailab devaughn Villalobos, Dr. Ratna Montesinos Primary Care Unavailab devaughn Villalobos, Dr. Sheppard Primary Care Provider Wilfredo, Dr. Sheppard Referring Provider [phone] Ana Maynard Attending Provider Dr. Leah Benavides Attending Provider Wilfredo, Dr. Sheppard Referring Provider Wilfredo, Dr. Sheppard Primary Care Provider Dr. Leah Benavides Referring Provider [phone] Dr. Leah Benavides Other Provider [phone] Dr. Leah Benavides Attending Provider [phone] Wilfredo, Dr. hSeppard Primary Care Provider Wilfredo, Dr. Sheppard Referring Provider [phone] Caesar, Dr. Perez Attending Provider [phone] Ratna Villalobos MD Primary Care Provider RATNA VILLALOBOS Attending Unavailable RATNA VILLALOBOS Primary Care Unavailable PANCHITO DAVIS Attending Unav ailable RATNA VILLALOBOS Primary Care Unavailable RATNA VILLALOBOS Attending Unavailable RATNA VILLALOBOS Primary Care Unavailable Eh Devine MD Primary Care Provider EH DEVINE Primary Care Unavailable BEAU GUDINO Attending Unavailable Dr. Ratna Villalobos MD Primary Care Provider [phone] Dr. Ratna Villalobos MD Referring Provider Vani Aguayo Attending Provider Lucia IMPORT EXPORT MANAGER-CVani Referring Provider Dr. Zackary Anderson DO Attending Provider Dr. Zackary Anderson DO Referring Provider Assessment, Health Risk Attending Provider Unava ilable Assessment, Health Risk Referring Provider Unava ilable Ernst Monae Attending Provider Wilfredo TANNER, Dr. Sheppard Primary Care Provider Dr. Ratna Villalobos MD Referring Provider [phone] Jovanny TANNER, Tom Keyes Attending Provider Unavailable oJvanny TANNER, Tom Keyes Referring Provider Unavailable Jovanny OLS, Tom Chi Attending Unavailable Jovanny OLS, Tom Chi Referring Unavailable Wilfredo, Ratna Primary Care Unavailable Jovanny OLS, Tom Chi Attending Unavailable Jovanny OLS, Tom Chi Referring Unavailable Wilfredo, Ratna Primary Care Unavailable Assessment, Health Risk Attending Unavaila ble Assessment, Health Risk Referring Unavaila ble Wilfredo, Ratna Primary Care Unavailable Wilfredo, Ratna Primary Care Unavailable Wilfredo, Ratna Referring Unavailable Friend, Zackary Consulting Unavailable Friend, Zackary Attending Unavailable Wilfredo, Rtana Referring Unavailable Wilfredo, Ratna Primary Care Unavailable Ernst Monae Attending Unavailable [place] IMPORT EXPORT MANAGER, Vani Attending Unavailable Wilfredo, Ratna Primary Care Unavailable Wilfredo, Ratna Referring Unavailable Wilfredo, Ratna Primary Care Unavailable Wilfredo, Ratna Referring Unavailable Friend, Zacakry Attending Unavailable Wilfredo, Ratna Primary Care Unavailable [place] IMPORT EXPORT MANAGER, Vani Attending Unavailable [place] IMPORT EXPORT MANAGER, Vani Referring Unavailable Friend, Zackary Referring Unavailable Wilfredo, Ratna Primary Care Unavailable Friend, Zackary Attending Unavailable Allergies Allergy Classification Reported Allergen(s) Allergy Type Date of Onset Reaction(s) Facility (11 sources) oxyCODONE; Translations: [OXYCODONE] Drug Allergy 11-12-2022 Itching [facility] (1 source) oxyCODONE Drug Allergy 11-19-2024 [facility] Repository Medications Current Medications Medication Drug Class(es) Dates Sig (Normalized) Sig (Original) [id number] 200 actuat albuterol 0.09 mg/actuat metered dose inhaler (1 source) beta2-Adrenergic Agonist Start: 05-10-2024 End: 05-10-2025 take 2 puff(s) by inhalation every six hours for wheezing albuterol 90 mcg/actuation inhaler Indications: Acute cough Inhale 2 puffs every 6 hours if needed for wheezing. 17 g 05/10/2024 05/10/2025 Active amoxicillin 875 mg / clavulanate 125 mg oral tablet (1 source) Penicillin-class Antibacterial Start: 05-10-2024 End: 05-17-2024 take 1 tablet by mouth twice daily amoxicillin-pot clavulanate (Augmentin) 875-125 mg tablet Indications: Acute non-recurrent maxillary sinusitis Take 1 tablet by mouth 2 times a day for 7 days. 14 tablet 05/10/2024 05/17/2024 Active benzonatate 100 mg oral capsule (1 source) Non-narcotic Antitussive Start: 06-21-2022 End: 06-30-2022 take 2 capsules by mouth every eight hours as needed benzonatate 100 mg oral capsule ; 1-2 cap(s) orally every 8 hours, As Needed for cough Quantity: 60 Refills: 0 Ordered: 21-Jun-2022 Joanne Flores Start: 21-Jun-2022 End: 30-Jun-2022 Generic Substitution Allowed Comments: May cause drowsiness. Alcohol may intensify this effect. Use care when operating dangerous machinery.Swallow whole. Do not crush. Comment on above: May cause drowsiness . Alcohol may intensify this effect. Use care when operating dangerous machinery.Swallow whole. Do not crush. biotin 10 mg disintegrating oral tablet (5 sources) Start: 11-15-2020 take 33342 ug by mouth once daily Biotin Active 77514 MCG PO DAILY November 14, 2020 11:00pm brompheniramine maleate 0.4 mg/ml / dextromethorphan hydrobromide 2 mg/ml / pseudoephedrine hydrochloride 6 mg/ml oral solution (1 source) alpha-Adrenergic Agonist, Uncompetitive W-fbndcr-J-aspartat e Receptor Antagonist, Sigma-1 Agonist Start: 05-10-2024 End: 05-20-2024 take 5 mL by mouth four times daily as needed for cough brompheniramine-p seudoeph-DM 2-30-10 mg/5 mL syrup Indications: Acute cough Take 5 mL by mouth 4 times a day as needed for allergies, congestion or cough for up to 10 days. 240 mL 05/10/2024 05/20/2024 Active cetirizine hydrochloride 10 mg oral capsule (5 sources) Histamine-1 Receptor Antagonist Start: 02-11-2022 take 1 capsule by mouth once cetirizine (ZyrTEC) 10 mg capsule Take 1 capsule (10 mg) by mouth. Take per directed 02/11/2022 Active Start: 02-11-2022 ZyrTEC Allergy 10 MG Oral Capsule Quantity: 1 Refills: 0 Ordered: 11-Feb-2022 Jeremie Fam Start : 11-Feb-2022 Active Ethinyl Estradiol / Levonorgestrel (20 sources) Progestin, Estrogen, Progestin-containing Intrauterine Device Start: 10-25-2022 levonorgestreL-ethinyl estrad (Nordette) 0.15-0.03 mg tablet Take per directed 10/25/2022 Active Start: 10-22-2022 Levonorgestrel -Ethinyl Estrad (Altavera (28)) 0.15-0.03 mg tablet Active 1 TABLET PO DAILY October 22, 2022 9:25am Start: 09-26-2022 End: 10-22-2022 Levonorgestrel-Ethinyl Estra d (Altavera (28)) 0.15-0.03 mg tablet Discontinued 1 {tbl} PO DAILY 10 09September 26, 2022 12:00am October 22, 2022 10:25am Start: 09-26-2022 End: 10-22-2022 Levonorgestrel-Ethinyl Estra d (Altavera (28)) 0.15-0.03 mg tablet Discontinued 1 {tbl} PO DAILY September 26, 2022 12:00am October 22, 2022 10:25am Start: 09-26-2022 End: 10-22-2022 Levonorgestrel-Ethinyl Estra d (Altavera (28)) 0.15-0.03 mg tablet Discontinued 1 TABLET PO DAILY September 26, 2022 12:00am October 22, 2022 10:25am Start: 09-26-2022 End: 10-22-2022 Levonorgestrel-Ethinyl Estra d (Altavera (28)) 0.15-0.03 mg tablet Discontinued 1 TABLET PO DAILY September 25, 2022 11:00pm October 22, 2022 9:25am Start: 08-17-2018 End: 12-08-2018 take 1 tablet by mouth once daily Levonorgestrel-Ethinyl Estrad (Aviane) 0.1-20 mg-mcg tablet Discontinued 1 {tbl} PO daily 28 August 17, 2018 1:00am December 08, 2018 10:42am fluticasone propionate 0.05 mg/actuat metered dose nasal spray (5 sources) Corticosteroid Start: 02-11-2022 take 1 spray(s) nasal route twice daily as needed fluticasone (Flonase) 50 mcg/actuation nasal spray Administer 1 spray into each nostril 2 times a day as needed (post nasal drip). 02/11/2022 Active Start: 02-11-2022 take 1 spray(s) nasa l route twice daily as needed Fluticasone Propionate 50 MCG/ACT Nasal Suspension 1 spray in each nostril twice daily as needed for post-nasal drip Quantity: 1 Refills: 3 Ordered: 11-Feb-2022 Jeremie Fam Start : 11-Feb-2022 Active Iron (4 sources) IRON ; 2 times a day Quantity: 0 Refills: 0 Ordered: 09-Aug-2019 Lori Salazar Generic Substitution Allowed End: 02-11-2022 Iron (Ferrous Sulfate) TABS Take 1 tablet daily Quantity: 0 Refills: 0 Ordered: 11-Feb-2022 DO End : 11-Feb-2022 Complete Iron (Ferrous Maradiaga lfate) TABS Take 1 tablet daily Quantity: 0 Refills: 0 Ordered: 07-Feb-2020 DO Active nitrofurantoin, macrocrystals 25 mg / nitrofurantoin, monohydrate 75 mg oral capsule (5 sources) Nitrofuran Antibacterial Start: 02-11-2022 take 1 capsule by mouth twice daily nitrofurantoin, macrocrystal-monohydrate, (Macrobid) 100 mg capsule Take 1 capsule (100 mg) by mouth 2 times a day. 02/11/2022 Active [place] (Nk) (3 sources) Start: 02-24-2024 [place] (Nk) Active February 24, 2024 12:00am ofloxacin 3 mg/ml ophthalmic solution (5 sources) Quinolone Antimicrobial Start: 02-11-2022 take 1 drop(s) into the eye(s) four times daily ofloxacin (Ocuflox) 0.3 % ophthalmic solution Administer 1 drop into affected eye(s) 4 times a day. 02/11/2022 Active oxyCODONE hydrochloride 5 mg oral tablet (3 sources) Opioid Agonist Start: 10-29-2022 oxyCODONE (Roxicodone) 5 mg immediate release tablet 1 tablet (5 mg). Take per directed by Doctor 10/29/2022 Active Start: 10-29-2022 take 5-10 mg by mout h every six hours Oxycodone Active 5 - 10 MG PO EVERY 6 HOURS 10 5 October 29, 2022 Completed/Discontinued Medications Medication Drug Class(es) Dates Sig (Normalized) Sig (Original) acetaminophen 325 mg / HYDROcodone bitartrate 5 mg oral tablet (20 sources) Opioid Agonist Start: 10-08-2023 End: 12-02-2023 Hydrocodone-Acetami nophen 5-325 mg tablet Discontinued 1 {tbl} PO EVERY 6 HOURS NEEDED as needed for Pain 12 3 0 October 08, 2023 December 02, 2023 10:13am Abdominal pain Unspecified abdominal pain Start: 10-08-2023 take 1 tablet by román th every six hours as needed Hydrocodone-Acetaminophen Active 1 TABLE T PO EVERY 6 HOURS NEEDED 12 3 October 08, 2023 Start: 05-20-2023 End: 06-02-2023 Hydrocodone-Acetaminophen 5- 325 mg tablet Discontinued 1 {tbl} PO EVERY 6 HOURS as needed for pain 10 5 0 May 20, 2023 June 02, 2023 12:14pm Status post laparoscopy-assisted vaginal hysterectomy Acquired absence of both cervix and uterus Start: 05-20-2023 End: 06-02-2023 take 1 tablet by mouth every six hours Hydrocodone-Acetaminophen Discontinued 1 TABLET PO EVERY 6 HOURS 10 5 May 20, 2023 June 02, 2023 12:14pm Start: 05-06-2017 End: 12-15-2017 Hydrocodone-Acetaminophen (N orco) 5-325 mg tablet Discontinued 2 {tbl} PO EVERY 6 HOURS 40 0 June 02, 2017 December 15, 2017 4:05pm Other subluxation of right shoulder joint, subsequent encounter Start: 05-06-2017 End: 12-15-2017 take 1 tablet by mouth every six hours as needed Hydrocodone-Acetaminophen Discontinued 1 - 2 TABLET PO EVERY 6 HOURS NEEDED 60 May 06, 2017 1:00am December 15, 2017 4:05pm acetaminophen 325 mg / oxyCODONE hydrochloride 5 mg oral tablet (20 sources) Opioid Agonist Start: 02-12-2021 End: 09-05-2022 Oxycodone-Acetaminophen (Percocet) 5-325 mg tablet Discontinued 1 {tbl} PO Q4H as needed for pain 15 5 0 February 12, 2021 September 05, 2022 11:00am Umbilical hernia Umbilical hernia without obstruction or gangrene Start: 08-26-2019 End: 09-02-2019 Oxycodone-Acetaminophen 1 TA BLET tablet Discontinued 1 - 2 {tbl} PO EVERY 4 HOURS NEEDED as needed for Pain 28 7 0 August 26, 2019 September 01, 2019 12:00am September 02, 2019 12:08am Other acute postprocedural pain Start: 08-26-2019 End: 09-02-2019 take 1 tablet by mouth every four hours as needed Oxycodone-Acetaminophen Discontinued 1 - 2 TABLET PO EVERY 4 HOURS NEEDED 28 7 August 26, 2019 September 02, 2019 12:08am acyclovir 400 mg oral tablet (11 sources) Herpesvirus Nucleoside Analog DNA Polymerase Inhibitor, Herpes Simplex Virus Nucleoside Analog DNA Polymerase Inhibitor, Herpes Zoster Virus Nucleoside Analog DNA Polymerase Inhibitor Start: 08-04-2019 End: 05-19-2020 take 1 tablet by mouth twice daily Acyclovir 400 mg tablet Discontinued 400 mg PO TWICE A DAY 28 14 1 August 04, 2019 1:00am May 19, 2020 4:28pm amoxicillin 500 mg oral capsule (11 sources) Penicillin-class Antibacterial Start: 05-19-2020 End: 05-29-2020 take 2 capsules by mouth twice daily Amoxicillin 500 mg capsule Discontinued 1000 mg PO TWICE A DAY 40 10 0 May 19, 2020 1:00am May 28, 2020 1:00am May 29, 2020 1:03am Start: 05-19-2020 End: 05-29-2020 take 1000 mg by mouth twice daily Amoxicillin Discontinued 1000 MG PO TWICE A DAY 40 May 19, 2020 1:00am May 29, 2020 1:03am docosahexaenoic acid 200 mg oral capsule (11 sources) Start: 01-25-2019 End: 10-07-2019 Docosahexaenoic Acid ( Dha) 200 mg capsule Discontinued mg PO 0 January 25, 2019 12:00am October 07, 2019 10:15am docusate sodium 100 mg oral capsule (11 sources) Start: 05-06-2017 End: 12-15-2017 take 1 capsule by mouth twice daily as needed for constipation Docusate Sodium 100 MG capsule Discontinued 100 mg PO TWICE DAILY NEEDED as needed for Constipation 10 0 May 06, 2017 1:00am December 15, 2017 4:05pm ferrous sulfate 325 mg oral tablet (20 sources) Start: 11-15-2020 End: 10-08-2023 Ferrous Sulfate (Iron) 325 mg (65 mg iron) Tablet Discontinued 325 mg PO NEEDED as needed for ANEMIA November 15, 2020 12:00am October 08, 2023 8:04am Start: 06-25-2019 End: 05-19-2020 take 1 tablet by mouth once daily Ferrous Sulfate 325 mg (65 mg iron) tablet Discontinued 325 mg PO DAILY June 25, 2019 1:00am May 19, 2020 4:28pm ferrous sulfate (IRON ORAL) twice a day. Take per directed Active fluconazole 150 mg oral tablet (11 sources) Azole Antifungal Start: 12-08-2018 End: 01-25-2019 Fluconazole 150 mg tablet Discontinued 150 mg PO .COMPLEX 2 0 December 08, 2018 12:00am January 25, 2019 10:05am 150 mg PO take one po now and repeat in 3 days folic acid 0.4 mg oral tablet (11 sources) Start: 06-02-2017 End: 12-15-2017 take 1 tablet by mouth once daily Folic Acid 400 mcg tablet Discontinued 400 ug PO daily June 02, 2017 1:00am December 15, 2017 4:05pm lidocaine 0.04 mg/mg topical gel (11 sources) Antiarrhythmic, Amide Local Anesthetic Start: 04-06-2019 End: 06-25-2019 Lidocaine 4 % gel Discontinued 1 NMA TOPICAL 2 to 4 times per day as needed for pain 30 April 06, 2019 12:00am June 25, 2019 10:48am Multivitamin (Multiple Vitamin) Tablet (11 sources) Start: 11-15-2020 End: 10-08-2023 Multivitamin (Multiple Vitamin) Tablet Discontinued 1 {tbl} PO DAILY November 15, 2020 12:00am October 08, 2023 8:04am SUPPLEMENT Start: 11-15-2020 End: 10-08-2023 Multivitamin (Multiple Vitam in) Tablet Discontinued 1 {tbl} PO DAILY November 15, 2020 12:00am October 08, 2023 8:04am Start: 11-15-2020 End: 10-08-2023 take 1 tablet by mouth once daily Multivitamin (Multiple Vitamin) Tablet Discontinued 1 TABLET PO DAILY November 15, 2020 12:00am October 08, 2023 8:04am Start: 11-15-2020 take 1 tablet by román th once daily Multivitamin (Multiple Vitamin) Tablet Active 1 TABLET PO DAILY November 14, 2020 11:00pm Start: 11-15-2020 take 1 tablet by román th once daily Multivitamin (Multiple Vitamin) Tablet Active 1 TABLET PO DAILY November 15, 2020 12:00am Multivitamin preparation (8 sources) Start: 06-02-2017 End: 12-15-2017 take 1 tablet by mouth once daily in the morning Multivitamin Discontinued 1 TABLET PO EVERY MORNING June 02, 2017 12:00am December 15, 2017 3:06pm Start: 06-02-2017 End: 12-15-2017 take 1 tablet by mouth once daily in the morning Multivitamin Discontinued 1 TABLET PO EVERY MORNING June 02, 2017 1:00am December 15, 2017 4:06pm Multivitamin tablet (3 sources) Start: 06-02-2017 End: 12-15-2017 Multivitamin tablet Disconti nued 1 {tbl} PO EVERY MORNING June 02, 2017 1:00am December 15, 2017 4:06pm Multivitamin With Folic Acid (8 sources) Start: 05-06-2017 End: 06-17-2018 Multivitamin With Folic Acid Discontinued 1 EACH PO DAILY May 06, 2017 12:00am June 17, 2018 12:00pm Start: 05-06-2017 End: 06-17-2018 Multivitamin With Folic Acid Discontinued 1 EACH PO DAILY May 06, 2017 1:00am June 17, 2018 1:00pm Multivitamin With Folic Acid 400 MCG tablet (3 sources) Start: 05-06-2017 End: 06-17-2018 Multivitamin With Folic Acid 400 MCG tablet Discontinued 1 NMA PO DAILY 30 May 06, 2017 1:00am June 17, 2018 1:00pm Start: 05-06-2017 End: 06-17-2018 Multivitamin With Folic Acid 400 MCG tablet Discontinued 1 NMA PO DAILY May 06, 2017 1:00am June 17, 2018 1:00pm naproxen 500 mg oral tablet (20 sources) Nonsteroidal Anti-inflammatory Drug Start: 05-20-2023 End: 06-02-2023 take 1 tablet by mouth twice daily as needed for pain Naproxen 500 mg tablet Discontinued 500 mg PO TWICE DAILY NEEDED as needed for Pain 30 May 20, 2023 1:00am June 02, 2023 12:14pm Start: 08-26-2019 End: 10-07-2019 take 1 tablet by mouth twice daily as needed for pain Naproxen 500 MG tablet Discontinued 500 mg PO TWICE DAILY NEEDED as needed for Pain 60 August 26, 2019 12:00am October 07, 2019 10:15am Start: 07-08-2018 End: 08-17-2018 take 1 tablet by mouth twice daily as needed for pain Naproxen 500 MG tablet Discontinued 500 mg PO TWICE DAILY NEEDED as needed for Pain 60 July 08, 2018 1:00am August 17, 2018 12:21pm ondansetron 4 mg disintegrating oral tablet (15 sources) Serotonin-3 Receptor Antagonist Start: 10-08-2023 End: 02-12-2024 take 1 tablet by mouth every six hours as needed for nausea Ondansetron 4 mg tablet,disintegrating Discontinued 4 mg PO EVERY 6 HOURS NEEDED as needed for Nausea 15 0 October 08, 2023 10:28am February 12, 2024 2:36pm Start: 01-25-2019 End: 06-25-2019 Ondansetron Hcl (Zofran) 4 m g tablet Discontinued 4 mg PO 2 to 3 times per day January 25, 2019 12:00am June 25, 2019 10:47am Pnv #37-[id number]-Qxbrz Acid-Omeg a3 30 mg iron-10 mg iron-1 mg capsule (2 sources) Start: 06-17-2018 End: 08-17-2018 Pnv #07-Byms-Oajbp Acid-Omeg a3 30 mg iron-10 mg iron-1 mg capsule Discontinued NMA PO June 17, 2018 1:00am August 17, 2018 12:21pm Pnv 88-Abpf-Zncly Acid-Carney -3 30 mg iron-10 mg iron-1 mg capsule (1 source) Start: 06-17-2018 End: 08-17-2018 Pnv 83-Vgsi-Ddvbb Acid-Carney -3 30 mg iron-10 mg iron-1 mg capsule Discontinued NMA PO 0 June 17, 2018 1:00am August 17, 2018 12:21pm polysaccharide iron complex 150 mg oral capsule (20 sources) Start: 05-06-2017 End: 12-15-2017 Polysaccharide Iron Complex (Ferrex 150) 150 mg iron capsule Discontinued 150 mg PO ONCE June 02, 2017 1:00am December 15, 2017 4:06pm vitamin#30 30 mg iron-10 mg iron-folic acid 1 mg-omg3 capsule (8 sources) Start: 06-17-2018 End: 08-17-2018 vitamin#30 30 mg iron-10 mg iron-folic acid 1 mg-omg3 capsule Discontinued CAP PO June 17, 2018 12:00am August 17, 2018 11:21am Start: 06-17-2018 End: 08-17-2018 vitamin#30 30 mg ir on-10 mg iron-folic acid 1 mg-omg3 capsule Discontinued CAP PO June 17, 2018 1:00am August 17, 2018 12:21pm promethazine hydrochloride 12.5 mg oral tablet (20 sources) Phenothiazine Start: 12-15-2017 End: 06-02-2018 take 1 tablet by mouth every six hours as needed for nausea and vomiting Promethazine 12.5 mg tablet Discontinued 12.5 mg PO EVERY 6 HOURS as needed for nausea and vomiting 60 4 December 15, 2017 12:00am June 02, 2018 3:05pm Start: 05-06-2017 End: 12-15-2017 take 1 tablet by mouth every four hours as needed for nausea Promethazine 25 MG tablet Discontinued 25 mg PO EVERY 4 HOURS NEEDED as needed for Nausea 20 0 May 06, 2017 1:00am December 15, 2017 4:05pm valACYclovir 500 mg oral tablet (11 sources) Herpesvirus Nucleoside Analog DNA Polymerase Inhibitor, Herpes Simplex Virus Nucleoside Analog DNA Polymerase Inhibitor, Herpes Zoster Virus Nucleoside Analog DNA Polymerase Inhibitor Start: 04-06-2019 End: 06-25-2019 Valacyclovir (Valtrex) 500 mg tablet Discontinued 500 mg PO .COMPLEX 60 4 April 06, 2019 12:00am June 25, 2019 10:47am 500 mg PO bid X 5 days for outbreaks then daily to suppress; Problems Active Problems Problem Classification Problem Date Documented Da te Episodic/Chronic Abdominal hernia (19 sources) Umbilical hernia; Translations: [Umbilical hernia without mention of obstruction or gangrene] Onset: 02-04-2023 01-09-2021 Episodic Deficiency and other anemia (2 sources) Iron deficiency anemia due to blood loss; Translations: [Iron deficiency anemia secondary to blood loss (chronic)] Onset: 01-21-2023 01-21-2023 Chronic Deficiency and other anemia (11 sources) Anemia; Translations: [Anemia, unspecified] 10-07-2019 Episodic Endometriosis (16 sources) Endometriosis (clinical); Translations: [Endometrioma] Onset: 01-21-2023 03-31-2023 Chronic Comment on above: levon removed f rom abdominal wall. Hypertension complicating ; childbirth and the puerperium (11 sources) Elevated blood pressure; Translations: [Unspecified maternal hypertension, third trimester] 07-07-2018 Chronic Immunizations and screening for infectious disease (2 sources) Encounter for observation for suspected exposure to other biological agents ruled out; Translations: [Encounter for observation for suspected exposure to other biological agents ruled out] Onset: 02-14-2025 Episodic Joint disorders and dislocations; trauma-related (20 sources) Subluxation of shoulder joint; Translations: [Other subluxation of right shoulder joint, initial encounter] 07-07-2018 Episodic Nausea and vomiting (4 sources) Vomiting; Translations: [Vomiting, unspecified] 10-08-2023 Episodic Other aftercare (11 sources) Surgical follow-up; Translations: [Encounter for other orthopedic aftercare] 07-07-2018 Episodic Other aftercare (1 source) Encounter for follow-up examination after completed treatment for conditions other than malignant neoplasm; Translations: [Follow-up examination, following surgery, unspecified] 07-03-2023 Episodic Other bone disease and musculoskeletal deformities (20 sources) Segmental and somatic dysfunction; Translations: [Segmental and somatic dysfunction of cervical region] 08-28-2020 Episodic Other bone disease and musculoskeletal deformities (6 sources) Segmental and somatic dysfunction of cervical region; Translations: [Nonallopathic lesions, cervical region] Episodic Other bone disease and musculoskeletal deformities (6 sources) Segmental and somatic dysfunction of lumbar region; Translations: [Nonallopathic lesions, lumbar region] Episodic Other bone disease and musculoskeletal deformities (6 sources) Segmental and somatic dysfunction of pelvic region; Translations: [Nonallopathic lesions, pelvic region] Episodic Other bone disease and musculoskeletal deformities (6 sources) Segmental and somatic dysfunction of thoracic region; Translations: [Nonallopathic lesions, thoracic region] Episodic Other female genital disorders (5 sources) Hypertrophy of ovary; Translations: [Other noninflammatory disorders of ovary, fallopian tube and broad ligament] 09-20-2024 Episodic Comment on above: [place] Other gastrointestinal disorders (9 sources) Pelvic mass; Translations: [Intra-abdominal and pelvic swelling, mass and lump, unspecified site] 09-05-2022 Episodic Comment on above: US Other gastrointestinal disorders (7 sources) Intra-abdominal and pelvic swelling, mass and lump, unspecified site; Translations: [Abdominal or pelvic swelling, mass, or lump, unspecified site] 09-05-2022 Episodic Other lower respiratory disease (2 sources) Cough; Translations: [Cough] 06-21-2022 Episodic Other lower respiratory disease (1 source) Cough; Translations: [Acute cough] 05-10-2024 Episodic Other screening for suspected conditions (not mental disorders or infectious disease) (20 sources) Patient encounter status; Translations: [Screening for lipoid disorders] Onset: 01-21-2023 03-28-2021 Episodic Other upper respiratory disease (7 sources) Seasonal allergy; Translations: [Allergic rhinitis, cause unspecified] Onset: 02-04-2023 02-04-2023 Chronic Other upper respiratory disease (2 sources) Pain in throat 06-21-2022 Episodic Comment on above: SORE THROAT Other upper respiratory infections (7 sources) Acute pharyngitis; Translations: [Acute pharyngitis] Onset: 05-10-2024 06-21-2022 Episodic Residual codes; unclassified (6 sources) History of vaginal hysterectomy; Translations: [Acquired absence of both cervix and uterus] 05-20-2023 Episodic Comment on above: lavhbs cysto SM pelv ic pain pelvic congestion vesicouterine adhesions 2022 Spondylosis; intervertebral disc disorders; other back problems (20 sources) Backache; Translations: [Dorsalgia, unspecified] Episodic Sprains and strains (20 sources) Injury of superior glenoid labrum of shoulder joint; Translations: [Superior glenoid labrum lesion of right shoulder, initial encounter] 07-07-2018 Episodic Unclassified (1 source) Acute cough; Translations: [Acute cough] Onset: 05-10-2024 Viral infection (15 sources) Evaluation finding; Translations: [Herpesviral infection, unspecified] Onset: 01-21-2023 04-06-2019 Episodic Comment on above: Outbreak:start valtr ex and cont daily Past or Other Problems Problem Classification Problem Date Documented Da te Episodic/Chronic Abdominal pain (20 sources) Abdominal pain - cause unknown; Translations: [Right lower quadrant pain] Onset: 09-24-2024 09-05-2022 Episodic Comment on above: mid c section scar, tender, suspect adenomyosis and scar tissue. discussed LAVHBS. failed OCP. Biliary tract disease (8 sources) Polyp of gallbladder; Translations: [Cholesterolosis of gallbladder] Onset: 02-04-2023 02-04-2023 Episodic Deficiency and other anemia (7 sources) Iron deficiency anemia; Translations: [Iron deficiency anemia, unspecified] Onset: 02-04-2023 02-04-2023 Episodic Deficiency and other anemia (1 source) Anemia, unspecified; Translations: [Anemia, unspecified] Onset: 10-11-2024 Episodic Genitourinary symptoms and ill-defined conditions (5 sources) Urinary symptoms ; Translations: [Other symptoms involving urinary system] Onset: 02-04-2023 02-04-2023 Episodic Inflammation; infection of eye (except that caused by tuberculosis or sexually transmitteddisease) (7 sources) Bacterial conjunctivitis; Translations: [Other conjunctivitis] Onset: 02-04-2023 02-04-2023 Episodic Other diseases of veins and lymphatics (2 sources) Compression of vein; Translations: [Compression of vein] Onset: 03-26-2023 Episodic Other gastrointestinal disorders (9 sources) Constipation; Translations: [Constipation, unspecified] Onset: 02-04-2023 02-04-2023 Episodic Other gastrointestinal disorders (1 source) Dysphagia, unspecified; Translations: [Dysphagia, unspecified] Onset: 03-17-2024 Episodic Unclassified (2 sources) Onset: 03-26-2023 03-26-2023 Unclassified (1 source) Acute cough; Translations: [Acute cough] Onset: 05-10-2024 Urinary tract infections (7 sources) Urinary tract infectious disease; Translations: [Urinary tract infection, site not specified] Onset: 02-04-2023 02-04-2023 Episodic Results Test Name Value Interpretation Reference Range Facility COVID 19 AG RAPID (RN COLLEC T)on 02-07-2025 SARS-CoV-2 (COVID-19) RNA EH+probe Ql (Unsp spec) *Negative results from patients with symptom onset beyond five days should be treated as presumptive and confirmed by a molecular assay if clinically necessary. Negative results should not be used as the sole basis for treatment or for patient management. SARS-CoV-2 Ag Resp Ql IA.rapid *Positive results do not differentiate between SARS-CoV and SARS-CoV-2. If differentiation of the specific SARS virus is desired an additional sample and an additional order is required. SARS-CoV-2 Ag Resp Ql IA.rapid * This test has not been FDA cleared or approved; the test has been authorized by FDA under an Emergency Use Authorization (EAU) for use by laboratories certified under CLIA that meet the requirements to perform moderate, high, or waived complexity tests. SARS-CoV-2 Ag Resp Ql IA.rapid Normal Reference Range: Negative SARS-CoV-2 (COVID 19) Negative RAPID METHOD [facility] COVID19 Ag Card Normal [facility] Comment on above: Performed By: #### M 100.505 #### [facility] [place], [address] COVID-19 virus antigen assay Ordered By: Tom Petty on 02-07-2025 SARS-CoV-2 (COVID-19) Ag IA.rapid Ql (Resp) [facility] COVID 19 AG RAPID (RN COLLEC T)on 02-04-2025 SARS-CoV-2 (COVID-19) RNA EH+probe Ql (Unsp spec) *Negative results from patients with symptom onset beyond five days should be treated as presumptive and confirmed by a molecular assay if clinically necessary. Negative results should not be used as the sole basis for treatment or for patient management. SARS-CoV-2 Ag Resp Ql IA.rapid *Positive results do not differentiate between SARS-CoV and SARS-CoV-2. If differentiation of the specific SARS virus is desired an additional sample and an additional order is required. SARS-CoV-2 Ag Resp Ql IA.rapid * This test has not been FDA cleared or approved; the test has been authorized by FDA under an Emergency Use Authorization (EAU) for use by laboratories certified under CLIA that meet the requirements to perform moderate, high, or waived complexity tests. SARS-CoV-2 Ag Resp Ql IA.rapid Normal Reference Range: Negative SARS-CoV-2 (COVID 19) Negative RAPID METHOD [employer] COVID19 Ag Card Normal [facility] Comment on above: Performed By: #### M 100.505 #### [facility] [address] [place], [address] COVID-19 virus antigen assay Ordered By: Tom Petty on 02-04-2025 SARS-CoV-2 (COVID-19) Ag IA.rapid Ql (Resp) [facility] Urgent Care Visit Reporton 0 11-19-2024 Urgent Care Visit Report [facility] [address], [address] [place], [place] [address] OFFICE VISIT Date of Service: 11/19/24 MR#: [id number] Acct: [id number] Name: JUSTIN LEE Rep #: [id number] : 1995 Provider: DORINA Grey Age/Sex: 29/F Location: [facility] Status: Signed Intake Vital Signs 09/20/24 14:50 11/18/24 12:31 Height 5 ft 7 in 5 ft 7 in Intake Visit Reasons: PE NON DOT PHYSICAL/ TCU Accompanied by: Self Allergies oxycodone Allergy (Intermediate, Verified 11/19/24 09:53) Itching Medications ???Medication ???Instructions ???Recorded ???Confirmed ???Type NK 02/24/24 11/19/24 History Nurse's Note: Patient here for a pre-employment Physical for [employer] [facility]. PFSH Medical History Hx of endometriosis Back pain History of IBS Encounter for screening for COVID-19 Wears contact lenses Alcohol use Low iron Former smoker Surgical History S/P laparoscopic assisted vaginal hysterectomy (LAVH) History of umbilical hernia repair ( 02/2021) Hx of section History of arthroscopy of right shoulder Family History Grandmother Diabetes Social History Smoking Status: Former smoker how long ago did patient quit smokin years alcohol intake: never substance use type: does not use caffeine: Yes what type of physical activity do you participate in: none seatbelt use: always do you feel safe at home: Yes additional social history: - Del[place] Patient works in [employer] at [employer] HPI HPI Details: JUSTIN LEE, is a 29 F who presents to the office today for preemployment physical. Please see corresponding scanned documents with today's date. 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 Diagnoses Encounter for pre-employment health screening examination Z02.1 Assessment and Plan Assessment and Plan (1) Encounter for pre-employment health screening examination: Status: Acute Plan Details Goals Barriers: Goals Decrease pain Decrease spasm Improve ROM Barriers Caring for young children 11/19/24 1046 Date Ernst Golden Signature: Date (if applicable) CC: Normal [facility] LILIAN + Protein Elect, Serumon 10-13-2024 Albumin [Mass/Vol] 3.7 g/dL Normal 2.9-4.4 [facility] Comment on above: Order Comment: N Performed By: #### L 7950.1100, L3880.342 #### [facility] [address] [place], [address] Albumin/Globulin [Mass ratio] 1.5 {ratio} Normal 0.7-1.7 [facility] Comment on above: Order Comment: N Performed By: #### L 3200.1100, L3032.342 #### [facility] [address] [place], [address] ARBOH-3-NIFQ 0.2 g/dL Normal 0.0-0.4 [facility] Comment on above: Order Comment: N Performed By: #### L 3200.1100, L3100.3425 #### [facility] [address] [place], [address] JYJVP-9-SDCS 0.6 g/dL Normal 0.4-1.0 [facility] Comment on above: Order Comment: N Performed By: #### L 3200.1100, L3100.3425 #### [facility] [address] [place], [address] BETA GLOBULIN 0.9 g/dL Normal 0.7-1.3 [facility] Comment on above: Order Comment: N Performed By: #### L 3200.1100, L3100.3425 #### [facility] [address] [place], [address] GAMMA GLOBULIN 0.9 g/dL Normal 0.4-1.8 [facility] Comment on above: Order Comment: N Performed By: #### L 3200.1100, L3100.3425 #### [facility] [address] [place], [address] Globulin (S) [Mass/Vol] 2.6 g/dL Normal 2.2-3.9 [facility] Comment on above: Order Comment: N Performed By: #### L 3200.1100, L3100.3425 #### [facility] [address] [place], [address] LILIAN RESULT,S Comment Normal . [facility] Comment on above: Order Comment: N Result Comment: No m onoclonality detected. Performed By: #### L 3200.1100, L3100.3425 #### [facility] [address] [place], [address] IMMUNOGLOB A QN 102 mg/dL Normal 87-352 [facility] Comment on above: Order Comment: N Performed By: #### L 3200.1100, L3100.3425 #### [facility] [address] [place], [address] IMMUNOGLOB G QN 870 mg/dL Normal 586-1602 [facility] Comment on above: Order Comment: N Performed By: #### L 3200.1100, L3100.3425 #### [facility] [address] [place], [address] IMMUNOGLOB M QN 93 mg/dL Normal 26-217 [facility] Comment on above: Order Comment: N Performed By: #### L 3200.1100, L3100.3425 #### [facility] [address] [place], [address] M-Kwabena Not Observed Normal Not Observed [facility] Comment on above: Order Comment: N Performed By: #### L 3200.1100, L3100.3425 #### [facility] [address] [place], [address] NOTE: Comment Normal . [facility] Comment on above: Order Comment: N Result Comment: Prot ein electrophoresis scan will follow via computer, mail, or railroad crossing protection maintainer delivery. Performed By: #### L 3200.1100, L3100.3425 #### [facility] [address] [place], [address] Protein [Mass/Vol] 6.3 g/dL Normal 6.0-8.5 [facility] Comment on above: Order Comment: N Performed By: #### L 3200.1100, L3100.3425 #### [facility] [address] [place], [address] Immunoglobulins G/A/M/Chuy IMMUNOGLOB E QN 23 IU/mL Normal 6-495 [facility] Comment on above: Order Comment: N Result Comment: Perf ormed at: CB - [facility] [address] [id number] Varnish Mixer: Damián Carmichael PhD, Phone: [phone] Performed at: - [facility] [address] [id number] Varnish Mixer: Duong Tam MD, Phone: [phone] Performed By: #### L 3200.1100, L3100.3423 #### [facility] [address] [place], [place], [id number] Absolute lymphocyte countOrd ered By: HEALTH ASSESSMENT on 10-09-2024 Lymphocytes Auto (Unsp spec) [#/Vol] 2.05 10*3/uL 0.83-4.51 [facility] Absolute neutrophil countOrd ered By: HEALTH ASSESSMENT on 10-09-2024 Neutrophils (Bld) [#/Vol] 3.8 10*3/uL 2.0-7.7 [facility] Absolute nucleated red blood cell countOrdered By: HEALTH ASSESSMENT on 10-09-2024 Nucleated RBC (Bld) [#/Vol] 0.00 10*3/uL 0-5 [facility] Anion gap in Serum or Plasma Ordered By: HEALTH ASSESSMENT on 10-09-2024 Anion gap [Moles/Vol] 10 mmol/L 5-15 [facility] BUN/creatinine ratioOrdered By: HEALTH ASSESSMENT on 10-09-2024 Urea nitrogen/Creatinine [Mass ratio] 12.5 mg/mg 10-20 [facility] Bilirubin directOrdered By: HEALTH ASSESSMENT on 10-09-2024 Bilirubin.direct [Mass/Vol] 0.11 mg/dL 0.00-0.30 [facility] Bilirubin, totalOrdered By: HEALTH ASSESSMENT on 10-09-2024 Bilirubin [Mass/Vol] 0.21 mg/dL 0.00-1.30 [facility] CBC, Employeeon 10-09-2024 Absolute Lymph 2.05 X10 3/uL Normal 0.83-4.51 [facility] Comment on above: Performed By: #### L 100.0200, L500.2900 #### [facility] [address] [place], [address] Absolute Neut 3.8 X10 3/uL Normal 2.0-7.7 [facility] Comment on above: Performed By: #### L 100.0200, L500.2900 #### [facility] [address] [place], [address] Basophils/100 WBC (Bld) 0.9 % Normal 0-1 [facility] Comment on above: Performed By: #### L 100.0200, L500.2900 #### [facility] [address] [place], [address] Eosinophils/100 WBC (Bld) 1.4 % Normal 0-5 [facility] Comment on above: Performed By: #### L 100.0200, L500.2900 #### [facility] [address] [place], [address] Erythrocyte distribution width (RBC) [Ratio] 12.9 % Normal 11.6-14.6 [facility] Comment on above: Performed By: #### L 100.0200, L500.2900 #### [facility] [address] [place], [address] Hematocrit (Bld) [Volume fraction] 39.4 % Normal 37-47 [facility] Comment on above: Performed By: #### L 100.0200, L500.2900 #### [facility] [address] [place], [address] Hemoglobin (Bld) [Mass/Vol] 12.7 g/dL Normal 12.0-15.0 [facility] Comment on above: Performed By: #### L 100.0200, L500.2900 #### [facility] [address] [place], [address] Lymphocytes/100 WBC (Bld) 31.4 % Normal 19-41 [facility] Comment on above: Performed By: #### L 100.0200, L500.2900 #### [facility] [address] [place], [address] MCH (RBC) [Entitic mass] 26.9 pg Low 27.0-32.0 [facility] Comment on above: Performed By: #### L 100.0200, L500.2900 #### [facility] [address] [place], [address] MCHC (RBC) [Mass/Vol] 32.2 g/dL Normal 32-36 [facility] Comment on above: Performed By: #### L 100.0200, L500.2900 #### [facility] [address] [place], [address] MCV (RBC) [Entitic vol] 83.5 fL Normal 81-99 [facility] Comment on above: Performed By: #### L 100.0200, L500.2900 #### [facility] [address] [place], [address] Monocytes/100 WBC (Bld) 8.7 % Normal 0-10 [facility] Comment on above: Performed By: #### L 100.0200, L500.2900 #### [facility] [address] [place], [address] Neutrophils/100 WBC (Bld) 57.4 % Normal 47-70 [facility] Comment on above: Performed By: #### L 100.0200, L500.2900 #### [facility] [address] [place], [address] NRBC # 0.00 10 3/uL Normal 0-5 [facility] Comment on above: Performed By: #### L 100.0200, L500.2900 #### [facility] [address] [place], [address] Nucleated RBC (Bld) [#/Vol] 0 10*3/uL Normal 0-5 [facility] Comment on above: Performed By: #### L 100.0200, L500.2900 #### [facility] [address] [place], [address] Platelet mean volume (Bld) [Entitic vol] 9.5 fL Normal 6.2-12.0 [facility] Comment on above: Performed By: #### L 100.0200, L500.2900 #### [facility] [address] [place], [address] Platelets (Bld) [#/Vol] 266 10*3/uL Normal 150-450 [facility] Comment on above: Performed By: #### L 100.0200, L500.2900 #### [facility] [address] [place], [address] RBC (Bld) [#/Vol] 4.72 10*6/uL Normal 4.2-5.4 [facility] Comment on above: Performed By: #### L 100.0200, L500.2900 #### [facility] [address] [place], [address] RDW SD 38.9 fl Normal 35.1-43.9 [facility] Comment on above: Performed By: #### L 100.0200, L500.2900 #### [facility] [address] [place], [address] WBC (Bld) [#/Vol] 6.5 10*3/uL Normal 4.4-11.0 [facility] Comment on above: Performed By: #### L 100.0200, L500.2900 #### [facility] [address] [place], [address] Calculated very low density lipoprotein (VLDL) cholesterol measurementOrdered By: HEALTH ASSESSMENT on 10-09-2024 Calculated very low density lipoprotein (VLDL) cholesterol measurement 16 mg/dL 5-40 [facility] Carbon dioxide, total [Moles /volume] in Central venous bloodOrdered By: HEALTH ASSESSMENT on 10-09-2024 CO2 [Moles/Vol] 24.8 mmol/L 21.0-32.0 [facility] Chloride assayOrdered By: HE ALTH ASSESSMENT on 10-09-2024 Chloride [Moles/Vol] 103 mmol/L 98-108 [facility] Employee Profileon Cholesterol in LDL [Mass/Vol] 108 mg/dL Normal 0-130 [facility] Comment on above: Performed By: #### L 100.0200, L500.2900 #### [facility] [address] [place], [address] Erythrocyte distribution wid th ratioOrdered By: HEALTH ASSESSMENT on 10-09-2024 Erythrocyte distribution width (RBC) [Ratio] 12.9 % 11.6-14.6 [facility] Erythrocyte distribution wid th standard deviationOrdered By: HEALTH ASSESSMENT on 10-09-2024 Erythrocyte distribution width (RBC) [Ratio] 38.9 fl 35.1-43.9 [facility] Glomerular filtration rate ( GFR) estimation/1.73 sq m using serum, plasma, or whole bOrdered By: HEALTH ASSESSMENT on 10-09-2024 GFR/1.73 sq M.predicted among non-blacks MDRD (S/P/Bld) [Vol rate/Area] 121 mL/min/{1.73_m2} >60 [facility] Comment on above: mL/min/1.73m2 CKD-EP I Creatinine Equation (2020) Hematocrit Auto (Bld) [Volum e fraction]Ordered By: HEALTH ASSESSMENT on 10-09-2024 Hematocrit (Bld) [Volume fraction] 39.4 % 37-47 [facility] Hemoglobin measurementOrdere d By: HEALTH ASSESSMENT on 10-09-2024 Hemoglobin (Bld) [Mass/Vol] 12.7 g/dL 12.0-15.0 [facility] - Chemistry and C hemistry - challengeOrdered By: HEALTH ASSESSMENT on 10-09-2024 AST [Catalytic activity/Vol] 18 U/L <32 [facility] Lactate dehydrogenase (LDH) measurementOrdered By: HEALTH ASSESSMENT on 10-09-2024 LDH [Catalytic activity/Vol] 142 U/L 84-246 [facility] Low density lipoprotein (LDL ) cholesterol measurementOrdered By: HEALTH ASSESSMENT on 10-09-2024 Cholesterol in LDL [Mass/Vol] 108 mg/dL 0-130 [facility] MCV (mean corpuscular volume ) determinationOrdered By: HEALTH ASSESSMENT on 10-09-2024 MCV (RBC) [Entitic vol] 83.5 fL 81-99 [facility] Mean corpuscular hemoglobin (MCH) determinationOrdered By: HEALTH ASSESSMENT on 10-09-2024 MCH (RBC) [Entitic mass] 26.9 pg Low 27.0-32.0 [facility] Mean corpuscular hemoglobin concentration (MCHC) determinationOrdered By: HEALTH ASSESSMENT on 10-09-2024 MCHC (RBC) [Mass/Vol] 32.2 g/dL 32-36 [facility] Mean platelet volume determi nationOrdered By: HEALTH ASSESSMENT on 10-09-2024 Platelet mean volume (Bld) [Entitic vol] 9.5 fL 6.2-12.0 [facility] Neutrophil percentageOrdered By: HEALTH ASSESSMENT on 10-09-2024 Neutrophils/100 WBC (Bld) 57.4 % 47-70 [facility] Nucleated red blood cell per centageOrdered By: HEALTH ASSESSMENT on 10-09-2024 Nucleated RBC/100 WBC (Bld) [Ratio] 0 % 0-5 [facility] Platelet countOrdered By: HE ALTH ASSESSMENT on 10-09-2024 Platelets (Bld) [#/Vol] 266 10*3/uL 150-450 [facility] Potassium measurement (mass/ volume)Ordered By: HEALTH ASSESSMENT on 10-09-2024 Potassium (Unsp spec) [Mass/Vol] 3.7 mmol/L 3.3-5.1 [facility] RBC Auto (Bld) [#/Vol]Ordere d By: HEALTH ASSESSMENT on 10-09-2024 RBC (Bld) [#/Vol] 4.72 10*6/uL 4.2-5.4 [facility] Screening total cholesterol/ high density lipoprotein (HDL) cholesterol ratioOrdered By: HEALTH ASSESSMENT on 10-09-2024 Cholesterol.total/Joceline sterol in HDL [Mass ratio] 3.62 {ratio} [facility] Serum creatinine measurement (mass/volume)Ordered By: HEALTH ASSESSMENT on 10-09-2024 Creatinine [Mass/Vol] 0.69 mg/dL Low 0.70-1.20 [facility] Serum globulin measurementOr dered By: HEALTH ASSESSMENT on 10-09-2024 Globulin (S) [Mass/Vol] 2.2 g/dL 2.2-4.2 [facility] Serum glucose measurement (m ass/volume)Ordered By: HEALTH ASSESSMENT on 10-09-2024 Glucose [Mass/Vol] 89 mg/dL 70-99 [facility] Serum or plasma alanine saab otransferase (ALT) measurementOrdered By: HEALTH ASSESSMENT on 10-09-2024 ALT [Catalytic activity/Vol] 13 U/L <35 [facility] Serum or plasma albumin marcello urement (mass/volume)Ordered By: HEALTH ASSESSMENT on 10-09-2024 Albumin [Mass/Vol] 4.4 g/dL 3.5-5.0 [facility] Serum or plasma albumin/glob ulin mass ratioOrdered By: HEALTH ASSESSMENT on 10-09-2024 Albumin/Globulin [Mass ratio] 2.0 {ratio} 0.9-2.4 [facility] Serum or plasma alkaline aniya sphatase measurementOrdered By: HEALTH ASSESSMENT on 10-09-2024 ALP [Catalytic activity/Vol] 54 U/L 35-104 [facility] Serum or plasma calcium marcello urement (mass/volume)Ordered By: HEALTH ASSESSMENT on 10-09-2024 Calcium [Mass/Vol] 9.1 mg/dL 7.6-11.0 [facility] Serum or plasma cholesterol in HDL measurement (mass/volume)Ordered By: HEALTH ASSESSMENT on 10-09-2024 Cholesterol in HDL [Mass/Vol] 47 mg/dL >40 [facility] Comment on above: National Cholesterol Education Program (NCEP) guidelines:<40 mg/dL: Low HDL-cholesterol (major risk factor for CHD)>= 60 mg/dL: High HDL-cholesterol (negative risk factor for CHD)HDL-cholesterol is affected by a number of factors, e.g. smoking, exercise, hormones, sex and age. Serum or plasma cholesterol measurement (mass/volume)Ordered By: HEALTH ASSESSMENT on 10-09-2024 Cholesterol [Mass/Vol] 171 mg/dL <201 [facility] Comment on above: Cholesterol level, D esirable <200 mg/dLBorderline high cholesterol 200-239 mg/dLHigh cholesterol >=240 mg/dLRecommendations of the NCEP Adult Treatment Panel for the following risk-cutoff thresholds for the [place] population. Serum or plasma urea nitroge n measurement (mass/volume)Ordered By: HEALTH ASSESSMENT on 10-09-2024 Urea nitrogen [Mass/Vol] 9 mg/dL 4-19 [facility] Serum or plasma uric acid me asurement (mass/volume)Ordered By: [facility] ASSESSMENT on 10-09-2024 Urate [Mass/Vol] 4.0 mg/dL 2.6-6.0 [facility] Comment on above: The drugs N-Acetylcy steine and Metamizole may falsely depress this assay. Sodium levelOrdered By: [facility] ASSESSMENT on 10-09-2024 Sodium [Moles/Vol] 138 mmol/L 133-145 [facility] Total proteinOrdered By: [facility] [place] ASSESSMENT on 10-09-2024 Protein [Mass/Vol] 6.6 g/dL 5.9-8.4 [facility] Triglycerides measurementOrd ered By: [facility] ASSESSMENT on 10-09-2024 Triglyceride [Mass/Vol] 79 mg/dL <199 [facility] Comment on above: The drugs N-Acetylcy steine and Metamizole may falsely depress this assay. Normal range: <150 mg/dLBorderline High: 150-199 mg/dLHigh: 200-499 mg/dLVery High: >500 mg/dL White blood cell (WBC) count Ordered By: [facility]ALTH ASSESSMENT on 10-09-2024 WBC (Bld) [#/Vol] 6.5 10*3/uL 4.4-11.0 [facility] Albumin Elph [Mass/Vol]Order ed By: Zackary Anderson on 10-07-2024 Albumin [Mass/Vol] 3.7 g/dL 2.9-4.4 [facility] IgEOrdered By: Zackary mccoy on 10-07-2024 IgE 23 IU/mL 6-495 [facility] Comment on above: Performed at: [facility] [address] [place], [place] [id number] Director: Damián Carmichael PhD, Phone: [phone] at: [facility] [address] [id number] Director: Duong Tam MD, Phone: [phone] Interpretation of serum or p lasma protein pattern by immunofixation (narrative resultOrdered By: Zackary Anderson on 10-07-2024 Protein Fractions Immunofixation Ladarius [Interp] Not Observed g/dL Not Observed [facility] No Panel InformationOrdered By: Zackary Anderson on 10-07-2024 Addendum Document Comment . [facility] Comment on above: Protein electrophore sis scan will follow via computer,mail, or railroad crossing protection maintainer delivery. Serum globulin measurement ( mass/volume)Ordered By: Zackary Anderson on 10-07-2024 Globulin (S) [Mass/Vol] 2.6 g/dL 2.2-3.9 [facility] Serum or plasma IgA measurem ent (mass/volume)Ordered By: Zackary Anderson on 10-07-2024 IgA [Mass/Vol] 102 mg/dL 87-352 [facility] Serum or plasma IgG measurem ent (mass/volume)Ordered By: Zackary Anderson on 10-07-2024 IgG [Mass/Vol] 870 mg/dL [phone] [facility] Serum or plasma alpha 1 glob ulin measurement by electrophoresis (mass/volume)Ordered By: Zackary Anderson on 10-07-2024 Alpha 1 globulin Elph [Mass/Vol] 0.2 g/dL 0.0-0.4 [facility] Alpha 1 globulin Elph [Mass/Vol] 0.6 g/dL 0.4-1.0 [facility] Serum or plasma beta globuli n measurement by electrophoresis (mass/volume)Ordered By: Zackary Anderson on 10-07-2024 Beta globulin Elph [Mass/Vol] 0.9 g/dL 0.7-1.3 [facility] Serum or plasma gamma globul in measurement by electrophoresis (mass/volume)Ordered By: Zackary Anderson on 10-07-2024 Gamma globulin Elph [Mass/Vol] 0.9 g/dL 0.4-1.8 [facility] Serum or plasma immunoelectr ophoresis interpretation (nominal result)Ordered By: Zackary Anderson on 10-07-2024 Interpretation IEP [Interp] Comment . [facility] Comment on above: No monoclonality det ected. Serum or plasma protein marcello urement (mass/volume)Ordered By: Zackary Anderson on 10-07-2024 Protein [Mass/Vol] 6.3 g/dL 6.0-8.5 [facility] Pelvic w/ Transvaginalon Pelvic w/ Transvaginal [facility] Imaging Services [address] [place], [place] [address] Pelvic w/ Transvaginal MR#: [id number] Acct: [id number] Name: JUSTIN LEE Rep #: [id number] : 1995 F 29 From: Alpesh Encinas i, DO PCP: Dr. Ratna Villalobos MD Status: [facility] CLI Study: Pelvic w/ Transvaginal Date of Exam: 09/23/24 Exam# [id number] Ordering Dr: Vani Myers IMPORT EXPORT MANAGER IMPORT EXPORT MANAGER -C PROCEDURE: Pelvic ultrasound, transabdominal and transvaginal. 09/23/2024 REASON FOR EXAM: Chronic pelvic pain. History of partial hysterectomy. TECHNIQUE: Transabdominal and transvaginal pelvic ultrasound evaluation was performed. COMPARISON: None available FINDINGS: The included portions of the urinary bladder show no specific abnormality. The uterus is not demonstrated, absent by history. The right ovary is 3.4 x 2.5 x 2.4 cm. The left ovary is 2.6 x 2.4 x 1.7 cm. No adnexal mass lesion or free pelvic fluid. Tiny bilateral ovarian follicles. There appears to be blood flow in both ovaries on Doppler evaluation. The provided images of the urinary bladder show no specific abnormality. US/Pelvic w/ Transvaginal IMPRESSION: Absent uterus. Unremarkable ovaries. No evidence of ovarian torsion or concerning adnexal mass. If there is persistent pain, follow-up CT scan evaluation may be considered. Reading [facility] CC: MONSERRAT Myers; Dr. 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: Signed Normal [facility] [employer] [facility] [employer] Office Visit Reporton 09-20-2024 [facility] Visit Report [facility]'s [address], [address] [place] [address] OFFICE VISIT Date of Service: 09/20/24 MR#: [id number] Acct: [id number] Name: JUSTIN LEE Rep #: [id number] : 1995 Provider: MONSERRAT chan Age/Sex: 29/F Location: [facility] Status: Signed Intake Vital Signs 02/26/24 06:29 09/20/24 14:47 09/20/24 14:50 Height 5 ft 7 in 5 ft 7 in 5 ft 7 in Weight: 134 lb BMI 20.9 BP 116/78 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 Is patient in pain?: No Allergies oxycodone Allergy (Intermediate, Verified 09/20/24 14:51) Itching Medications ???Medication ???Instructions ???Recorded ???Confirmed ???Type NK 02/24/24 09/20/24 History Is last menstrual period known: No Post menopausal: No Patient : No : No Control Method: LAVHBS PFSH Medical History Hx of endometriosis Back pain History of IBS Encounter for screening for COVID-19 Wears contact lenses Alcohol use Low iron Former smoker Surgical History S/P laparoscopic assisted vaginal hysterectomy (LAVH) History of umbilical hernia repair ( 02/2021) Hx of section History of arthroscopy of right shoulder Family History Grandmother Diabetes Social History Smoking Status: Former smoker how long ago did patient quit smokin years alcohol intake: never substance use type: does not use caffeine: Yes what type of physical activity do you participate in: none seatbelt use: always do you feel safe at home: Yes additional social history: - Aneudy 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 Date Name GA/Weeks Outcome Route Bth Weight Infant Gen Labor Lgth Anesthesia Del Locatn Provider FOB 07/06/18 Mehul 41 live - full term Male epidural [facility] CHARY 08/23/19 Camila 39 live - full term Female spinal [employer] [facility] Dr Ava Benavides Delivery Date: 07/06/18 Last Updated by: Rica Vee 4th degree laceration Delivery Date: 08/23/19 Last Updated by: Lena Dangelo LTCS partial salpingectomy HPI Encounter for routine gynecological examination Details: JUSTIN LEE is a 29 year old who presents for annual exam. Has persistent lower right pelvic pain that occurs most days and is mild except with intercourse. Can come and go. She had LAVH 05/2023. This has persisted since surgery. Last PAP: na History of abnormal PAP: no Last mammogram: age 41 ROS Const Constitutional: Denies fatigue, weight gain or weight loss Cardio Card: Denies chest pain Resp Resp: Denies cough or dyspnea on exertion GI GI: Denies abdominal pain, bloating, change in stool character, constipation or vomiting : Reports as per HPI; Denies difficulty voiding, pelvic pain, urinary frequency, urinary incontinence, urinary urgency, vaginal discharge or vaginal pruritus Exam Const General: cooperative, healthy appearing, no acute distress and well developed Orientation: alert, oriented to person and oriented to place [facility] Head: normal to inspection Neck Neck: normal visual inspection Thyroid: thyroid normal Lymphatic: no lymphadenopathy noted Chest Breast inspection: normal inspection of the breasts and normal inspection of the axillae Breast palpation: normal palpation of the breasts, normal palpation of the axillae and no axillary lymphadenopathy Resp Effort Inspection: normal respiratory effort GI Palpation: soft, no masses and nontender Rectal Exam: deferred External Female Exam: normal external appearance and normal appearance of the urethra Urethra: normal appearance of the urethra and normal palpation Speculum Exam - Vagina: normal appearance of the vagina and normal vaginal discharge Speculum Exam - Cervix: absent Bimanual Exam- Vagina Uterus: normal bimanual exam and uterus absent Bimanual Exam- Adnexa, other: normal and mass (3cm) tender on the right Pelvic Support: normal Neuro General: patient alert and patient oriented x3 Psych Affect: normal affect Coding Level of Care Code Off vis,est,prev 18-39yrs Diagnoses Encounter for gynecological examination with abnormal finding Z01.411 Gynecological examination findings: abnormal findings PRESENT Pelvic pain R10.2 Ovarian enlargement, right N83.8 Assessment and Plan Assessment and Plan (1) Encounter for routine gynecological exam (more content not included)... Normal [facility] POCT Group A Streptococcus, PCR manually resultedon 05-10-2024 S. pyogenes DNA EH+probe Ql (Throat) Not detected Not Detected [facility] Work Phone: [facility] Work Phone: POCT SARS-COV-2/FLU/RSV PCR SYMPTOMATIC manually resultedon 05-10-2024 FLUAV RNA EH+probe Ql (Resp) Not detected Not Detected [facility] Work Phone: FLUBV RNA EH+probe Ql (Resp) Not detected Not Detected [facility] Work Phone: RSV RNA EH+probe Ql (Resp) Not detected Not Detected [facility] Work Phone: SARS-CoV-2 (COVID-19) RNA EH+probe Ql (Resp) Not detected Not Detected [facility] Work Phone: [facility] Work Phone: EGD Reporton 02-26-2024 EGD Report [facility] Medical Records Department [address] [place] [address] EGD Report MR#: [id number] Acct: [id number] Name: JUSTIN LEE Rep #: [id number] : 1995 28 From: Zackary Anderson DO PCP: Dr. Ratna Villalobos MD Status:[facility] Patient Name: Justin Lee Procedure Date: 02/26/2024 7:24 AM Date of : 1995 Age: 28 Procedure: Upper GI endoscopy Indications: Epigastric abdominal pain, Dyspepsia Providers: Zackary Anderson DO Medicines: Monitored Anesthesia Care Patient Profile: This is a 28 year old female. Refer to note in patient chart for documentation of history and physical. Patient has symptoms of chronic dysphagia and chronic nausea. Complications: No immediate complications. Procedure: Pre-Anesthesia Assessment: - Prior to the procedure, a History and Physical was performed, and patient medications and allergies were reviewed. The patient is competent. The risks and benefits of the procedure and the sedation options and risks were discussed with the patient. All questions were answered and informed consent was obtained. Patient identification and proposed procedure were verified by the physician in the pre-procedure area. Mental Status Examination: alert and oriented. Airway Examination: normal oropharyngeal airway and neck mobility. Respiratory Examination: clear to auscultation. CV Examination: normal. Prophylactic Antibiotics: The patient does not require prophylactic antibiotics. Prior Anticoagulants: The patient has taken no anticoagulant or antiplatelet agents. ASA Grade Assessment: II - A patient with mild systemic disease. After reviewing the risks and benefits, the patient was deemed in satisfactory condition to undergo the procedure. The anesthesia plan was to use monitored anesthesia care (MAC). Immediately prior to administration of medications, the patient was re-assessed for adequacy to receive sedatives. The heart rate, respiratory rate, oxygen saturations, blood pressure, adequacy of pulmonary ventilation, and response to care were monitored throughout the procedure. The physical status of the patient was re-assessed after the procedure. After obtaining informed consent, the endoscope was passed under direct vision. Throughout the procedure, the patient's blood pressure, pulse, and oxygen saturations were monitored continuously. The Endoscope was introduced through the mouth, and advanced to the second part of duodenum. The upper GI endoscopy was accomplished without difficulty. The patient tolerated the procedure well. Scope In: 7:33:47 AM Scope Out: 7:38:20 AM Total Procedure Duration Time 0 hours 4 minutes 33 seconds Findings: Mucosal changes including longitudinal furrows and small-caliber esophagus were found in the upper third of the esophagus and in the middle third of the esophagus. Esophageal findings were graded using the Eosinophilic Esophagitis Endoscopic Reference Score (EoE-EREFS) as: Edema Grade 1 Present (decreased clarity or absence of vascular markings), Rings Grade 0 None (no ridges or rings seen), Exudates Grade 0 None (no white lesions seen), Furrows Grade 1 Mild (vertical lines without visible depth) and Stricture none (no stricture found). Biopsies were obtained from the proximal and distal esophagus with cold forceps for histology of suspected eosinophilic esophagitis. Verification of patient identification for the specimen was done. Estimated blood loss was minimal. Localized moderately erythematous mucosa without bleeding was found in the gastric body. Biopsies were taken with a cold forceps for histology. Verification of patient identification for the specimen was done. Estimated blood loss was minimal. Biopsies were taken with a cold forceps for Helicobacter pylori testing. Verification of patient identification for the specimen was done. Estimated blood loss was minimal. Diffuse nodular mucosa was found in the entire duodenum. Biopsies for histology were taken with a cold forceps for evaluation of celiac disease. Verification of patient identification for the specimen was done. Estimated blood loss was minimal. Impression: - Esophageal mucosal changes consistent with eosinophilic esophagitis. - Erythematous mucosa in the gastric body. Biopsied. - Nodular mucosa in the entire examined duodenum. Biopsied. - Biopsies were taken with a cold forceps for evaluation of eosinophilic esophagitis. Recommendation: - Discharge patient to home. - Resume previous diet. - Continue present medications. - Await pathology results. Procedure Code(s): --- Professional --- 89350, Esophagogastroduodenosco py, flexible, transoral; with biopsy, single or multiple CPT copyright 2021 [employer]. All rights reserved. The codes documented in this report are (more content not included)... Normal [facility] H Pylori (initial)on 024 H Pylori (initial) ---- Patient Age/Sex Location Account Attending Physician JUSTIN LEE 28 EN [id number] Zackary Anderson DO Specimen: [id number] Received: 02/26/24 Status: ESTEFANY Linton Num: [id number] Spec Type: IMMUNO Subm Dr: Zackary Anderson DO PHYSICIAN INSTITUTION [place] [address] SPECIMEN INFORMATION: Tissue Source: C- Gastric body biopsy Clinical Info: Dysphagia, anemia Specimen Number: [id number] CPT code: 35187 METHODOLOGY: Deparaffinized sections of prefer/formalin-fixed tissue or PAP/DQ stained slides are incubated with monoclonal/polyclonal antibodies/oligonucleoti de probes. Localization is made via biotin free immunoperoxidase method. Appropriate controls are performed and reacted as expected. Results on target cell population are indicated in the following table: RESULTS: ANTIBODY / CLONE RESULT Block C H Pylori (polyclonal) negative These tests were developed and their performance characteristics determined by [facility]. They may not have been cleared or approved by the U.S. Food and Drug Administration. The FDA has determined that such clearance or approval is not necessary. The above immunohistochemical/dual CADEN markers are ordered and reviewed by the Pathologist. INTERPRETATION: C. Gastric body, biopsy: Negative for Helicobacter pylori organisms. AM. 02/27/2024 Signed (signature on file) Dr. Warren Lisa, 02/27/24 1247 Normal [facility] Comment on above: Performed By: #### P H.PYLORI #### [facility] [address] [place], [address] MR/POSTOP.ANEon 02-26-2024 MR/POSTOP.[facility] Medical Records Department [address] [place] [address] Anesthesia Postop Eval I 02/26/2448 MR#: [id number] Acct: [id number] Name: JUSTIN LEE Rep #: [id number] : 1995 28 From: Sina Rico PCP: Dr. Ratna Villalobos MD Status:REG [facility] Y Race: C Location: [place] [address] Anesthesia: Postop Eval I Current Vital Signs Temperature: 97.2 F Pulse Rate: 16 Blood Pressure: 96/65 Respiratory Rate: 16 Pulse Ox: 97 Oxygen Delivery Method: Room Air Assessment Airway patent: Yes Spontaneous unlabored respirations: Yes Mental status: Asleep nausea: No Vomiting: No Anesthesia Complication: No Fluid Hydration Crystalloid volume administer (ml): 400 Total IV fluid infused: 400 Progress Note Anesthesia document: Postop Eval 1 completed: Yes 02/26/2449 Date Sina Golden Signature: Date CC: Signed Normal [facility] MR/GAPUZJOI6ll 02-26-2024 MR/POSTOPAN2 [facility] Medical Records Department [address] [place] [address] Anesthesia Postop Eval II 02/26/24 0839 MR#: [id number] Acct: [id number] Name: JUSTIN LEE Rep #: [id number] : 1995 From: Leonardo Stanley MD PCP: Dr. Ratna Villalobos MD Status:DEP [facility] Y Race: C Location: EN Anesthesia Postop Eval I Sum Postop Eval Completion status Anesthesia document: Postop Eval 1 completed: Yes Anesthesia Postop Eval I Summary Anesthesia Postop Eval I Summary: Anesthesia Postop Eval I: Assessment Summary Airway patent Yes 02/26/24 07:49 [email or web address] Spontaneous unlabored Yes 02/26/24 07:49 [email or web address] respirations Mental status Asleep 02/26/24 07:49 [email or web address] nausea No 02/26/24 07:49 [email or web address] Vomiting No 02/26/24 07:49 [email or web address] Anesthesia Postop Eval I: Fluid Summary Crystalloid volume administer 400 02/26/24 07:49 [email or web address] (ml) Colloids volume administered ( ml) Blood Product volume administered (ml) Total IV fluid infused 400 02/26/24 07:49 [email or web address] Anesthesia Postop Eval I: Summary Notes Anesthesia Complication No 02/26/24 07:49 [email or web address] Anesthesia Complication Comment: Post-operative progress note Anesthesia: Postop Eval II Evaluation Mental status: Awake Pain Level: 0 nausea: No Vomiting: No 02/26/24 0839 Date Leonardo Stanley MD Cosigner Signature: Date CC: Signed Normal [facility] Surgery Specimen Level Mundo 02-26-2024 Surgery Specimen Level IV Patient Age/Sex Location Account Attending Physician JUSTIN LEE EN [id number] Zackary Anderson DO Specimen: [id number] Received: 02/26/24 Status: ESTEFANY [place]inton Num: [id number] Spec Type: EGD BIOPSY Subm Dr: Zackary Anderson DO HEADER OPERATION: EGD with biospies PRE-OP DIAGNOSIS: Dysphagia, anemia TISSUE SUBMITTED: A- Random esophagus, B- Duodenum, C- Gastric body MICROSCOPIC DIAGNOSIS A. Esophagus, random biopsy: Focal changes of reflux. See comment. B. Duodenum, biopsy: Chronic duodenitis. See comment. C. Gastric body, biopsy: Chronic gastritis. See comment. DEEDEE/ 02/27/2024 COMMENT A. Eosinophils number <1 per high power field. Clinical correlation is suggested. B. The mature majority of the villi are not flattened. Clinical correlation is suggested. C. The results of immunohistochemistry for Helicobacter pylori will be reported separately ([id number]). MICROSCOPIC DESCRIPTION Slides are reviewed. GROSS DESCRIPTION A. Received in fixative is one container labeled with the patient's name and designated Random esophagus . The specimen consists of multiple irregular fragments of light zuleta soft tissue that in aggregate measure 1.0 x 0.6 x 0.1 cm. The specimen is totally submitted in one cassette. B. Received in fixative is one container labeled with the patient's name and designated Duodenum. The specimen consists of multiple irregular fragments of light zuleta soft tissue that in aggregate measure 1.5 x 0.5 x 0.1 cm. The specimen is totally submitted in one cassette. C. Received in fixative is one container labeled with the patient's name and designated Gastric body. The specimen consists of two irregular fragments of light zuleta soft tissue that in aggregate measure 0.8 x 0.3 x 0.1 cm. The specimen is totally submitted in one cassette. SJ 02/26/2024 TC:3 CPT:10752b5 Patient Age/Sex Location Account Attending Physician JUSTIN LEE/Deedee DEVI [id number] Zackary Anderson DO Signed (signature on file) Dr. Warren Lisa, 02/27/24 1209 Normal [facility] Comment on above: Performed By: #### P SUIV #### [facility] [address] [place], [address] Absolute lymphocyte countOrd ered By: Tam Ledbetter on 10-08-2023 Lymphocytes Auto (Unsp spec) [#/Vol] 1.32 10*3/uL 0.83-4.51 [facility] Automated lymphocyte count a s percentage of total leukocytesOrdered By: Tam Ledbetter on 10-08-2023 Lymphocytes/100 WBC Auto (Unsp spec) 28.6 % 19-41 [facility] Basophil percentageOrdered B y: Tam Ledbetter on 10-08-2023 Basophil percentage 0-5 SEEN /hpf 0-5 [facility] Basophils/100 WBC (Bld) 1.1 % 0-1 [facility] Bilirubin [Mass/Vol] 0.50 mg/dL 0.20-1.00 [facility] Comment on above: For patients on eltr ombopag therapy, use of Dimension [place] TBIL is not recommended. Chloride [Moles/Vol] 106 mmol/L 98-107 [facility] Eosinophils/100 WBC (Bld) 0.9 % 0-5 [facility] Glucose [Mass/Vol] 86 mg/dL 74-106 [facility] Hemoglobin (Bld) [Mass/Vol] 12.0 g/dL 12.0-15.0 [facility] Monocytes/100 WBC (Bld) 7.8 % 0-10 [facility] Neutrophils (Bld) [#/Vol] 2.8 10*3/uL 2.0-7.7 [facility] Neutrophils/100 WBC (Bld) 61.2 % 47-70 [facility] Potassium [Moles/Vol] 3.6 mmol/L 3.5-5.1 [facility] Protein [Mass/Vol] 7.1 g/dL 6.4-8.2 [facility] Sodium [Moles/Vol] 138 mmol/L 136-145 [facility] WBC (Bld) [#/Vol] 4.6 10*3/uL 4.4-11.0 [facility] Bilirubin Test strip Ql (U)O rdered By: Tam Ledbetter on 10-08-2023 Bilirubin Ql (U) Negative Negative [facility] Determination of erythrocyte mean corpuscular volume (MCV)Ordered By: Tam Ledbetter on 10-08-2023 MCV (RBC) [Entitic vol] 78.6 fL 81-99 [facility] Direct bilirubinOrdered By: Tam Ledbetter on 10-08-2023 Bilirubin.direct [Mass/Vol] 0.13 mg/dL 0.00-0.30 [facility] Erythrocyte distribution wid th ratioOrdered By: Tam Ledbetter on 10-08-2023 Erythrocyte distribution width (RBC) [Ratio] 16.8 % 11.6-14.6 [facility] Erythrocyte distribution wid th standard deviationOrdered By: Tam Ledbetter on 10-08-2023 Erythrocyte distribution width (RBC) [Entitic vol] 47.3 fL 35.1-43.9 [facility] Hematocrit Auto (Bld) [Volum e fraction]Ordered By: Tam Ledbetter on 10-08-2023 Hematocrit (Bld) [Volume fraction] 40.0 % 37-47 [facility] Immature granulocytes/100 WB C Auto (Bld)Ordered By: Tam Ledbetter on 10-08-2023 Immature granulocytes/100 WBC (Bld) 0.400 % 0.0-0.9 [facility] Comment on above: IG% - Immature Granu locytes (promyelocytes, myelocytes and metamyelocytes) > 1% indicates that a LEFT SHIFT is Present. Ketones Test strip Ql (U)Ord ered By: Tam Ledbetter on 10-08-2023 Ketones Ql (U) 5 mg/dl Negative [facility] - Chemistry and C hemistry - challengeOrdered By: Tam Ledbetter on 10-08-2023 ALP [Catalytic activity/Vol] 59 U/L 45-117 [facility] ALT [Catalytic activity/Vol] 19 U/L 13-56 [facility] CO2 [Moles/Vol] 29.0 mmol/L 21.0-32.0 [facility] Globulin (S) [Mass/Vol] 3.2 g/dL 2.2-4.2 [facility] Lipase [Catalytic activity/Vol] 28 U/L 13-75 [facility] Comment on above: Please note:LIPASE r evised reference range effective 22. New Lipase methodology. Expected to produce lower values than the previous assay method. NEW Reference Range: 13 - 75 U/L Urea nitrogen/Creatinine [Mass ratio] 11.5 mg/mg 10-20 [facility] Laboratory - Hematology and Cell countsOrdered By: Tam Ledbetter on 10-08-2023 MCH (RBC) [Entitic mass] 23.6 pg 27.0-32.0 [facility] MCHC (RBC) [Mass/Vol] 30.0 g/dL 32-36 [facility] Nucleated RBC/100 WBC (Bld) [Ratio] 0 % 0-5 [facility] Platelet mean volume (Bld) [Entitic vol] 8.9 fL 6.2-12.0 [facility] Platelets (Bld) [#/Vol] 354 10*3/uL 150-450 [facility] Mucus LM Ql (Urine sed)Order ed By: Tam Ledbetter on 10-08-2023 Mucus Ql (Urine sed) 0 SEEN /hpf [facility] Nitrite Test strip Ql (U)Ord ered By: Tam Ledbetter on 10-08-2023 Nitrite Ql (U) Negative Negative [facility] No Panel InformationOrdered By: Tam Ledbetter on 10-08-2023 Estimated Creatinine Clearance Calc 104.73 ml/min [facility] Estimated GFR (MDRD) Amer 114 mL/min >60 [facility] Comment on above: GFR Calc Estimated GFR (MDRD) Non-Af Amer 94 mL/min >60 [facility] Comment on above: Non- GFR Calc Urine RBC 0-5 SEEN /hpf 0-5 [facility] Protein Test strip Ql (U)Ord ered By: Tam Ledbetter on 10-08-2023 Protein Ql (U) 30 mg/dl Negative [facility] RBC Auto (Bld) [#/Vol]Ordere d By: Tam Ledbetter on 10-08-2023 RBC (Bld) [#/Vol] 5.09 10*6/uL 4.2-5.4 [facility] Serum or plasma calcium marcello urement (mass/volume)Ordered By: Tam Ledbetter on 10-08-2023 Calcium [Mass/Vol] 9.0 mg/dL 8.5-10.1 [facility] Serum or plasma creatinine m easurement (mass/volume)Ordered By: Tam Ledbetter on 10-08-2023 Creatinine [Mass/Vol] 0.78 mg/dL 0.55-1.02 [facility] Comment on above: The validity of the calculated GFR & GFRAA in patients over 70 years has not been determined. Clinical correlation is essential. Serum or plasma urea nitroge n measurement (mass/volume)Ordered By: Tam Ledbetter on 10-08-2023 Urea nitrogen [Mass/Vol] 9 mg/dL 7-18 [facility] Squamous epithelial cells de tection in urine sediment by light microscopyOrdered By: Tam Ledbetter on 10-08-2023 Epithelial cells.squamous LM Ql (Urine sed) 0-5 SEEN /hpf 5-10 [facility] Thin prep Papanicolaou smear with manual screeningOrdered By: Tam Ledbetter on 10-08-2023 Thin prep Papanicolaou smear with manual screening 3.9 g/dL 3.2-5.0 [facility] Thin prep Papanicolaou smear with manual screening 17 U/L 15-37 [facility] Thin prep Papanicolaou smear with manual screening 3 5-15 [facility] Urine blood detectionOrdered By: Tam Ledbetter on 10-08-2023 RBC Ql (U) Negative Negative [facility] Urine clarityOrdered By: Dat Ledbetter on 10-08-2023 Clarity (U) Clear Clear [facility] Urine color determinationOrd ered By: Tam Ledbetter on 10-08-2023 Color (U) Yellow Yellow [facility] Urine glucose detectionOrder ed By: Tam Ledbetter on 10-08-2023 Glucose Ql (U) Normal mg/dl Normal [facility] Urine leukocyte esterase det ection by dipstickOrdered By: Tam Ledbetter on 10-08-2023 Leukocyte esterase Test strip Ql (U) 25 /ul Negative [facility] Urine pHOrdered By: Tam harrington on 10-08-2023 pH (U) 6.0 [pH] 5.0 - 8.0 [facility] Urine sediment bacteria coun t by microscopy (number/high power field)Ordered By: Tam Ledbetter on 10-08-2023 Bacteria LM.HPF (Urine sed) [#/Area] 0 /[HPF] None Seen [facility] Urine specific gravity measu rementOrdered By: Tam Ledbetter on 10-08-2023 Specific gravity (U) [Rel density] 1.020 1.002-1.030 [facility] Urine urobilinogen measureme ntOrdered By: Tam Ledbetter on 10-08-2023 Urobilinogen Ql (U) 1 mg/dl Normal [facility] Basophil percentageOrdered B y: Leah Benavides on 05-20-2023 WBC (Bld) [#/Vol] 14.0 10*3/uL 4.4-11.0 [facility] Blood erythrocytes count (nu mber/volume)Ordered By: Leah Benavides on 05-20-2023 RBC (Bld) [#/Vol] 4.36 10*6/uL 4.2-5.4 [facility] Blood hemoglobin measurement (mass/volume)Ordered By: Leah Benavides on 05-20-2023 Hemoglobin (Bld) [Mass/Vol] 10.5 g/dL 12.0-15.0 [facility] Blood platelet mean volumeOr dered By: Leah Benavides on 05-20-2023 Platelet mean volume (Bld) [Entitic vol] 9.5 fL 6.2-12.0 [facility] Determination of erythrocyte mean corpuscular volume (MCV)Ordered By: Leah Benavides on 05-20-2023 MCV (RBC) [Entitic vol] 80.0 fL 81-99 [facility] Glucose Glucometer (BldC) [M ass/Vol]Ordered By: Leah Benavides on 05-20-2023 Glucose [Mass/Vol] 83 mg/dL 74-106 [facility] Comment on above: MANAGEMENT OF PATIEN T CARE PER NURSING PROTOCOL Hematocrit Auto (Bld) [Volum e fraction]Ordered By: Leah Benavides on 05-20-2023 Hematocrit (Bld) [Volume fraction] 34.9 % 37-47 [facility] Laboratory - Chemistry and C hemistry - challengeOrdered By: Leah Benavides on 05-20-2023 HCG ( test) Ql (U) Negative [facility] Comment on above: Very dilute urine sp ecimens, as indicated by a low specificgravity, may not contain freight representative levels of hCG. If is still suspected, a first morning urinespecimen should be collected 48 hours later and tested. Laboratory - Hematology and Cell countsOrdered By: Leah Benavides on 05-20-2023 Erythrocyte distribution width (RBC) [Entitic vol] 44.4 fL 35.1-43.9 [facility] Erythrocyte distribution width (RBC) [Ratio] 15.3 % 11.6-14.6 [facility] MCH (RBC) [Entitic mass] 24.1 pg 27.0-32.0 [facility] MCHC Auto (RBC) [Mass/Vol]Or dered By: Leah Benavides on 05-20-2023 MCHC (RBC) [Mass/Vol] 30.1 g/dL 32-36 [facility] Platelets bldOrdered By: Taqueria Benavides on 05-20-2023 Platelets (Bld) [#/Vol] 314 10*3/uL 150-450 [facility] Basophil percentageOrdered B y: Leah Benavides on 05-16-2023 WBC (Bld) [#/Vol] 5.4 10*3/uL 4.4-11.0 [facility] Blood erythrocytes count (nu mber/volume)Ordered By: Leah Benavides on 05-16-2023 RBC (Bld) [#/Vol] 4.68 10*6/uL 4.2-5.4 [facility] Blood hemoglobin measurement (mass/volume)Ordered By: Leah Benavides on 05-16-2023 Hemoglobin (Bld) [Mass/Vol] 11.0 g/dL 12.0-15.0 [facility] Blood platelet mean volumeOr dered By: Leah Benavides on 05-16-2023 Platelet mean volume (Bld) [Entitic vol] 9.7 fL 6.2-12.0 [facility] Determination of erythrocyte mean corpuscular volume (MCV)Ordered By: Leah Benavides on 05-16-2023 MCV (RBC) [Entitic vol] 80.6 fL 81-99 [facility] Hematocrit Auto (Bld) [Volum e fraction]Ordered By: Leah Benavides on 05-16-2023 Hematocrit (Bld) [Volume fraction] 37.7 % 37-47 [facility] Laboratory - Chemistry and C hemistry - challengeOrdered By: Leah Benavides on 05-16-2023 HCG ( test) Ql (U) Negative [facility] Comment on above: Very dilute urine sp ecimens, as indicated by a low specificgravity, may not contain freight representative levels of hCG. If is still suspected, a first morning urinespecimen should be collected 48 hours later and tested. Laboratory - Chemistry and C hemistry - challengeOrdered By: Leonardo Stanley on 05-16-2023 Magnesium [Mass/Vol] 2.2 mg/dL 1.6-2.6 [facility] Laboratory - Hematology and Cell countsOrdered By: Leah Benavides on 05-16-2023 Erythrocyte distribution width (RBC) [Entitic vol] 45.1 fL 35.1-43.9 [facility] Erythrocyte distribution width (RBC) [Ratio] 15.5 % 11.6-14.6 [facility] MCH (RBC) [Entitic mass] 23.5 pg 27.0-32.0 [facility] MCHC Auto (RBC) [Mass/Vol]Or dered By: Leah Benavides on 05-16-2023 MCHC (RBC) [Mass/Vol] 29.2 g/dL 32-36 [facility] Platelets bldOrdered By: Taqueria Benavides on 05-16-2023 Platelets (Bld) [#/Vol] 367 10*3/uL 150-450 [facility] Absolute lymphocyte countOrd ered By: Leah Benavides on 04-17-2023 Lymphocytes Auto (Unsp spec) [#/Vol] 1.96 10*3/uL 0.83-4.51 [facility] Basophil percentageOrdered B y: Leah Benavides on 04-17-2023 Basophils/100 WBC (Bld) 0.5 % 0-1 [facility] Eosinophils/100 WBC (Bld) 0.4 % 0-5 [facility] Neutrophils (Bld) [#/Vol] 5.3 10*3/uL 2.0-7.7 [facility] Neutrophils/100 WBC (Bld) 68.9 % 47-70 [facility] WBC (Bld) [#/Vol] 7.7 10*3/uL 4.4-11.0 [facility] Blood erythrocytes count (nu mber/volume)Ordered By: Leah Benavides on 04-17-2023 RBC (Bld) [#/Vol] 4.97 10*6/uL 4.2-5.4 [facility] Blood hemoglobin measurement (mass/volume)Ordered By: Leah Benavides on 04-17-2023 Hemoglobin (Bld) [Mass/Vol] 12.0 g/dL 12.0-15.0 [facility] Blood lymphocytes/100 leukoc ytesOrdered By: Leah Benavides on 04-17-2023 Lymphocytes/100 WBC (Bld) 25.4 % 19-41 [facility] Blood monocytes/100 leukocyt esOrdered By: Leah Benavides on 04-17-2023 Monocytes/100 WBC (Bld) 4.5 % 0-10 [facility] Blood platelet mean volumeOr dered By: Leah Benavides on 04-17-2023 Platelet mean volume (Bld) [Entitic vol] 9.6 fL 6.2-12.0 [facility] Determination of erythrocyte mean corpuscular volume (MCV)Ordered By: Leah Benavides on 04-17-2023 MCV (RBC) [Entitic vol] 79.5 fL 81-99 [facility] Hematocrit Auto (Bld) [Volum e fraction]Ordered By: Leah Benavides on 04-17-2023 Hematocrit (Bld) [Volume fraction] 39.5 % 37-47 [facility] Laboratory - Hematology and Cell countsOrdered By: Leah Benavides on 04-17-2023 Erythrocyte distribution width (RBC) [Entitic vol] 44.6 fL 35.1-43.9 [facility] Erythrocyte distribution width (RBC) [Ratio] 15.5 % 11.6-14.6 [facility] Immature granulocytes/100 WBC (Bld) 0.300 % 0.0-0.9 [facility] Comment on above: IG% - Immature Granu locytes (promyelocytes, myelocytes and metamyelocytes) > 1% indicates that a LEFT SHIFT is Present. MCH (RBC) [Entitic mass] 24.1 pg 27.0-32.0 [facility] Nucleated RBC/100 WBC (Bld) [Ratio] 0 % 0-5 [facility] MCHC Auto (RBC) [Mass/Vol]Or dered By: Leah Benavides on 04-17-2023 MCHC (RBC) [Mass/Vol] 30.4 g/dL 32-36 [facility] Platelets bldOrdered By: Taqueria Benavides on 04-17-2023 Platelets (Bld) [#/Vol] 335 10*3/uL 150-450 [facility] Office Visit (Cardiology)on 02-11-2023 Follow-up visit Diagnoses/Problems Health Maintenance/Risks Encounter for preventive health examination (V70.0) (Z00.00) Assessed Pelvic pain in female (625.9) (R10.2) Orders Health Maintenance IO EKG Electrocardiogram- 12 Lead; Status:Complete; Done: 11Feb2023 Chief Complaint Abnormal ultrasound History of Present IllnessMs Desouza is a 27-year-old woman with no significant medical history who is presenting for evaluation of abnormal ultrasound. Patient is undergoing work-up for pelvic pain with [facility] [employer] [facility]. She has had painful periods and painful intercourse. She had a pelvic ultrasound that showed findings that were potentially suggestive for potential nutcracker. She denies hematuria, pain in her legs with standing or with ambulation. No varicosities in the lower extremities. No leg swelling or foot wounds. Active Problems Problems Bacterial conjunctivitis (372.39,041.9) (H10.9) Constipation (564.00) (K59.00) Gall bladder polyp (575.6) (K82.4) Iron deficiency anemia (280.9) (D50.9) Screening cholesterol level (V77.91) (Z13.220) Screening for diabetes mellitus (V77.1) (Z13.1) Seasonal allergies (477.9) (J30.2) Umbilical hernia without obstruction and without gangrene (553.1) (K42.9) UTI (urinary tract infection) (599.0) (N39.0) UTI symptoms (788.99) (R39.9) Surgical History Problems History of section History of Hernia repair History of Shoulder surgery History of Tonsillectomy with adenoidectomy Current Meds Medication NameInstruction Iron 325 (65 Fe) MG Oral TabletTAKE 1 TABLET DAILY DIRECTED. Allergies Medication No Known Drug Allergies Recorded By: Danitza Tubbs; 09/13/2019 1:56:11 PM Family History Grandparent Family history of type 2 diabetes mellitus (V18.0) (Z83.3) Family history of Irregular heartbeat Paternal Grandmother Family history of cerebrovascular accident (CVA) (V17.1) (Z82.3) Social History Problems Daily caffeine consumption Former smoker (V15.82) (Z87.891) quit No illicit drug use No recent foreign travel Occasional alcohol use Review of Systems As per HPI, rest of systems reviewed and negative. Vitals Vital Signs Recorded: [id number] 11:42AM [id number] Physical Exam General: NAD, well-appearing HEENT: moist mucous membranes, no jaundice Neck: No JVD, no carotid bruit Lungs: CTA toña, no wheezing or rales Cardiac: RRR, no murmurs Abdomen: soft, non-tender, non-distended, no masses Extremities: 2+ radial pulses, no edema, no wounds Skin: warm, dry, no wounds Neurologic: AAOx3, no focal deficits Impressions 27-year-old woman with no significant medical history who is presenting for evaluation of abnormal ultrasound. -Patient clinical history patient does not have clinical symptoms concerning for nutcracker syndrome. Will obtain dedicated vascular lab ultrasound for further evaluation of ultrasound findings. -Follow-up after above Thank you for involving me in this patient's care. Please do not hesitate to call if any questions arise. Signatures Electronically signed by : Panchito Cyr MD; Feb 25 2023 7:48PM EST (Author) Normal [employer] Absolute lymphocyte countOrd ered By: HEALTH ASSESSMENT on 12-30-2022 Lymphocytes Auto (Unsp spec) [#/Vol] 1.74 10*3/uL 0.83-4.51 [facility] Absolute reticulocyte countO rdered By: HEALTH ASSESSMENT on 12-30-2022 Reticulocytes (Bld) [#/Vol] 0.00 10*3/uL 0-5 [facility] Basophil percentageOrdered B y: HEALTH ASSESSMENT on 12-30-2022 Basophil percentage 3.7 mg/dL 2.5-4.9 [facility] Bilirubin [Mass/Vol] 0.50 mg/dL 0.20-1.00 [facility] Comment on above: For patients on eltr ombopag therapy, use of Dimension [place] TBIL is not recommended. Chloride [Moles/Vol] 106 mmol/L 98-107 [facility] Cholesterol [Mass/Vol] 174 mg/dL <200 [facility] Comment on above: <200 mg/dL Desirable 200-240 mg/dL Borderline >240 mg/dL High Risk Glucose [Mass/Vol] 68 mg/dL 74-106 [facility] LDH [Catalytic activity/Vol] 136 U/L 84-246 [facility] Neutrophils (Bld) [#/Vol] 3.3 10*3/uL 2.0-7.7 [facility] Potassium [Moles/Vol] 3.3 mmol/L 3.5-5.1 [facility] Protein [Mass/Vol] 6.8 g/dL 6.4-8.2 [facility] Sodium [Moles/Vol] 139 mmol/L 136-145 [facility] Triglyceride [Mass/Vol] 62 mg/dL <199 [facility] Comment on above: The drugs N-Acetylcy steine and Metamizole may falsely depress this assay.Serum Triglycerides Reference Interval Normal <150 mg/dL Borderline high 150 - 199 mg/dL High 200 - 499 mg/dL Very High > or = 500 mg/dL WBC (Bld) [#/Vol] 5.5 10*3/uL 4.4-11.0 [facility] Bilirubin Test strip Ql (U)O rdered By: HEALTH ASSESSMENT on 12-30-2022 Bilirubin Ql (U) 1 mg/dL Negative [facility] Comment on above: COLOR OF URINE MAY A FFECT DIPSTICK RESULTS. Blood erythrocytes count (nu mber/volume)Ordered By: HEALTH ASSESSMENT on 12-30-2022 RBC (Bld) [#/Vol] 4.56 10*6/uL 4.2-5.4 [facility] Blood hemoglobin measurement (mass/volume)Ordered By: HEALTH ASSESSMENT on 12-30-2022 Hemoglobin (Bld) [Mass/Vol] 11.0 g/dL 12.0-15.0 [facility] Blood platelet mean volumeOr dered By: HEALTH ASSESSMENT on 12-30-2022 Platelet mean volume (Bld) [Entitic vol] 9.6 fL 6.2-12.0 [facility] Determination of erythrocyte mean corpuscular volume (MCV)Ordered By: HEALTH ASSESSMENT on 12-30-2022 MCV (RBC) [Entitic vol] 80.0 fL 81-99 [facility] Direct bilirubinOrdered By: HEALTH ASSESSMENT on 12-30-2022 Bilirubin.direct [Mass/Vol] 0.10 mg/dL 0.00-0.30 [facility] Hematocrit Auto (Bld) [Volum e fraction]Ordered By: HEALTH ASSESSMENT on 12-30-2022 Hematocrit (Bld) [Volume fraction] 36.5 % 37-47 [facility] Ketones Test strip Ql (U)Ord ered By: HEALTH ASSESSMENT on 12-30-2022 Ketones Ql (U) 5 mg/dl Negative [facility] Laboratory - Chemistry and C hemistry - challengeOrdered By: HEALTH ASSESSMENT on 12-30-2022 ALP [Catalytic activity/Vol] 55 U/L 45-117 [facility] ALT [Catalytic activity/Vol] 16 U/L 13-56 [facility] Cholesterol.total/Joceline sterol in HDL [Mass ratio] 3.90 {ratio} [facility] CO2 [Moles/Vol] 27.0 mmol/L 21.0-32.0 [facility] Globulin (S) [Mass/Vol] 3.1 g/dL 2.2-4.2 [facility] Urea nitrogen/Creatinine [Mass ratio] 9.7 mg/mg 10-20 [facility] Laboratory - Hematology and Cell countsOrdered By: HEALTH ASSESSMENT on 12-30-2022 Erythrocyte distribution width (RBC) [Entitic vol] 44.9 fL 35.1-43.9 [facility] Erythrocyte distribution width (RBC) [Ratio] 15.7 % 11.6-14.6 [facility] MCH (RBC) [Entitic mass] 24.1 pg 27.0-32.0 [facility] Nucleated RBC/100 WBC (Bld) [Ratio] 0 % 0-5 [facility] MCHC Auto (RBC) [Mass/Vol]Or dered By: HEALTH ASSESSMENT on 12-30-2022 MCHC (RBC) [Mass/Vol] 30.1 g/dL 32-36 [facility] Nitrite Test strip Ql (U)Ord ered By: HEALTH ASSESSMENT on 12-30-2022 Nitrite Ql (U) Negative Negative [facility] No Panel InformationOrdered By: HEALTH ASSESSMENT on 12-30-2022 Estimated GFR (MDRD) Amer 126 mL/min >60 [facility] Comment on above: GFR Calc Estimated GFR (MDRD) Non-Af Amer 104 mL/min >60 [facility] Comment on above: Non- GFR Calc Platelets bldOrdered By: JUAN C [place] ASSESSMENT on 12-30-2022 Platelets (Bld) [#/Vol] 290 10*3/uL 150-450 [facility] Protein Test strip Ql (U)Ord ered By: HEALTH ASSESSMENT on 12-30-2022 Protein Ql (U) 15 mg/dl Negative [facility] Segmented neutrophils/100 WB C Auto (Bld)Ordered By: HEALTH ASSESSMENT on 12-30-2022 Segmented neutrophils/100 WBC (Bld) 59.3 % 47-70 [facility] Serum or plasma albumin marcello urement (mass/volume)Ordered By: HEALTH ASSESSMENT on 12-30-2022 Albumin [Mass/Vol] 3.7 g/dL 3.2-5.0 [facility] Serum or plasma albumin/glob ulin mass ratioOrdered By: HEALTH ASSESSMENT on 12-30-2022 Albumin/Globulin [Mass ratio] 1.2 {ratio} 0.9-2.4 [facility] Serum or plasma calcium marcello urement (mass/volume)Ordered By: HEALTH ASSESSMENT on 12-30-2022 Calcium [Mass/Vol] 8.9 mg/dL 8.5-10.1 [facility] Serum or plasma cholesterol in HDL measurement (mass/volume)Ordered By: HEALTH ASSESSMENT on 12-30-2022 Cholesterol in HDL [Mass/Vol] 45 mg/dL >40 [facility] Comment on above: The drugs N-Acetylcy steine and Metamizole may falsely depress this assay. Reference Range HDL <40 mg/dL Low HDL Cholesterol HDL >or= 60 mg/dL High HDL Cholesterol Serum or plasma cholesterol in VLDL measurement (mass/volume)Ordered By: HEALTH ASSESSMENT on 12-30-2022 Cholesterol in VLDL [Mass/Vol] 12 mg/dL 5-40 [facility] Serum or plasma creatinine m easurement (mass/volume)Ordered By: HEALTH ASSESSMENT on 12-30-2022 Creatinine [Mass/Vol] 0.72 mg/dL 0.55-1.02 [facility] Comment on above: The validity of the calculated GFR & GFRAA in patients over 70 years has not been determined. Clinical correlation is essential. Serum or plasma low density lipoprotein (LDL) cholesterol measurement (mass/volume)Ordered By: HEALTH ASSESSMENT on 12-30-2022 Cholesterol in LDL [Mass/Vol] 117 mg/dL 0-130 [facility] Serum or plasma urea nitroge n measurement (mass/volume)Ordered By: HEALTH ASSESSMENT on 12-30-2022 Urea nitrogen [Mass/Vol] 7 mg/dL 7-18 [facility] Serum or plasma uric acid me asurement (mass/volume)Ordered By: HEALTH ASSESSMENT on 12-30-2022 Urate [Mass/Vol] 4.3 mg/dL 2.6-6.0 [facility] Comment on above: The drugs N-Acetylcy steine and Metamizole may falsely depress this assay. Thin prep Papanicolaou smear with manual screeningOrdered By: HEALTH ASSESSMENT on 12-30-2022 Thin prep Papanicolaou smear with manual screening 14 U/L 15-37 [facility] Thin prep Papanicolaou smear with manual screening 6 5-15 [facility] Urine blood detectionOrdered By: HEALTH ASSESSMENT on 12-30-2022 RBC Ql (U) Negative Negative [facility] Urine clarityOrdered By: HEA LTH ASSESSMENT on 12-30-2022 Clarity (U) Sl. Cloudy Clear [facility] Urine color determinationOrd ered By: HEALTH ASSESSMENT on 12-30-2022 Color (U) Yellow Yellow [facility] Urine glucose detectionOrder ed By: HEALTH ASSESSMENT on 12-30-2022 Glucose Ql (U) Normal mg/dl Normal [facility] Urine leukocyte esterase det ection by dipstickOrdered By: HEALTH ASSESSMENT on 12-30-2022 Leukocyte esterase Test strip Ql (U) 25 /ul Negative [facility] Urine pHOrdered By: HEALTH A SSESSMENT on 12-30-2022 pH (U) 5.0 [pH] 5.0 - 8.0 [facility] Urine specific gravity measu rementOrdered By: HEALTH ASSESSMENT on 12-30-2022 Specific gravity (U) [Rel density] 1.025 1.002-1.030 [facility] Urobilinogen Auto test strip Ql (U)Ordered By: HEALTH ASSESSMENT on 12-30-2022 Urobilinogen Ql (U) 1 mg/dl Normal [facility] Cervical or vagninal specime n microscopic examination by cytology stain (reported asOrdered By: Vani Myers on 09-05-2022 Cytology report Cyto stain Doc (Cvx/Vag) Comment . [facility] Comment on above: The Pap smear is a s creening test designed to aid in thedetection of premalignant and malignant conditions of theuterine cervix. It is not a diagnostic procedure andshould not be used as the sole means of detecting cervicalcancer. Both false-positive and false-negative reports dooccur. Laboratory - CytologyOrdered By: Vani Myers on 09-05-2022 Tribal Judge Cyto stain Nom (Cvx/Vag) [ID] Comment . [facility] Comment on above: Courtney Carreno, Cytotec hnologist (ASCP) Laboratory - Miscellaneous t estsOrdered By: Vani Myers on 09-05-2022 Service comment (Unsp spec) [Interp] Comment . [facility] Comment on above: This liquid based Th inPrep(R) pap test was screened withthe use of an image guided system. Service comment (Unsp spec) [Interp] . . [facility] No Panel InformationOrdered By: Vani Myers on 09-05-2022 Human Papillomavirus Screen Comment . [facility] Comment on above: The HPV DNA reflex c yazmin were not met with this specimenresult therefore, no HPV testing was performed.Performed at: [address] [id number] Director: Juanita Brian MD, Phone: [phone] Pathology report final diagnosis Narrative Comment . [facility] Comment on above: NEGATIVE FOR INTRAEP ITHELIAL LESION OR MALIGNANCY. Basophil percentageon 2022 WBC (Bld) [#/Vol] 6.1 10*3/uL 4.4-11.0 [facility] Blood erythrocytes count (nu mber/volume)on 07-30-2022 RBC (Bld) [#/Vol] 5.01 10*6/uL 4.2-5.4 [facility] Blood hemoglobin measurement (mass/volume)on 07-30-2022 Hemoglobin (Bld) [Mass/Vol] 12.0 g/dL 12.0-15.0 [facility] Blood platelet mean volumeon 07-30-2022 Platelet mean volume (Bld) [Entitic vol] 9.5 fL 6.2-12.0 [facility] Determination of erythrocyte mean corpuscular volume (MCV)on 07-30-2022 MCV (RBC) [Entitic vol] 79.6 fL 81-99 [facility] Hematocrit Auto (Bld) [Volum e fraction]on 07-30-2022 Hematocrit (Bld) [Volume fraction] 39.9 % 37-47 [facility] Iron measurement (mass/mass) on 07-30-2022 Iron (Unsp spec) [Mass/Mass] 27 ug/dL 50-170 [facility] - Hematology and Cell countson 07-30-2022 Erythrocyte distribution width (RBC) [Entitic vol] 46.9 fL 35.1-43.9 [facility] Erythrocyte distribution width (RBC) [Ratio] 16.3 % 11.6-14.6 [facility] MCH (RBC) [Entitic mass] 24.0 pg 27.0-32.0 [facility] MCHC Auto (RBC) [Mass/Vol]on 07-30-2022 MCHC (RBC) [Mass/Vol] 30.1 g/dL 32-36 [facility] No Panel Informationon 07-30 Total Iron Binding Capacity 410 ug/dL 250-450 [facility] Platelets bldon 07-30-2022 Platelets (Bld) [#/Vol] 312 10*3/uL 150-450 [facility] Covid 19 Resultson 3 SARS-CoV-2 (COVID-19) RNA EH+probe Ql (Unsp spec) NEGATIVE COVID-19 Test Coronaviruses are common world-wide and are the cause of many common colds. SARS-COV2 is a new coronavirus that began circulating worldwide in 2019 so we are calling it COVID-19. It has been estimated that four out of five patients with COVID-19 will recover at home without the need for medical attention. Symptoms of COVID-19 may include cough, fever, shortness of breath, loss of taste or smell and other flu-like symptoms including chills, sore muscles, sore throat, and headache. Severe illness is more common in older people and people with other health problems such as high blood pressure, obesity, and immune system problems. If the test is positive, you have COVID-19. You will be contacted by the ordering physicians office and instructed to remain on home isolation, in accordance with CDC guidelines. You may also be contacted by the [facility] to see if any of your close contacts may have been exposed to the virus and need to quarantine. If the test is negative, you likely do not have COVID-19 at this time, but you still may have a different illness that can spread to other people (like Influenza, or the Flu) and could still be at risk for getting COVID-19. We recommend that you stay away from other people to limit the spread of illness until your symptoms are improving and you are fever-free for 24 hours without the use of fever lowering medications such as acetaminophen or ibuprofen. No test is 100% accurate so if you are still concerned you may have COVID-19, talk to your doctor about the need to continue to stay away from others. Medicines Unless your provider told you not to use the following: Acetaminophen (Tylenol and others) is generally safe. Anti-inflammatory medications, such as Ibuprofen (Advil or Motrin) or Naproxen (Aleve) can also be used. Cfpr-cpc-npotbdh cough and cold medicines can be used according to the instructions on the package. Some fqbo-rzp-mvvnbjy medicines also contain acetaminophen. Make sure you are not taking more than your recommended dose. For those not hospitalized, there is no specific treatment available for this illness. Antibiotics do not treat Coronaviruses. Follow-Up Follow up with your doctor by scheduling a virtual visit or consider follow-up at one of our urgent care fever clinics. If you are having difficulty breathing, or are very weak and having difficulty standing, this is a medical emergency. Call 911 or have someone take you to the nearest emergency room immediately. If possible, wear a facemask. Additional guidance from the CDC for patients who tested POSITIVE for COVID-19 How to isolate: Isolate yourself in a specific room at home and limit your contact with others. Use a separate bathroom from other members of the household, when possible. Leave home only to get essential medical care. Do not go to work, school or public areas. Avoid using public transportation, ride-sharing, or taxis. Restrict contact with pets and other animals. If you must care for your pet or be around animals while you are sick, wash your hands before and after your interaction and wear a facemask. Make sure that shared spaces in the home have good airflow, such as by an air conditioner or an opened window, weather permitting. Personal Hygiene Procedures: Wear a face mask when in the same room as other people or pets. If a face mask interferes with your breathing, others should wear a mask when sharing space with you. Frequent hand-washing: wash your hands with soap and water for at least 20 seconds. If soap and water are not available, use alcohol-based hand telecommunications technician. Avoid touching your eyes, nose, and mouth with unwashed hands. Household Hygiene Procedures: Avoid sharing personal household items such as dishes, glassware, cups, eating utensils, towels or bedding with other people or pets in your home. After use, these items should be washed with soap and hot water. Disinfect all high-touch surfaces every day with antibacterial cleaning solutions such as Lysol wipes, bleach, cleansers, etc. High-touch surfaces include tabletops, doorknobs, bathroom fixtures, toilets, phones, keyboards, tablets and bedside tables. Immediately clean any surfaces that may have blood, poop or body fluids on them, using antibacterial cleaning solutions such as Lysol wipes, bleach, cleansers, etc. If clothing or bedding come into contact with blood, poop or body fluids, they should be washed immediately. Follow the directions on the laundry detergent and clothing labels but hot water is recommended when possible. Stopping home isolation precautions: If possible, consult your doctor before stopping home isolation precautions. According to the CDC, you can discontinue home isolation precautions when you have met both of these criteria: Your fever and respiratory symptoms have been gone for 24 sima (more content not included)... Normal [facility] GROUP A STREP,PCRon 06-22-19 23 GROUP A STREP,PCR Not detected Normal Not Detected [facility] Comment on above: Result Comment: This test and its performance have been Validated by [facility] using analyte specific reagents (ASR). It has not been cleared or approved by the U.S. Food and Drug Administration. The FDA has determined that such clearance or approval is not necessary. Performed By: #### G APC1 #### [facility] [id number] [place] [address] INFLUENZA A/B, COVID 2019 PC R,SYMPTOMATICon 06-22-2022 INFLUENZA A, PCR Not detected Normal Not Detected [facility] Comment on above: Result Comment: Resp iratory virus testing is performed routinely by PCR for Influenza A/B and RSV. If Influenza and RSV PCR are negative, testing for parainfluenza 1,2,3 viruses and adenovirus is routinely performed for oncology inpatients and intensive care unit patients at [facility] and is available on request on other patients by calling Laboratory Client Services at [phone]. Not Detected results do not preclude Influenza A/B or RSV infections since the adequacy of sample collection or low viral burden may impact the clinical sensitivity of this test method. Performed By: #### C OINP #### [facility] [address] [place] [address] INFLUENZA B, PCR Detected Abnormal Not Detected [facility] Comment on above: Result Comment: Resp iratory virus testing is performed routinely by PCR for Influenza A/B and RSV. If Influenza and RSV PCR are negative, testing for parainfluenza 1,2,3 viruses and adenovirus is routinely performed for oncology inpatients and intensive care unit patients at [facility] and is available on request on other patients by calling Laboratory Client Services at [phone] Not Detected results do not preclude Influenza A/B or RSV infections since the adequacy of sample collection or low viral burden may impact the clinical sensitivity of this test method. Performed By: #### C OINP #### [facility] [address] [place] [address] SARS-CoV-2 (COVID-19) RNA EH+probe Ql (Unsp spec) Not detected Normal Not Detected [facility] Comment on above: Result Comment: . This assay is designed to detect the ORF1a/b and E genes of SARS-CoV-2 via nucleic acid amplification. A Not Detected result does not preclude 2019-nCoV infection since the adequacy of sample collection and/or low viral burden may result in presence of viral nucleic acids below the clinical sensitivity of this test method. Fact sheet for providers: https://www.fda.gov/media/246990/download Fact sheet for patients: https://www.fda.gov/media/763470/download This test has received FDA Emergency Use Authorization (EUA) and has been verified for use by [facility] ([facility]). This test is only authorized for the duration of time that circumstances exist to justify the authorization of the emergency use of in vitro diagnostic tests for the detection of SARS-CoV-2 virus and/or diagnosis of COVID-19 infection under section 564(b)(1) of the Act, 21 U.S.C. 360bbb-3(b)(1), unless the authorization is terminated or revoked sooner. [facility] is certified under CLIA-88 as qualified to perform high complexity testing. Testing is performed in the [facility] laboratories located at [address] [place] [address]. Performed By: #### C OINP #### [facility] [address] [place] [address] GROUP A STREP,PCRon 06-21-19 Lab Specimen Source Throat Normal [facility] Comment on above: Performed By: #### G APC1 #### [facility] [address] [place] [address] INFLUENZA A/B, COVID 2019 PC R,SYMPTOMATICon 06-21-2022 Lab Specimen Source Nasal, Nasopharyngeal Normal [facility] Comment on above: Performed By: #### C OINP #### [facility] [address] [place] [address] Cult, Urineon 02-11-2022 Bacteria identified Cx Nom (U) [facility] Work Phone: [phone] Tobacco Screening.on 022 Tobacco use status CPHS b) No M [facility] Work Phone: Urinalysison 02-11-2022 Color (U) Yellow See Below [facility] Work Phone: Comment on above: Reference Range: STR AW,YELLOW Glucose Ql (U) Negative NEGATIVE [facility] Work Phone: Ketones Ql (U) Negative NEGATIVE [facility] Work Phone: [phone] Leukocyte esterase Test strip Ql (U) Negative NEGATIVE [facility] Work Phone: pH (U) 6.0 [pH] 5.0 - 8.0 [facility] Work Phone: Protein (U) [Mass/Vol] Negative NEGATIVE [facility] Work Phone: RBC (U) [#/Vol] Negative NEGATIVE [facility] Work Phone: Specific gravity (U) [Rel density] 1.009 1 See Below [facility] Work Phone: Comment on above: Reference Range: 1.0 05 - 1.035 Urinalysis Negative NEGATIVE [facility] Work Phone: Urinalysis <2.0 0.0 - 1.9 [facility] Work Phone: Urinalysis CLEAR CLEAR [facility] Work Phone: Absolute lymphocyte counton 02-01-2022 Lymphocytes Auto (Unsp spec) [#/Vol] 1.58 10*3/uL 0.83-4.51 [facility] Work Phone: Absolute reticulocyte counto n 02-01-2022 Reticulocytes (Bld) [#/Vol] 0.00 10*3/uL 0-5 [facility] Work Phone: Basophil percentageon 2021 Basophil percentage 3.8 mg/dL 2.5-4.9 [facility] Work Phone: Bilirubin [Mass/Vol] 0.20 mg/dL 0.20-1.00 [facility] Work Phone: Comment on above: For patients on eltr ombopag therapy, use of Dimension [place] TBIL is not recommended. Chloride [Moles/Vol] 104 mmol/L 98-107 [facility] Work Phone: Cholesterol [Mass/Vol] 191 mg/dL <200 [facility] Work Phone: Comment on above: <200 mg/dL Desirable 200-240 mg/dL Borderline >240 mg/dL High Risk Glucose [Mass/Vol] 72 mg/dL 74-106 [facility] Work Phone: Neutrophils (Bld) [#/Vol] 2.8 10*3/uL 2.0-7.7 [facility] Work Phone: Potassium [Moles/Vol] 3.7 mmol/L 3.5-5.1 [facility] Work Phone: Protein [Mass/Vol] 6.9 g/dL 6.4-8.2 [facility] Work Phone: [phone] Sodium [Moles/Vol] 139 mmol/L 136-145 [facility] Work Phone: [phone] Triglyceride [Mass/Vol] 78 mg/dL <199 [facility] Work Phone: [phone] Comment on above: The drugs N-Acetylcy steine and Metamizole may falsely depress this assay.Serum Triglycerides Reference Interval Normal <150 mg/dL Borderline high 150 - 199 mg/dL High 200 - 499 mg/dL Very High > or = 500 mg/dL WBC (Bld) [#/Vol] 5.0 10*3/uL 4.4-11.0 [facility] Work Phone: [phone] Bilirubin Test strip Ql (U)o n 02-01-2022 Bilirubin Ql (U) Negative Negative [facility] Work Phone: [phone] Blood erythrocytes count (nu mber/volume)on 02-01-2022 RBC (Bld) [#/Vol] 4.54 10*6/uL 4.2-5.4 [facility] Work Phone: [phone] Blood hemoglobin measurement (mass/volume)on 02-01-2022 Hemoglobin (Bld) [Mass/Vol] 10.9 g/dL 12.0-15.0 [facility] Work Phone: [phone] Blood platelet mean volumeon 02-01-2022 Platelet mean volume (Bld) [Entitic vol] 9.8 fL 6.2-12.0 [facility] Work Phone: [phone] Determination of erythrocyte mean corpuscular volume (MCV)on 02-01-2022 MCV (RBC) [Entitic vol] 80.4 fL 81-99 [facility] Work Phone: [phone] Direct bilirubinon Bilirubin.direct [Mass/Vol] 0.06 mg/dL 0.00-0.30 [facility] Work Phone: [phone] Hematocrit Auto (Bld) [Volum e fraction]on 02-01-2022 Hematocrit (Bld) [Volume fraction] 36.5 % 37-47 [facility] Work Phone: Ketones Test strip Ql (U)on 02-01-2022 Ketones Ql (U) 5 mg/dl Negative [facility] Work Phone: [phone] Laboratory - Chemistry and C hemistry - challengeon 02-01-2022 ALP [Catalytic activity/Vol] 57 U/L 45-117 [facility] Work Phone: [phone] ALT [Catalytic activity/Vol] 20 U/L 13-56 [facility] Work Phone: [phone] Cholesterol.total/Joceline sterol in HDL [Mass ratio] 4.50 {ratio} [facility] Work Phone: [phone] CO2 [Moles/Vol] 31.0 mmol/L 21.0-32.0 [facility] Work Phone: Globulin (S) [Mass/Vol] 3.1 g/dL 2.2-4.2 [facility] Work Phone: [phone] Urea nitrogen/Creatinine [Mass ratio] 13.4 mg/mg 10-20 [facility] Work Phone: Laboratory - Hematology and Cell countson 02-01-2022 Erythrocyte distribution width (RBC) [Entitic vol] 44.6 fL 35.1-43.9 [facility] Work Phone: Erythrocyte distribution width (RBC) [Ratio] 15.5 % 11.6-14.6 [facility] Work Phone: [phone] MCH (RBC) [Entitic mass] 24.0 pg 27.0-32.0 [facility] Work Phone: Nucleated RBC/100 WBC (Bld) [Ratio] 0 % 0-5 [facility] Work Phone: [phone] MCHC Auto (RBC) [Mass/Vol]on 02-01-2022 MCHC (RBC) [Mass/Vol] 29.9 g/dL 32-[address] [facility] Work Phone: Nitrite Test strip Ql (U)on 02-01-2022 Nitrite Ql (U) Positive Negative [facility] Work Phone: No Panel Informationon 02-01 Estimated GFR (MDRD) Amer 137 mL/min >60 [facility] Work Phone: Comment on above: GFR Calc Estimated GFR (MDRD) Non-Af Amer 113 mL/min >60 [facility] Work Phone: Comment on above: Non- GFR Calc Platelets bldon 02-01-2022 Platelets (Bld) [#/Vol] 275 10*3/uL 150-450 [facility] Work Phone: Protein Test strip Ql (U)on 02-01-2022 Protein Ql (U) 15 mg/dl Negative [facility] Work Phone: Segmented neutrophils/100 WB C Auto (Bld)on 02-01-2022 Segmented neutrophils/100 WBC (Bld) 55.9 % 47-70 [facility] Work Phone: Serum or plasma albumin marcello urement (mass/volume)on 02-01-2022 Albumin [Mass/Vol] 3.8 g/dL 3.2-5.0 [facility] Work Phone: Serum or plasma albumin/glob ulin mass ratioon 02-01-2022 Albumin/Globulin [Mass ratio] 1.2 {ratio} 0.9-2.4 [facility] Work Phone: Serum or plasma calcium marcello urement (mass/volume)on 02-01-2022 Calcium [Mass/Vol] 8.7 mg/dL 8.5-10.1 [facility] Work Phone: Serum or plasma cholesterol in HDL measurement (mass/volume)on 02-01-2022 Cholesterol in HDL [Mass/Vol] 42 mg/dL >40 [facility] Work Phone: Comment on above: The drugs N-Acetylcy steine and Metamizole may falsely depress this assay. Reference Range HDL <40 mg/dL Low HDL Cholesterol HDL >or= 60 mg/dL High HDL Cholesterol Serum or plasma cholesterol in VLDL measurement (mass/volume)on 02-01-2022 Cholesterol in VLDL [Mass/Vol] 16 mg/dL 5-40 [facility] Work Phone: [phone] Serum or plasma creatinine m easurement (mass/volume)on 02-01-2022 Creatinine [Mass/Vol] 0.67 mg/dL 0.55-1.02 [facility] Work Phone: Comment on above: The validity of the calculated GFR & GFRAA in patients over 70 years has not been determined. Clinical correlation is essential. Serum or plasma low density lipoprotein (LDL) cholesterol measurement (mass/volume)on 02-01-2022 Cholesterol in LDL [Mass/Vol] 133 mg/dL 0-130 [facility] Work Phone: Serum or plasma urea nitroge n measurement (mass/volume)on 02-01-2022 Urea nitrogen [Mass/Vol] 9 mg/dL 7-18 [facility] Work Phone: Serum or plasma uric acid me asurement (mass/volume)on 02-01-2022 Urate [Mass/Vol] 4.6 mg/dL 2.6-6.0 [facility] Work Phone: Comment on above: The drugs N-Acetylcy steine and Metamizole may falsely depress this assay. Thin prep Papanicolaou smear with manual screeningon 02-01-2022 Thin prep Papanicolaou smear with manual screening 13 U/L 15-37 [facility] Work Phone: [phone] Thin prep Papanicolaou smear with manual screening 4 5-15 [facility] Work Phone: [phone] Thin prep Papanicolaou smear with manual screening 135 U/L 84-246 [facility] Work Phone: [phone] Urine blood detectionon 01-14 RBC Ql (U) Negative Negative [facility] Work Phone: [phone] Urine clarityon 02-01-2022 Clarity (U) Sl. Cloudy Clear [facility] Work Phone: Urine color determinationon 02-01-2022 Color (U) Yellow Yellow [facility] Work Phone: Urine glucose detectionon Glucose Ql (U) Normal mg/dl Normal [facility] Work Phone: Urine leukocyte esterase det ection by dipstickon 02-01-2022 Leukocyte esterase Test strip Ql (U) 100 /ul Negative [facility] Work Phone: Urine pHon 02-01-2022 pH (U) 6.0 [pH] 5.0 - 8.0 [facility] Work Phone: Urine specific gravity measu rementon 02-01-2022 Specific gravity (U) [Rel density] 1.025 1.002-1.030 [facility] Work Phone: Urobilinogen Auto test strip Ql (U)on 02-01-2022 Urobilinogen Ql (U) Normal mg/dl Normal [facility] Work Phone: Tobacco Screening.on 021 Tobacco use status CPHS b) No M [facility] Work Phone: NOVEL CORONAVIRUS NASOPHARYN GEAL - [facility] SPECIMEN ONLYon 05-01-2020 SARS-COV-2 NOT DETECTED Normal NOT DETECTED [facility] Comment on above: Order Comment: Submi tter Name: [facility] Agent Suspected: SARS-COV-2 This test was performed using real time PCR and has been approved for the qualitative detection of SARS-CoV-2 nucleic acid. The test has been authorized by the FDA under an emergency use authorization for use by authorized laboratories. Result Comment: Nega tive results do not preclude SARS-CoV-2 infection and should not be used as the sole basis for treatment or other patient management decisions. Optimum specimen types and timing for peak viral levels during infections caused by SARS-CoV-2 has not been determined. The possibility of a false negative result should especially be considered if the patient's recent exposures or clinical presentation suggest that SARS-CoV-2 infection is probable, and diagnostic tests for other causes of illness (e.g., other respiratory illness) are negative. Collection of a new specimen and re-testing may be necessary if the patient is critically ill or clinically deteriorating. Performed By: #### L [id number] #### [facility] (DEFAULT) [address] [address] NOVEL CORONAVIRUS NASOPHARYN GEAL - [facility] SPECIMEN ONLYon 04-17-2020 SARS-COV-2 NOT DETECTED Normal NOT DETECTED [facility] Comment on above: Order Comment: [facility] Agent Suspected: SARS-COV-2 This test was performed using real time PCR and has been approved for the qualitative detection of SARS-CoV-2 nucleic acid. The test has been authorized by the FDA under an emergency use authorization for use by authorized laboratories. Result Comment: Nega tive results do not preclude SARS-CoV-2 infection and should not be used as the sole basis for treatment or other patient management decisions. Optimum specimen types and timing for peak viral levels during infections caused by SARS-CoV-2 has not been determined. The possibility of a false negative result should especially be considered if the patient's recent exposures or clinical presentation suggest that SARS-CoV-2 infection is probable, and diagnostic tests for other causes of illness (e.g., other respiratory illness) are negative. Collection of a new specimen and re-testing may be necessary if the patient is critically ill or clinically deteriorating. Performed By: #### L [id number] #### [facility] (DEFAULT) [address] [address] Provider Note - ED v2on 07-18 Provider Note - ED v2 Provider Note - ED v2: Chart Review: HISTORY OF PRESENTING ILLNESS JUSTIN is a 24 year old Female and was seen by me at 09-Aug-2019 11:59 for a chief complaint of (Cold symptoms). Other complaints include: Presents for evaluation of URI. Symptoms including cough, congestion, body aches, malaise, and headache have been present for several days and refractory to OTC meds. Patient is 38 weeks . No fever, chills, nausea, vomiting, abdominal pain, CP, or SOB. No exacerbating factors . Triage Information: Most recent Vital Sign Value Date PAST MEDICAL HISTORY ATTESTATION: I have reviewed and confirmed nurse's/medic's notes for patient's medications, allergies, medical history, and surgical history ALLERGIES/INTOLERANCES: No Known Allergies HEALTH HISTORY: No documented data. OUTPATIENT MEDICATIONS: Home Medications Review Status for Reconciliation: Complete Med Status: Patient Currently Takes Medications Drug Name: VITAMIN Instructions: once a day Drug Name: IRON Instructions: 2 times a day SIGNIFICANT EVENTS: Past Medical History Description:NONE PER PT Past Surgical History Description:NONE PER PT C S S REPRESENTATIVE: Is : yes Is : no REVIEW OF SYSTEMS REVIEW OF SYSTEMS: Comments Review of Systems Constitutional: See HPI Eye: No recent visual problem. ENT: See HPI Respiratory: See history of present illness Musculoskeletal: No decreased range of motion. Integumentary: No rash. Neurologic: Alert and oriented X4, No numbness, No tingling. All other systems are negative PHYSICAL EXAM CONSTITUTIONAL: Well appearing, well nourished, awake, alert, oriented to person, place, time/situation and in no apparent distress. HENMT: Airway patent, ears with clear tympanic membranes bilaterally. Nasal mucosa clear. Mouth with normal mucosa. Throat has no vesicles, no oropharyngeal exudates and uvula is midline. Face with no lymph node enlargement. EYES: Clear bilaterally, pupils equal, round and reactive to light. CARDIOVASCULAR: Normal rate, regular rhythm. RESPIRATORY: Breath sounds clear and equal bilaterally. MUSCULOSKELETAL: Spine appears normal, range of motion is not limited, no muscle or joint tenderness. NEUROLOGICAL: Alert and oriented, no focal deficits, no motor or sensory deficits. MEDICAL DECISION MAKING/ED COURSE MDM/ED COURSE: Exam consistent with upper respiratory infection. Prescription for Z-Henry. Patient's clinical presentation is otherwise unremarkable at this time. Patient is discharged with instructions to follow-up with primary care or seek emergency medical attention for worsening symptoms or any new concerns. CLINICAL IMPRESSION Diagnosis/Annotation: ED Dx Name:URI (upper respiratory infection) Code:J06.9 Dispostion: discharged Type: home ATTESTATION CRITICAL CARE TIME Is this a critically ill patient: no Electronic Signatures: Maco Barnes (PAC) (Signed 09-Aug-2019 12:08) Authored: Provider Note - ED v2 Last Updated: 09-Aug-2019 12:08 by Maco Barnes (PAC) [facility] IGP W/hpv Rfx [id number] 07-28 Diagnosis: See Ref Lab Report [facility] Comment on above: Order Comment: LMP: 06/29/17 Performed By: #### [id number] ####MALIHA Send Outs [id number] [place] [address] Pathology ([facility])on 07-21-2017 Pathology ([facility]) FINAL GYNECOLOGIC CYTOLOGY [id number] ADEQUACYSatisfactory for Evaluation. Endocervical cells/transformation zone componentpresent.GENERAL CATEGORIZATIONNegative for Intraepithelial Lesion or MalignancyDESCRIPTIVE DIAGNOSISReactive cellular changes associated inflammation and repair.Fungi consistent with Kacy species.Shift in vaginal marianela suggestive of bacterial vaginosis.CLINICAL HISTORYLMP: 06/29/2017SPECIMEN(A) SCREENING CERVICAL/ENDOCERVICAL LIQUID-BASED PAPPerformed at [facility], [address] [place], [place] [id number] by: HUNTER SANTIZO Cigar Maker Signed Out by: ROGER HEALY MD Reported: 07/25/2017 Normal [facility] Healthcare Comment on above: Performed By: #### G YN ####[facility] [address] [place] [address] MRI Shoulder Arthrogram Rton 01-13-2017 MRI Shoulder Arthrogram Rt Exam Date/Time:01/13/2017 10:25 EDTReason for Exam:RIGHT SHOULDER PAIN;PainReportMR ARTHROGRAM RIGHT SHOULDER WITH CONTRASTHISTORY: Pain right shoulder with softball injury.CONTRAST: 15 mL dilute gadolinium intra-articularly under fluoroscopy.TECHNIQUE: Multiplanar imaging is performed in the T1 and T2 fat-saturatedsequences.F INDINGS: The glenohumeral joint is normal. The humeral head has a normalshape. No bone marrow edema is seen. The acromioclavicular joint is normal.There is no os acromiale.The joint is well distended with gadolinium. No tear is seen in the rotatorcuff. The subscapularis tendon, and the transverse humeral ligament are intact.There is no extravasation of contrast into the subacromial-subdeltoid bursa.The biceps long head tendon is in a normal position. The biceps anchor isintact.No Hill-Sachs deformity is present. There is no Bankart's lesion. A tear isseen, in the posterior and postero-inferior glenoid labrum at the chondrallabral junction, from about the 9-o'clock to the 7-o'clock positions. Noglenolabral cyst is seen.IMPRESSION:Posterio r and posteroinferior labral tear. No rotator cuff tear. FINAL REPORT Dictated: 01/13/2017 4:38 pm Dean Qureshi MDigned (Electronic Signature): 01/13/2017 4:38 pmSigned by: Dean Qureshi MD Technologist: CFDeedee [facility] XR Arthrogram Shoulder Right on 01-13-2017 XR Arthrogram Shoulder Right Exam Date/Time:01/13/2017 09:07 EDTReason for Exam:RIGHT SHOULDER PAIN;PainReportFLUOROSCO PY GUIDED INJECTION FOR MR ARTHROGRAM RIGHT SHOULDER, INCLUDINGCONVENTIONAL X-RAY ARTHROGRAM IMAGINGCLINICAL STATEMENT: Soft ball injuryCOMPARISON: NoneFLUOROSCOPY TIME: Fluoro time measures 2 minutes and 14 seconds and 10 imageswere obtained.TECHNIQUE:A right shoulder arthrogram was performed through the anterior approach, afterproper aseptic precautions. Local anesthesia was given with 2% Xylocaine. [id number] spinal needle was then inserted into the anterior inferiorglenohumeral joint and Omnipaque 300, injected to perform the x-ray arthrogram.The contrast flowed freely from the tip of the needle. This was followed byinjection of 15 mL dilute gadolinium intra-articularly for the MR arthrogramportion of the study.FINDINGS:The capacity of the joint is normal. The glenohumeral joint is normal in width. No periarticular calcification is seen on infiltrate.There is no extravasation of contrast into the subacromial-subdeltoid bursa.Normal filling of the axillary recess is present. Contrast is seen in thesleeve of the long head biceps.IMPRESSION:Normal right shoulder arthrogram. MR arthrogram to follow. FINAL REPORT Dictated: 01/13/2017 9:28 am Dean Qureshi MDigned (Electronic Signature): 01/13/2017 9:28 amSigned by: Dean Qureshi MD Technologist: GLP [facility] Vital Signs Date Time Vital Sign Value Performing Clinician Facility 11-18-2024 12:31-0400 Body height 170.[address] Ratna Villalobos MD Work Phone: [facility] 09-20-2024 14:50-0400 Body height 170.[address] Ratna Villalobos MD Work Phone: [facility] 09-20-2024 14:47-0400 Body mass index (BMI) [Ratio] 20.9 kg/m2 Dr. Ratna Villalobos MD Work Phone: [facility] 09-20-2024 14:47-0400 Body weight 60.[address] Ratna Villalobos MD Work Phone: [facility] 09-20-2024 14:47-0400 Diastolic blood pressure 78 mm[Hg] Dr. Ratna Villalobos MD Work Phone: [facility] 09-20-2024 14:47-0400 Systolic blood pressure 116 mm[Hg] Dr. Ratna Villalobos MD Work Phone: [facility] 05-10-2024 09:57-0500 Body height 170.2 cm Beau Gudino [employer] INTERN Work Phone: [facility] 05-10-2024 09:57-0500 Body mass index (BMI) [Ratio] 21.14 kg/m2 Beau Gudino [employer] INTERN Work Phone: [facility] 05-10-2024 09:57-0500 Body temperature 98.1 [degF] Beau Gudino [employer]N Work Phone: [facility] 05-10-2024 09:57-0500 Body weight 61.24 kg Beau Gudino [employer]N Work Phone: [facility] 05-10-2024 09:57-0500 Diastolic blood pressure 76 mm[Hg] Beau Gudino [employer]N Work Phone: [facility] 05-10-2024 09:57-0500 Heart rate 76 /min Beau Gudino [employer]N Work Phone: [facility] 05-10-2024 09:57-0500 Respiratory rate 16 /min Beau Yonismallory [employer]N Work Phone: [facility] 05-10-2024 09:57-0500 SaO2% (BldA) [Mass fraction] 98 % Beau Gudino [employer] INTERN Work Phone: [facility] 05-10-2024 09:57-0500 Systolic blood pressure 116 mm[Hg] Beau Yonismallory [employer]N Work Phone: [facility] 10-22-2023 11:04-0400 Body height 171.5 cm Ratna Villalobos MD Work Phone: [facility] 10-22-2023 11:04-0400 Body mass index (BMI) [Ratio] 20.54 kg/m2 Ratna Villalobos MD Work Phone: [facility] 10-22-2023 11:04-0400 Body temperature 98.29 [degF] Ratna Villalobos MD Work Phone: [facility] 10-22-2023 11:04-0400 Body weight 60.37 kg Ratna Villalobos MD Work Phone: [facility] 10-22-2023 11:04-0400 Diastolic blood pressure 64 mm[Hg] Ratna Villalobos MD Work Phone: [facility] 10-22-2023 11:04-0400 Heart rate 78 /min Ratna Villalobos MD Work Phone: [facility] 10-22-2023 11:04-0400 SaO2% (BldA) [Mass fraction] 99 % Ratna Villalobos MD Work Phone: [facility] 10-22-2023 11:04-0400 Systolic blood pressure 100 mm[Hg] Ratna Villalobos MD Work Phone: [facility] 10-08-2023 10:39-0400 Body temperature 98.2 [degF] Dr. Ratna Villalobos Work Phone: [facility] 10-08-2023 10:39-0400 Diastolic blood pressure 5 mm[Hg] Dr. Ratna Villalobos Work Phone: [facility] 10-08-2023 10:39-0400 Heart rate 69 /min Dr. Ratna Villalobos Work Phone: [facility] 10-08-2023 10:39-0400 Respiratory rate 16 /min Dr. Ratna Villalobos Work Phone: [facility] 10-08-2023 10:39-0400 SaO2% (BldA) [Mass fraction] 99 % Dr. Ratna Villalobos Work Phone: [facility] 10-08-2023 10:39-0400 Systolic blood pressure 132 mm[Hg] Dr. Ratna Villalobos Work Phone: [facility] 10-08-2023 07:27-0400 Body height 170.[address] Ratna Villalobos Work Phone: [facility] 10-08-2023 07:27-0400 Body mass index (BMI) [Ratio] 21.1 kg/m2 Dr. Ratna Villalobos Work Phone: [facility] 10-08-2023 07:27-0400 Body weight 61.[address] Ratna Villalobos Work Phone: [facility] 06-02-2023 11:14-0500 Body mass index (BMI) [Ratio] 20.7 kg/m2 Dr. Ratna Villalobos Work Phone: [facility] 06-02-2023 11:14-0500 Body weight 59.[address] Ratna Villalobos Work Phone: [facility] 06-02-2023 11:14-0500 Diastolic blood pressure 76 mm[Hg] Dr. Ratna Villalobos Work Phone: [facility] 06-02-2023 11:14-0500 Systolic blood pressure 111 mm[Hg] Dr. Ratna Villalobos Work Phone: [facility] 05-20-2023 13:53-0500 Body temperature 98.7 [degF] Dr. Ratna Villalobos Work Phone: [facility] 05-20-2023 13:53-0500 Diastolic blood pressure 64 mm[Hg] Dr. Ratna Villalobos Work Phone: [facility] 05-20-2023 13:53-0500 Heart rate 72 /min Dr. Ratna Villalobos Work Phone: [facility] 05-20-2023 13:53-0500 Respiratory rate 14 /min Dr. Ratna Villalobos Work Phone: [facility] 05-20-2023 13:53-0500 SaO2% (BldA) [Mass fraction] 96 % Dr. Ratna Villalobos Work Phone: [facility] 05-20-2023 13:53-0500 Systolic blood pressure 104 mm[Hg] Dr. Ratna Villalobos Work Phone: [facility] 05-20-2023 11:18-0500 Inhaled oxygen flow rate 4 L/min Dr. Ratna Villalobos Work Phone: [facility] 05-20-2023 06:20-0500 Body height 170.[address] Ratna Villalobos Work Phone: [facility] 05-20-2023 06:20-0500 Body mass index (BMI) [Ratio] 20.7 kg/m2 Dr. Ratna Villalobos Work Phone: [facility] 05-20-2023 06:20-0500 Body weight 59.[address] Ratna Villalobos Work Phone: [facility] 05-16-2023 13:17-0500 Body mass index (BMI) [Ratio] 21.2 kg/m2 Dr. Ratna Villalobos Work Phone: [facility] 05-16-2023 13:17-0500 Body weight 61.[address] Ratna Villalobos Work Phone: [facility] 05-16-2023 13:17-0500 Diastolic blood pressure 71 mm[Hg] Dr. Ratna Villalobos Work Phone: [facility] 05-16-2023 13:17-0500 Heart rate 83 /min Dr. Ratna Villalobos Work Phone: [facility] 05-16-2023 13:17-0500 Systolic blood pressure 111 mm[Hg] Dr. Ratna Villalobos Work Phone: [facility] 03-31-2023 09:39-0400 Body height 170.[address] Ratna Villalobos Work Phone: [facility] 03-31-2023 09:39-0400 Body mass index (BMI) [Ratio] 21 kg/m2 Dr. Ratna Villalobos Work Phone: [facility] 03-31-2023 09:39-0400 Body weight [address] Ratna Villalobos Work Phone: [facility] 03-31-2023 09:39-0400 Diastolic blood pressure 79 mm[Hg] Dr. Ratna Villalobos Work Phone: [facility] 03-31-2023 09:39-0400 Systolic blood pressure 120 mm[Hg] Dr. Ratna Villalobos Work Phone: [facility] 02-11-2023 11:42-0400 Diastolic blood pressure 68 mm[Hg] Ratna Villalobos Work Phone: [facility] [address] [place] Work Phone: 02-11-2023 11:42-0400 Systolic blood pressure 106 mm[Hg] Ratna Villalobos Work Phone: [facility] [address] Work Phone: 09-05-2022 11:05-0400 Body height 170.[address] Ratna Villalobos Work Phone: [facility] 09-05-2022 11:05-0400 Body mass index (BMI) [Ratio] 20.7 kg/m2 Dr. Ratna Villalobos Work Phone: [facility] 09-05-2022 11:05-0400 Diastolic blood pressure 72 mm[Hg] Dr. Ratna Villalobos Work Phone: [facility] 09-05-2022 11:05-0400 Systolic blood pressure 104 mm[Hg] Dr. Ratna Villalobos Work Phone: [facility] 09-05-2022 10:57-0400 Body weight 59.[address] Ratna Villalobos Work Phone: [facility] 06-21-2022 12:58-0500 Body height 167.6 cm Ratna Villalobos Other Phone: [facility] 06-21-2022 12:58-0500 Body temperature 97.16 [degF] Ratna Villalobos Other Phone: [facility] 06-21-2022 12:58-0500 Diastolic blood pressure 80 mm[Hg] Ratna Villalobos Other Phone: [facility] 06-21-2022 12:58-0500 Heart rate 72 /min Ratna Wilfredo Other Phone: [facility] 06-21-2022 12:58-0500 Respiratory rate 20 /min Ratna Wilfredo Other Phone: [facility] 06-21-2022 12:58-0500 SaO2% (BldA) [Mass fraction] 100 % Ratna Villalobos Other Phone: [facility] 06-21-2022 12:58-0500 Systolic blood pressure 113 mm[Hg] Ratna Villalobos Other Phone: [facility] 02-11-2022 08:15-0400 Body height 172.09 cm Ratna Villalobos Work Phone: [facility] Work Phone: 02-11-2022 08:15-0400 Body mass index (BMI) [Ratio] 22.45 kg/m2 Ratna L Wilfredo Work Phone: [facility] Work Phone: 02-11-2022 08:15-0400 Body surface area Derived from formula 1.79 m2 Ratna L Wilfredo Work Phone: [facility] Work Phone: 02-11-2022 08:15-0400 Body weight 66.48 kg Ratna L Wilfredo Work Phone: [facility] Work Phone: 02-11-2022 08:15-0400 Diastolic blood pressure 62 mm[Hg] Ratna L Wilfredo Work Phone: [facility] Work Phone: 02-11-2022 08:15-0400 Heart rate 87 /min Ratna L Wilfredo Work Phone: [facility] Work Phone: 02-11-2022 08:15-0400 Systolic blood pressure 122 mm[Hg] Ratna L Wilfredo Work Phone: [facility] Work Phone: 12-13-2020 09:30-0400 Body height 172.01 cm Ratna L Wilfredo Work Phone: [facility] Work Phone: 12-13-2020 09:30-0400 Body mass index (BMI) [Ratio] 25.3 kg/m2 Ratna L Wilfredo Work Phone: [facility] Work Phone: 12-13-2020 09:30-0400 Body surface area Derived from formula 1.88 m2 Ratna L Wilfredo Work Phone: [facility] Work Phone: 12-13-2020 09:30-0400 Body weight 74.84 kg Ratna L Wilfredo Work Phone: [facility] Work Phone: 12-13-2020 09:30-0400 Diastolic blood pressure 73 mm[Hg] Ratna Villalobos Work Phone: [facility] Work Phone: 12-13-2020 09:30-0400 Heart rate 75 /min Ratna Villalobos Work Phone: [facility] Work Phone: 12-13-2020 09:30-0400 Systolic blood pressure 111 mm[Hg] Ratna Villalobos Work Phone: [facility] Work Phone: Encounters Encounter Date Encounter Type Care Provider Facility Start: 02-24-2025 ambulatory Tom ROPER Facili ty:[facility] Start: 02-07-2025 End: 02-13-[address] Ratna Villalobos MD Work Phone: [facility] Start: 02-07-2025 End: 02-13-2025 Discharged Recurring Tom Petty MD -[facility] Start: 11-19-2024 End: 11-19-2024 Patient encounter procedure Ernst [place]ala [place] [facility] Work Phone: Start: 11-19-2024 End: 11-19-[address] Ratna Villalobos MD Work Phone: [facility] Work Phone: Start: 10-09-2024 Registered [facility] HEALTH RIS K ASSESSMENT -Laboratory Work Phone: Start: 10-09-2024 ambulatory Health Risk Assessment Facility:[facility] Start: 10-07-2024 End: 10-07-2024 Patient encounter procedure Zackary Anderson DO -Laboratory Work Phone: Start: 10-07-2024 End: 10-07-2024 ambulatory Zackary Anderson Facility:[facility] Start: 09-23-2024 End: 09-23-[address] Ratna Villalobos MD Work Phone: [facility] Work Phone: Start: 09-23-2024 End: 09-23-2024 Patient encounter procedure Vani Darlington IMPORT EXPORT MANAGER-C -Ultrasound, [facility] Work Phone: Start: 09-23-2024 End: 09-23-2024 ambulatory [facility] Facility:[facility] Start: 09-20-2024 End: 09-20-2024 Patient encounter procedure Vani Darlington IMPORT EXPORT MANAGER-C -[facility] Work Phone: Start: 09-20-2024 End: 09-20-2024 Patient encounter status Vani Darlington IMPORT EXPORT MANAGER-C [facility] Start: 09-20-2024 End: 09-20-2024 ambulatory Vani Lucia IMPORT EXPORT MANAGER Facility:[facility] Start: 05-10-2024 End: 05-10-2024 Patient encounter procedure Beau Gudino [employer]N Work Phone: [facility] Comment on above: Acute non-recurrent maxillary sinusitis (Primary Dx); Acute cough Start: 05-10-2024 End: 05-10-2024 ambulatory [facility] Start: 02-26-2024 End: 02-26-2024 ambulatory [facility] Facility:[facility] Start: 10-22-2023 End: 10-22-2023 ambulatory [facility] Start: 10-22-2023 End: 10-22-2023 Encounter for general adult medical examination without abnormal findings [facility] Start: 10-22-2023 End: 10-22-2023 Patient encounter status Ratna Villalobos MD Work Phone: [facility] Work Phone: Start: 10-22-2023 End: 10-22-2023 Periodic preventive med est patient 18-39 yrs Ratna Villalobos MD Work Phone: [facility] Comment on above: Wellness examination (Primary Dx) Start: 10-08-2023 End: 10-08-2023 Emergency department patient visit Dr. Ratna Villalobos Work Phone: [facility]-Emergency Department Work Phone: Start: 08-14-2023 End: 08-14-[address] Ratna Villalobos Work Phone: [facility] Work Phone: Start: 07-03-2023 End: 07-03-[address] Ratna Villalobos Work Phone: [facility] Work Phone: Start: 05-20-2023 Non-patient / Non-visit Dr. Lester Work Phone: [facility] Start: 05-20-2023 End: 05-20-2023 Admission to same day surgery center Dr. Ratna Villalobos Work Phone: [facility] Start: 05-20-2023 End: 05-20-[address] Ratna Villalobos Work Phone: [facility] Work Phone: Start: 05-16-2023 End: 05-16-[address] Ratna Villalobos Work Phone: [facility] Work Phone: Start: 05-16-2023 End: 05-16-[address] Ratna Villalobos Work Phone: [facility]-Laboratory Work Phone: Start: 04-17-2023 End: 04-17-[address] Ratna Villalobos Work Phone: [facility] Work Phone: Start: 04-17-2023 End: 04-17-[address] Ratna Villalobos Work Phone: [facility] Work Phone: Start: 03-31-2023 End: 03-31-[address] Ratna Villalobos Work Phone: [facility] Work Phone: Start: 03-26-2023 End: 03-26-2023 ambulatory [facility] Amb[facility] Start: 02-11-2023 Office outpatient ne w 45 minutes Ratna Villalobos Work Phone: [facility] [address] Work Phone: Start: 02-11-2023 Patient encounter procedure Ratna Villalobos Work Phone: [facility] [address] Work Phone: Start: 02-11-[address] [id number] Start: 01-21-2023 End: 01-21-2023 ambulatory [facility] Start: 01-15-2023 End: 01-15-[address] Ratna Villalobos Work Phone: [facility] Work Phone: Start: 12-30-[address] Aniceto Villalobos Work Phone: [facility] Start: 09-13-2022 End: 09-13-[address] Ratna Villalobos Work Phone: [facility] Work Phone: Start: 09-13-2022 End: 09-13-[address] Ratna Villalobos Work Phone: [facility], [facility] Start: 09-05-2022 End: 09-05-[address] Ratna Villalobos Work Phone: [facility] Work Phone: Start: 09-05-2022 End: 09-05-[address] Ratna Villalobos Work Phone: [facility]-Laboratory, Specimen Start: 09-05-2022 End: 09-05-[address] Ratna Villalobos Work Phone: [facility] Start: 07-30-2022 End: 07-30-[address] [facility] Start: 07-23-2022 Non-patient / Non-visit Dr. Lestre Work Phone: [facility] Start: 07-23-2022 End: 07-23-[address] Ratna Villalobos Work Phone: [facility] Start: 06-21-2022 End: 06-21-2022 Emergency department patient visit Joanne Flores [facility] Start: 04-25-2022 AUDIT Ratna vega Work Phone: [facility] Work Phone: Start: 02-12-2022 Chart Update Ratna vega Work Phone: [facility] Work Phone: Start: 02-11-2022 Office outpatient vi sit 25 minutes Ratna Villalobos Work Phone: [facility] Work Phone: Start: 02-09-[address] Ana Maynard Work Phone: [facility] Start: 02-01-[address] Ana Maynard Work Phone: [facility] Start: 01-23-2022 End: 02-13-[address] Ana Maynard Work Phone: [facility] Work Phone: Start: 01-23-2022 End: 02-13-[address] Ana Maynard Work Phone: [facility] Start: 01-21-2022 End: 01-21-[address] Ana Maynard Work Phone: [facility] Start: 12-05-2021 End: 12-13-[address] Ana Maynard Work Phone: [facility] Start: 09-13-2021 End: 09-13-[address] Ana Maynard Work Phone: [facility] Start: 12-26-2020 Result Review Ratna vega Work Phone: [facility] Work Phone: Start: 12-13-2020 Office outpatient vi sit 25 minutes Ratna Villalobos [facility] Work Phone: Start: 10-07-2017 End: 10-08-2017 Ambulatory Maco Barnes [facility] Start: 07-21-2017 End: 07-22-2017 [facility] Start: 07-21-2017 End: 07-22-2017 Ambulatory Jessica Mack Facility:[facility] Start: 05-22-2017 End: 10-07-2017 Ambulatory Mamadou Dailey Facility:[facility] Start: 05-14-2017 End: 05-14-2017 Ambulatory Henri Turk Facility:[facility] Start: 03-07-2017 End: 03-08-2017 Ambulatory Susan Montez Facility:[facility] Start: 01-31-2017 End: 04-01-2017 Ambulatory Henri Turk Facility:[facility] Start: 01-17-2017 End: 01-18-2017 Ambulatory Henri Turk Facility:[facility] Start: 01-13-2017 End: 01-14-2017 Ambulatory Henri Turk Facility:[facility] Start: 12-31-2016 End: 01-01-2017 Ambulatory Henri Turk Facility[facility] Start: 12-25-2016 End: 12-26-2016 Ambulatory Ratna Villalobos Facility:[facility] Procedures Date Procedure Procedure Detail Performing Clinician Start: 02-07-[address] Ratna Villalobos MD Work Phone: Start: 02-04-[address] Ratna Villalobos MD Work Phone: Start: 10-09-2024 Serum inorganic phos phate measurement Dr. Ratna Villalobos MD Work Phone: Start: 10-07-2024 Albumin/Globulin ratio Dr. Ratna Villalobos MD Work Phone: Start: 10-07-[address] Ratna Villalobos MD Work Phone: Start: 09-23-[address] Mikki Villalobos MD Work Phone: Start: 05-10-2024 POCT SARS-COV-2/FLU/ RSV PCR SYMPTOMATIC Beau Gudino [employer] Work Phone: Start: 05-10-2024 Iadna streptococcus group a amplified probe tq Beau Gudino [employer] Work Phone: Start: 10-08-2023 Computed tomography of abdomen and pelvis with intravenous contrast Dr. Ratna Villalobos Work Phone: Start: 05-20-[address] Ava Villalobos Work Phone: Start: 04-17-[address] Mikki Villalobos Work Phone: Start: 09-13-[address] Mikki Villalobos Work Phone: Start: 09-13-[address] Ratna Villalobos Work Phone: Start: 07-23-2022 X-ray of lumbosacral spine Dr. Ratna Villalobos Work Phone: section Ratna L Natalie schmidt Work Phone: Hernia repair Ratna L Debbie r Work Phone: Repair of shoulder Ratna Villalobos Work Phone: Tonsillectomy and adenoidectomy Ratna Villalobos Work Phone: Viral antigen assay Dr. Melanie Maynard Work Phone: Plan of Treatment Date Care Activity Detail Author Start: 2046 Zoster Vaccines (1 of 2) Zoste r Vaccines (1 of 2) [facility] Start: 06-10-2029 DTaP/Tdap/Td Vaccine s (9 - Td or Tdap) DTaP/Tdap/Td Vaccines (9 - Td or Tdap) [facility] Start: 10-22-2024 Yearly Adult Physical Yearly Adult P hysical [facility] Start: 02-15-2024 COVID-19 Vaccine ( season) COVID-19 Vaccine ( season) [facility] Start: 10-08-2023 [facility] Start: 05-20-2023 Introduction of urin margarita catheter [facility] Start: 05-20-2023 Ambulation therapy management [facility] Start: 05-20-2023 Continuous pulse oximetry [facility] Start: 05-20-2023 Elevation of head of bed [facility] Start: 05-20-2023 Incentive spirometry [facility] Start: 05-20-2023 Measuring intake and output [facility] Start: 05-20-2023 Notification of physician [facility] Start: 05-20-2023 End: 05-20-2023 Oxygen therapy [facility] Start: 05-20-2023 Patient education [facility] Start: 05-20-2023 Procedures relating to eating and drinking [facility] Start: 05-20-2023 Taking patient vital signs [facility] Start: 05-20-2023 [facility] Start: 05-20-2023 Patient discharge [facility] Start: 03-18-2023 FUV, Provider: Panchito Cyr, Status: Pen, Time: 3:15 PM FUV, Provider: Bella Cyr, Status: Pen, Time: 3:15 PM [facility] [address] Work Phone: Start: 02-21-2023 RENALART, Provider: [id number], Status: Pen, Time: 8:00 AM RENALART, Provider: [email or web address], Status: Pen, Time: 8:00 AM [facility] [address] Work Phone: Start: 02-14-2023 COVID-19 Vaccine ( season) COVID-19 Vaccine ( season) [facility] Start: 09-05-2022 Liquid based cervica l cytology screening [facility] Start: 01-18-2021 FUV, Provider: Ratna Villalobos, Status: Pen, Time: 3:40 PM FUV, Provider: Ratna Villalobos, Status: Pen, Time: 3:40 PM [facility] Work Phone: Start: 2014 Hepatitis C screening Hepatitis C [facility] Start: 07-27-2010 Hepatitis A Vaccines (2 of 2 - 2-dose series) Hepatitis A Vaccines (2 of 2 - 2-dose series) [facility] Start: 07-27-2010 HPV Vaccines (2 - 2- dose series) HPV Vaccines (2 - 2-dose series) [facility] Start: 2009 Varicella vaccination Varicell a Vaccines (1 of 2 - 13+ 2-dose series) [facility] Start: 1996 HIV screening HIV Screening [facility] Start: 1996 Lipid panel Lipid Panel [facility] Patient Education Abdominal Pain ED Vomiting (Adult) [facility] Work Phone: Patient referral [facility] Work Phone: Immunizations Immunization Date Immunization Notes Care Provider [facility] 04-09-2024 influenza, seasonal, injectable, preservative free Dr. Ratna Villalobos MD Work Phone: [facility] 10-24-2023 Hepatitis B vaccine (recombinant), CpG adjuvanted Dr. Ratna Villalobos MD Work Phone: [facility] 05-05-2023 influenza, injectabl e, quadrivalent, preservative free Dr. Ratna Villalobos Work Phone: [facility] 05-01-2022 influenza, injectabl e, quadrivalent, preservative free Dr. Ratna Villalobos Work Phone: [facility] 05-01-2022 influenza, seasonal, injectable Dr. Ratna Villalobos Work Phone: [facility] 05-09-2021 Eda COVID-19 Vac cine 0.5 ML Intramuscular Suspension Ratna Villalobos Work Phone: [facility] Work Phone: 03-23-2021 influenza, injectabl e, quadrivalent, preservative free Dr. Ratna Villalobos Work Phone: [facility] 03-23-2021 influenza, seasonal, injectable Dr. Ana Maynard Work Phone: [facility] 03-23-2021 influenza, seasonal, injectable, preservative free Ratna Villalobos Work Phone: [facility] Work Phone: 03-22-2020 influenza, injectabl e, quadrivalent, preservative free Dr. Ratna Villalobos Work Phone: [facility] 03-22-2020 influenza, seasonal, injectable Dr. Ana Maynard Work Phone: [facility] 06-10-2019 tetanus toxoid, redu jeannette diphtheria toxoid, and acellular pertussis vaccine, adsorbed Dr. Ana Maynard Work Phone: [facility] 03-11-2019 influenza, injectabl e, quadrivalent, preservative free Dr. Ratna Villalobos Work Phone: [facility] 03-11-2019 influenza, seasonal, injectable Dr. Ana Maynard Work Phone: [facility] 04-03-2018 tetanus toxoid, redu jeannette diphtheria toxoid, and acellular pertussis vaccine, adsorbed Dr. Ana Maynard Work Phone: [facility] 03-13-2018 influenza, injectabl e, quadrivalent, preservative free Dr. Ratna Villalobos Work Phone: [facility] 03-13-2018 influenza, seasonal, injectable Dr. Ana Maynard Work Phone: [facility] 03-12-2017 influenza, injectabl e, quadrivalent, preservative free Dr. Ratna Villalobos Work Phone: [facility] 03-12-2017 influenza, seasonal, injectable Dr. Ana Maynard Work Phone: [facility] 04-01-2016 influenza, injectabl e, quadrivalent, preservative free Dr. Ratna Villalobos Work Phone: [facility] 04-01-2016 influenza, seasonal, injectable Dr. Ana Maynard Work Phone: [facility] 05-29-2015 influenza, injectabl e, quadrivalent, preservative free Dr. Ratna Villalobos Work Phone: [facility] 05-29-2015 influenza, seasonal, injectable Dr. Ana Maynard Work Phone: [facility] 05-12-2015 influenza virus vacc ine, unspecified formulation Ratna Villalobos MD Work Phone: [facility] Work Phone: 01-24-2010 hepatitis A vaccine, pediatric/adolescent dosage, 2 dose schedule Ratna Villalobos Work Phone: [facility] Work Phone: 01-24-2010 human papilloma viru s vaccine, quadrivalent Ratna Villalobos Work Phone: [facility] Work Phone: 01-24-2010 hepatitis A and hepatitis B vaccine Ratna Villalobos MD Work Phone: [facility] Work Phone: 01-24-2010 HPV, unspecified formulation Ratna Villalobos MD Work Phone: [facility] Work Phone: 06-01-2009 influenza, seasonal, injectable, preservative free Ratna Villalobos MD Work Phone: [facility] Work Phone: 06-01-2009 novel Influenza-H1N1 -09, live virus for nasal administration Ratna Villalobos Work Phone: [facility] 04-07-2009 meningococcal polysaccharide (groups A, C, Y and W-135) diphtheria toxoid conjugate vaccine (MCV4P) Ratna Villalobos Work Phone: [facility] Work Phone: 04-07-2009 tetanus toxoid, redu jeannette diphtheria toxoid, and acellular pertussis vaccine, adsorbed Ratna Villalobos Work Phone: [facility] Work Phone: 03-10-2002 diphtheria, tetanus toxoids and acellular pertussis vaccine, unspecified formulation Ratna Villalobos Work Phone: [facility] Work Phone: 03-10-2002 poliovirus vaccine, inactivated Ratna Villalobos Work Phone: [facility] Work Phone: 03-10-2002 trivalent poliovirus vaccine, live, oral Ratna Villalobos MD Work Phone: [facility] Work Phone: 01-30-2000 diphtheria, tetanus toxoids and acellular pertussis vaccine, unspecified formulation Ratna Villalobos Work Phone: [facility] Work Phone: 01-30-2000 measles, mumps and rubella virus vaccine Ratna L Wilfredo Work Phone: [facility] Work Phone: 02-08-1998 haemophilus influenz ae type b conjugate and Hepatitis B vaccine Ratna L Wilfredo Work Phone: [facility] Work Phone: 11-09-1997 diphtheria, tetanus toxoids and acellular pertussis vaccine, unspecified formulation Ratna L Wilfredo Work Phone: [facility] Work Phone: 11-09-1997 measles, mumps and rubella virus vaccine Ratna L Wilfredo Work Phone: [facility] Work Phone: 11-09-1997 trivalent poliovirus vaccine, live, oral Ratna L Wilfredo Work Phone: [facility] Work Phone: 08-17-1997 diphtheria, tetanus toxoids and acellular pertussis vaccine, unspecified formulation Ratna L Wilfredo Work Phone: [facility] Work Phone: 08-17-1997 haemophilus influenz ae type b vaccine, conjugate unspecified formulation Ratna L Wilfredo Work Phone: [facility] Work Phone: 08-17-1997 trivalent poliovirus vaccine, live, oral Ratna L Wilfredo Work Phone: [facility] Work Phone: 02-16-1997 diphtheria, tetanus toxoids and acellular pertussis vaccine, unspecified formulation Ratna L Wilfredo Work Phone: [facility] Work Phone: 02-16-1997 haemophilus influenz ae type b conjugate and Hepatitis B vaccine Ratna L Wilfredo Work Phone: [facility] Work Phone: 02-16-1997 trivalent poliovirus vaccine, live, oral Ratna Villalobos Work Phone: [facility] Work Phone: 1996 hepatitis B vaccine, pediatric or pediatric/adolescent dosage Ratna Villalobos Work Phone: [facility] Work Phone: Payers Date Payer Category Payer Self-pay [id number] 2022 Managed Care (Private) [facility] [id number] 2022 Unknown [id number] 2016 Unknown 1996 Unknown [id number]. 356 1996 Unknown [id number]. 1244 1996 Unknown [id number]. 1244 1996 Unknown [id number]. 1244 1996 Unknown [id number]. 124 Unknown [id number] Unknown [id number] Unknown [id number] Unknown [id number] Unknown [facility] [id number] Unknown [id number]. 462 Unknown [id number] [id number]. 462 Unknown [id number]. 462 Unknown [id number] 2.16.840.1.205085.3.579.2. 462 Unknown [id number] 2.16.840.1.073602.3.579.2. 462 Unknown [id number] 2.16.840.1.339260.3.579.2. 462 Unknown [id number] [id number]. 462 Unknown [id number] [id number]. 462 Unknown [id number]. 462 Social History Date Type Detail Facility Start: 03-26-2023 End: 10-22-2023 No recent foreign travel No recent foreign travel -[facility] Work Phone: Comment on above: quit ; Start: 09-13-2021 End: 10-08-2023 Tobacco smoking status NHIS Unknown if ever smoked [facility] Start: 07-05-2018 None [facility] Start: 10-19-2019 Spouse/ Signif icant Other [facility] Start: 1995 Sex Assigned At Female [facility] Start: 01-21-2023 End: 11-18-2024 Tobacco smoking status NHIS Ex-smoker [facility] History of tobacco use Current smoker [facility] Work Phone: History of tobacco use Cigarette Smoker [facility] Work Phone: Start: 01-21-2023 Tobacco use and exposure Smokeless tobacco non-user [facility] Work Phone: Start: 10-22-2023 End: 05-10-2024 Alcoholic beverage intake Current drinker of alcohol (finding) [facility] Work Phone: Start: 03-26-2023 End: 10-22-2023 Tobacco use panel [facility] Work Phone: Start: 10-22-2023 Alcohol Comment Occasionally [facility] Work Phone: Start: 1995 Sex assigned at Not on file [facility] Work Phone: Start: 10-12-2023 End: 05-10-2024 Exposure to SARS-CoV-2 (event) Not sure [facility] Start: 09-24-2024 Sex Female (finding) [facility] NEGATED: Highlighted row [facility] Medical Equipment Procedure Code Equipment Code Equipment Origin al Text Equipment Identifier Dates Laparoscopy with vaginal hysterectomy Collagen haemostatic agent, non-antimicrobial [id number] [facility] Start: 05-20-2023 Goals Date Patient Goal Desired Activity /State Mental Status Date Assessment Result Facility 05-20-2023 Cognitive function Voice/Name [facility] Work Phone: Clinical Notes 09-05-2022 to 11-19-2024 Note Date & Type Note Facility 11-19-2024 Evaluation note Diagnosis Onset Date Resolution Encounter for pre-employment health screening examination acute November 19, 2024 9:47am [facility] Work Phone: 1(615) 413-821104-10-2025 Radiology Diagnostic study note [facility] Imaging Services [address] [place] [address] Pelvic w/ Transvaginal MR#: [id number] Acct: [id number] Name: JUSTIN LEE Rep #: [id number] : 1995 F 29 From: Jorge Luis austen Weinstein DO PCP: Dr. Ratna Villalobos MD Status: REG CLI Study:Pelvic w/ Transvaginal Date of Exam: 09/23/24 Exam# [id number] Ordering Dr: Vani Myers NP PROCEDURE: Pelvic ultrasound, transabdominal and transvaginal. 09/23/2024 REASON FOR EXAM: Chronic pelvic pain. History of partial hysterectomy. TECHNIQUE: Transabdominal and transvaginal pelvic ultrasound evaluation was performed. COMPARISON: None available FINDINGS: The included portions of the urinary bladder show no specific abnormality. The uterus is not demonstrated, absent by history. The right ovary is 3.4 x 2.5 x 2.4 cm. The left ovary is 2.6 x 2.4 x 1.7 cm. No adnexal mass lesionor free pelvic fluid. Tiny bilateral ovarian follicles. There appears to be blood flow in both ovaries on Doppler evaluation. The provided images of the urinary bladder show no specific abnormality. US/Pelvic w/ Transvaginal IMPRESSION: Absent uterus. Unremarkable ovaries. No evidence of ovarian torsion or concerning adnexal mass. If there is persistent pain, follow-up CT scan evaluation may be considered. Reading [facility] CC: MONSERRAT Myers; Dr. Ratna Villalobos MD ~ Application Defense Manager: Signed [facility]04-07-2025 Evaluation note* Diagnosis Onset Date Resolution Status Admit Date Ovarian enlargement, right acute September 20, 2024 2:44pm Pelvic pain resolved September 20 2:44pm Encounter for routine gynecological examination noneactive September 20, 2024 2:44pm [facility] Work Phone: 1(981) 237-408211-25-2024 History of Present illness Narrative* Susan Delgado APRN-FAHAD - 05/10/2024 9:20 AM EST [facility] NOTE: Name: Justin Lee, 28 y.o. CSN:[id number] PCP: Eh Devine MD ALL: Allergies Allergen Reactions Oxycodone Itching History: Chief Complaint: URI (Sore throat, congestion, hurts to breath, cough x 1 week) Encounter Date: 05/10/2024 HPI: The history was obtained from the patient. Justin is a 28 y.o. female, who presents with a chief complaint of URI (Sore throat, congestion, hurts to breath, cough x 1 week) Patient presents with 1 week of sore throat, sinus congestion, and cough. Patient describes burningwith deep breath but denies shortness of breath, cough is productive in nature described as yellow-green. Denies chest pain with cough. PMHx: History reviewed. No pertinent past medical history. Current Outpatient Medications Medication Sig Dispense Refill albuterol 90 mcg/actuation inhaler Inhale 2 puffs every 6 hours if needed for wheezing. 17 g 0 amoxicillin-pot clavulanate (Augmentin) 875-125 mg tablet Take 1 tablet by mouth 2 times a day for 7 days. 14 tablet 0 meweoagnppvmjym-txeykyilv-BG 2-30-10 mg/5 mL syrup Take 5 mL by mouth 4 times a day as needed for allergies, congestion or cough for up to 10 days. 240 mL 0 cetirizine (ZyrTEC) 10 mg capsule Take 1 capsule (10 mg) by mouth. Take per directed (Patient not taking: Reported on 05/10/2024) ferrous sulfate (IRON ORAL) twice a day. Take per directed (Patient not taking: Reported on 05/10/2024) fluticasone (Flonase) 50 mcg/actuation nasal spray Administer 1 spray into each nostril 2 times a day as needed (post nasal drip). (Patient not taking: Reported on 05/10/2024) levonorgestreL-ethinyl estrad (Nordette) 0.15-0.03 mg tablet Take per directed (Patient not taking:Reported on 05/10/2024) nitrofurantoin, macrocrystal-monohydrate, (Macrobid) 100 mg capsule Take 1 capsule (100 mg) by mouth 2 times a day. (Patient not taking: Reported on 05/10/2024) ofloxacin (Ocuflox) 0.3 % ophthalmic solution Administer 1 drop into affected eye(s) 4 times a day.(Patient not taking: Reported on 05/10/2024) oxyCODONE (Roxicodone) 5 mg immediate release tablet 1 tablet (5 mg). Take per directed by Doctor (Patient not taking: Reported on 05/10/2024) No current facility-administered medications for this visit. PMSx: Past Surgical History: Procedure Laterality Date ENDOMETRIAL ABLATION October 2022 HYSTERECTOMY partial May 2023 OTHER SURGICAL HISTORY 09/13/2019 Shoulder surgery OTHER SURGICAL HISTORY 09/13/2019 Tonsillectomy with adenoidectomy OTHER SURGICAL HISTORY 02/11/2022 Hernia repair OTHER SURGICAL HISTORY 02/07/2020 section Fam Hx: Family History Problem Relation Name Age of Onset No Known Problems Mother No Known Problems Father Diabetes type II Other grandparent Irregular heart beat Other grandparent SOC. Hx: Social History Socioeconomic History Marital status: Single Spouse name: Not on file Number of children: Not on file Years of education: Not on file Highest education level: Not on file Occupational History Not on file Tobacco Use Smoking status: Former Types: Cigarettes Smokeless tobacco: Never Vaping Use Vaping status: Never Used Substance and Sexual Activity Alcohol use: Yes Comment: Occasionally Drug use: Never Sexual activity: Not on file Other Topics Concern Not on file Social History Narrative Not on file Social Drivers of Health Financial Resource Strain: Not on file Food Insecurity: Not on file Transportation Needs: Not on file Physical Activity: Not on file Stress: Not on file Social Connections: Not on file Intimate Partner Violence: Not on file Housing Stability: Not on file Vitals: 05/10/24 0957 BP: 116/76 Pulse: 76 Resp: 16 Temp: 36.7 C (98.1 F) SpO2: 98% 61.2 kg (135 lb) Physical Exam Vitals and nursing note reviewed. Constitutional: Appearance: Normal appearance. HENT: Head: Normocephalic and atraumatic. Right Ear: Hearing, ear canal and external ear normal. A middle ear effusion is present. Tympanic membrane is erythematous. Tympanic membrane is not bulging. Tympanic membrane has normal mobility. Left Ear: Hearing, ear canal and external ear normal. A middle ear effusion is present. Tympanic membrane is erythematous. Tympanic membrane is not bulging. Tympanic membrane has normal mobility. Nose: Congestion and rhinorrhea present. Rhinorrhea is purulent. Right Sinus: Maxillary sinus tenderness and frontal sinus tenderness present. Left Sinus: Maxillary sinus tenderness and frontal sinus tenderness present. Mouth/Throat: Lips: [place]. Mouth: Mucous membranes are moist. Pharynx: Uvula midline. Posterior oropharyngeal erythema present. No pharyngeal swelling or oropharyngeal exudate. Tonsils: No tonsillar exudate. Cardiovascular: Rate and Rhythm: Normal rate and regular rhythm. Heart sounds: Normal heart sounds. Pulmonary: Effort: Pulmonary effort is normal. Breath sounds: Normal breath sounds. Abdominal: General: Bowel sounds are normal. Skin: General: Skin is warm and dry. Neurological: Mental Status: She is alert and oriented to person, place, and time. I did personally review Justin's past medical history, surgical history, social history, as well as family history (when relevant). In this case, I also oversaw the her drug management by reviewing her medication list, allergy list, as well as the medications that I prescribed during the UC courseand/or recommended as an out-patient (including possible OTC medications such as acetaminophen, NSAIDs , etc). After reviewing the items above, I did look at previous medical documentation, such as recent hospitalizations, office visits, and/or recent consultations with PCP/specialist. SDOH: Another factor that I considered in Justin's care was her Social Determinants of Health (SDOH). During this UC encounter, she did not have social determinants of health. Those SDOH influencingJustin's care are: none UC COURSE/MEDICAL DECISION MAKING: Justin is a 28 y.o., who presents with a working diagnosis of 1. Acute non-recurrent maxillary sinusitis 2. Acute cough Justin was seen today for uri. Diagnoses and all orders for this visit: Acute non-recurrent maxillary sinusitis (Primary) - amoxicillin-pot clavulanate (Augmentin) 875-125 mg tablet; Take 1 tablet by mouth 2 times a day for 7 days. Acute cough - agzbmezrjxguhat-pmghsnbfh-BD 2-30-10 mg/5 mL syrup; Take 5 mL by mouth 4 times a day as needed for allergies, congestion or cough for up to 10 days. - albuterol 90 mcg/actuation inhaler; Inhale 2 puffs every 6 hours if needed for wheezing. - POCT SARS-COV-2/FLU/RSV PCR SYMPTOMATIC manually resulted - POCT Group A Streptococcus, PCR manually resulted Patient to continue [id number]-fkl-nzkovtw Mucinex/cold and flu. Follow-up with primary care provider or urgency department with worsening symptoms Susan Delgado APRN, [facility] Advanced Practice Provider [facility] Please note: While the patient may or may not have received printed discharge paperwork, all relevant medical findings, test results, and treatment details are accessible through the electronic medical record system. The patient is encouraged to review their chart via the patient portal for comprehensive information and follow-up instructions. documented in this [facility] Work Phone: 1(877) 145-921509-12-2024 [facility] Medical Records Department [address] [place] [address] History Physical Exam 02/26/24 0700 MR#: [id number] Acct: [id number] Name: JUSTIN LEE Rep #: [id number] : 1995 28 From: Zackary Anderson DO PCP: Dr. Ratna Villalobos MD Status:[facility] Location: [place] [address] History and Physical Date of Admission: 02/26/24 JUSTIN LEE, is a 28 F who presents to the office today for initial consult. *BGI established 8.29.24 pt reports that she feels like there is something stuck in the back of her throat. pt reports she has had this feeling since last Friday when she was eating steak. Pt reports bloating when she is constipated; reports bowels alternate between constipation and diarrhea. ROS Const Constitutional: No fatigue, fever(s) or weight change ENT ENT: Positive for difficulty swallowing Gastro GI: Positive for abdominal pain, bloating, change in bowel habits, difficulty swallowing, excessive flatus and nausea/dyspepsia; No belching, change in stool character, coffee ground emesis, constipation, cramping, diarrhea, heartburn, feeling full early, incontinent of stools, Vomiting blood/hematemesis, Blood in stool, loose stools, Black,tarry stools, pain with swallowing, vomiting or other Musc Musculoskeletal: No joint pain Skin Skin: No yellowing of the eye or itchy eyes Psych Psychiatric: Positive for anxiety and No depression Endo Endocrine: No fatigue or weight change Aller/Imm Allergy/Immunologic: No itchy eyes Nimesh/Lymp Hematologic/Lymphatic: No easy bleeding or easy bruising Exam Const General: cooperative, healthy appearing, comfortable and no acute distress Nutritional Appearance: average body habitus and well nourished Orientation: alert, awake and oriented x3 HENMT Head: normal to inspection Ears: external ears normal Nose: external nose normal Eyes General: appearance normal, both eyes and all related structures Neck Neck: normal visual inspection Chest Chest palpation inspection: normal inspection of the chest Resp Effort Inspection: normal respiratory effort, able to speak in complete sentences and symmetric chest movement Cardio Rate: regular rate Pulses: radial pulses present GI Inspection: normal to inspection Skin General: no rashes or lesions noted Neuro General: patient alert, patient awake, patient oriented x3 and gait normal Cognition: normal cognition Speech: speech normal Gait: normal gait Motor: muscle tone normal throughout Sensory Exam: no sensory deficits noted Extrem General: normal to inspection Psych Appearance: grossly normal Mental Status: mental status grossly normal Mood: congruent mood Affect: normal affect Speech and Movement: speech and movement normal Attitude: cooperative Thought Process: normal Thought Content: normal Judgment: judgment good Assessment and Plan Assessment and Plan (1) Dysphagia: Plan: The differential diagnosis for esophageal dysphagia does include erosive esophagitis with Schatzki's ring, eosinophilic esophagitis, esophageal web, hiatal hernia, infectious esophagitis. She should undergo an upper endoscopy to evaluate upper GI tract. (2) Anemia: Status: Resolved Qualifiers: Anemia type: iron deficiency Iron deficiency anemia type: unspecified iron deficiency Qualified Code(s): D50.9 - Iron deficiency anemia, unspecified Plan: She does have iron deficiency anemia characterized by low MCV. Differential diagnosis does include the Asimia minor sickle cell anemia, iron deficiency anemia and anemia chronic disease. 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 We will send celiac profile, ESR, CRP, RADHA comprehensive, ANCA. Orders: Orders Hemoglobinopathy Profile Today D50.9 - Iron deficiency anemia, unspecified OFI Hemoglobin Electrophoresis Today D50.9 - Iron deficiency anemia, unspecified Celiac AB,Comprehensive Today D50.9 - Iron deficiency anemia, unspecified RADHA Comprehensive Panel Today D50.9 - Iron deficiency anemia, unspecified ANCA Today D50.9 - Iron deficiency anemia, unspecified Allergen, Food Profile 14 Today D50.9 - Iron deficiency anemia, unspecified Ferritin Today D50.9 - Iron deficiency anemia, unspecified LILIAN + Protein Elect, Serum Today D50.9 - Iron deficiency anemia, unspecified Retic Panel Count Today D50.9 - Iron deficiency anemia, unspecified Haptoglobin Today D50.9 - Iron deficiency anemia, unspecified Iron Binding Capacity,Total Today D50.9 - Iron deficiency anemia, unspecified LDH Today D50.9 - Iron deficiency anemia, unspecified Vitamin B12 Today D50.9 - Iron deficiency anemia, unspecified Folates, (Folic Acid) Today D50.9 - Iron deficiency anemia, unspecified Thyroid Stim Hormone (TSH) Today D50.9 - Iron deficiency anemia, unspecified I have examined the pat (more content not included)...[facility] 10-22-2023 History of Present illness Narrative* Ratna Villalobos MD - 10/22/2023 11:00 AM EDT Subjective Patient ID: Justin Lee is a 28 y.o. female who presents for Annual Exam (For school and insurance; form needs completed and signed). HPI Works at [employer] and enrolling into 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 Respiratory: Positive for wheezing. Negative for cough and shortness of breath. Cardiovascular: Negative for chest pain and palpitations. Gastrointestinal: Negative for blood in stool. Genitourinary: Negative for hematuria. Musculoskeletal: Negative for arthralgias and back pain. Skin: Negative for rash. Neurological: Negative for headaches. Objective BP 100/64 (BP Location: Left arm, Patient Position: Sitting) Pulse 78 Temp 36.8 C (98.3 F) Ht1.715 m (5' 7.5) Wt 60.4 kg (133 lb 1.6 oz) SpO2 99% BMI 20.54 kg/m Physical Exam Vitals reviewed. Constitutional: General: She is not in acute distress. Appearance: Normal appearance. HENT: Head: Normocephalic and atraumatic. Right Ear: Tympanic membrane, ear canal and external ear normal. There is no impacted cerumen. Left Ear: Tympanic membrane, ear canal and external ear normal. There is no impacted cerumen. Nose: Nose normal. Mouth/Throat: Mouth: Mucous membranes are moist. Eyes: Conjunctiva/sclera: Conjunctivae normal. Pupils: Pupils are equal, round, and reactive to light. Cardiovascular: Rate and Rhythm: Normal rate and regular rhythm. Heart sounds: No murmur heard. Pulmonary: Effort: Pulmonary effort is normal. Breath sounds: Normal breath sounds. Abdominal: General: Abdomen is flat. Bowel sounds are normal. Palpations: Abdomen is soft. There is no mass. Musculoskeletal: General: Normal range of motion. Cervical back: Neck supple. Lymphadenopathy: Cervical: No cervical adenopathy. Skin: General: Skin is warm and dry. Neurological: General: No focal deficit present. Mental Status: She is alert and oriented to person, place, and time. Gait: Gait normal. Deep Tendon Reflexes: Reflexes normal. Psychiatric: Mood and Affect: Mood normal. Judgment: Judgment normal. Assessment/Plan Diagnoses and all orders for this visit: Wellness examination [facility] Work Phone: 1(871) 363-888112-05-2023 Discharge summary Author Leah Benavides [facility] May 20, 2023 9:51am Note Date/Time May 20, 2023 9 :49am [facility] Medical Records Department [address] [place] [address] Instructions for Home/Discharge Instructions 05/20/23 0948 MR#: [id number] Acct: [id number] Name: JUSTIN LEE Rep #:[id number] : 1995 27 From: Leah rosales MD PCP: Dr. Ratna Villalobos MD Status:REG [facility] Discharge Instructions Diet Discharge Diet: No restrictions Activity May resume sexual activity in: 6 weeks Weight Bearing Status: Full weight bearing Dressing / Incision Call your doctor if your incision/area has: Continuous Slow Oozing, Sudden Increased Bleeding, Increased Pain/ Swelling, Increased Redness and Foul Smelling Discharge Call your doctor if you observe: Fever of 101 or Higher, Using more than 1 pad per hour, Shortness of breath, Chest pain and Uncontrolled pain Suture Line Care: Avoid Pulling/Pushing and Avoid Pinching/Bending Remove Dressing in: 1 week (if present) Cleanse incision/area with: Soap & Water and Keep Dressing Clean & Dry Follow Up Care Please Follow Up With: Leah Benavides MD When: Call to make an appointment with your doctor for a postop visit in 2 and 6weeks. Test Results: Test results from this visit will be discussed in further detail at your follow- up appointment, if applicable. Discharge Plan Admission Attending Provider: Leah Benavides Primary Care Provider: Ratna Villalobos Discharge Orders/Prescriptions Prescriptions: New hydrocodone-acetaminophen 5-325 mg tablet 1 tab PO Q6H PRN (Reason: pain) 5 Days Qty: 10 0RF naproxen [naproxen] 500 mg tablet 500 mg PO BID PRN PRN (Reason: Pain) Qty: 30 1RF No Action multivitamin [Multiple Vitamin] Tablet 1 tab PO DAILY ferrous sulfate [iron] 325 mg (65 mg iron) Tablet 325 mg PO PRN PRN (Reason: ANEMIA) Referrals / Follow Up: Ratna Villalobos MD [Primary Care Provider] - Disposition Disposition (needs filled in before D/C Order can be placed): Home, Self Care 05/20/23 0991<Electronically signed by Leah Benavides MD>Leah Benavides MD CC: Dr. Ratna Villalobos MD ~ Signed [facility] Work Phone: 1(885) 863-286612-05-2023 Procedure [facility] 05-20-2023 History and physical note Author Leah Benavides [facility] May 20, 2023 7:31am Note Date/Time May 20, 2023 7 :31am [facility] Medical Records Department [address] [place] [address] History & Physical Exam 05/20/23 0731 MR#: [id number] Acct: [id number] Name: JUSTIN LEE Rep #:[id number] : 1995 27 From: Leah rosales MD PCP: Dr. 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 Accompanied by: Self Is patient in pain?: No Allergies oxycodone Allergy (Intermediate, Verified 05/16/23 13:20) Itching Medications ferrous sulfate 325 mg (65 mg iron) tablet (iron) 325 mg PO PRN PRN ANEMIA 11/15/20 [History Confirmed 05/16/23] multivitamin 1 tab PO DAILY SUPPLEMENT 11/15/20 [History Confirmed 05/16/23] PFSH Medical History Alcohol use Back pain Encounter for screening for COVID-19 Former smoker History of IBS Hx of endometriosis Low iron Wears contact lenses Surgical History History of arthroscopy of right shoulder History of umbilical hernia repair (~02/2021) Hx of section Family History Grandmother Diabetes Social History Smoking Status: Former smoker how long ago did patient quit smokin years alcohol intake: never substance use type: does not use caffeine: Yes what type of physical activity do you participate in: none seatbelt use: always do you feel safe at home: Yes additional social history: - Mary[place]en[place] Patient works in [employer] at [employer] Details: JUSTIN LEE is a 27 year old who presents for preop visit. she is having pelvi pain and she has a history of endometriosis. Female Reproductive History Menopausal Symptoms: No night sweats History 2 Elective abortions Hx Para 2 Spontaneous abortions Hx # Term Pregnancies Ectopic pregnancies Hx # Pregnancies Multiple births # of living children 2 Past Pregnancies Del. Date Name GA/Weeks Outcome Route Bth Weight Infant Gen Labor Lgth Anesthesia Del Locatn Provider FOB 07/06/18 Mehul 41 live - full term NS VD Male epidural [facility] 08/23/19 Camila 39 live - full term C- section Female spinal [facility] Dr. Leah Benavides Delivery Date: 07/06/18 Last Updated by: Rica Vee 4th degree laceration Delivery Date: 08/23/19 Last Updated by: Lena Dangelo LTCS partial salpingectomy ROS Const Constitutional: Reports weight loss; Denies fatigue, night sweats or weight gain ENT ENT: Reports system reviewed and no additional complaints, except as documented Cardio Card: Denies chest pain Resp Resp: Denies cough or dyspnea GI GI: Reports as per HPI and constipation; Denies abdominal pain, nausea or vomiting : Denies nipple discharge, urinary frequency, urinary incontinence, urinary hesitancy, urinary urgency, vaginal discharge, vaginal dryness, vaginal odor or vaginal pruritus Musc Musc: Denies arthralgias, back pain or muscle weakness Skin Skin/Breast: Denies alopecia, change in hair, dry skin, breast mass, breast pain, breast skin changes or nipple discharge Neuro Neuro: Reports system reviewed and no additional complaints, except as documented Psych Psych: Reports system reviewed and no additional complaints, except as documented Endo Endo: Denies cold intolerance, excessive sweating, heat intolerance or polydipsia Nimesh/Lymph Hematologic/Lymphatic: Denies easy bleeding, Denies easy bruising and Denies lymphadenopathy Exam Const General: cooperative, healthy appearing, comfortable and no acute distress Orientation: alert [facility] Head: normal to inspection and normocephalic Ears: hearing grossly normal bilaterally and external ears normal Nose: external nose normal and nares normal Face and sinus: normal facial exam Neck Neck: normal visual inspection and no lymphadenopathy Thyroid: thyroid normal Chest Chest palpation & inspection: normal inspection of the chest Resp Effort & Inspection: normal respiratory effort Cardio Rate: regular rate GI Inspection: normal to inspection and non-distended Palpation: soft and no hepatosplenomegaly General: bladder normal to palpation External Female Exam: normal external appearance and normal appearance of the urethra Urethra: normal appearance of the urethra, normal palpation and no discharge Speculum Exam - Vagina: normal appearance of the vagina and normal vaginal discharge Speculum Exam - Cervix: normal appearance of the cervix and nontender Bimanual Exam- Vagina & Uterus: normal bimanual exam, uterine size normal, bladder normal to palpation, uterine shape normal, No tender, uterine mobility normal, consistency normal, normal palpation and displaced (anteriorly significantly tender, scar tissue present) Bimanual Exam- Adnexa, other: normal adnexae, adnexae mobile, no masses and normal Pelvic Support: normal Musc Other: gross motor intact no deficits, full bilateral strength Skin General: no rashes or lesions noted Neuro General: patient alert, patient awake, moves all extremities and no focal motor deficits Motor: muscle tone normal throughout Extrem General: normal to inspection and no pedal edema Psych Appearance: grossly normal Mental Status: mental status grossly normal Affect: normal affect Speech and Movement: speech and movement normal Coding Level of Care Code No Charge Diagnoses Endometrioma N80.129 Pelvic pain R10.2 Pelvic mass R19.00 Assessment and Plan Assessment and Plan (1) Endometrioma: Status: Acute Comment: calabretta removed from abdominal wall. (2) Pelvic pain: Status: Acute Comment: mid c section scar, tender, suspect adenomyosis and scar tissue. discussed LAVHBS. failed OCP. (3) Pelvic mass: Status: Acute Comment: US Plan After discussing the patient's diagnosis and treatment plan options, patient wishes to proceed with surgical management. I have discussed with the patient the risks, benefits, and alternatives of the procedure which include but are notlimited to risks of anesthesia, bleeding, infection, possible damage to bowel, bladder, or surrounding vasculature which could lead to additional surgery to evaluate any complications. Patient agrees to procedure and wishes to proceed. ACOG/uptodate references given for additional information regarding procedure. UPDATE- I have seen the patient and performed any clinically relevant updates to the history and physical exam. Leah Benavides MD 05/20/23 0731 <Electronically signed by Leah Benavides MD> Cosigner Signature (if applicable): CC: Dr. Ratna Villalobos MD; Dr. Leah Benavides MD~ Signed [facility] Work Phone: 1(746) 712-196103-23-2023 NotePap Smear Specimen AdequacyMarch 2022 12:22pmComment.Satisfactory for evaluation. Endocervical and/or squamous metaplasticcells (endocervical component)are present.[facility] INTER[facility]ED A#[id number] Medical CenterComment on above:Satisfactory for evaluation. Endocervical and/or squamous metaplasticcells (endocervical component)are present.09-05-2022 NotePap Smear Specimen AdequacyMarch 2022 12:22pmComment.Satisfactory for evaluation. Endocervical and/or squamous metaplasticcells (endocervical component)are present.[facility] INTER[facility] A#[id number] Medical CenterComment on above:Satisfactory for evaluation. Endocervical and/or squamous metaplasticcells (endocervical component)are present.Evaluation note* Diagnosis Onset Date Resolution Status Back pain acute Segmental and somatic dysfunction of cervical region acute Segmental and somatic dysfunction of lumbar region acute Segmental and somatic dysfunction of pelvic region acute Segmental and somatic dysfunction of thoracic region acute [facility] Work Phone: Evaluation note* Diagnosis Onset Date Resolution Status Back pain acute Coccydynia acute Segmental and somatic dysfunction of cervical region acute Segmental and somatic dysfunction of lumbar region acute Segmental and somatic dysfunction of pelvic region acute Segmental and somatic dysfunction of thoracic region acute Pelvic mass acute Pelvic pain acute Routine gynecological examination noneactive [facility] Work Phone: Evaluation note* Diagnosis Onset Date Resolution Status Back pain acute Segmental and somatic dysfunction of cervical region acute Segmental and somatic dysfunction of lumbar region acute Segmental and somatic dysfunction of pelvic region acute Segmental and somatic dysfunction of thoracic region acute Endometrioma acute Pelvic mass acute Pelvic pain acute [facility] Work Phone: Evaluation note* Diagnosis Onset Date Resolution Status Endometrioma acute Pelvic mass acute Pelvic pain acute Endometrioma acute Pelvic mass acute Pelvic pain acute Endometrioma acute Pelvic pain acute [facility] Work Phone: Evaluation note* Diagnosis Onset Date Resolution Status Postoperative examination no neactive Back pain acute Segmental and somatic dysfunction of cervical region acute Segmental and somatic dysfunction of lumbar region acute Segmental and somatic dysfunction of pelvic region acute Segmental and somatic dysfunction of thoracic region acute [facility] Work Phone: Evaluation note* Diagnosis Wellness examination- Primary documented in this encounter [facility] Work Phone: Evaluation note* Diagnosis Acute non-recurrent maxillary sinusitis- Primary Acute cough documented in this encounter [facility] Work Phone: History of Present illness Narrative* always constipation since Jr High * worse after childbirth * has small pellets * no vomitting * min cramping no real pain * has tried eating less diary like milk * has bm every 2 days always hard small to medium * always bloated * never empty * sits 10 mintues * tries 6 times per day * black coffee helps but hates it once a week * fiber with fiber bars tried 2 months with no change * no ex lax * no bladder issues * hernia belly button * no worse no pain unless pushing on it * no pyrosis * no wt changes * trying to loss wt for 1 year since last delivery * csect 1 year ago * prior x 1 * has been on iron for 1 years * iv iron infusions during * anemia sarted at 18 years ago * never saw hem * 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 there are no concerns today. Concerns raised today include: allergies, right eye swelling/redness. The patient's health since the last visit is described as good. There are no interval changes in the patient's PMH, PSH, and current medications. There are no interval changes in the patient's social and family history. She has regular dental visits. The patient brushes 1 time(s) a day and reports her last dental visit was in last year. She complains of vision problems. Vision care includes wearing glasses and wearing soft contact lenses. She denies hearing loss. Immunizations status: up to date. * Lifestyle: She consumes a diverse and healthy diet. She does not have any weight concerns. She usestobacco. The patient is a former cigarette smoker and quit smoking cigarettes: 3 years. She consumes alcohol. She reports occasional alcohol use. She typically drinks wine and hard liquor. * Reproductive health: she reports abnormal menses. * Menstrual history:. age at menarche was 13. LMP: the last menstrual period was 01/28/22 and it was of a normal amount and duration. The cycles have been regular. she uses contraception. (tubal ligation) she is sexually active. * History: 2 and full term. * Cervical cancer screening:. patient has no history of an abnormal pap smear. see [facility] in [facility]. * Metabolic screening: no previous lipid profile. * Justin is a 26 yo female here today fro work physical. She has labs completed on 02/01/22, reviewedresults with patient, she is aware of Iron deficiency states she has been off of her iron due to IBS symptoms including constipation and frequency/urgency of BM. * She reports sore throat on Friday, woke up Friday with eye swollen shut, no matting or drainage, other family members are ill. COVID test was negative on Friday. right eye remains swollen and red, no pain or or drainage. * Lab results included positive UA, she has had some burning with urination however she states she had just dealt with it * Justin is a busy mom and states she has little time for herself. * Encouragement provided to take some time for her own wellbeing, therefor she can provided for her family better if she herself is well. * She agrees she will improve her self care. -[facility] Work Phone: History of Present illness Narrative* Ms Desouza is a 27-year-old woman with no significant medical history who is presenting for evaluation of abnormal ultrasound. 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 She has had painful periods and painful intercourse. She had a pelvic ultrasound that showed findings that were potentially suggestive for potential nutcracker. She denies hematuria, pain in her legs with standing or with ambulation. No varicosities in the lower extremities. No leg swelling or foot wounds. [id number] Work Phone: Reason for referral (narrative)No reason for referral information availableWMarietta Osteopathic Clinic Work Phone: Summary Purpose Family History No Family History Records FoundUnknown Family Member Name Dates Details Family history of type 2 tracie betes mellitus: Grandparent(V18.0, Z83.3) Status:Active Irregular heartbeat: Grandpa rent Status:Active Unknown Family Member Name Dates Details Family history of type 2 tracie betes mellitus: Grandparent(V18.0, Z83.3) Status:Active Irregular heartbeat: Grandpa rent Status:Active Relationship Condition Age at Onset Recorded Date/T marylu grandmother Diabetes mellitus Unknown Unknown Family Member Name Dates Details Family history of type 2 tracie betes mellitus: Grandparent(V18.0, Z83.3) Status:Active Irregular heartbeat: Grandpa rent Status:Active Unknown Family Member Name Dates Details Irregular heartbeat: Grandpa rent Status:Active Family history of type 2 tracie betes mellitus: Grandparent(V18.0, Z83.3) Status:Active Unknown Family Member Name Dates Details Family history of type 2 tracie betes mellitus: Grandparent(V18.0, Z83.3) Status:Active Irregular heartbeat: Grandpa rent Status:Active Unknown Family Member Name Dates Details Family history of type 2 tracie betes mellitus: Grandparent(V18.0, Z83.3) Status:Active Irregular heartbeat: Grandpa rent Status:Active Family history of cerebrovas cular accident (CVA): Paternal Grandmother(V17.1, Z82.3) Status:Active Unknown Family Member Name Dates Details Family history of type 2 tracie betes mellitus: Grandparent(V18.0, Z83.3) Status:Active Irregular heartbeat: Grandpa rent Status:Active Family history of cerebrovas cular accident (CVA): Paternal Grandmother(V17.1, Z82.3) Status:Active Advance Directives No Advanced Directives Records Found Advance Directive Response Recorded Date/ Time Living Will No February 07 10:49am Power of Video Operator No February 07, 021 10:49am Advance Directive Response Recorded Date/ Time Living Will No September 02, 2022 8:23am Power of Video Operator No September 02 8:23am Advance Directive Response Recorded Date/ Time Living Will No March 24 9:31am Power of Video Operator No March 24 023 9:31am Advance Directive Response Recorded Date/ Time Living Will No May 06 023 10:14am Power of Video Operator No May 06, 2023 10:14am Advance Directive Response Recorded Date/ Time Living Will No October 08, 2023 7:37am Power of Video Operator No October 07 7:37am Chief Complaint Pt. 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 Reason for Visit Back pain Segmental and somatic dysfunction of cervical region Segmental and somatic dysfunction of lumbar region Segmental and somatic dysfunction of pelvic region Segmental and somatic dysfunction of thoracic region Chief Complaint Back pain XRAY lump near c/sec scar Reason for Visit Back pain Coccydynia Segmental and somatic dysfunction of cervical region Segmental and somatic dysfunction of lumbar region Segmental and somatic dysfunction of pelvic region Segmental and somatic dysfunction of thoracic region Pelvic mass Pelvic pain Routine gynecological examination Chief Complaint Back pain XRAY lump near c/sec scar PELVIC PAIN Reason for Visit Back pain Coccydynia Segmental and somatic dysfunction of cervical region Segmental and somatic dysfunction of lumbar region Segmental and somatic dysfunction of pelvic region Segmental and somatic dysfunction of thoracic region Pelvic mass Pelvic pain Routine gynecological examination Chief Complaint 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 Back pain Pelvic Pain, discuss surgry R19.00 R10.2 Reason for Visit Back pain Segmental and somatic dysfunction of cervical region Segmental and somatic dysfunction of lumbar region Segmental and somatic dysfunction of pelvic region Segmental and somatic dysfunction of thoracic region Endometrioma Pelvic mass Pelvic pain Chief Complaint Pelvic Pain, discuss surgry R19.00 R10.2 LAVHBS Hysterectomy,LAVH, bilateral salpin Hysterectomy,LAVH, bilateral salpin Reason for Visit Endometrioma Pelvic mass Pelvic pain Endometrioma Pelvic mass Pelvic pain Endometrioma Pelvic pain Chief Complaint 6 wk LAVHBS REEVAL abdpain Reason for Visit Postoperative examin ation Back pain Segmental and somatic dysfunction of cervical region Segmental and somatic dysfunction of lumbar region Segmental and somatic dysfunction of pelvic region Segmental and somatic dysfunction of thoracic region Chief Complaint Admit Date 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) September 20, 2024 2:44 pm PELVIC PAIN September 23, 2024 1:3 1pm Reason for Visit Admit Date Ovarian enlargement, right September 20 2:44pm Pelvic pain September 20, 2024 2:44 pm Encounter for routine gynecological exam ination September 20, 2024 2:44pm Chief Complaint Admit Date 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) September 20, 2024 2:44 pm PELVIC PAIN September 23, 2024 1:3 1pm INT LABS October 07, 2024 9:3 6am 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 October 09, 2024 11: 13am PE NON DOT PHYSICAL/ [facility] November 19, 2024 9:47am Chief Complaint Admit Date PE NON DOT PHYSICAL/ [facility]CU November 19, 2024 9:47am Reason for Visit Admit Date Encounter for pre-employment health 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 examination November 19, 2024 9:47am Additional Source Comments INFORMATION SOURCE (unrecogn ized section and content) DATE CREATED AUTHOR 12/04/2017 [facility] DATE CREATED AUTHOR AUTHOR'S ORGANIZ ATION 12/08/2017 [facility] DATE CREATED AUTHOR AUTHOR'S ORGANIZ ATION 08/12/2019 [facility] DATE CREATED AUTHOR AUTHOR'S ORGANIZ ATION 05/06/2020 [facility] DATE CREATED AUTHOR AUTHOR'S ORGANIZ ATION 02/12/2023 [facility] DATE CREATED AUTHOR AUTHOR'S ORGANIZ ATION 02/27/2023 [facility] DATE CREATED AUTHOR AUTHOR'S ORGANIZ ATION 10/24/2023 [facility] DATE CREATED AUTHOR AUTHOR'S ORGANIZ ATION 05/12/2024 [facility] DATE CREATED AUTHOR AUTHOR'S ORGANIZ ATION 02/14/2025 [facility] <item> Privacy Markings (unrecogniz ed section and content) Section Author: Kaelyn Segal PROHIBITION ON REDISCLOSURE OF CONFIDENTIAL INFORMATION This notice accompanies a disclosure of information concerning a client made to you with the consent of such client. Care Teams (unrecognized sec tion and content) Team Status: Active Member Role Status Dates Dr. Ratna Villalobos MD Family Provider Active Dr. Ratna Villalobos MD Primary Care Provider Active Team Status: Inactive Member Role Status Dates Dr. Ratna Villalobos MD Primary Care Provider, Referrin g Provider Active Dr. Ana Maynard DC Attending Provider Active Team Status: Inactive Member Role Status Dates Dr. Ratna Villalboos MD Primary Care Provider Active Dr. Ana Maynard DC Attending Provider Active Team Status: Active Member Role Status Dates Dr. Ratna Villalobos MD Primary Care Provider Active Dr. Ana Maynard DC Attending Provider Active Team Status: Inactive Member Role Status Dates Dr. Ratna Villalobos MD Primary Care Provider, Referrin g Provider Active Vani Myers IMPORT EXPORT MANAGER, IMPORT EXPORT MANAGER-C Attending Provider Active Team Status: Inactive Member Role Status Dates Dr. Ratna Villalobos MD Primary Care Provider Active [place] [place] Attending Provider Active Team Status: Inactive Member Role Status Dates Dr. Ratna Villalobos MD Primary Care Provider Active Vani Myers IMPORT EXPORT MANAGER, IMPORT EXPORT MANAGER-C Attending Provider Active Team Status: Inactive Member Role Status Dates Dr. Ratna Villalobos MD Referring Provider Active Dr. Leah Benavides MD Attending Provider Active Team Status: Active Member Role Status Dates Dr. Ratna Villalobos MD Primary Care Provider Active Health Risk Assessment Attending Provider, Referring Oj dooley Active Team Status: Inactive Member Role Status Dates Dr. Leah Benavides MD Attending Provider, Referr ing Provider Active Dr. Ratna Villalobos MD Primary Care Provider Active Team Status: Inactive Member Role Status Dates Dr. Leah Benavides MD Attending Provider Active Dr. Ratna Villalobos MD Primary Care Provider, Referrin g Provider Active Team Status: Active Member Role Status Dates Dr. Leah Benavides MD Attending Pr ovider, Referring Provider, Other Provider Active Dr. Ratna Villalobos MD Primary Care Provider Active Team Status: Active Member Role Status Dates Dr. Ratna Villalobos MD Primary Care Provider Active Dr. Leah Benavides MD Attending Provider, Referr ing Provider Active Team Status: Inactive Member Role Status Dates Dr. Ratna Villalobos MD Primary Care Provider Active Dr. Leah Benavides MD Attending Provider, Referr ing Provider Active Team Status: Inactive Member Role Status Dates Dr. Ratna Villalobos MD Primary Care Provider Active Dr. Tam Ledbetter DO Emergency Provider Active Lead Clinical Research Coordinator Relationship Specialty Start Date End Date Ratna Villalobos MD [address] [facility] [address] [place], [place] [id number] PCP - General 08/09/19 Lead Clinical Research Coordinator Relationship Specialty Start Date End Date Eh Devine MD [address] [facility] [place] [address] PCP - General Internal Medicine 11/21/23 Team Status: Active Member Role Status Dates Dr. Ratna Villalobos MD Primary Care Provider Active Team Status: Inactive Member Role Status Dates Dr. Ratna Villalobos MD Primary Care Provider Active Start: September 20, 2024 End: September 20, 2024 Dr. Ratna Villalobos MD Referring Provider Active Start: September 20, 2024 End: September 20, 2024 Vani Myers IMPORT EXPORT MANAGER, IMPORT EXPORT MANAGER-C Attending Provider Active Start: September 20, 2024 End: September 20, 2024 Team Status: Inactive Member Role Status Dates Dr. Ratna Villalobos MD Primary Care Provider Active Start: September 23, 2024 End: September 23, 2024 Vani Myers IMPORT EXPORT MANAGER, IMPORT EXPORT MANAGER-C Attending Provider Active Start: September 23, 2024 End: September 23, 2024 Vani Myers IMPORT EXPORT MANAGER, IMPORT EXPORT MANAGER-C Referring Provider Active Start: September 23, 2024 End: September 23, 2024 Team Status: Inactive Member Role Status Dates Dr. Ratna Villalobos MD Primary Care Provider Active Start: October 07, 2024 End: October 07, 2024 Dr. Zackary Anderson DO Attending Provider Active Start: October 07, 2024 End: October 07, 2024 Dr. Zackary Anderson DO Referring Provider Active Start: October 07, 2024 End: October 07, 2024 Team Status: Active Member Role Status Dates Dr. Ratna Villalobos MD Primary Care Provider Active Start: October 09, 2024 Health Risk Assessment Attending Provider Active Start: October 09, 2024 Health Risk Assessment Referring Provider Active Start: October 09, 2024 Team Status: Inactive Member Role Status Dates Dr. Ratna Villalobos MD Primary Care Provider Active Start: November 19, 2024 End: November 19, 2024 Dr. Ratna Villalobos MD Referring Provider Active Start: November 19, 2024 End: November 19, 2024 DORINA Lilly Attending Provider Active Sta rt: November 19, 2024 End: November 19, 2024 Team Status: Active Member Role/Relationship Status Dates Dr. Ratna Villalobos MD Primary Care Provider Active Team Status: Inactive Member Role/Relationship Status Dates Dr. Ratna Villalobos MD Primary Care Provider Active Start: November 19, 2024 End: November 19, 2024 Dr. Ratna Villalobos MD Referring Provider Active Start: November 19, 2024 End: November 19, 2024 DORINA Lilly Attending Provider Active Sta rt: November 19, 2024 End: November 19, 2024 Team Status: Inactive Member Role/Relationship Status Dates Dr. 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 This clinical summary was aggregated from multiple sources. Caution should be exercised in using it in the provision of clinical care. This summary normalizes information from multiple sources, and as a consequence, information in this document may materially change the coding, format and clinical context of patient data. In addition, data may be omitted in some cases. CLINICAL DECISIONS SHOULD BE BASED ON THE PRIMARY CLINICAL RECORDS. [facility] provides no warranty or guarantee of the accuracy or completeness of information in this document.
[2025-03-06 17:25] LABS: Anion Gap 11 (5-15); BUN 8 mg/dL (4-19); BUN/Creat Ratio 11.1 RATIO (10-20); Calcium,Total 8.8 mg/dL (7.6-11.0); Carbon Dioxide 24.1 mmol/L (21.0-32.0); Chloride 103 mmol/L (98-108); Estimated Creatinine Clearance 102.67 ml/min (50-250); Glucose 136 mg/dL (70-99); Potassium 3.5 mmol/L (3.3-5.1)
[2025-03-06] MEDS: Ampicillin/Sulbactam 3 GM in 0.9% Normal Saline (100mL MB+) 100 ML IV (17:26)
[2025-03-06 18:33] VITALS: BP 121/79; PULSE 78; RESP 18; TEMP 36.8; O2SAT 100
== END 2025-03-06 18:35 | disposition home or self-care (01) ==
PROVIDERS: Emergency Provider Emergency Medicine; PCP Family Medicine; Visit Provider Emergency Medicine
DX: L03.115 Cellulitis of right lower limb (principal); Z87.891 Personal history of nicotine dependence; Z90.710 Acquired absence of both cervix and uterus
CPT/HCPCS: 80048; 85025; 96365; 99283; A4216; J0295